=== PATIENT | female | born 1950 | race Caucasian/White ===

== ENCOUNTER → 2016-09-05 | Outpatient (CLI) | payer OTHER, BC ==
[~2016-09-05] MED LIST: CHOL1TAB42 PO; Ergocalciferol PO; FRS/40 PO; METO2.5T PO; OXYC-57 PO; OXYC-609 PO; OXYC1TAB3 PO; POTA-74 PO; PRLSR20 PO; PRVHFAIN INH; SUMA100T16 PO; SUMA50TA15 PO; TRIA0.1C20 TOP
--- NOTE | 2016-09-05 11:11 | DIAGNOSTIC IMAGING REPORT ---
CHEST 2 VIEWS ROUTINE CLINICAL HISTORY: Bronchospasm, acute dyspnea COMPARISON STUDY: 10/13/2014 FINDINGS: Potential developing nodular density left base laterally. Lungs otherwise are clear. No evidence for cardiac collision. Diaphragms are smooth. IMPRESSION: Potential developing nodular density versus round infiltrate left base. CT of the chest is suggested as follow-up. Electronically signed by: Rene Rod M.D. 09/05/2016 11:10 AM Dictated Date/Time: 09/05/2016 11:08 AM
== END | disposition home or self-care (01) ==
LOC: C.RADBC 10:56
PROVIDERS: ATTEND Physician Assistant
DX: J98.01 Acute bronchospasm (principal); R91.8 Other nonspecific abnormal finding of lung field

== ENCOUNTER → 2016-10-07 | Outpatient (CLI) | payer OTHER, BC ==
--- NOTE | 2016-10-07 10:40 | DIAGNOSTIC IMAGING REPORT ---
CHEST CT WITHOUT CONTRAST CT DOSE: 1062.71 mGy.cm HISTORY: Nodule J18.9 Pneumonia TECHNIQUE: Multiaxial CT images of the chest were performed without contrast. COMPARISON: Chest series dated 09/05/2016 FINDINGS: Lungs are considered clear no focal infiltrate or nodular pathology. Findings on the patient's prior chest series appears to relate to a resolved infiltrate. No significant mediastinal or hilar adenopathy. IMPRESSION: No acute process. The lungs are clear. Electronically signed by: Rene Rod M.D. 10/07/2016 10:38 AM Dictated Date/Time: 10/07/2016 10:35 AM
[2016-10-07 12:23] LABS: BASO % 0.2 %; BASO ABS # 0.02 K/uL (0-0.2); COMPLETE YES; EOS % 0.6 %; HEMATOCRIT 43.4 % (37-47); IG% 0.6 %; LYMPH % 18.3 %; LYMPH ABS # 1.85 K/uL (1.2-3.4); MEAN CELL VOLUME 95.2 fL (80-100); MEAN CORPUSCULAR HEMOGLOBIN 30.7 pg (25-34); MEAN CORPUSCULAR HGB CONC 32.3 g/dl (32-36); MEAN PLATELET VOLUME 10.3 fL (7.4-10.4); MONO % 6.7 %; NEUT % 73.6 %; PLATELET COUNT 294 K/uL (130-400); RED BLOOD COUNT 4.56 M/uL (4.2-5.4); WHITE BLOOD COUNT 10.11 K/uL (4.8-10.8)
[2016-10-07 12:46] LABS: ALT/SGPT 26 U/L (12-78); AST/SGOT 16 U/L (15-37); BLOOD UREA NITROGEN 16 mg/dl (7-18); BUN/CREATININE RATIO 15.9 (10-20); CARBON DIOXIDE 31 mmol/L (21-32); CHLORIDE 99 mmol/L (98-107); CREATININE 0.99 mg/dl (0.60-1.20); GLUCOSE 102 mg/dl (70-99); POTASSIUM 3.4 mmol/L (3.5-5.1); SODIUM 139 mmol/L (136-145)
[2016-10-07 12:48] LABS: ALB/GLOB RATIO 0.9 (0.9-2); ALKALINE PHOSPHATASE 141 U/L (45-117)
[2016-10-07 13:17] LABS: ESTIMATED AVERAGE GLUCOSE 131 mg/dl; HA1C FLAG Normal (Normal)
== END | disposition home or self-care (01) ==
LOC: C.CTS 10:01
PROVIDERS: ATTEND Physician Assistant
DX: J18.9 Pneumonia, unspecified organism (principal); M19.90 Unspecified osteoarthritis, unspecified site; E55.9 Vitamin D deficiency, unspecified; M48.06 Spinal stenosis, lumbar region; R73.9 Hyperglycemia, unspecified; I87.2 Venous insufficiency (chronic) (peripheral); R74.8 Abnormal levels of other serum enzymes

== ENCOUNTER → 2017-01-24 | Outpatient (CLI) | payer OTHER, BC ==
[~2017-01-24] MED LIST changes: +CHOL1TAB42 PEG; -CHOL1TAB42 PO; -OXYC-57 PO; -OXYC-609 PO; -POTA-74 PO; -PRVHFAIN INH; -SUMA100T16 PO
== END | disposition home or self-care (01) ==
LOC: C.LAB 09:18
PROVIDERS: ATTEND Internal Medicine Geriatric Medicine
DX: E55.9 Vitamin D deficiency, unspecified (principal)

== ENCOUNTER → 2017-03-10 | Outpatient (CLI) | payer OTHER, BC ==
[~2017-03-10] MED LIST changes: -Ergocalciferol PO; +OXYC-57 PO; -OXYC1TAB3 PO; +PRVHFAIN INH; -TRIA0.1C20 TOP
[2017-03-10 12:23] LABS: URINE APPEARANCE CLEAR (CLEAR); URINE BILIRUBIN NEG (NEG); URINE COLOR YELLOW; URINE NITRITE NEG (NEG); URINE SPECIFIC GRAVITY 1.007 (1.000-1.030); UROBILINOGEN NEG (NEG)
[2017-03-10 12:29] LABS: MANUAL MICROSCOPIC REQUIRED? NO; REVIEW REQ? NO
== END | disposition home or self-care (01) ==
LOC: C.LABBFT 09:00
PROVIDERS: ATTEND Physician Assistant
DX: R35.0 Frequency of micturition (principal)

== ENCOUNTER 2017-03-25 09:49 | Emergency (ER) | payer OTHER, BC ==
[~2017-03-25] VITALS: Ht 154.9 cm; Wt 123.6 kg
[~2017-03-25 09:49] MED LIST changes: -CHOL1TAB42 PEG; +CHOL1TAB42 PO
[2017-03-25 10:00] VITALS: TEMP 37; Ht 154.9 cm; Wt 123.6 kg
[2017-03-25 10:53] LABS: BASO % 0.2 %; BASO ABS # 0.02 K/uL (0-0.2); COMPLETE YES; EOS % 0.6 %; HEMATOCRIT 43.3 % (37-47); IG% 0.3 %; LYMPH % 15.8 %; LYMPH ABS # 1.66 K/uL (1.2-3.4); MEAN CELL VOLUME 95.8 fL (80-100); MEAN CORPUSCULAR HEMOGLOBIN 31.9 pg (25-34); MEAN CORPUSCULAR HGB CONC 33.3 g/dl (32-36); MEAN PLATELET VOLUME 9.8 fL (7.4-10.4); MONO % 5.2 %; NEUT % 77.9 %; PLATELET COUNT 252 K/uL (130-400); RED BLOOD COUNT 4.52 M/uL (4.2-5.4)
[2017-03-25] MEDS ORDERED: POTA-74 PO (10:55)
[2017-03-25] MEDS ORDERED: SUMA100T16 PO (10:55)
[2017-03-25] MEDS ORDERED: OXYC-609 PO (10:55)
[2017-03-25 11:04] LABS: URINE APPEARANCE CLEAR (CLEAR); URINE BILIRUBIN NEG (NEG); URINE COLOR YELLOW; URINE NITRITE NEG (NEG); URINE SPECIFIC GRAVITY 1.006 (1.000-1.030); UROBILINOGEN NEG (NEG)
[2017-03-25 11:11] LABS: MANUAL MICROSCOPIC REQUIRED? NO; REVIEW REQ? NO
[2017-03-25 11:16] LABS: CREATININE 0.83 mg/dl (0.60-1.20)
[2017-03-25 11:17] LABS: BUN/CREATININE RATIO 13.9 (10-20); CALCIUM 9.6 mg/dl (8.5-10.1); POTASSIUM 3.3 mmol/L (3.5-5.1)
--- NOTE | 2017-03-25 11:37 | DIAGNOSTIC IMAGING REPORT ---
ABDOMEN AND PELVIS CT WITHOUT CONTRAST CT DOSE: 1669.67 mGy.cm HISTORY: Acute lower abdominal pain with lower leg edema. lower abd pain, decreased urination, lower leg edema TECHNIQUE: Multiaxial CT images of the abdomen and pelvis were performed without contrast. A dose lowering technique was utilized adhering to the principles of ALARA. COMPARISON STUDY: CT abdomen and pelvis 01/11/2010 FINDINGS: Lung bases are generally clear with only minimal subsegmental dependent bibasilar atelectasis. Small right Bochdalek hernia. No pneumatosis or pneumoperitoneum. Imaged inferior cardiac chambers are unremarkable. Fatty infiltration of the liver. The spleen, pancreas and gallbladder are unremarkable. Bilateral adrenal gland thickening redemonstrated. Nonspecific symmetric perinephric stranding is noted bilaterally without renal calculi or hydronephrosis. Ureters are unremarkable. Muller catheter is noted within a collapsed urinary bladder lumen. Foci of air within the bladder lumen likely secondary to instrumentation. Uterus and adnexa are unremarkable. Mild atherosclerosis of the aorta. No bulky retroperitoneal adenopathy. No bowel obstruction or focal bowel wall thickening. Mild colonic diverticulosis without diverticulitis. There is nondistention involving the majority of the colon. The appendix demonstrates high attenuating intraluminal material which may reflect appendicolith or inspissated stool. No evidence of acute appendicitis. Soft tissues are unremarkable. The bones appear intact. Patient obesity noted. Degenerative changes are seen throughout the spine. Grade 1 anterolisthesis L4 on L5, likely secondary to associated severe facet disease. IMPRESSION: 1. No acute intra-abdominal or intrapelvic abnormality identified. No renal calculi or hydronephrosis. 2. Fatty infiltration of the liver. 3. Mild colonic diverticulosis without diverticulitis. 4. Additional findings as above. Electronically signed by: Imtiaz Interiano M.D. 03/25/2017 11:36 AM Dictated Date/Time: 03/25/2017 11:29 AM
[2017-03-25 12:49] VITALS: BP 128/84; PULSE 68; O2SAT 94
--- NOTE | 2017-03-25 17:57 | EMERGENCY ROOM VISIT NOTE ---
History Report prepared by Julia: Breann Khan Under the Supervision of: Dr. John Bishop M.D. First contact with patient: 10:07 Chief Complaint: URINARY SYMPTOMS Stated Complaint: POSSIBLE DISTENDED BLADDER Nursing Triage Summary: Had Surgery Feb 16 (rotator cuff, left arm, was actually nerve compression and bone spurs) which messed up her lungs and is now on oxygen 2LNC. 3 weeks later legs were swelling, which was normal, but got worse than normal and she saw PA Mar 06. Mar 10, after taking double lasix x 3 days, legs weren't any better. Concerned about distended bladder, stomach was real hard last night. Urinating small amounts at a time. History of Present Illness The patient is a 66 year old female who presents to the Emergency Room with complaints of urinary symptoms beginning a couple days ago. She states that she had surgery on February 16, was fine for 3 weeks, and then she started having bilateral leg swelling. She reports that her legs are usually somewhat swollen due to neuropathy. She states that she was placed on fluid pills for 3 days which did not help. She states she was then sent for a urine test which was negative. The patient states that in the last couple of days her stomach has gotten hard, and that she has had urine retention. She reports chronic back pain due to spinal stenosis, but states that her pain has recently worsened. Pt denies LOC, headache, fevers, chills, diaphoresis, visual changes, neck pain, chest pain, nausea, vomiting, melena, hematochezia, numbness, weakness, or other complaints. The patient states that she is borderline diabetic. Source of History: patient Onset: couple days ago Position: other (bladder) Quality: other (urinary symptoms ) Associated Symptoms: + abdominal pain (abdomen has been hard), No fevers Review of Systems See HPI for pertinent positives and negatives. A total of ten systems were reviewed and were otherwise negative. Past Medical & Surgical Medical Problems: (1) Acute hypoxemic respiratory failure Surgical Problems: (1) S/P tubal ligation Social History Smoking Status: Current Every Day Smoker Alcohol Use: occasionally Drug Use: none Marital Status: in relationship Housing Status: lives with significant other Current/Historical Medications Scheduled Cholecalciferol (Vitamin D), 1 TAB PO QAM Furosemide (Lasix), 40 MG PO QAM Metolazone (Zaroxolyn), 2.5 MG PO QAM Omeprazole (Prilosec), 40 MG PO QAM Oxycodone HCl (Oxycodone HCl), 5 MG PO Q4-6H Potassium Chloride (Potassium Chloride Er), 10 MEQ PO BID Scheduled PRN Albuterol (Ventolin Hfa), 2 PUFF INH Q4 PRN for SOB/Wheezing Sumatriptan Succinate (Imitrex), 50 MG PO PRN PRN for Migraine Allergies Coded Allergies: Fentanyl (Verified Allergy, Severe, HIVES, 03/25/17) Tramadol (Verified Adverse Reaction, Mild, hallucination, 03/25/17) Amoxicillin (Verified Adverse Reaction, Unknown, FLUID RETENTION, 03/25/17) Aspirin (Verified Adverse Reaction, Unknown, ULCER, 03/25/17) Doxycycline (Verified Adverse Reaction, Unknown, FLUID RETENTION, 03/25/17) Gabapentin (Verified Adverse Reaction, Unknown, hallucinations, 03/25/17) Ibuprofen (Verified Adverse Reaction, Unknown, ULCER, 03/25/17) Naproxen (Verified Adverse Reaction, Unknown, ULCERS, 03/25/17) Physical Exam Vital Signs Date Time Temp Pulse Resp B/P (MAP) Pulse Ox O2 Delivery O2 Flow Rate FiO2 03/25/17 12:49 68 16 128/84 94 03/25/17 11:48 74 14 103/64 97 03/25/17 11:12 Nasal Cannula 2.0 03/25/17 11:11 74 20 110/50 90 03/25/17 10:00 37.0 85 17 131/78 92 Physical Exam GENERAL: Awake, alert, well-appearing, in no distress HENT: Normocephalic, atraumatic. Oropharynx unremarkable. EYES: Normal conjunctiva. Sclera non-icteric. NECK: Supple. No nuchal rigidity. FROM. No JVD. RESPIRATORY: Clear to auscultation. CARDIAC: Regular rate, normal rhythm. Extremities warm and well perfused. Pulses equal. ABDOMEN: Soft, non-distended. Suprapubic tenderness. No rebound or guarding. No masses. RECTAL: Deferred. MUSCULOSKELETAL: Chest examination reveals no tenderness. The back is symmetrical on inspection without obvious abnormality. There is no CVA tenderness to palpation. No joint edema. LOWER EXTREMITIES: Calves are equal size bilaterally and non-tender. 1+ lower extremity edema bilaterally. No discoloration. NEURO: Normal sensorium. No sensory or motor deficits noted. SKIN: No rash or jaundice noted. Medical Decision & Procedures ER Provider Diagnostic Interpretation: Radiology results as stated below per my review and radiologist interpretation: ABDOMEN AND PELVIS CT WITHOUT CONTRAST CT DOSE: 1669.67 mGy.cm HISTORY: Acute lower abdominal pain with lower leg edema. lower abd pain, decreased urination, lower leg edema TECHNIQUE: Multiaxial CT images of the abdomen and pelvis were performed without contrast. A dose lowering technique was utilized adhering to the principles of ALARA. COMPARISON STUDY: CT abdomen and pelvis 01/11/2010 FINDINGS: Lung bases are generally clear with only minimal subsegmental dependent bibasilar atelectasis. Small right Bochdalek hernia. No pneumatosis or pneumoperitoneum. Imaged inferior cardiac chambers are unremarkable. Fatty infiltration of the liver. The spleen, pancreas and gallbladder are unremarkable. Bilateral adrenal gland thickening redemonstrated. Nonspecific symmetric perinephric stranding is noted bilaterally without renal calculi or hydronephrosis. Ureters are unremarkable. Muller catheter is noted within a collapsed urinary bladder lumen. Foci of air within the bladder lumen likely secondary to instrumentation. Uterus and adnexa are unremarkable. Mild atherosclerosis of the aorta. No bulky retroperitoneal adenopathy. No bowel obstruction or focal bowel wall thickening. Mild colonic diverticulosis without diverticulitis. There is nondistention involving the majority of the colon. The appendix demonstrates high attenuating intraluminal material which may reflect appendicolith or inspissated stool. No evidence of acute appendicitis. Soft tissues are unremarkable. The bones appear intact. Patient obesity noted. Degenerative changes are seen throughout the spine. Grade 1 anterolisthesis L4 on L5, likely secondary to associated severe facet disease. IMPRESSION: 1. No acute intra-abdominal or intrapelvic abnormality identified. No renal calculi or hydronephrosis. 2. Fatty infiltration of the liver. 3. Mild colonic diverticulosis without diverticulitis. 4. Additional findings as above. Electronically signed by: Imtiaz Interiano M.D. 03/25/2017 11:36 AM Dictated Date/Time: 03/25/2017 11:29 AM Laboratory Results 03/25/17 10:40 Red Blood Count 4.52, Mean Corpuscular Volume 95.8, Mean Corpuscular Hemoglobin 31.9, Mean Corpuscular Hemoglobin Concent 33.3, Mean Platelet Volume 9.8, Neutrophils (%) (Auto) 77.9, Lymphocytes (%) (Auto) 15.8, Monocytes (%) (Auto) 5.2, Eosinophils (%) (Auto) 0.6, Basophils (%) (Auto) 0.2, Neutrophils # (Auto) 8.18, Lymphocytes # (Auto) 1.66, Monocytes # (Auto) 0.55, Eosinophils # (Auto) 0.06, Basophils # (Auto) 0.02 03/25/17 10:40 Test 03/25/17 00:00 03/25/17 10:40 Urine Color YELLOW Urine Appearance CLEAR (CLEAR) Urine pH 7.0 (4.5-7.5) Urine Specific [place] 1.006 (1.000-1.030) Urine Protein NEG (NEG) Urine Glucose (UA) NEG (NEG) Urine Ketones NEG (NEG) Urine Occult Blood NEG (NEG) Urine Nitrite NEG (NEG) Urine Bilirubin NEG (NEG) Urine Urobilinogen NEG (NEG) Urine Leukocyte Esterase NEG (NEG) White Blood Count 10.50 K/uL (4.8-10.8) Red Blood Count 4.52 M/uL (4.2-5.4) Hemoglobin 14.4 g/dL (12.0-16.0) Hematocrit 43.3 % (37-47) Mean Corpuscular Volume 95.8 fL (80-100) Mean Corpuscular Hemoglobin 31.9 pg (25-34) Mean Corpuscular Hemoglobin Concent 33.3 g/dl (32-36) Platelet Count 252 K/uL (130-400) Mean Platelet Volume 9.8 fL (7.4-10.4) Neutrophils (%) (Auto) 77.9 % Lymphocytes (%) (Auto) 15.8 % Monocytes (%) (Auto) 5.2 % Eosinophils (%) (Auto) 0.6 % Basophils (%) (Auto) 0.2 % Neutrophils # (Auto) 8.18 K/uL (1.4-6.5) Lymphocytes # (Auto) 1.66 K/uL (1.2-3.4) Monocytes # (Auto) 0.55 K/uL (0.11-0.59) Eosinophils # (Auto) 0.06 K/uL (0-0.5) Basophils # (Auto) 0.02 K/uL (0-0.2) RDW Standard Deviation 48.1 fL (36.4-46.3) RDW Coefficient of Variation 13.8 % (11.5-14.5) Immature Granulocyte % (Auto) 0.3 % Immature Granulocyte # (Auto) 0.03 K/uL (0.00-0.02) Anion Gap 8.0 mmol/L (3-11) Est Creatinine Clear Calc Drug Dose 82.2 ml/min Estimated GFR () 85.2 Estimated GFR (Non- 73.5 BUN/Creatinine Ratio 13.9 (10-20) Calcium Level 9.6 mg/dl (8.5-10.1) Total Bilirubin 0.6 mg/dl (0.2-1) Direct Bilirubin 0.2 mg/dl (0-0.2) Aspartate Amino Transf (AST/SGOT) 21 U/L (15-37) Alanine Aminotransferase (ALT/SGPT) 22 U/L (12-78) Alkaline Phosphatase 147 U/L (45-117) Total Protein 7.3 gm/dl (6.4-8.2) Albumin 3.5 gm/dl (3.4-5.0) Lipase 71 U/L (73-393) Laboratory results reviewed by pr ED Course 1023: The patient was evaluated in room B9. A complete history and physical exam was performed. 1141: The patient's Muller catheter put out 300 ml of fluid. 1247: I reevaluated the patient. Discussed results and discharge instructions: She verbalized understanding and agreement. The patient is ready for discharge. Medical Decision Triage Nursing notes reviewed. The patient's presentation and history were concerning for urinary issues. Etiologies such as renal colic, appendicitis, diverticulitis, mesenteric ischemia, aortic pathology, infections, inflammatory bowel disease, PUD, biliary pathology, UTI, urinary retention as well as others were entertained. The patient was evaluated. Clinically she was doing well. She has a mild suprapubic discomfort. A bladder scan was performed. It did not reveal any significant levels of urine and therefore a Muller catheter was placed. The patient had 300 mL of urine out. She underwent CT imaging which was unremarkable. Her blood work and urinalysis were unremarkable as well. On reassessment the patient is doing well. The Muller catheter was removed. The patient was observed. She was able to void without difficulty. As the patient is doing very well at this time I discussed conservative management with close outpatient follow-up with urology. She has previously had a bladder lift performed. She does not have any other neurologic issues or significant back pain at this point in time. The patient felt comfortable with conservative management. She does admit that she has not been taking her medications regarding her potassium and diuretic on a regular basis. The patient was encouraged.I gave my usual and customary discussion regarding this issue. She was also referred to her PCP. By the evaluation outlined above other emergent etiologies such as those listed in the differential, as well as others, were deemed relatively unlikely. The patient was educated about the findings as listed above. All questions were answered and the patient was pleased with the treatment. Return instructions were outlined and the patient was discharged in stable condition. The patient was referred to urology and her PCP for follow-up for a recheck of the current condition. Medication Reconcilliation Current Medication List: was personally reviewed by me Blood Pressure Screening Patient's blood pressure: Normal blood pressure Impression Primary Impression: Lower abdominal pain Additional Impression: Urinary retention Scribe Attestation The scribe's documentation has been prepared under my direction and personally reviewed by me in its entirety. I confirm that the note above accurately reflects all work, treatment, procedures, and medical decision making performed by me. Departure Information Dispostion Home / Self-Care Referrals Shane José M.D. (PCP) Forms HOME CARE DOCUMENTATION FORM, IMPORTANT VISIT INFORMATION Patient Instructions [facility] Additional Instructions Continue current medications. Tylenol: Take 1000 mg every 6 hours as needed for pain. Do not take more than 3000 mg in a 24 hour period. Return to the ER for worsening abdominal or back pain, urinary issues, vomiting , fevers, passing out, or as needed. Follow up with [facility] Monday, [phone], to arrange a visit. Problem Qualifiers
== END 2017-03-25 12:55 | disposition home or self-care (01) ==
LOC: C.EDB 09:51
DX: R33.9 Retention of urine, unspecified (principal); R10.30 Lower abdominal pain, unspecified; F17.200 Nicotine dependence, unspecified, uncomplicated; Z98.51 Tubal ligation status; Z79.899 Other long term (current) drug therapy; Z88.1 Allergy status to other antibiotic agents; Z88.6 Allergy status to analgesic agent

== ENCOUNTER 2017-08-27 08:38 | Emergency (ER) | payer OTHER, BC ==
[~2017-08-27] VITALS: Ht 152.4 cm; Wt 97.6 kg
[~2017-08-27 08:38] MED LIST changes: -OXYC-57 PO; +OXYC-609 PO; +POTA-74 PO; +SUMA100T16 PO; -SUMA50TA15 PO
[2017-08-27 08:46] VITALS: TEMP 37.2
[2017-08-27] MEDS ORDERED: SODIUM CHLORIDE 0.9% 500ML 500 ML IV STA (08:52)
[2017-08-27] MEDS ORDERED: DILTIAZEM HCL 5 MG/ML 5 ML VIAL IV STA (08:52)
--- NOTE | 2017-08-27 08:54 | EMERGENCY ROOM VISIT NOTE ---
History Report prepared by Julia: Janet Quintana Under the Supervision of: Dr. Laron Craft D.O. First contact with patient: 08:41 Stated Complaint: AFIB History of Present Illness The patient is a 66 year old female who presents to the Emergency Room with complaints of Afib beginning a couple of days lighter captain. She states a couple of days ago, she woke up in the middle of the night to her chest persistently pounding. She denies any fevers, chills, nausea, vomiting, or SOB. She currently smokes a pack a day but denies being on any blood thinners. Source of History: patient Onset: a couple of days lighter captain Position: chest Quality: other (pounding ) Timing: other (persistent) Associated Symptoms: No fevers, No chills, No SOB, No nausea, No vomiting Review of Systems See HPI for pertinent positives & negatives. A total of 10 systems reviewed and were otherwise negative. Past Medical & Surgical Medical Problems: (1) Acute hypoxemic respiratory failure Surgical Problems: (1) S/P tubal ligation Family History No pertinent family history Social History Smoking Status: Current Every Day Smoker Alcohol Use: occasionally Drug Use: none Marital Status: in relationship Housing Status: lives with significant other Current/Historical Medications Scheduled Cholecalciferol (Vitamin D), 5,000 UNITS PO QAM Diltiazem Hcl (Cardizem), 30 MG PO DAILY Furosemide (Lasix), 40 MG PO QAM Metolazone (Zaroxolyn), 2.5 MG PO QAM Omeprazole (Prilosec), 40 MG PO QAM Oxycodone HCl (Oxycodone HCl), 5 MG PO Q4-6H Potassium Chloride (Potassium Chloride Er), 10 MEQ PO BID Scheduled PRN Albuterol Hfa (Ventolin Hfa), 2 PUFFS INH Q4H PRN for SOB/Wheezing Sumatriptan Succinate (Imitrex), 50 MG PO PRN PRN for Migraine Allergies Coded Allergies: Fentanyl (Verified Allergy, Severe, HIVES, 08/27/17) NSAIDs (Unverified Allergy, Severe, ULCERS, 08/27/17) Tramadol (Verified Adverse Reaction, Mild, hallucination, 08/27/17) Amoxicillin (Verified Adverse Reaction, Unknown, FLUID RETENTION, 08/27/17) Aspirin (Verified Adverse Reaction, Unknown, ULCER, 08/27/17) Doxycycline (Verified Adverse Reaction, Unknown, FLUID RETENTION, 08/27/17) Gabapentin (Verified Adverse Reaction, Unknown, hallucinations, 08/27/17) Ibuprofen (Verified Adverse Reaction, Unknown, ULCER, 08/27/17) Naproxen (Verified Adverse Reaction, Unknown, ULCERS, 08/27/17) Physical Exam Vital Signs Date Time Temp Pulse Resp B/P (MAP) Pulse Ox O2 Delivery O2 Flow Rate FiO2 08/27/17 12:00 61 17 104/58 92 Room Air 08/27/17 11:05 61 15 96 08/27/17 11:01 99/46 08/27/17 10:50 102/58 08/27/17 10:41 101/47 08/27/17 10:35 67 17 95 08/27/17 10:30 94/52 08/27/17 10:25 70 17 96 08/27/17 10:20 102/56 08/27/17 10:10 89/54 08/27/17 10:00 100/54 08/27/17 09:55 78 17 96 08/27/17 09:50 95/53 08/27/17 09:48 79 19 96 08/27/17 09:38 83 16 08/27/17 09:21 111/56 08/27/17 09:18 85 17 96 08/27/17 09:14 113/58 08/27/17 09:13 80 08/27/17 09:08 131 22 95 08/27/17 08:58 143 12 90 08/27/17 08:58 91 Nasal Cannula 2.0 08/27/17 08:58 94 Nasal Cannula 2.0 08/27/17 08:53 103/69 08/27/17 08:48 130 18 08/27/17 08:47 171 08/27/17 08:46 37.2 134 17 103/69 91 Room Air 08/27/17 08:46 91 Room Air Physical Exam GENERAL: Patient is awake, alert, and in no acute distress. Patient is resting comfortably and showing no signs of anxiety EYES: The conjunctivae are clear. The pupils are round and reactive. EARS, NOSE, MOUTH AND THROAT: The nose is without any evidence of any deformity. Mucous membranes are moist tongue is midline NECK: The neck is nontender and supple. RESPIRATORY: Normal respiratory effort is noted there is no evidence of wheezing rhonchi or rales CARDIOVASCULAR: Irregular rate noted to auscultation. Tachycardic rate noted to auscultation. GASTROINTESTINAL: The abdomen is soft. Bowel sounds are present in all quadrants. Abdomen is nontender MUSCULOSKELETAL/EXTREMITIES: There is no evidence of gross deformity full range of motion is noted in the hips and shoulders SKIN: Pedal edema bilaterally with venous stasis changes noted NEUROLOGIC: Patient is awake alert and oriented x3 strength is symmetric patellar reflexes are 2+ bilaterally Medical Decision & Procedures ER Provider Diagnostic Interpretation: Radiology results as stated below per my review and radiologist interpretation: CHEST ONE VIEW PORTABLE HISTORY: 66 years-old Female EVALUATE ALTERED MENTAL STATUS/WEAKNESS acute altered mental status with weakness COMPARISON: Chest radiograph 02/16/2017 TECHNIQUE: Portable AP view of the chest FINDINGS: Cardiac silhouette is mildly enlarged. Atherosclerosis of the aorta. No pneumothorax or large pleural effusion. There is improved aeration of the left lung base from comparison. Ill-defined lateral left lung base opacity suggests prominent epicardial fat pad with atelectasis. No overt pulmonary edema or lobar airspace consolidation. Bones of the chest appear grossly intact. IMPRESSION: Cardiomegaly without acute process. The above report was generated using voice recognition software. It may contain grammatical, syntax or spelling errors. Electronically signed by: Imtiaz Interiano M.D. 08/27/2017 9:45 AM Laboratory Results 08/27/17 08:45 Red Blood Count 4.75, Mean Corpuscular Volume 92.4, Mean Corpuscular Hemoglobin 32.0, Mean Corpuscular Hemoglobin Concent 34.6, Mean Platelet Volume 9.6, Neutrophils (%) (Auto) 75.2, Lymphocytes (%) (Auto) 16.1, Monocytes (%) (Auto) 6.5, Eosinophils (%) (Auto) 1.5, Basophils (%) (Auto) 0.3, Neutrophils # (Auto) 8.52, Lymphocytes # (Auto) 1.82, Monocytes # (Auto) 0.74, Eosinophils # (Auto) 0.17, Basophils # (Auto) 0.03 08/27/17 08:45 Test 08/27/17 08:45 08/27/17 09:30 White Blood Count 11.33 K/uL (4.8-10.8) Red Blood Count 4.75 M/uL (4.2-5.4) Hemoglobin 15.2 g/dL (12.0-16.0) Hematocrit 43.9 % (37-47) Mean Corpuscular Volume 92.4 fL (80-100) Mean Corpuscular Hemoglobin 32.0 pg (25-34) Mean Corpuscular Hemoglobin Concent 34.6 g/dl (32-36) Platelet Count 293 K/uL (130-400) Mean Platelet Volume 9.6 fL (7.4-10.4) Neutrophils (%) (Auto) 75.2 % Lymphocytes (%) (Auto) 16.1 % Monocytes (%) (Auto) 6.5 % Eosinophils (%) (Auto) 1.5 % Basophils (%) (Auto) 0.3 % Neutrophils # (Auto) 8.52 K/uL (1.4-6.5) Lymphocytes # (Auto) 1.82 K/uL (1.2-3.4) Monocytes # (Auto) 0.74 K/uL (0.11-0.59) Eosinophils # (Auto) 0.17 K/uL (0-0.5) Basophils # (Auto) 0.03 K/uL (0-0.2) RDW Standard Deviation 46.6 fL (36.4-46.3) RDW Coefficient of Variation 13.7 % (11.5-14.5) Immature Granulocyte % (Auto) 0.4 % Immature Granulocyte # (Auto) 0.05 K/uL (0.00-0.02) Prothrombin Time 9.8 SECONDS (9.0-12.0) Prothromb Time International Ratio 0.9 (0.9-1.1) Activated Partial Thromboplast Time 29.0 SECONDS (21.0-31.0) Partial Thromboplastin Ratio 1.1 Anion Gap 7.0 mmol/L (3-11) Est Creatinine Clear Calc Drug Dose 64.4 ml/min Estimated GFR () 77.2 Estimated GFR (Non- 66.6 BUN/Creatinine Ratio 13.2 (10-20) Calcium Level 8.9 mg/dl (8.5-10.1) Magnesium Level 1.7 mg/dl (1.8-2.4) Total Bilirubin 0.6 mg/dl (0.2-1) Direct Bilirubin 0.2 mg/dl (0-0.2) Aspartate Amino Transf (AST/SGOT) 20 U/L (15-37) Alanine Aminotransferase (ALT/SGPT) 22 U/L (12-78) Alkaline Phosphatase 168 U/L (45-117) Total Creatine Kinase 74 U/L (26-192) Creatine Kinase MB 1.1 ng/ml (0.5-3.6) Creatine Kinase MB Ratio 1.5 (0-3.0) Troponin I < 0.015 ng/ml (0-0.045) Total Protein 7.2 gm/dl (6.4-8.2) Albumin 3.3 gm/dl (3.4-5.0) Thyroid Stimulating Hormone (TSH) 0.724 uIu/ml (0.300-4.500) Urine Color YELLOW Urine Appearance CLEAR (CLEAR) Urine pH 7.0 (4.5-7.5) Urine Specific [place] 1.010 (1.000-1.030) Urine Protein NEG (NEG) Urine Glucose (UA) NEG (NEG) Urine Ketones NEG (NEG) Urine Occult Blood NEG (NEG) Urine Nitrite NEG (NEG) Urine Bilirubin NEG (NEG) Urine Urobilinogen NEG (NEG) Urine Leukocyte Esterase NEG (NEG) Laboratory results per my review. Medications Administered Medications (Trade) Dose Ordered Sig/Bertha Route Start Time Stop Time Status Last Admin Dose Admin Sodium Chloride 500 ml @ 999 mls/hr Q31M STAT IV 08/27/17 08:52 08/27/17 09:22 DC 08/27/17 09:08 999 MLS/HR Diltiazem HCl (Cardizem Inj) 10 mg NOW STAT IV 08/27/17 08:52 08/27/17 08:53 DC 08/27/17 09:08 10 MG Magnesium Sulfate (Magnesium Sulfate 1gm / D5W) 2 gm NOW STAT IV 08/27/17 09:11 08/27/17 09:12 DC 08/27/17 09:56 2 GM Potassium Chloride 100 ml @ 100 mls/hr NOW STAT IV 08/27/17 09:11 08/27/17 10:10 DC 08/27/17 09:20 100 MLS/HR Potassium Chloride (Klor-Con M10) 10 meq NOW STAT PO 08/27/17 09:11 08/27/17 09:12 DC 08/27/17 09:19 10 MEQ ECG Per My Interpretation Indication: chest pain Rate (beats per minute): 148 Rhythm: atrial fibrillation Findings: ST depression (diffuse), other (no PVCs, low voltage is noted throughout ) Comparison ECG Date: 02/17/17 Change: Atrial fibrillation has replaced sinus bradycardia Repeat EKG shows normal sinus rhythm, rate of 75, no ectopy, lateral and inferior T wave inversion noted, resolution of previously noted atrial fibrillation ED Course 0841: The patient was evaluated in room A10. A complete history and physical examination were performed. 0852: Ordered Cardiziem Inj 10 mg IV, NSS 500 ml @ 999 mls/hr IV 0911: Ordered Potassium Chloride 10 meq PO, Potassium Chloride 100 ml @ 100 mls/ hr IV, Magnesium Sulfate 2 gm IV 1000: I discussed the patient's case with Dr. Caban, [facility]. He recommended starting the patient on a medication for rate control, a blood thinner, and have her follow up in the office 1055: Upon reevaluation, the patient is feeling better. I discussed the results and treatment plan with her. She verbalized agreement of the treatment plan. She was discharged home. Medical Decision Prior records/ancillary studies reviewed. Triage Nursing notes reviewed. The patient's history was concerning for palpitations. Differential diagnosis: Etiologies such as premature contractions, electrolyte abnormality, cardiac dysrhythmia, thyroid dysfunction, pulmonary embolism, infection, gastrointestinal, as well as others were entertained. The patient is a 66-year-old female who presented to the emergency department for evaluation of palpitations. The patient was found to have rapid atrial fibrillation. She had some T-wave abnormalities noted. The patient was initially treated with IV fluids as well as IV Cardizem. She also had IV potassium and magnesium replacement. The patient was reevaluated multiple times. She converted to sinus rhythm while she was in the emergency department. I discussed the patient's laboratory and radiographic studies with her. I also discussed the need for rate control medication as well as anticoagulation. The patient was agreeable to start Cardizem. She did not wish to start on blood thinners at this time. She has a history of upper GI bleeding and is very concerned about this. I discussed patient's laboratory and radiographic studies with her. I also discussed this case with the on-call [facility] manager reimbursement. They have agreed to evaluate patient in follow-up for further management. Medication Reconcilliation Current Medication List: was personally reviewed by me Blood Pressure Screening Patient's blood pressure: Normal blood pressure Blood pressure disposition: Did not require urgent referral Consults Time Called: 0950 Consulting Physician: Dr. Caban, [facility] Returned Call: 1000 I discussed the patient's case with Dr. Caban [facility]. He recommended starting the patient on a medication for rate control, a blood thinner, and have her follow up in the office Impression Primary Impression: Atrial fibrillation with rapid ventricular response Additional Impressions: Hypokalemia Hypomagnesemia Scribe Attestation The scribe's documentation has been prepared under my direction and personally reviewed by me in its entirety. I confirm that the note above accurately reflects all work, treatment, procedures, and medical decision making performed by me. Departure Information Dispostion Home / Self-Care Prescriptions Diltiazem Hcl (CARDIZEM) 30 Mg Tab 30 MG PO DAILY, #30 TAB Prov: Laron Craft, DO 08/27/17 Referrals Shane José M.D. (PCP) Additional Instructions Continue all medications as prescribed. Follow-up with manager reimbursement this week as scheduled. Rest and avoid any strenuous activity. Consider starting an aspirin every morning. Return to the emergency department immediately if symptoms change worsen or the need arises. Problem Qualifiers
[2017-08-27 08:57] VITALS: Ht 152.4 cm; Wt 97.6 kg
[2017-08-27 08:57] LABS: BASO % 0.3 %; BASO ABS # 0.03 K/uL (0-0.2); EOS % 1.5 %; EOS ABS # 0.17 K/uL (0-0.5); HEMATOCRIT 43.9 % (37-47); HEMOGLOBIN 15.2 g/dL (12.0-16.0); IG# 0.05 K/uL (0.00-0.02); LYMPH % 16.1 %; LYMPH ABS # 1.82 K/uL (1.2-3.4); MEAN CELL VOLUME 92.4 fL (80-100); MEAN CORPUSCULAR HGB CONC 34.6 g/dl (32-36); MEAN PLATELET VOLUME 9.6 fL (7.4-10.4); MONO % 6.5 %; MONO ABS # 0.74 K/uL (0.11-0.59); NEUT % 75.2 %; NEUT ABS # 8.52 K/uL (1.4-6.5); PLATELET COUNT 293 K/uL (130-400); RED CELL DISTRIBUTION WIDTH CV 13.7 % (11.5-14.5); RED CELL DISTRIBUTION WIDTH SD 46.6 fL (36.4-46.3); WHITE BLOOD COUNT 11.33 K/uL (4.8-10.8)
[2017-08-27 08:58] VITALS: O2SAT 94
[2017-08-27 09:09] LABS: INR 0.9 (0.9-1.1)
[2017-08-27 09:10] LABS: ALBUMIN 3.3 gm/dl (3.4-5.0); ALT/SGPT 22 U/L (12-78); AST/SGOT 20 U/L (15-37); BLOOD UREA NITROGEN 12 mg/dl (7-18); CALCIUM 8.9 mg/dl (8.5-10.1); CARBON DIOXIDE 32 mmol/L (21-32); GLUCOSE 121 mg/dl (70-99); POTASSIUM 2.9 mmol/L (3.5-5.1); SODIUM 137 mmol/L (136-145)
[2017-08-27] MEDS ORDERED: MAGNESIUM SULFATE 1GM / D5W 1 GM BAG IV STA (09:11)
[2017-08-27] MEDS ORDERED: POTASSIUM CHLORIDE 10 MEQ TABCR PO STA (09:11)
[2017-08-27] MEDS ORDERED: POTASSIUM CHLR 10 MEQ / WTR 100 ML IV STA (09:11)
[2017-08-27] MEDS ORDERED: VNTHFA/IN INH (09:20)
[2017-08-27 09:21] LABS: ALKALINE PHOSPHATASE 168 U/L (45-117); CKMB 1.1 ng/ml (0.5-3.6); TOTAL PROTEIN 7.2 gm/dl (6.4-8.2)
--- NOTE | 2017-08-27 09:47 | DIAGNOSTIC IMAGING REPORT ---
CHEST ONE VIEW PORTABLE HISTORY: 66 years-old Female EVALUATE ALTERED MENTAL STATUS/WEAKNESS acute altered mental status with weakness COMPARISON: Chest radiograph 02/16/2017 TECHNIQUE: Portable AP view of the chest FINDINGS: Cardiac silhouette is mildly enlarged. Atherosclerosis of the aorta. No pneumothorax or large pleural effusion. There is improved aeration of the left lung base from comparison. Ill-defined lateral left lung base opacity suggests prominent epicardial fat pad with atelectasis. No overt pulmonary edema or lobar airspace consolidation. Bones of the chest appear grossly intact. IMPRESSION: Cardiomegaly without acute process. The above report was generated using voice recognition software. It may contain grammatical, syntax or spelling errors. Electronically signed by: Imtiaz Interiano M.D. 08/27/2017 9:45 AM Dictated Date/Time: 08/27/2017 9:44 AM
[2017-08-27] MEDS ORDERED: DILT30TA PO (10:53)
[2017-08-27 12:00] VITALS: BP 104/58; PULSE 61; O2SAT 92
== END 2017-08-27 12:15 | disposition home or self-care (01) ==
LOC: EDBD 08:38 → C.EDA 08:39
DX: I48.91 Unspecified atrial fibrillation (principal); E87.6 Hypokalemia; E83.42 Hypomagnesemia; Z87.19 Personal history of other diseases of the digestive system; F17.200 Nicotine dependence, unspecified, uncomplicated; Z88.1 Allergy status to other antibiotic agents; Z88.5 Allergy status to narcotic agent; Z88.6 Allergy status to analgesic agent; Z88.8 Allergy status to other drugs, medicaments and biological substances

== ENCOUNTER → 2017-09-04 | Outpatient (CLI) | payer OTHER, BC ==
[~2017-09-04] MED LIST changes: +DILT30TA PO; -PRVHFAIN INH; +VNTHFA/IN INH
[2017-09-04 12:18] LABS: BASO % 0.2 %; BASO ABS # 0.02 K/uL (0-0.2); EOS % 0.8 %; EOS ABS # 0.08 K/uL (0-0.5); HEMATOCRIT 44.5 % (37-47); HEMOGLOBIN 14.9 g/dL (12.0-16.0); IG# 0.04 K/uL (0.00-0.02); LYMPH % 13.9 %; LYMPH ABS # 1.43 K/uL (1.2-3.4); MEAN CELL VOLUME 93.9 fL (80-100); MEAN CORPUSCULAR HEMOGLOBIN 31.4 pg (25-34); MEAN CORPUSCULAR HGB CONC 33.5 g/dl (32-36); MEAN PLATELET VOLUME 10.1 fL (7.4-10.4); MONO % 4.2 %; MONO ABS # 0.43 K/uL (0.11-0.59); NEUT % 80.5 %; NEUT ABS # 8.27 K/uL (1.4-6.5); PLATELET COUNT 292 K/uL (130-400); RED CELL DISTRIBUTION WIDTH CV 13.9 % (11.5-14.5); RED CELL DISTRIBUTION WIDTH SD 47.9 fL (36.4-46.3); WHITE BLOOD COUNT 10.27 K/uL (4.8-10.8)
[2017-09-04 12:32] LABS: HEMOGLOBIN A1C 5.9 % (4.5-5.6)
[2017-09-04 12:41] LABS: ALBUMIN 3.4 gm/dl (3.4-5.0); ALKALINE PHOSPHATASE 157 U/L (45-117); ALT/SGPT 22 U/L (12-78); AST/SGOT 19 U/L (15-37); BLOOD UREA NITROGEN 14 mg/dl (7-18); CARBON DIOXIDE 33 mmol/L (21-32); CHOLESTEROL 214 mg/dl (0-200); CREATININE 0.86 mg/dl (0.60-1.20); GLUCOSE 105 mg/dl (70-99); POTASSIUM 3.6 mmol/L (3.5-5.1); SODIUM 137 mmol/L (136-145)
[2017-09-04 12:47] LABS: LDL CHOLESTEROL CALCULATED 144 mg/dl; TOTAL PROTEIN 7.3 gm/dl (6.4-8.2)
== END | disposition home or self-care (01) ==
LOC: C.LAB1850 10:26
PROVIDERS: ATTEND Physician Assistant
DX: M19.90 Unspecified osteoarthritis, unspecified site (principal); I87.2 Venous insufficiency (chronic) (peripheral); R73.9 Hyperglycemia, unspecified; R74.8 Abnormal levels of other serum enzymes; I48.91 Unspecified atrial fibrillation

== ENCOUNTER 2018-04-20 10:29 | Inpatient (IN) ==
--- NOTE | 2018-03-21 11:18 | Anesthesiology Consultation ---
Date of Service March 21, 2018 Assessment & Plan (1) Encounter for pre-operative examination: Plan: * Patient had a shoulder scope in 01/2017 with left interscalene block and GA with 7.0 ETT and MAC#4. Afterwards patient ended up being on O2 via NC for 3 months, which she states was due to the nerve block. Ended up being admitted and started on the supplemental O2 immediately after surgery and it was thought that there was phrenic nerve involvement in the interscalene.* Chart Review Chart Review: Acceptable Risk for Surgery and Patient seen in Pre Admission Testing Consults Requested medical & cardiac (Dr. Dottie José (04/02) and Dr. Benito (04/05)) Patient was seen by PCP's office on 04/02/18. Note from PA states "She is at elevated risk of pulmonary complications due to chronic smoking, COPD, chronic respiratory failure. She had difficulty with acute hypoxic respiratory failure after her last surgery. Understands that this is a risk, but feels that she has significant pain even at rest with her left shoulder and would like to have it fixed. She also understands that she will have compromised healing because of her continued smoking." Of note, at that point, patient did also have a suprapubic abscess for which she was on Bactrim. Was improving at that time. Patient was seen by the turf manager on 04/05. She was started on digoxin to help with rate control should she have a recurrence of atrial fibrillation. Note states, "From the cardiovascular standpoint I see no reason she cannot undergo shoulder surgery, I cannot prevent her necessarily from having atrial fibrillation but should she have it during her hospitalization we can treat it. It should be safe to stop her Eliquis for 48 hours prior to surgery and then begin it as soon as it is safe from the surgical standpoint afterwards." Teaching & Discussion Pre-Anesthesia Teaching/Discussion Notes: Instructed NPO after midnight before surgery, except medications with 15 cc of water. Medication instructions provided according to the PAT guidelines. History Surgery Operation Date: 04/20/18 13:00 Proposed Procedures p Left Total Shoulder Arthroplasty Neel - Jhoan Cheatham DO Height/Weight Height: 5 ft 2 in Weight: 117.7 kg Allergies Allergy/AdvReac Type Severity Reaction Status Date / Time fentanyl Allergy Severe HIVES Verified 03/09/18 12:36 NSAIDS (Non-Steroidal Allergy Severe DUODENAL Verified 03/14/18 11:46 Anti-Inflamma ULCER diltiazem AdvReac Mild Fluid Verified 03/21/18 11:24 retention tramadol AdvReac Mild hallucinati Verified 03/09/18 12:36 on amoxicillin AdvReac Unknown FLUID Verified 03/09/18 12:36 RETENTION aspirin AdvReac Unknown DUEODENAL Verified 03/14/18 11:46 ULCER doxycycline AdvReac Unknown FLUID Verified 03/09/18 12:36 RETENTION gabapentin AdvReac Unknown hallucinati Verified 03/09/18 12:36 ons ibuprofen AdvReac Unknown DUODENAL Verified 03/14/18 11:46 ULCER naproxen AdvReac Unknown DUODENAL Verified 03/14/18 11:46 ULCERS Medications Home Medications Medication Instructions Recorded Confirmed Last Taken albuterol sulfate [ProAir HFA] 2 puff INHALATION Q4 PRN 02/07/18 03/14/18 Unknown apixaban [Eliquis] 5 mg PO BID 02/07/18 03/14/18 03/09/18 cholecalciferol (vitamin D3) 5,000 unit PO DAILY 02/07/18 03/14/18 03/09/18 [Vitamin D3] furosemide [Lasix] 40 mg PO UD PRN 02/07/18 03/14/18 03/09/18 hydrocodone-acetaminophen [[place]] 1 tab PO QID PRN 02/07/18 03/14/18 Unknown magnesium chloride [Slow-Mag] 71.5 mg PO BID #30 tab 02/07/18 03/14/18 03/09/18 metolazone 2.5 mg PO QAM 02/07/18 03/14/18 03/09/18 omeprazole 40 mg PO QAM 02/07/18 03/14/18 03/09/18 potassium chloride 10 meq PO BID 02/07/18 03/14/18 03/09/18 sumatriptan succinate [Imitrex] 50 mg PO DIRECTED PRN 02/07/18 03/14/18 Unknown Past Medical History Medical History Osteoarthritis (Chronic) Peripheral neuropathy (Chronic) Prediabetes (Chronic) Spinal stenosis (Chronic) Vitamin D deficiency (Chronic) Bilateral lower extremity edema (Resolved) Migraine (Resolved) A-fib DX AUGUST 2017/NO CARDIOVERSION Asthma DX WITHIN LAST YR/"SLIGHT" History of anesthesia reaction FOLLOWING SHOULDER ARTHROSCOPY ([facility]) TROUBLE WITH BREATHING AFTER THE NERVE BLOCK - "MESSED WITH LUNGS AND HAD OXYGEN FOR THREE MONTHS AFTER" History of hypokalemia ED VISIT 03/09/18 History of palpitations 03/09/18 [facility] ED...PALPITATIONS, POTASSIUM LOW/REPLETED/FU WITH PIERRE History of peptic ulcer History of skin cancer Morbid obesity Stress incontinence CHRONIC Past Surgical History Surgical History H/O tubal ligation (Resolved) History of arthroscopy of left knee History of arthroscopy of left shoulder History of bladder surgery FOR STRESS INCONTINECE History of colonoscopy History of endoscopy History of skin cancer RESECTED/R UPPER LEG Past Anesthesia History No Family Hx of Anesthesia Complications Had scope of left shoulder last year and after nerve block she ended up on oxygen for several months. * Patient had a shoulder scope in 01/2017 with left interscalene block and GA with 7.0 ETT and MAC#4. Afterwards patient ended up being on O2 via NC for 3 months, which she states was due to the nerve block. Ended up being admitted and started on the supplemental O2 immediately after surgery and it was thought that there was phrenic nerve involvement in the interscalene.* History of PONV No Motion Sickness Screening History of Motion Sickness: No Social History Smoking Status: Current every day smoker tobacco type: cigarettes Smoking cigarettes per day: 1 PPD x 30+ years Do You Dip or Chew Tobacco: No Hx Alcohol Use: No Hx Substance Use: No substance use type: does not use Exercise / Class Metabolic Activity III < 4 Walking/Shop/Light housework (Minimal due to knee and shoulder pain. Can climb a few stairs, but not a whole flight...due to knee pain. Does get CP since developing a.fib. Also is constantly SOB. ) Review of Systems Patient denies reflux or cough. +chest pain (with a. fib) +SOB/VELASQUEZ +joint pain +palpitations +wheezing (relieved with albuterol) Physical Exam Vital Signs BP: 94/59 P: 54 R: 20 T: 98.3 SPO2: 95% on RA ENMT Mouth: + dentures (upper) Thyromental Distance: > or= 3.5 Finger Breadths (3.5) Mallampati Class: II Mouth / Teeth: 2 1. Upper dentures Neck normal visual inspection, trachea midline and + thick neck; neck extension not limited Respiratory normal respiratory effort Auscultation: lungs clear to auscultation bilaterally Cardiovascular Rate/Rhythm: + abnormal rate and + abnormal rhythm Heart Sounds: no murmur Vessels: no carotid bruit Irregularly, irregular rate and rhythm (consistent with a. fib) Psychiatric Orientation: alert and oriented x 3 Testing Electrocardiogram Date: 03/09/18 Findings: + NSR @ (62) Sinus arrhythmia. Low voltage QRS. Cannot rule out anterior infarct, age undetermined. Nonspecific ST and T wave abnormality. When compared with ECG of 02/07/18, sinus rhythm has replaced a. fib. Ventricular rate has decreased by 40 bpm. QT has shortened. Chest X-Ray Date: 03/21/18 Findings: + NAD Laboratory Results 03/21/18 12:05 Blood Type A Positive 03/21/18 12:05 Antibody Screen NEGATIVE 03/21/18 12:05 PT 10.3 Seconds (9.0-12.0) 03/21/18 12:05 INR 1.0 (0.9-1.1) 03/21/18 12:05 APTT 32.8 Seconds (21.0-31.0) H 03/21/18 12:05 Laboratory Tests 03/09/18 11:08 WBC 10.14 Hgb 14.3 Hct 43.5 Plt Count 269
--- NOTE | 2018-03-21 11:21 | PAT Medication Instructions ---
Medication Instructions Date of Service March 21, 2018 Home Medications Medication Instructions Recorded magnesium chloride [Slow-Mag] 71.5 mg PO BID #30 tab 02/07/18 albuterol sulfate [ProAir HFA] 2 puff INHALATION Q4 NEEDED apixaban [Eliquis] 5 mg PO BID cholecalciferol (vitamin D3) 5,000 unit PO DAILY furosemide [Lasix] 40 mg PO NEEDED hydrocodone-acetaminophen [[place]] 1 tab PO QID NEEDED magnesium chloride [Slow-Mag] 71.5 mg PO BID metolazone 2.5 mg PO QAM omeprazole 40 mg PO QAM potassium chloride 10 meq PO BID sumatriptan succinate [Imitrex] 50 mg PO DIRECTED NEEDED Per surgeon's instructions apixaban [Eliquis] 5 mg PO BID (hold for 3 days prior to surgery) Hold the morning of surgery cholecalciferol (vitamin D3) 5,000 unit PO DAILY furosemide [Lasix] 40 mg PO NEEDED hydrocodone-acetaminophen [[place]] 1 tab PO QID NEEDED magnesium chloride [Slow-Mag] 71.5 mg PO BID metolazone 2.5 mg PO QAM potassium chloride 10 meq PO BID sumatriptan succinate [Imitrex] 50 mg PO DIRECTED NEEDED Take morning of surgery Take the following medication the morning of surgery with a sip of water, OTHERWISE NOTHING TO EAT OR DRINK AFTER MIDNIGHT: albuterol sulfate [ProAir HFA] 2 puff INHALATION Q4 NEEDED - bring to the hospital omeprazole 40 mg PO QAM Take evening before surgery albuterol sulfate [ProAir HFA] 2 puff INHALATION Q4 NEEDED hydrocodone-acetaminophen [[place]] 1 tab PO QID NEEDED magnesium chloride [Slow-Mag] 71.5 mg PO BID potassium chloride 10 meq PO BID sumatriptan succinate [Imitrex] 50 mg PO DIRECTED NEEDED Other Notes If you have any questions please call us at [phone] or [phone] or [phone] or [phone]
[2018-03-21 12:56] LABS: BUN Creatinine Ratio 16.7 (10-20); Calcium 9.2 mg/dl (8.5-10.1); Creatinine Clr Calc Pharmacy 82.1 ml/min; Est GFR (African American) 87.1; Est GFR (Non-African American) 75.2; Potassium 3.7 mmol/L (3.5-5.1)
[2018-03-21 13:06] LABS: Partial Thromboplastin Ratio 1.3; Partial Thromboplastin Time 32.8 Seconds (21.0-31.0); Prothrombin Time 10.3 Seconds (9.0-12.0)
--- NOTE | 2018-03-21 14:23 | XRay Report ---
XR chest Pre-admission PA/Lat HISTORY: Preop. COMPARISON: Chest 03/09/2018. FINDINGS: The heart remains top normal in size. The lungs are clear. No pleural effusions. No pneumot horax. IMPRESSION: No acute process. Electronically signed by: Kamar Hagan M.D. 03/21/2018 2:22 PM
--- NOTE | 2018-04-20 06:43 | History & Physical Report ---
Date of Service April 20, 2018 Assessment & Plan (1) Rotator cuff arthropathy of left shoulder: We will proceed with a left reverse shoulder arthroplasty. Postoperatively she will be placed in an arm sling and discharged to the general orthopedic floors to be kept overnight for postoperative medical management. We plan to discharge her to home tomorrow morning with energy physical therapy. Present on Admission?: Yes History of Present Illness Chief Complaint: Rotator cuff arthropathy of the left shoulder Primary Care Provider: Shane José MD Jocelyn is a pleasant 67-year-old female who is been having a year and a half history of left shoulder pain. She did have surgery in January [address] Connolly for a cleanout procedure. She did not have a rotator cuff repair at that time. Unfortunately she ended up with a postoperative adhesive capsulitis and had another procedure done. After several rounds of injections, x-rays have shown progressive arthritis and superior migration of the humeral head within the glenoid. Her symptoms are not improving. She is constant pain and inability to raise her arm. She is elected to proceed with a reverse left shoulder arthroplasty. Allergies Allergy/AdvReac Type Severity Reaction Status Date / Time fentanyl Allergy Severe HIVES Verified 03/09/18 12:36 NSAIDS (Non-Steroidal Allergy Severe DUODENAL Verified 03/14/18 11:46 Anti-Inflamma ULCER diltiazem AdvReac Mild Fluid Verified 03/21/18 11:24 retention tramadol AdvReac Mild hallucinati Verified 03/09/18 12:36 on amoxicillin AdvReac Unknown FLUID Verified 03/09/18 12:36 RETENTION aspirin AdvReac Unknown DUEODENAL Verified 03/14/18 11:46 ULCER doxycycline AdvReac Unknown FLUID Verified 03/09/18 12:36 RETENTION gabapentin AdvReac Unknown hallucinati Verified 03/09/18 12:36 ons ibuprofen AdvReac Unknown DUODENAL Verified 03/14/18 11:46 ULCER naproxen AdvReac Unknown DUODENAL Verified 03/14/18 11:46 ULCERS Home Medications Home Medications Medication Instructions Recorded Confirmed Type albuterol sulfate [ProAir HFA] 2 puff INHALATION Q4 PRN 02/07/18 03/14/18 History apixaban [Eliquis] 5 mg PO BID 02/07/18 03/14/18 History cholecalciferol (vitamin D3) 5,000 unit PO DAILY 02/07/18 03/14/18 History [Vitamin D3] furosemide [Lasix] 40 mg PO UD PRN 02/07/18 03/14/18 History hydrocodone-acetaminophen [[place]] 1 tab PO QID PRN 02/07/18 03/14/18 History magnesium chloride [Slow-Mag] 71.5 mg PO BID #30 tab 02/07/18 03/14/18 Rx metolazone 2.5 mg PO QAM 02/07/18 03/14/18 History omeprazole 40 mg PO QAM 02/07/18 03/14/18 History potassium chloride 10 meq PO BID 02/07/18 03/14/18 History sumatriptan succinate [Imitrex] 50 mg PO DIRECTED PRN 02/07/18 03/14/18 History budesonide-formoterol [Symbicort] 2 puff INHALATION BID 04/19/18 04/19/18 History digoxin 1 tab PO DAILY 04/19/18 04/19/18 History metoprolol succinate 1 tab PO DAILY 04/19/18 04/19/18 History Past Med/Surg History Medical History Osteoarthritis (Chronic) Peripheral neuropathy (Chronic) Prediabetes (Chronic) Spinal stenosis (Chronic) Vitamin D deficiency (Chronic) Bilateral lower extremity edema (Resolved) Migraine (Resolved) A-fib DX AUGUST 2017/NO CARDIOVERSION Asthma DX WITHIN LAST YR/"SLIGHT" History of anesthesia reaction FOLLOWING SHOULDER ARTHROSCOPY ([facility]) TROUBLE WITH BREATHING AFTER THE NERVE BLOCK - "MESSED WITH LUNGS AND HAD OXYGEN FOR THREE MONTHS AFTER" History of hypokalemia ED VISIT 03/09/18 History of palpitations 03/09/18 [facility] ED...PALPITATIONS, POTASSIUM LOW/REPLETED/FU WITH MAOEDGGCHENTE History of peptic ulcer History of skin cancer Morbid obesity Stress incontinence CHRONIC Surgical History H/O tubal ligation (Resolved) History of arthroscopy of left knee History of arthroscopy of left shoulder History of bladder surgery FOR STRESS INCONTINECE History of colonoscopy History of endoscopy History of skin cancer RESECTED/R UPPER LEG Social History marital status: Current Living Situation: Significant Other Feels Safe at Home: Yes Smoking Status: Current every day smoker Tobacco Type: cigarettes Cigarettes per Day: 1 PPD x 30+ years Hx Alcohol Use: No Hx Substance Use: No Beliefs That Will Affect Care: None Preferred Language: Polish Communication Ability: Effective Review of Systems All systems reviewed & are unremarkable except as noted in HPI & below Physical Exam 2 Constitutional: WD/WN, vitals as above Eyes: PERRL, conjunctivae normal, anicteric sclerae ENMT: external ear and nose normal, oropharynx normal Neck: trachea midline, no thyromegaly Respiratory: normal respiratory effort Cardiovascular: RRR, no murmur, no edema Gastrointestinal (Abdomen): normal bowel sounds, soft, nontender, no hepatosplenomegaly Musculoskeletal: Physical examination of the left shoulder reveals decreased range of motion and significant weakness. There is tenderness palpation along the anterior glenohumeral joint line. The right upper extremity is neurovascularly intact. Psychiatric: A+Ox3, euthymic affect Results & Data Diagnostic Findings Radiographs of the left shoulder show some signs of osteoarthritis with blunting of the greater tuberosity and some superior migration of the humeral head on the glenoid.
[~2018-04-20 10:29] MED LIST changes: +ACETAMINOPHEN 500 MG TAB PO SCH; +CEFAZOLIN 2000MG 2,000 MG/15 ML SYR IV SCH; -CHOL1TAB42 PO; -DILT30TA PO; +FAMOTIDINE 20 MG TAB PO SCH; -FRS/40 PO; +GABAPENTIN 300 MG PO SCH; +LACTATED RINGER'S 1,000 ML IV SCH; +LR 60ML/HR IV SCH; -METO2.5T PO; -OXYC-609 PO; -POTA-74 PO; -PRLSR20 PO; +ROPIVACAINE 0.5% 5 MG/ML 30 ML VIAL ONE; +ROPIVACAINE 0.5% HCL/PF 150 MG, BUPIVACAINE 0.5% MPF 30 ML, EPINEPHrine 30MG/30ML (OR U... INFIL SCH; -SUMA100T16 PO; +TRANEXAMIC ACID 1,000 MG **IV Intra-op IV SCH; +TRANEXAMIC ACID 1,000 MG **IV Pre-op IV SCH; -VNTHFA/IN INH
[2018-04-20] MEDS ORDERED: PROPOFOL IV EMULSION 10 MG/ML 20 ML VIAL IV ONE (10:46)
[2018-04-20] MEDS ORDERED: fentaNYL citrate 100 MCG/2 ML VIAL ONE (10:46)
[2018-04-20] MEDS ORDERED: MIDAZOLAM HCL 1 MG/ML 2ML VIAL ONE (10:47)
[2018-04-20 11:12] LABS: Partial Thromboplastin Ratio 1.1; Partial Thromboplastin Time 28.7 Seconds (21.0-31.0); Prothrombin Time 10.1 Seconds (9.0-12.0)
--- NOTE | 2018-04-20 11:32 | History & Physical Bridge Note ---
Date of Service April 20, 2018 History & Physical Bridge Note I have examined the patient, reviewed the History & Physical and in the interval since the performance of the History & Physical I have noted the following changes of clinical significance: no changes noted
[2018-04-20] MEDS ORDERED: ORTHO JOINT ANESTHETIC ONE (12:07)
[2018-04-20] MEDS ORDERED: POVIDONE-IODINE OP SOLN 30 ML BTL ONE (12:08)
[2018-04-20] MEDS ORDERED: HYDROmorphone INJ 2 MG/ML SYR/VIAL IV PRN (13:24)
[2018-04-20] MEDS ORDERED: ePHEDrine sulfate 50 MG/ML AMP IV PRN (13:24)
[2018-04-20] MEDS ORDERED: ATROPINE SULFATE 0.1 MG/ML 5ML SYR IV PRN (13:24)
[2018-04-20] MEDS ORDERED: ONDANSETRON INJ 2 MG/ML 2 ML VIAL ONE (13:54)
[2018-04-20] MEDS ORDERED: SUCCINYLCHOLINE 100MG/5ML SYR ONE (13:54)
[2018-04-20] MEDS ORDERED: ROCURONIUM BROMIDE 10 MG/ML 5 ML VIAL ONE (13:54)
[2018-04-20] MEDS ORDERED: GLYCOPYRROLATE 0.2 MG/ML VIAL ONE (13:59)
[2018-04-20] MEDS ORDERED: NEOSTIGMINE METHYLSULFATE 5 MG/5 ML SYR ONE (13:59)
--- NOTE | 2018-04-20 14:26 | Operative Report ---
Post Operative Report Date of Surgery April 20, 2018 Pre & Post Diagnosis Operation Date: 04/20/18 13:00 Pre-Op Diagnosis: Primary Osteoarthritis Left Shoulder Post-Op Diagnosis: Primary Osteoarthritis Left Shoulder Procedure Operation Date: 04/20/18 13:00 Actual Procedures p Left Reverse Total Shoulder Arthroplasty(Left) - Jhoan Cheatham DO Surgeon Jhoan Cheatham DO Filter Tender Jelly José Miguel Fagan PAC Estimated Blood Loss 200 Findings Consistent with Post-Op Diagnosis Specimens Left humeral head Complications none Disposition Disposition: Recovery Room Indications Jocelyn is a pleasant 67-year-old female who presented my office with chronic increasing left shoulder pain and weakness. X-rays and clinical examination were diagnostic for advanced osteoarthritis of the left shoulder with insufficient rotator cuff. After failing conservative treatment, she elected to proceed with a reverse left shoulder arthroplasty. Description of Procedure Implants used: I used a [employer] Comprehensive reverse total shoulder arthroplasty system with a size 9 press fit mini humeral stem, a standard humeral tray and a standard humeral bearing, a 5 mm mini baseplate with a 6.5 mm central screw and superior and inferior locking screws, and a size 36 mm eccentric glenosphere. The patient arrived at [facility] for the above procedure. There were seen in the preoperative holding area and the operative extremity was identified and signed. They were given a preoperative antibiotic and an interscalene nerve block. They were taken back to the operating room, laid on table in supine position, and put under general anesthesia. They were then put into the beachchair position. The shoulder was then prepped and draped in sterile fashion. A timeout was done and the patient in the operative extremity was properly identified. A deltopectoral approach was used. Dissection was taken down through the fascia and the deltoid was retracted laterally and the conjoined tendon was retracted medially. The anterior shoulder was exposed. The long head of the biceps tendon was tenodesed to the upper border of the pectoralis major. The subscapularis was then released off the lesser tuberosity with a centimeter of cuff tissue remaining. The inferior capsule was released and the humeral head was dislocated. A canal finding reamer was sent down the center of the humeral canal. Sequential reaming up to a size 9 reamer was done. Off that reamer, a proximal humeral resection guide was placed. The proximal humerus was resected at 135 of inclination and 25 of retroversion. Osteophytes were then removed and the glenoid was exposed. Time was spent doing a complete capsular and labral release. The glenoid guide was then placed in the inferior aspect of the glenoid. A 3.2 mm Steinmann pin was then placed into the glenoid vault at 10 of inclination. The glenoid baseplate was then reamed. The final size 25 mm mini baseplate was then impacted in the place. A 6.5 mm central screw was then placed followed by superior, inferior, posterior, and anterior locking screws. A 36 mm eccentric glenoid sphere was then impacted into place. Surrounding soft tissues were then injected with 100 cc an orthopedic pain control cocktail. The proximal humerus was then exposed. Sequential broaching of the humerus up to a size 9 broach was done. Off that broach a standard humeral tray was trialed. The shoulder was then reduced, brought through a full range of motion and felt to be stable. The shoulder was then dislocated and the broach was removed. The final size 9 mini press-fit humeral stem was then impacted into place. A standard humeral bearing was then snapped onto a standard humeral tray and the ring-lock mechanism was engaged. The humeral tray was then impacted onto the humeral stem. The shoulder was once again reduced, brought through a full range of motion and felt to be stable. The subscapularis was then tenodesed back to the lesser tuberosity with transosseous FiberWire sutures and side to side sutures with the arm in 45 of external rotation. The joint was then irrigated with Betadine solution and was left in the wound for 3 minutes. The Betadine was then irrigated with normal saline solution. Hemostasis was obtained. The skin was then closed with 2-0 Vicryl, 3-0V lock suture, and lluvia. A soft dressing and a regular arm sling was placed. The patient was then extubated and transferred to a hospital bed. They were taken to the postanesthesia care unit in stable condition. They tolerated the procedure well. I attest to the content of the Intraoperative Record and any orders documented therein. Any exceptions are noted below.
--- NOTE | 2018-04-20 14:56 | Anesthesiology Progress Note ---
Date of Service April 20, 2018 Anesthesia Post Procedure Vital Signs Vital Signs: Temp Pulse Pulse Resp BP Pulse Ox 04/20/18 14:40 36.3 C L 66 14 94/47 L 96 04/20/18 11:05 36.8 C 54 L 16 102/45 L 95 Pain Intensity Left Shoulder: Pain Intensity: 7 Notes Mental Status: alert / awake / arousable Patient Amnestic to Procedure: Yes Nausea / Vomiting: adequately controlled Pain: adequately controlled Airway Patency, RR, SpO2: stable & adequate BP & HR: stable & adequate Hydration State: stable & adequate Anesthetic Complications: no major complications apparent and Pt Satisfied with anesthetic care
[2018-04-20] MEDS ORDERED: ALBUT/IPRATROP 3MG/0.5MG NEB 3 ML VIAL NEB STA (15:21)
--- NOTE | 2018-04-20 15:41 | XRay Report ---
XR shoulder LT min 2V routine CLINICAL HISTORY: 67 years-old Female presenting with Post shoulder surgery. TECHNIQUE: Internal rotation and transcatheter Y views of the left shoulder were obtained. COMPARISON: 01/16/2018. FINDINGS: There has been interval reverse total left shoulder arthroplasty. No malalignment. No periprosthetic fracture. Overlying skin lluvia noted. Expected intra-articular emphysema. Visualized portion of the left lung demonstrates pulmonary vascular prominence. IMPRESSION: 1. Expected postsurgical appearance status post reverse total left shoulder arthroplasty. 2. Possible volume overload. Electronically signed by: Horace Leslie M.D. 04/20/2018 3:39 PM
[2018-04-20] MEDS ORDERED: BISACODYL 10 MG SUPP PR PRN (16:53)
[2018-04-20] MEDS ORDERED: MAGNESIUM HYDROXIDE SUSP 30 ML UDC PO PRN (16:53)
[2018-04-20] MEDS ORDERED: SUMAtriptan succinate 100 MG TAB PO PRN (16:53)
[2018-04-20] MEDS ORDERED: ONDANSETRON INJ 2 MG/ML 2 ML VIAL IV PRN (16:53)
[2018-04-20] MEDS ORDERED: HYDROCODONE/ACETAMOPHEN 5/325MG TAB PO PRN (16:53)
[2018-04-20] MEDS ORDERED: NALOXONE HCL 0.4 MG/1 ML VIAL/CARP IV PRN (16:53)
[2018-04-20] MEDS ORDERED: MoRPHine SULFATE 2 MG/ML CARP IV PRN (16:53)
[2018-04-20] MEDS ORDERED: METOCLOPRAMIDE HCL INJ 5 MG/ML 2 ML VIAL IV PRN (16:53)
[2018-04-20] MEDS ORDERED: POLYETHYLENE (MIRALAX) 17 GM PACK PO PRN (16:53)
[2018-04-20] MEDS ORDERED: FUROSEMIDE 40 MG TAB PO PRN (16:53)
[2018-04-20] MEDS ORDERED: ALBUTEROL HFA 8 GM INHALER INH PRN (17:45)
[2018-04-20] MEDS: POTASSIUM CHLORIDE 10 MEQ in SODIUM CHLORIDE 0.9% 1000ML 1,000 ML IV SCH (18:38)
[2018-04-20] MEDS: CEFAZOLIN 2000MG 2,000 MG/15 ML SYR IV SCH (20:27)
[2018-04-20] MEDS: MAGNESIUM CHLORIDE 64MG DELAYED REL TAB PO SCH (20:27)
[2018-04-20] MEDS: POTASSIUM CHLORIDE 10 MEQ TABCR PO SCH (20:27)
[2018-04-20] MEDS: DOCUSATE SODIUM 100 MG CAP PO SCH (20:27)
[2018-04-20] MEDS: APIXABAN 5 MG TABLET PO SCH (20:27)
[2018-04-20] MEDS: BUDESONIDE/FORMOTEROL FUMARATE 160/4.5 60 PUFFS/INHALER INH SCH (20:28)
[2018-04-20] MEDS ORDERED: SENNA 8.6 MG TAB PO SCH (21:00)
[2018-04-21 04:06] VITALS: TEMP 97.7
[2018-04-21] MEDS: CEFAZOLIN 2000MG 2,000 MG/15 ML SYR IV SCH (05:25)
[2018-04-21] MEDS: POTASSIUM CHLORIDE 10 MEQ in SODIUM CHLORIDE 0.9% 1000ML 1,000 ML IV SCH (05:25)
[2018-04-21 06:07] LABS: Basophils # (auto) 0.01 K/uL (0-0.2); Basophils % (auto) 0.1 %; Hematocrit (blood only) 38.1 % (37-47); Hemoglobin 12.6 g/dL (12.0-16.0); Immature Granulocytes # (auto) 0.03 K/uL (0.00-0.02); Immature Granulocytes % (auto) 0.2 %; Lymphocytes # (auto) 0.73 K/uL (1.2-3.4); Lymphocytes % (auto) 5.6 %; Mean Corpuscular Hgb Conc 33.1 g/dL (32-36); Mean Corpuscular Volume 94.3 fL (80-100); Mean Platelet Volume 10.3 fL (7.4-10.4); Monocytes # (auto) 0.54 K/uL (0.11-0.59); Monocytes % (auto) 4.1 %; Platelet Count 201 K/uL (130-400); RDW Coefficient of Variation 13.8 % (11.5-14.5); RDW Standard Deviation 47.6 fL (36.4-46.3); Red Blood Count 4.04 M/uL (4.2-5.4); White Blood Count 13.11 K/uL (4.8-10.8)
[2018-04-21 06:32] LABS: BUN Creatinine Ratio 13.3 (10-20); Calcium 8.3 mg/dl (8.5-10.1); Creatinine Clr Calc Pharmacy 46.6 ml/min; Est GFR (African American) 44.2; Est GFR (Non-African American) 38.1; Potassium 4.2 mmol/L (3.5-5.1)
[2018-04-21 07:03] VITALS: BP 90/48
--- NOTE | 2018-04-21 07:39 | Orthopedic Progress Note ---
Date of Service April 21, 2018 Assessment & Plan (1) Rotator cuff arthropathy of left shoulder: Overall she is doing very well. She is a little bit hypotensive but she was hypotensive on all her other previous visits as well. Her heart rates normally between 50 and 55 and it is between 40 and 45 at this point. She feels fine she is not feeling lightheaded and she is able to get up and walk around without any difficulty. She is asymptomatic. I encouraged her to continue to drink fluids. She will be seen by physical therapy today. If everything looks good then she can be discharged home later this morning. Present on Admission?: Yes Subjective Jocelyn was seen and examined at bedside this morning. Overall she is doing very well. She is not having any pain in the shoulder. She was able to get some sleep last night. She has no complaints. Physical Exam 2 Vital Signs (Past 24 Hours): Last Vital Signs Temp 36.5 C 04/21/18 07:02 Pulse 39 L 04/21/18 07:02 Resp 18 04/21/18 07:02 BP 90/48 L 04/21/18 07:02 Pulse Ox 91 04/21/18 07:02 Musculoskeletal: On physical examination of the left shoulder, the dressing is clean and dry. She is wearing her sling as instructed. Her radial median and ulnar nerves are all checked and intact at the wrist. She still is a little tingling in her wrist and a little weakness with dorsiflexion and thumb extension but it is coming back. Her axillary nerve was not checked. Results & Data Laboratory Results H & H 04/21/18 Range/Units 05:33 Hgb 12.6 (12.0-16.0) g/dL Hct 38.1 (37-47) % Coagulation 03/21/18 04/20/18 Range/Units 12:05 10:49 INR 1.0 1.0 (0.9-1.1) Diagnostic Findings Postoperative x-rays of the left shoulder show the prosthesis to be in anatomic alignment without any evidence of fracture, dislocation, or loosening.
--- NOTE | 2018-04-21 07:40 | Discharge Summary ---
Date of Service April 21, 2018 Admission HPI Per Admitting Provider Jocelyn is a pleasant 67-year-old female who is been having a year and a half history of left shoulder pain. She did have surgery in January [address] Connolly for a cleanout procedure. She did not have a rotator cuff repair at that time. Unfortunately she ended up with a postoperative adhesive capsulitis and had another procedure done. After several rounds of injections, x-rays have shown progressive arthritis and superior migration of the humeral head within the glenoid. Her symptoms are not improving. She is constant pain and inability to raise her arm. She is elected to proceed with a reverse left shoulder arthroplasty. Specialty Data Orthopedic H & H 04/21/18 Range/Units 05:33 Hgb 12.6 (12.0-16.0) g/dL Hct 38.1 (37-47) % Coagulation 03/21/18 04/20/18 Range/Units 12:05 10:49 INR 1.0 1.0 (0.9-1.1) Discharge Data Consultations 04/20/18 16:53 Consult Case Management - Discharge Planning Routine Procedures Performed Operation Date: 04/20/18 13:00 Actual Procedures p Left Reverse Total Shoulder Arthroplasty(Left) - Jhoan Cheatham DO Hospital Course (1) Rotator cuff arthropathy of left shoulder: On April 20, [address] [facility] and underwent a left reverse shoulder arthroplasty without complication. She had a general anesthetic and a left interscalene nerve block. Postoperatively she was placed in an arm sling and discharged to the general orthopedic floors. Her hospital course is uneventful. On postop day #1 her H&H was stable and her pain was well controlled. She was a little bit hypotensive but she has been hypotensive on previous visits as well. She was asymptomatic. She was able to participate well with physical therapy. She was discharged home with home physical therapy. She will follow-up with orthopedics in 2 weeks. Discharge Instructions Home Medications Medication Instructions Recorded Confirmed albuterol sulfate [ProAir HFA] 2 puff INHALATION Q4 PRN 02/07/18 04/20/18 apixaban [Eliquis] 5 mg PO BID 02/07/18 04/20/18 cholecalciferol (vitamin D3) 5,000 unit PO DAILY 02/07/18 04/20/18 [Vitamin D3] furosemide [Lasix] 40 mg PO UD PRN 02/07/18 04/20/18 hydrocodone-acetaminophen [[place]] 1 tab PO QID PRN 02/07/18 04/20/18 metolazone 2.5 mg PO QAM 02/07/18 04/20/18 omeprazole 40 mg PO QAM 02/07/18 04/20/18 potassium chloride 10 meq PO BID 02/07/18 04/20/18 sumatriptan succinate [Imitrex] 50 mg PO DIRECTED PRN 02/07/18 03/14/18 budesonide-formoterol [Symbicort] 2 puff INHALATION BID 04/19/18 04/20/18 digoxin 1 tab PO DAILY 04/19/18 04/20/18 metoprolol succinate 1 tab PO DAILY 04/19/18 04/20/18 Previous Rx's Medication Instructions Recorded magnesium chloride [Slow-Mag] 71.5 mg PO BID #30 tab 02/07/18 hydrocodone-acetaminophen [[place]] 1 - 2 tab PO Q4H PRN #40 tab 04/21/18
[2018-04-21] MEDS ORDERED: metOLazone 2.5 MG TABLET PO SCH (09:00)
[2018-04-21] MEDS ORDERED: PANTOprazole 40 MG TAB PO SCH (09:00)
[2018-04-21] MEDS ORDERED: METOPROLOL SUCC 25MG EXT REL TAB PO SCH (09:00)
[2018-04-21] MEDS: DOCUSATE SODIUM 100 MG CAP PO SCH (09:26)
[2018-04-21] MEDS: APIXABAN 5 MG TABLET PO SCH (09:26)
[2018-04-21] MEDS: MAGNESIUM CHLORIDE 64MG DELAYED REL TAB PO SCH (09:27)
[2018-04-21] MEDS: POTASSIUM CHLORIDE 10 MEQ TABCR PO SCH (09:27)
[2018-04-21] MEDS: BUDESONIDE/FORMOTEROL FUMARATE 160/4.5 60 PUFFS/INHALER INH SCH (09:27)
[2018-04-21 09:45] VITALS: PULSE 57
[2018-04-21 10:16] VITALS: O2SAT 97
[2018-04-21] MEDS ORDERED: DIGOXIN 0.25 MG TAB PO SCH (16:00)
== END 2018-04-21 10:34 | disposition home or self-care (01) | DRG 483 ==
LOC: ASU 10:29 → 3E 14:30

== ENCOUNTER 2018-06-22 22:24 | Inpatient (IN) ==
[2018-06-22] MEDS ORDERED: METOPROLOL TARTRATE 1 MG/ML VIAL IV STA (22:53)
[2018-06-22 23:13] LABS: Basophils # (auto) 0.02 K/uL (0-0.2); Basophils % (auto) 0.2 %; Eosinophils # (auto) 0.16 K/uL (0-0.5); Eosinophils % (auto) 1.3 %; Hematocrit (blood only) 42.5 % (37-47); Hemoglobin 14.2 g/dL (12.0-16.0); Immature Granulocytes # (auto) 0.06 K/uL (0.00-0.02); Immature Granulocytes % (auto) 0.5 %; Lymphocytes # (auto) 1.95 K/uL (1.2-3.4); Lymphocytes % (auto) 15.8 %; Mean Corpuscular Hgb Conc 33.4 g/dL (32-36); Mean Corpuscular Volume 92.8 fL (80-100); Mean Platelet Volume 10.4 fL (7.4-10.4); Monocytes # (auto) 0.54 K/uL (0.11-0.59); Monocytes % (auto) 4.4 %; Neutrophils # (auto) 9.65 K/uL (1.4-6.5); Neutrophils % (auto) 77.8 %; Platelet Count 232 K/uL (130-400); RDW Coefficient of Variation 13.8 % (11.5-14.5); RDW Standard Deviation 47.2 fL (36.4-46.3); Red Blood Count 4.58 M/uL (4.2-5.4); White Blood Count 12.38 K/uL (4.8-10.8)
[2018-06-22 23:20] LABS: Alanine Aminotransferase 17 U/L (12-78); Albumin Level 2.9 gm/dl (3.4-5.0); Aspartate Aminotransferase 16 U/L (15-37); BUN Creatinine Ratio 18.4 (10-20); Blood Urea Nitrogen 17 mg/dl (7-18); Carbon Dioxide 30 mmol/L (21-32); Chloride 100 mmol/L (98-107); Creatinine Clr Calc Pharmacy 74.2 ml/min; Est GFR (African American) 73.7; Est GFR (Non-African American) 63.6; Glucose 123 mg/dl (70-99); Sodium 136 mmol/L (136-145)
[2018-06-22 23:24] LABS: Albumin Globulin Ratio 0.7 (0.9-2); Alkaline Phosphatase 138 U/L (45-117); Bilirubin,Total 0.4 mg/dl (0.2-1); Globulin 3.9 gm/dl (2.5-4.0); Total Protein 6.8 gm/dl (6.4-8.2); Troponin I < 0.015 ng/ml (0-0.045)
[2018-06-22 23:27] LABS: Partial Thromboplastin Ratio 1.3; Partial Thromboplastin Time 34.2 Seconds (21.0-31.0); Prothrombin Time 10.6 Seconds (9.0-12.0)
--- NOTE | 2018-06-23 01:01 | Emergency Department Note ---
Entered by Elodia Hill acting as a scribe for Valdo Iraheta DO History of Present Illness General Chief complaint: Cardiac Assessment Time Seen by Provider: 06/22/18 22:49 Source: patient History of Present Illness Onset (ago): hour(s) 4 Location: chest Severity: similar to prior episodes Pain Consistency: + other (Suddenly) Quality: + other (Cardiac assessment ) Relieved By: + medication Associated symptoms: + diaphoresis The patient is a 67 year old female who presents to the Emergency Room seeking a cardiac assessment. The patient reports that her heart suddenly started racing which started 4 hours ago. She states that she is diaphoretic and feels hot. She notes that that she goes in and out of A-fib. She states that she has had this problem before and that she has been admitted to the hospital for it before. She adds that when this has happened in the past it has been relieved by medication. She reports that she regularly takes Eliquis. Home Medications Home Medications Medication Instructions Recorded Confirmed Type Eliquis 5 mg PO BID 02/07/18 06/22/18 History Slow-Mag 71.5 mg PO BID #30 tab 02/07/18 06/22/18 Rx albuterol sulfate [ProAir HFA] 2 puff INHALATION Q4 PRN 02/07/18 06/22/18 History cholecalciferol (vitamin D3) 5,000 unit PO DAILY 02/07/18 06/22/18 History [Vitamin D3] furosemide [Lasix] 40 mg PO UD PRN 02/07/18 06/22/18 History hydrocodone-acetaminophen [[place]] 1 tab PO QID PRN 02/07/18 06/22/18 History metolazone 2.5 mg PO QAM 02/07/18 06/22/18 History omeprazole 40 mg PO QAM 02/07/18 06/22/18 History potassium chloride 10 meq PO BID 02/07/18 06/22/18 History sumatriptan succinate [Imitrex] 50 mg PO DIRECTED PRN 02/07/18 06/22/18 History Symbicort 2 puff INHALATION BID PRN 04/19/18 06/22/18 History metoprolol succinate 1 tab PO DAILY 04/19/18 06/22/18 History Allergies Allergy/AdvReac Type Severity Reaction Status Date / Time fentanyl Allergy Severe HIVES Verified 06/22/18 22:55 NSAIDS (Non-Steroidal Allergy Severe DUODENAL Verified 06/22/18 22:55 Anti-Inflamma ULCER digoxin AdvReac Severe Nausea Verified 06/22/18 22:55 diltiazem AdvReac Mild Fluid Verified 06/22/18 22:55 retention tramadol AdvReac Mild hallucinati Verified 06/22/18 22:55 on amoxicillin AdvReac Unknown FLUID Verified 06/22/18 22:55 RETENTION aspirin AdvReac Unknown DUEODENAL Verified 06/22/18 22:55 ULCER doxycycline AdvReac Unknown FLUID Verified 06/22/18 22:55 RETENTION gabapentin AdvReac Unknown hallucinati Verified 06/22/18 22:55 ons ibuprofen AdvReac Unknown DUODENAL Verified 06/22/18 22:55 ULCER naproxen AdvReac Unknown DUODENAL Verified 06/22/18 22:55 ULCERS Past Med/Surg History Medical History Osteoarthritis (Chronic) Peripheral neuropathy (Chronic) Prediabetes (Chronic) Spinal stenosis (Chronic) Vitamin D deficiency (Chronic) Bilateral lower extremity edema (Resolved) Migraine (Resolved) A-fib DX AUGUST 2017/NO CARDIOVERSION Asthma DX WITHIN LAST YR/"SLIGHT" History of anesthesia reaction FOLLOWING SHOULDER ARTHROSCOPY ([facility]) TROUBLE WITH BREATHING AFTER THE NERVE BLOCK - "MESSED WITH LUNGS AND HAD OXYGEN FOR THREE MONTHS AFTER" History of hypokalemia ED VISIT 03/09/18 History of palpitations 03/09/18 [facility] ED...PALPITATIONS, POTASSIUM LOW/REPLETED/FU WITH RHETTGGCHENTE History of peptic ulcer History of skin cancer Morbid obesity Stress incontinence CHRONIC Surgical History H/O tubal ligation (Resolved) History of arthroscopy of left knee History of arthroscopy of left shoulder History of bladder surgery FOR STRESS INCONTINECE History of colonoscopy History of endoscopy History of skin cancer RESECTED/R UPPER LEG Family History Other Cancer Diabetes HTN (hypertension) Heart disease Social History Preferred Language: Moldovan Beliefs That Will Affect Care: None marital status: Current Living Situation: Significant Other Feels Safe at Home: Yes Smoking Status: Never smoker Hx Alcohol Use: No Hx Substance Use: No Review of Systems See HPI for pertinent positives & negatives. and A total of 10 systems reviewed and were otherwise negative Physical Exam Vital Signs Vital Signs - 24 hr 06/22/18 22:29 06/22/18 23:12 06/22/18 23:40 Temperature 37.1 C Temperature Source Oral Sepsis Recent Fever Within 48 Hours No Sepsis New/Unexplained Change in Mental Status No Sepsis Action Taken by Nursing No Action Required Pulse Rate 116 H 123 H Pulse Rate [Apical] 115 H Pulse Rhythm Irregular Pulse Rhythm [Apical] Respiratory Rate 14 16 Blood Pressure 112/66 111/65 Blood Pressure [Left Arm] 81/60 L Blood Pressure Mean 81 Blood Pressure Mean [Left Arm] 67 Blood Pressure Position [Left Arm] Pulse Oximetry 93 91 Oxygen Delivery Method Room Air Room Air 06/22/18 23:46 06/23/18 00:00 06/23/18 00:30 Temperature Temperature Source Sepsis Recent Fever Within 48 Hours Sepsis New/Unexplained Change in Mental Status Sepsis Action Taken by Nursing Pulse Rate Pulse Rate [Apical] 113 H 120 H 116 H Pulse Rhythm Pulse Rhythm [Apical] Irregular Respiratory Rate 15 13 Blood Pressure Blood Pressure [Left Arm] 111/65 82/52 L 92/58 L Blood Pressure Mean Blood Pressure Mean [Left Arm] 80 62 69 Blood Pressure Position [Left Arm] Sitting Pulse Oximetry 93 91 88 L Oxygen Delivery Method Room Air Room Air Room Air 06/23/18 01:20 06/23/18 01:28 Temperature Temperature Source Sepsis Recent Fever Within 48 Hours Sepsis New/Unexplained Change in Mental Status Sepsis Action Taken by Nursing Pulse Rate Pulse Rate [Apical] 124 H 115 H Pulse Rhythm Pulse Rhythm [Apical] Respiratory Rate 16 14 Blood Pressure Blood Pressure [Left Arm] 110/60 92/59 L Blood Pressure Mean Blood Pressure Mean [Left Arm] 76 70 Blood Pressure Position [Left Arm] Sitting Pulse Oximetry 90 90 Oxygen Delivery Method Room Air Room Air CONSTITUTIONAL/VITAL SIGNS: Reviewed / noted above. GENERAL: Non-toxic in appearance. INTEGUMENTARY: Warm, dry, and [place]. HEAD: Normocephalic. EYES: without scleral icterus or trauma. ENT/OROPHARYNX: clear and moist. LYMPHADENOPATHY/NECK: Is supple without lymphadenopathy or meningismus. RESPIRATORY: Lungs clear and equal. CARDIOVASCULAR: Heart rate is rapid and irregular. Regular rhythm. GI/ABDOMEN: Soft and nontender. No organomegaly or pulsatile mass. No rebound or guarding. Normal bowel sounds. EXTREMITIES: Warm and well perfused. BACK: No CVA tenderness. NEUROLOGICAL: Intact without focal deficits. PSYCHIATRIC: normal affect. MUSCULOSKELETAL: Normally developed with good muscle tone. Course 225: Past medical records reviewed. The patient was evaluated in room A11B, and a complete history and physical examination were performed. 0102: I reevaluated the patient at this time and updated her on her imaging results. 0123: I reviewed the patient's case with Dr. Jessica ABBASI hospitalist. He will evaluate the patient for further management. Consultations Consultation #1: I reviewed the patient's case with Dr. Jessica ABBASI hospitalis t. He will evaluate the patient for further management. Time: 01:23 Administered Medications Discontinued Medications Diltiazem HCl (Cardizem) 10 mg IV NOW STA Stop: 06/23/18 01:03 Last Admin: 06/23/18 01:15 Dose: 10 mg Documented by: [id number] Cosigned by: [id number] Metoprolol Tartrate (Lopressor) 5 mg IV NOW STA Stop: 06/22/18 22:54 Last Admin: 06/22/18 23:40 Dose: 5 mg Documented by: [id number] Medical Decision Making Differential Diagnosis the differential was considered includes acute myocardial infarction, acute coronary syndrome, myocarditis, pericarditis, pericardial effusions /tamponad, esophageal perforation, thoracic aortic dissection, pulmonary embolism, pneumonia, pneumothorax, pancreatitis, shingles, acute cholecystitis, perforated abdominal viscus. Medical Records Attestation: I reviewed the patient's medical records. Home Medications Current Medication List: was personally reviewed by me Laboratory Data Attestation: I reviewed the patient's lab results. Result diagrams: 06/22/18 22:30 06/22/18 22:30 Lab Results 06/22/18 06/22/18 06/22/18 Range/Units 22:30 22:30 22:30 WBC 12.38 H (4.8-10.8) K/uL RBC 4.58 (4.2-5.4) M/uL Hgb 14.2 (12.0-16.0) g/dL Hct 42.5 (37-47) % MCV 92.8 (80-100) fL MCH 31.0 (25-34) pg MCHC 33.4 (32-36) g/dL RDW Std Deviation 47.2 H (36.4-46.3) fL RDW Coeff of [place] 13.8 (11.5-14.5) % Plt Count 232 (130-400) K/uL MPV 10.4 (7.4-10.4) fL Immature Gran % (Auto) 0.5 % Neut % (Auto) 77.8 % Lymph % (Auto) 15.8 % [place] % (Auto) 4.4 % Eos % (Auto) 1.3 % Baso % (Auto) 0.2 % Immature Gran # (Auto) 0.06 H (0.00-0.02) K/uL Neut # (Auto) 9.65 H (1.4-6.5) K/uL Lymph # (Auto) 1.95 (1.2-3.4) K/uL [place] # (Auto) 0.54 (0.11-0.59) K/uL Eos # (Auto) 0.16 (0-0.5) K/uL Baso # (Auto) 0.02 (0-0.2) K/uL PT 10.6 (9.0-12.0) Seconds INR 1.0 (0.9-1.1) APTT 34.2 H (21.0-31.0) Seconds PTT Ratio 1.3 Sodium 136 (136-145) mmol/L Potassium 3.0 L (3.5-5.1) mmol/L Chloride 100 (98-107) mmol/L Carbon Dioxide 30 (21-32) mmol/L Anion Gap 6.0 (3-11) BUN 17 (7-18) mg/dl Creatinine 0.93 (0.6-1.2) mg/dl Est Cr Clr Drug Dosing 74.2 ml/min Est GFR ( Amer) 73.7 Est GFR (Non-Af Amer) 63.6 BUN/Creatinine Ratio 18.4 (10-20) Glucose 123 H (70-99) mg/dl Calcium 9.0 (8.5-10.1) mg/dl Total Bilirubin 0.4 (0.2-1) mg/dl AST 16 (15-37) U/L ALT 17 (12-78) U/L Alkaline Phosphatase 138 H (45-117) U/L Troponin I < 0.015 (0-0.045) ng/ml Total Protein 6.8 (6.4-8.2) gm/dl Albumin 2.9 L (3.4-5.0) gm/dl Globulin 3.9 (2.5-4.0) gm/dl Albumin/Globulin Ratio 0.7 L (0.9-2) Imaging Data Attestation: I personally reviewed and interpreted this imaging study as follows: My Impression: XR Chest 1V Portable Urgent: No pneumothorax. No pneumonia. No acute disease. ECG Data Attestation: I personally reviewed and interpreted this ECG as follows: Indication: chest pain Rate (beats per minute): 113 Rhythm: atrial fibrillation Findings: no ST elevation and no ectopy Blood Pressure Blood Pressure Findings: Low blood pressure Blood Pressure Disposition: further management by hospitalist DARRION Stern The patient is a 67-year-old female who presents to the ED with a chief complaint of palpitations and rapid heartbeat. Prior to arrival. Details listed above. The patient's physical exam revealed a rapid irregular heart. An EKG shows atrial flutter with variable conduction at a rate of 113. The patient's initial heart rate was 150. She received 50 mg of IV Cardizem in route by EMS. Troponin was negative. Potassium is 3.0. Chest x-ray did not show acute process. The patient was treated with IV Lopressor 5 mg IV. She was also given some IV fluids 250 cc normal saline. On reassessment, the patient's heart rate did improve somewhat. On reassessment, the patient was tachycardic again. She was given an additional IV dose of Cardizem 15 mg. Blood pressure after this was in the 90s. Her heart rate did improve into the 1 teens. I did speak with Dr. Orosco about the patient. He recommended a Cardizem drip although this was not initiated in the emergency room as the patient had just received the IV Cardizem bolus and her blood pressure was in the low 90s systolic. She will be seen for further inpatient evaluation and care. Impression & Plan Atrial fibrillation with RVR The scribe's documentation has been prepared under my direction and personally reviewed by me in its entirety. I confirm that the note above accurately reflects all work, treatment, procedures, and medical decision making performed by me.
[2018-06-23] MEDS ORDERED: dilTIAZem HCl 5 MG/ML 5 ML VIAL IV STA (01:02)
--- NOTE | 2018-06-23 01:47 | History & Physical Report ---
Date of Service June 23, 2018 Assessment & Plan (1) Atrial fibrillation with RVR: 67 y/o F Hx PAF on Eliquis, PUD, morbid obesity, chronic edema, COPD, smoker. Presents with palpitations and chest discomfort which she recognized as recurrent AF. The pt was admitted in late March for the same. She has a blood pressure which runs low and has had some difficulty tolerating an increase in her B nate to an effective dose. She did not respond completely to two doses of IV B nate and a dose of IV Diltiazem. She is admitted for rate control therefore. Initial labs are notable for hypokalemia. 1) AF/RVR - She is placed on a Diltiazem drip. Her SBP is lingering at approximately 90. We will therefore proceed with a Digoxin load. She previously described nausea with Digoxin but does not now recall this. We will consult her ice guard inspector as an alternative avenue of treatment should likely be explored. I believe she was being considered for ablation and pacer placement. A pacer alone would not necessarily help as her blood pressure may be the limiting factor in additional medical therapy rather than her HR. Amiodarone, chronic dig therapy and intervention may all be reasonable options which we will leave to the discretion of her ice guard inspector. She is anticoagula case with Eliquis. 2) Hypokalemia - this appears to be a recurrent issue. We have provided her with mag and K. She may benefit from Aldactone in place of either Metolazone or PRN Furosemide which she is currently prescribed. Again, we will leave any permanent changes to the discretion of her ice guard inspector. 3) COPD or asthma - she does not report SOB despite a suboptimal lung exam. We would prefer not to provide her with inhalers - which she states she has not recently used - to to her AF and the adrenergic effect. Full code - Eliquis prophylaxis Total time for this admit including review of labs, meds, imaging, records - discussion with pt and ER attending - 45 min Present on Admission?: Yes History of Present Illness Chief Complaint: Palpitations and chest discomfort Primary Care Provider: Rasheeda Saunders PA-C 67 y/o F Hx PAF on Eliquis, PUD, morbid obesity, chronic edema, COPD, smoker. Presents with palpitations and chest discomfort which she recognized as recurrent AF. The pt was admitted in late March for the same. She has a blood pressure which runs low and has had some difficulty tolerating an increase in her B nate to an effective dose. She did not respond completely to two doses of IV B nate and a dose of IV Diltiazem. She is admitted for rate control therefore. Initial labs are notable for hypokalemia. PMH: 1) Paroxysmal AF 2) Lower extremity edema 3) PUD 4) Asthma or COPD 5) Morbid obesity 6) GERD 7) Migraine headaches Surgical: Total shoulder replacement, TKA Social: Continues to smoke although she states she quit last week as her partner suff ered a COPD exacerbation. She does not drink alcohol Family: Noncontributory Allergies Allergy/AdvReac Type Severity Reaction Status Date / Time fentanyl Allergy Severe HIVES Verified 06/22/18 22:55 NSAIDS (Non-Steroidal Allergy Severe DUODENAL Verified 06/22/18 22:55 Anti-Inflamma ULCER digoxin AdvReac Severe Nausea Verified 06/22/18 22:55 diltiazem AdvReac Mild Fluid Verified 06/22/18 22:55 retention tramadol AdvReac Mild hallucinati Verified 06/22/18 22:55 on amoxicillin AdvReac Unknown FLUID Verified 06/22/18 22:55 RETENTION aspirin AdvReac Unknown DUEODENAL Verified 06/22/18 22:55 ULCER doxycycline AdvReac Unknown FLUID Verified 06/22/18 22:55 RETENTION gabapentin AdvReac Unknown hallucinati Verified 06/22/18 22:55 ons ibuprofen AdvReac Unknown DUODENAL Verified 06/22/18 22:55 ULCER naproxen AdvReac Unknown DUODENAL Verified 06/22/18 22:55 ULCERS Home Medications Home Medications Medication Instructions Recorded Confirmed Type Eliquis 5 mg PO BID 02/07/18 06/22/18 History Slow-Mag 71.5 mg PO BID #30 tab 02/07/18 06/22/18 Rx albuterol sulfate [ProAir HFA] 2 puff INHALATION Q4 PRN 02/07/18 06/22/18 History cholecalciferol (vitamin D3) 5,000 unit PO DAILY 02/07/18 06/22/18 History [Vitamin D3] furosemide [Lasix] 40 mg PO UD PRN 02/07/18 06/22/18 History hydrocodone-acetaminophen [[place]] 1 tab PO QID PRN 02/07/18 06/22/18 History metolazone 2.5 mg PO QAM 02/07/18 06/22/18 History omeprazole 40 mg PO QAM 02/07/18 06/22/18 History potassium chloride 10 meq PO BID 02/07/18 06/22/18 History sumatriptan succinate [Imitrex] 50 mg PO DIRECTED PRN 02/07/18 06/22/18 History Symbicort 2 puff INHALATION BID PRN 04/19/18 06/22/18 History metoprolol succinate 1 tab PO DAILY 04/19/18 06/22/18 History Past Med/Surg History Medical History Osteoarthritis (Chronic) Peripheral neuropathy (Chronic) Prediabetes (Chronic) Spinal stenosis (Chronic) Vitamin D deficiency (Chronic) Bilateral lower extremity edema (Resolved) Migraine (Resolved) A-fib DX AUGUST 2017/NO CARDIOVERSION Asthma DX WITHIN LAST YR/"SLIGHT" History of anesthesia reaction FOLLOWING SHOULDER ARTHROSCOPY ([facility]) TROUBLE WITH BREATHING AFTER THE NERVE BLOCK - "MESSED WITH LUNGS AND HAD OXYGEN FOR THREE MONTHS AFTER" History of hypokalemia ED VISIT 03/09/18 History of palpitations 03/09/18 [facility] ED...PALPITATIONS, POTASSIUM LOW/REPLETED/FU WITH MAOEDGGCHENTE History of peptic ulcer History of skin cancer Morbid obesity Stress incontinence CHRONIC Surgical History H/O tubal ligation (Resolved) History of arthroscopy of left knee History of arthroscopy of left shoulder History of bladder surgery FOR STRESS INCONTINECE History of colonoscopy History of endoscopy History of skin cancer RESECTED/R UPPER LEG Family History Other Cancer Diabetes HTN (hypertension) Heart disease Social History Preferred Language: Telugu Beliefs That Will Affect Care: None marital status: Current Living Situation: Significant Other Feels Safe at Home: Yes Smoking Status: Never smoker Hx Alcohol Use: No Hx Substance Use: No Review of Systems Gen: Denies fevers, night sweats, rigors, fatigue, malaise, weight loss/gain ENT: Denies congestion, throat pain, hearing loss Eyes: Denies acute visual changes CV: Palpitations and chest discomfort - denies CP Pulmonary: Denies SOB, cough, wheezing GI: Denies N/V, diarrhea, constipation Neuro: Denies acute or unilateral weakness, acute gait impairment, headache or acute visual changes Musculoskeletal: Denies joint pain, inflammation Endocrine: Denies polydipsia, polyuria Skin: Denies acute rashe or ulcers Physical Exam Vital Signs (Past 24 Hours): Last Vital Signs Temp 37.1 C 06/22/18 22:29 Pulse 115 H 06/23/18 01:28 Resp 14 06/23/18 01:28 BP 92/59 L 06/23/18 01:28 Pulse Ox 90 06/23/18 01:28 Physical Exam: General: Pleasant, middle-aged F, AAO x 3, no distress ENT: No erythema or exudates, no thrush Eyes: MINERVA, EOMI Head and neck: Normocephalic, atraumatic, No JVD, neck is supple. Chest/heart: Nontender, S1,2, irr - no mumrmurs Lungs: There is poor aitr movement with mild wheezing on the R Abdomen: Nontender, nondistended, BS+ Neuro: AAO x 3, speech is clear, no unilateral weakness or loss of sensation, coordination intact Musculoskeletal: No joint inflammation, muscle tenderness, FROM Skin: No acute rashes or ulcers - LE hyperpigmentation Extremities: Significant BL LE edema and stasis changes
[2018-06-23] MEDS ORDERED: DIGOXIN 500 MCG/2 ML AMP IV ONE (02:32)
[2018-06-23] MEDS ORDERED: ALUMINUM/MAGNESIUM SUSP 30 ML UDC PO PRN (02:32)
[2018-06-23] MEDS ORDERED: POLYETHYLENE (MIRALAX) 17 GM PACK PO PRN (02:32)
[2018-06-23] MEDS ORDERED: ZOLPIDEM TARTRATE 5 MG TAB PO PRN (02:32)
[2018-06-23] MEDS ORDERED: ACETAMINOPHEN 325 MG TAB PO PRN (02:32)
[2018-06-23] MEDS ORDERED: MAGNESIUM SULFATE / D5W 1 GM/100 ML BAG IV ONE (02:32)
[2018-06-23] MEDS ORDERED: MoRPHine SULFATE 2 MG/ML CARP IV PRN (02:32)
[2018-06-23] MEDS ORDERED: dilTIAZem HCl 125 MG in DEXTROSE 5% 100 ML IV SCH (02:32)
[2018-06-23] MEDS ORDERED: ONDANSETRON INJ 2 MG/ML 2 ML VIAL IV PRN (02:32)
[2018-06-23] MEDS ORDERED: HYDROCODONE/ACETAMOPHEN 5/325MG TAB PO PRN (02:32)
[2018-06-23] MEDS ORDERED: MAGNESIUM HYDROXIDE SUSP 30 ML UDC PO PRN (02:32)
[2018-06-23] MEDS ORDERED: DIGOXIN 500 MCG in SYRINGE 8 ML IV ONE (03:00)
[2018-06-23] MEDS: POTASSIUM CHLORIDE / WTR 10 MEQ/100 ML PLCT IV SCH ×4 (03:34→10:05)
--- NOTE | 2018-06-23 06:04 | XRay Report ---
XR chest 1V portable CLINICAL HISTORY: Chest Pain dyspnea COMPARISON STUDY: 03/21/2018 FINDINGS: Slight interstitial and/or bronchovascular prominence throughout both hemithoraces. Mild ca rdiomegaly. Diaphragms smooth. Interval placement of a total left shoulder arthroplasty. IMPRESSION: Mild pulmonary vascular congestion. The above report was generated using voice recognition software. It may contain grammatical, syntax or spelling errors. Electronically signed by: Rene Rod M.D. 06/23/2018 6:02 AM
[2018-06-23] MEDS: MAGNESIUM CHLORIDE 64MG DELAYED REL TAB PO SCH ×2 (08:00→20:09)
[2018-06-23] MEDS: APIXABAN 5 MG TABLET PO SCH ×2 (08:00→20:09)
[2018-06-23] MEDS: POTASSIUM CHLORIDE 10 MEQ TABCR PO SCH ×2 (08:00→20:09)
[2018-06-23] MEDS: PANTOprazole 40 MG TAB PO SCH (08:00)
[2018-06-23] MEDS ORDERED: METOPROLOL SUCC 25MG EXT REL TAB PO SCH (09:00)
[2018-06-23 09:22] LABS: BUN Creatinine Ratio 16.1 (10-20); Calcium 9.2 mg/dl (8.5-10.1); Creatinine Clr Calc Pharmacy 78.1 ml/min; Est GFR (African American) 85.8; Potassium 3.7 mmol/L (3.5-5.1)
[2018-06-23] MEDS ORDERED: FUROSEMIDE 40 MG TAB PO PRN (11:57)
[2018-06-23] MEDS ORDERED: BUDESONIDE/FORMOTEROL FUMARATE 160/4.5 60 PUFFS/INHALER INH PRN (11:57)
--- NOTE | 2018-06-23 12:08 | Cardiology Consultation ---
Date of Consultation June 23, 2018 Assessment & Plan (1) Paroxysmal atrial fibrillation with RVR: As noted previously, the patient often develops atrial fibrillation when she is hypokalemic. This appears to be the cause of her hospitalization currently. Discontinue her diltiazem drip as it is at very low dose. Would increase her metoprolol succinate back to her 50 mg dose daily. Would also double her potassium supplementation up to 20 mEq b.i.d.. If stable, the patient could be discharged from the hospital later today. (2) Hypokalemia: As above, would double her usual potassium supplementation up to 20 mEq b.i.d.. (3) Chronic bundle branch block: The patient demonstrates a complete right bundle-branch block on her electrocardiogram. This is a chronic finding. History of Present Illness Attending Physician: Stephane Carson MD, PhD, [facility] History of Present Illness Mrs. Jerome is a 67-year-old female admitted yesterday with atrial flutter and a rapid ventricular response. This constitutes was order to assist in cardiac management. Of note, the patient typically follows with Dr. Benito in the outpatient setting. The patient was in her usual state health until last evening when she had the abrupt onset palpitations and a rapid heart rate. She used a pulse oximeter to follow her pulse and noted it to be as high as 178 beats per minute. Patient called 911 and presented to our institution for further care. Her initial workup here included a potassium level at 3.0. She was given intravenous metoprolol and diltiazem with little change in her heart rate. Hospitalization was recommended. The patient was diagnosed with paroxysmal atrial fibrillation back in August of 2017. She had an admission in January of 2018 for the same. Typically, her episodes occur with hypokalemia. Currently, patient is resting comfortably in bed complaints. Past medical and surgical history 1. Paroxysmal atrial fibrillation 2. RBBB 3. COPD 4. Hyperglycemia 5. GERD 6. Peptic ulcer disease-2009 7. Polyneuropathy 8. DJD 9. Chronic venous insufficiency 10. Migraine headaches 11. Spinal stenosis 12. Obesity 13. Anxiety 14. 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 Father at 73 of unknown causes Review of systems A 10 point review of systems was undertaken and negative except for that described above. Allergies Allergy/AdvReac Type Severity Reaction Status Date / Time fentanyl Allergy Severe HIVES Verified 06/22/18 22:55 NSAIDS (Non-Steroidal Allergy Intermediate DUODENAL Verified 06/23/18 02:45 Anti-Inflamma ULCER digoxin AdvReac Intermediate Nausea Verified 06/23/18 02:45 diltiazem AdvReac Mild Fluid Verified 06/22/18 22:55 retention tramadol AdvReac Mild hallucinati Verified 06/22/18 22:55 on amoxicillin AdvReac Unknown FLUID Verified 06/22/18 22:55 RETENTION aspirin AdvReac Unknown DUEODENAL Verified 06/22/18 22:55 ULCER doxycycline AdvReac Unknown FLUID Verified 06/22/18 22:55 RETENTION gabapentin AdvReac Unknown hallucinati Verified 06/22/18 22:55 ons ibuprofen AdvReac Unknown DUODENAL Verified 06/22/18 22:55 ULCER naproxen AdvReac Unknown DUODENAL Verified 06/22/18 22:55 ULCERS Home Medications Home Medications Medication Instructions Recorded Confirmed Type Eliquis 5 mg PO BID 02/07/18 06/22/18 History Slow-Mag 71.5 mg PO BID #30 tab 02/07/18 06/22/18 Rx albuterol sulfate [ProAir HFA] 2 puff INHALATION Q4 PRN 02/07/18 06/22/18 History cholecalciferol (vitamin D3) 5,000 unit PO DAILY 02/07/18 06/22/18 History [Vitamin D3] furosemide [Lasix] 40 mg PO UD PRN 02/07/18 06/22/18 History hydrocodone-acetaminophen [Golden] 1 tab PO QID PRN 02/07/18 06/22/18 History metolazone 2.5 mg PO QAM 02/07/18 06/22/18 History omeprazole 40 mg PO QAM 02/07/18 06/22/18 History potassium chloride 10 meq PO BID 02/07/18 06/22/18 History sumatriptan succinate [Imitrex] 50 mg PO DIRECTED PRN 02/07/18 06/22/18 History Symbicort 2 puff INHALATION BID PRN 04/19/18 06/22/18 History metoprolol succinate 1 tab PO DAILY 04/19/18 06/22/18 History Patient History Medical History Osteoarthritis (Chronic) Peripheral neuropathy (Chronic) Prediabetes (Chronic) Spinal stenosis (Chronic) Vitamin D deficiency (Chronic) Bilateral lower extremity edema (Resolved) Migraine (Resolved) A-fib DX AUGUST 2017/NO CARDIOVERSION Asthma DX WITHIN LAST YR/"SLIGHT" History of anesthesia reaction FOLLOWING SHOULDER ARTHROSCOPY ([facility]) TROUBLE WITH BREATHING AFTER THE NERVE BLOCK - "MESSED WITH LUNGS AND HAD OXYGEN FOR THREE MONTHS AFTER" History of hypokalemia ED VISIT 03/09/18 History of palpitations 03/09/18 [facility] ED...PALPITATIONS, POTASSIUM LOW/REPLETED/FU WITH NYEDGGAR History of peptic ulcer History of skin cancer Morbid obesity Stress incontinence CHRONIC Surgical History H/O tubal ligation (Resolved) History of arthroscopy of left knee History of arthroscopy of left shoulder History of bladder surgery FOR STRESS INCONTINECE History of colonoscopy History of endoscopy History of skin cancer RESECTED/R UPPER LEG Family History Other Cancer Diabetes HTN (hypertension) Heart disease Social History Preferred Language: Peruvian Communication Ability: Effective Kitchen Chef Required: No Beliefs That Will Affect Care: None marital status: Current Living Situation: Significant Other Other Information That Helps Us Care for You: No Feels Safe at Home: Yes Safety Concerns: Feels Safe At This Time Smoking Status: Current every day smoker Hx Alcohol Use: No Hx Substance Use: No Physical Exam 2 Vital Signs (Past 24 Hours): Last Vital Signs Temp 36.7 C 06/23/18 08:03 Pulse 86 06/23/18 10:44 Resp 18 06/23/18 08:03 BP 104/69 06/23/18 08:03 Pulse Ox 94 06/23/18 08:03 Physical Exam: In general this is an obese white female seated the bedside without complaints. HEENT exam is negative. Neck is supple with full carotid upstrokes. There are no carotid bruits. Jugular venous pressure is flat at 90. There is no thyromegaly. Cardiovascular exam reveals an irregular irregular rhythm with distant heart sounds. No obvious murmurs. Lungs note distant breath sounds but no rales, rhonchi, or wheezes. Abdomen is obese without bruits. Extremities reveal intact radial artery pulses bilaterally. Trace pretibial edema is noted. Hyper pigmentation changes also noted. Results & Data Laboratory Results CBC notes a hemoglobin of 14.2, adequate 42.5, white count 12.3, and platelet count of [id number]. Electrolytes noticed sodium of 138, potassium 3.7, chloride 100, bicarb 31, BUN 13, creatinine 0.8, glucose 124. Troponin I level is less than 0.015. Magnesium level is 2.0. Diagnostic Findings EKG on presentation noted atrial flutter with a variable ventricular response, a right bundle-branch block, and low-voltage throughout. nuclear monitoring technician now notes atrial fibrillation with a ventricular response of 80-100.
[2018-06-23] MEDS ORDERED: METOPROLOL SUCC 25MG EXT REL TAB PO ONE (12:45)
[2018-06-23] MEDS ORDERED: METOPROLOL SUCC 50MG EXT REL TAB PO ONE (12:45)
[2018-06-23] MEDS ORDERED: DIGOXIN 0.25 MG TAB PO SCH (16:00)
--- NOTE | 2018-06-23 18:37 | Hospitalist Progress Note ---
Date of Service June 23, 2018 Assessment & Plan (1) Atrial fibrillation with RVR: 67 y/o F Hx PAF on Eliquis, PUD, morbid obesity, chronic edema, COPD, smoker admitted on June 22, 2018 because of A. fib with rapid ventricular response AF/RVR was on a Diltiazem drip. Discussed with helminthologist, discontinue Cardizem drip, discontinue digoxin Increase metoprolol to 50 twice daily correction of potassium Continue adequate COPD or asthma, stable continue home medication Full code - Eliquis prophylaxis Subjective Heart rate controlled, No complaint, Review of Systems Constitutional: negative weakness, or fatigue Respiratory: no cough, sputum, wheezing, or dyspnea on exertion Cardiac: No chest pain, No orthopnea, No PND, No claudication, No palpitations, Abdomen: No pain, No nausea, No vomiting, No diarrhea, Musculoskeletal: No joint pain, No muscle pain, No swelling, No calf pain, No problem reported : No dysuria, No urinary frequency, No incontinence, No hematuria Neurologic: No paralysis, No weakness, No numbness/tingling, Psychiatric: No depression symptoms, No anhedonism, Heme: No abnormal bleeding/bruising, No clotting problems, No swollen lymph nodes, No night sweats Skin: No rash, No itch, No new/changing skin lesions, No color change, No bleeding Physical Exam Vital Signs (Past 24 Hours): Last Vital Signs Temp 36.8 C 06/23/18 15:56 Pulse 82 06/23/18 15:56 Resp 18 06/23/18 15:56 BP 105/55 L 06/23/18 15:56 Pulse Ox 96 06/23/18 15:56 Physical Exam: General Appearance: WD/WN, no apparent distress, Eyes: normal inspection, PERRL, EOMI, sclerae normal ENT: normal ENT inspection, hearing grossly normal, pharynx normal Neck: supple, no adenopathy, thyroid normal, no JVD, no carotid bruits, trachea midline Respiratory/Chest: chest non-tender, normal breath sounds, no respiratory distress, no accessory muscle use, breath sounds, rales, wheezing Cardiovascular: irregular rate, rhythm, no JVD, no murmur Abdomen: normal bowel sounds, non tender, soft, no organomegaly, Extremities: normal range of motion, non-tender, normal inspection, no pedal edema, no calf tenderness, normal capillary refill, pelvis stable, joint has no limited range of motion, capillary refill is normal, no cyanosis clubbing Neurologic/Psychiatric: trade show specialist II-XII nml as tested, no motor/sensory deficits, alert, normal mood/affect, oriented x 3 Skin: normal color, warm/dry, no rash Lymphatic: no adenopathy Results & Data Laboratory Results Laboratory Results - last 24 hr 06/22/18 06/22/18 06/22/18 22:30 22:30 22:30 WBC 12.38 H RBC 4.58 Hgb 14.2 Hct 42.5 MCV 92.8 MCH 31.0 MCHC 33.4 RDW Std Deviation 47.2 H RDW Coeff of Yamile[place] 13.8 Plt Count 232 MPV 10.4 Immature Gran % (Auto) 0.5 Neut % (Auto) 77.8 Lymph % (Auto) 15.8 [place] % (Auto) 4.4 Eos % (Auto) 1.3 Baso % (Auto) 0.2 Immature Gran # (Auto) 0.06 H Neut # (Auto) 9.65 H Lymph # (Auto) 1.95 [place] # (Auto) 0.54 Eos # (Auto) 0.16 Baso # (Auto) 0.02 PT 10.6 INR 1.0 APTT 34.2 H PTT Ratio 1.3 Sodium 136 Potassium 3.0 L Chloride 100 Carbon Dioxide 30 Anion Gap 6.0 BUN 17 Creatinine 0.93 Est Cr Clr Drug Dosing 74.2 Est GFR ( Amer) 73.7 Est GFR (Non-Af Amer) 63.6 BUN/Creatinine Ratio 18.4 Glucose 123 H Calcium 9.0 Magnesium Total Bilirubin 0.4 AST 16 ALT 17 Alkaline Phosphatase 138 H Troponin I < 0.015 Total Protein 6.8 Albumin 2.9 L Globulin 3.9 Albumin/Globulin Ratio 0.7 L 06/23/18 08:22 WBC RBC Hgb Hct MCV MCH MCHC RDW Std Deviation RDW Coeff of [place]ilet Plt Count MPV Immature Gran % (Auto) Neut % (Auto) Lymph % (Auto) [place] % (Auto) Eos % (Auto) Baso % (Auto) Immature Gran # (Auto) Neut # (Auto) Lymph # (Auto) [place] # (Auto) Eos # (Auto) Baso # (Auto) PT INR APTT PTT Ratio Sodium 138 Potassium 3.7 D Chloride 100 Carbon Dioxide 31 Anion Gap 7.0 BUN 13 Creatinine 0.82 Est Cr Clr Drug Dosing 78.1 Est GFR ( Amer) 85.8 Est GFR (Non-Af Amer) 74.0 BUN/Creatinine Ratio 16.1 Glucose 124 H Calcium 9.2 Magnesium 2.0 Total Bilirubin AST ALT Alkaline Phosphatase Troponin I Total Protein Albumin Globulin Albumin/Globulin Ratio
[2018-06-24] MEDS: APIXABAN 5 MG TABLET PO SCH (08:09)
[2018-06-24] MEDS: MAGNESIUM CHLORIDE 64MG DELAYED REL TAB PO SCH (08:09)
[2018-06-24] MEDS: POTASSIUM CHLORIDE 10 MEQ TABCR PO SCH (08:10)
[2018-06-24] MEDS: PANTOprazole 40 MG TAB PO SCH (08:10)
[2018-06-24 08:20] LABS: Est GFR (African American) 94.1; Est GFR (Non-African American) 81.2; Magnesium 1.9 mg/dl (1.8-2.4)
[2018-06-24] MEDS ORDERED: METOPROLOL SUCC 50MG EXT REL TAB PO SCH (09:00)
[2018-06-24] MEDS ORDERED: CHOLECALCIFEROL 1,000 UNITS TAB PO SCH (09:00)
[2018-06-24] MEDS ORDERED: metOLazone 2.5 MG TABLET PO SCH (09:00)
[2018-06-24 09:07] LABS: Phosphorus 3.7 mg/dl (2.5-4.9)
[2018-06-24 09:14] LABS: BUN Creatinine Ratio 20.4 (10-20)
--- NOTE | 2018-06-24 13:11 | Cardiology Progress Note ---
Date of Service June 24, 2018 Assessment & Plan (1) Paroxysmal atrial fibrillation with RVR: Agree with continuing metoprolol succinate at 50 mg daily. Would increase potassium supplement to 20 mEq twice daily. Hypokalemia seems to be the trigger of her atrial dysrhythmia. (2) Hypokalemia: As above. (3) Chronic bundle branch block: The patient demonstrates a right bundle-branch block. Subjective The patient is resting comfortably at the bedside without complaints of chest pain, dyspnea, palpitations. Feels better now that she is in sinus rhythm. Physical Exam Vital Signs (Past 24 Hours): Last Vital Signs Temp 36.2 C L 06/24/18 11:51 Pulse 57 L 06/24/18 11:51 Resp 18 06/24/18 11:51 BP 140/70 06/24/18 11:51 Pulse Ox 95 06/24/18 11:51 Physical Exam: In general this is an obese white female seated the bedside without complaints. HEENT exam is negative. Neck is supple with full carotid upstrokes. There are no carotid bruits. Jugular venous pressure is flat at 90. There is no thyromegaly. Cardiovascular exam reveals a regular rhythm with distant heart sounds. No obvious murmurs. Lungs note distant breath sounds but no rales, rhonchi, or wheezes. Abdomen is obese without bruits. Extremities reveal intact radial artery pulses bilaterally. Trace pretibial edema is noted. Hyper pigmentation changes also noted. Results & Data Laboratory Results Laboratory Results - last 24 hr 06/24/18 07:13 Sodium 135 L Potassium 4.0 Chloride 100 Carbon Dioxide 29 Anion Gap 5.0 BUN 16 Creatinine 0.76 Est Cr Clr Drug Dosing 84.0 Est GFR ( Amer) 94.1 Est GFR (Non-Af Amer) 81.2 BUN/Creatinine Ratio 20.4 H Glucose 102 H Calcium 9.0 Phosphorus 3.7 Magnesium 1.9 Diagnostic Findings Review of lunchroom monitor notes the patient to be in sinus rhythm at this time.
--- NOTE | 2018-06-24 16:54 | Discharge Summary ---
Date of Service June 24, 2018 Admission HPI Per Admitting Provider 67 y/o F Hx PAF on Eliquis, PUD, morbid obesity, chronic edema, COPD, smoker. Presents with palpitations and chest discomfort which she recognized as recurrent AF. The pt was admitted in late March for the same. She has a blood pressure which runs low and has had some difficulty tolerating an increase in her B nate to an effective dose. She did not respond completely to two doses of IV B ante and a dose of IV Diltiazem. She is admitted for rate control therefore. Initial labs are notable for hypokalemia. PMH: 1) Paroxysmal AF 2) Lower extremity edema 3) PUD 4) Asthma or COPD 5) Morbid obesity 6) GERD 7) Migraine headaches Surgical: Total shoulder replacement, TKA Social: Continues to smoke although she states she quit last week as her partner suffered a COPD exacerbation. She does not drink alcohol Family: Noncontributory Principal Diagnosis no Discharge Data Allergies Allergy/AdvReac Type Severity Reaction Status Date / Time fentanyl Allergy Severe HIVES Verified 06/22/18 22:55 NSAIDS (Non-Steroidal Allergy Intermediate DUODENAL Verified 06/23/18 02:45 Anti-Inflamma ULCER digoxin AdvReac Intermediate Nausea Verified 06/23/18 02:45 diltiazem AdvReac Mild Fluid Verified 06/22/18 22:55 retention tramadol AdvReac Mild hallucinati Verified 06/22/18 22:55 on amoxicillin AdvReac Unknown FLUID Verified 06/22/18 22:55 RETENTION aspirin AdvReac Unknown DUEODENAL Verified 06/22/18 22:55 ULCER doxycycline AdvReac Unknown FLUID Verified 06/22/18 22:55 RETENTION gabapentin AdvReac Unknown hallucinati Verified 06/22/18 22:55 ons ibuprofen AdvReac Unknown DUODENAL Verified 06/22/18 22:55 ULCER naproxen AdvReac Unknown DUODENAL Verified 06/22/18 22:55 ULCERS Consultations 06/23/18 01:04 ED Decision to Admit Stat 06/23/18 02:39 Consult Cardiology Routine Hospital Course (1) Atrial fibrillation with RVR: 67 y/o F Hx PAF on Eliquis, PUD, morbid obesity, chronic edema, COPD, smoker admitted on June 22, 2018 because of A. fib with rapid ventricular response AF/RVR was on a Diltiazem drip. Discussed with network professional, discontinue Cardizem drip, discontinue digoxin Increase metoprolol to 50 twice daily, Patient continued doing well after changed to oral metoprolol, has been up and walk in the hallway, no complaint no palpitation Correction of potassium Continue adequate For the potassium replacement, recommend potassium rich diet continue home dose of potassium at 10 M EQ p.o. twice daily I have given a prescription to patient to check labs and follow-up with PCP, may increase potassium 20 meq twice daily if needed, PCP please follow-up COPD or asthma, stable continue home medication Full code - Eliquis prophylaxis Subjective at discharge Up and walk, no chest pain no palpitation, No complaint, Review of Systems at discharge Constitutional: negative weakness, or fatigue Respiratory: no cough, sputum, wheezing, or dyspnea on exertion Cardiac: No chest pain, No orthopnea, No PND, No claudication, No palpitations, Abdomen: No pain, No nausea, No vomiting, No diarrhea, Musculoskeletal: No joint pain, No muscle pain, No swelling, No calf pain, No problem reported : No dysuria, No urinary frequency, No incontinence, No hematuria Neurologic: No paralysis, No weakness, No numbness/tingling, Psychiatric: No depression symptoms, No anhedonism, Heme: No abnormal bleeding/bruising, No clotting problems, No swollen lymph nodes, No night sweats Skin: No rash, No itch, No new/changing skin lesions, No color change, No bleeding Physical Exam at discharge General Appearance: WD/WN, no apparent distress, Eyes: normal inspection, PERRL, EOMI, sclerae normal ENT: normal ENT inspection, hearing grossly normal, pharynx normal Neck: supple, no adenopathy, thyroid normal, no JVD, no carotid bruits, trachea midline Respiratory/Chest: chest non-tender, normal breath sounds, no respiratory distress, no accessory muscle use, breath sounds, rales, wheezing Cardiovascular: irregular rate, rhythm, no JVD, no murmur Abdomen: normal bowel sounds, non tender, soft, no organomegaly, Extremities: normal range of motion, non-tender, normal inspection, no pedal edema, no calf tenderness, normal capillary refill, pelvis stable, joint has no limited range of motion, capillary refill is normal, no cyanosis clubbing Neurologic/Psychiatric: digital campaign specialist II-XII nml as tested, no motor/sensory deficits, alert, normal mood/affect, oriented x 3 Skin: normal color, warm/dry, no rash Lymphatic: no adenopathy Lab data at discharge: Laboratory Results - last 24 hr 06/24/18 07:13 Sodium 135 L Potassium 4.0 Chloride 100 Carbon Dioxide 29 Anion Gap 5.0 BUN 16 Creatinine 0.76 Est Cr Clr Drug Dosing 84.0 Est GFR ( Amer) 94.1 Est GFR (Non-Af Amer) 81.2 BUN/Creatinine Ratio 20.4 H Glucose 102 H Calcium 9.0 Phosphorus 3.7 Magnesium 1.9 Total Time Total Time Spent Total Time Spent (In Minutes): 35 Total Time Includes: Examination of the Patient, Discharge Planning, Medication Reconciliation and Communication With Other Providers Discharge Plan Discharge Items Patient Disposition: Home - Self-Care Reason For Visit: CHEST PAIN, RAPID AF Discharge Diagnosis: afib with RVR Condition: Fair Discharge Goals: Decrease discomfort, Diagnostic testing, Improve disease control, Improve function, Increase independence, Improve nutritional status, Learn about illness, Prevent disease, Specific goals and Therapeutic intervention Activity: Resume your previous activity Non-emergency contact: Primary Care Provider and Pet Handler Call non-emergency contact if: you have any medication questions Follow-up/Referrals: Rasheeda Saunders PA-C [Primary Care Provider] - Diet: Heart Healthy and Low Sodium (2gm) Addtl Provider Instructions: you have Atrial fibrillation with RVR, now is nSR I have increased metoprolol to 50 twice daily you need to continue Eliquis continue your current potassium dose, recs potassium rich diet, such as banana you need to follow up with your primary care physician in 1 week, need labs of bmp, mag in 4-5 days - take medication as instructed, never overdose or any misuse, or take with alcohol, because misuse of medicine may cause organ damage or , call me, or your primary care physician if have questions of discharge medicaitons. - call your primary care physician, or go to local emergency room if has any fever/chill, chest pain, shortness of breathing, nausea/vomiting/abdominal pain, facial droop/slurry speech/local weakness, or if has any questions. - fall precaution - diet as instructed - you need to follow up with your subspecialist, such as Dr. Caban Prescriptions: New metoprolol succinate 50 mg Tablet Extended Release 24 Hr 50 mg PO DAILY 30 Days Qty: 30 RF: 0 Continued Symbicort 160-4.5 mcg/actuation Hfa Aerosol Inhaler 2 puff INHALATION BID PRN (Reason: Shortness Of Breath Or Wheezing) RF: 0 furosemide [Lasix] 40 mg Tablet 40 mg PO UD PRN (Reason: Fluid Retention) RF: 0 metolazone 2.5 mg Tablet 2.5 mg PO QAM RF: 0 potassium chloride 10 mEq Capsule, Extended Release 10 meq PO BID RF: 0 sumatriptan succinate [Imitrex] 100 mg Tablet 50 mg PO DIRECTED PRN (Reason: Migraine Headache) RF: 0 hydrocodone-acetaminophen [Lutz] 5-325 mg Tablet 1 tab PO QID PRN (Reason: Pain) RF: 0 omeprazole 40 mg Capsule,Delayed Release(Dr/Ec) 40 mg PO QAM RF: 0 albuterol sulfate [ProAir HFA] 90 mcg/actuation Hfa Aerosol Inhaler 2 puff INHALATION Q4 PRN (Reason: Shortness Of Breath Or Wheezing) RF: 0 cholecalciferol (vitamin D3) [Vitamin D3] 5,000 unit Tablet 5,000 unit PO DAILY RF: 0 Eliquis 5 mg Tablet 5 mg PO BID RF: 0 Slow-Mag 71.5 mg tablet,delayed release (DR/EC) 71.5 mg PO BID Qty: 30 RF: 3 Discontinued metoprolol succinate 25 mg tablet extended release 24 hr 1 tab PO DAILY RF: 0 Stand-Alone Forms: [facility] Discharge Orders: Discharge Order (Routine); Ordered 06/24/18 Ordered By: Stephane Carson Admission Data Admit Date/Time: 06/23/18 01:39 Attending Provider: Stephane Carson Admit Provider: Jackson Lopez Primary Care Provider: Rasheeda Saunders Other Providers: Jackson Lopez ; Bebo Benito Service: Telemetry Other Interventions: Discharge Summary Assessment (RN) Last Done: 06/24/18 11:51 DC Date/Time DO NOT enter until pt leaves facility: 06/24/18 12:41
== END 2018-06-24 12:41 | disposition home or self-care (01) | DRG 641 ==
LOC: ED 22:24 → SUATTDRO 06-23 01:39 → 2S 06-23 01:39

== ENCOUNTER 2019-10-28 20:32 | Inpatient (IN) ==
--- NOTE | 2019-10-28 20:49 | Emergency Department Note ---
Impression & Plan Precordial chest pain, SOB (shortness of breath), Palpitations ED Provider Note NAME: MAHENDRA HADDAD AGE: 68 SEX: F : 1950 ARRIVES VIA: Ambulance INFORMANT: [Patient][ems, nurses] ED PROVIDER(S): [Jimmie Menendez MD] CHIEF COMPLAINT: Chest pressure HISTORY OF PRESENT ILLNESS: The patient is a 68-year-old female with a history of atrial fibrillation and sick sinus syndrome. The patient is on flecainide and Eliquis. Patient states that over the last few days, she has felt palpitations on and off. In the last 6 hours, she has had the palpitations and they have not stopped. She has some pressure in her chest that she is states is a 5/10. She feels mildly short of breath. No sweating or nausea. The patient states that she cannot recall having the pressure in her chest before when she had palpitations. She has no history of previous [place]. She states she had a stress test about 6 months ago and did well on it. There has been no cough or congestion. She has not fallen. No abdominal pain, the patient was brought by ambulance for assessment. REVIEW OF SYSTEMS: See HPI for pertinent positives and negatives. A total of ten systems were reviewed and were otherwise negative. PMHx/PSHx: See Below SOCIAL HISTORY: See Below. PHYSICAL EXAM: GENERAL: Patient is in no acute distress. HEENT: No acute trauma, normocephalic atraumatic, mucous membranes moist, no nasal congestion, no scleral icterus. NECK: No stridor, no adenopathy, no meningismus, trachea is midline. LUNGS: Clear to auscultation bilaterally, no wheeze, no rhonchi, breath sounds equal. HEART: Bradycardic rate, regular rhythm, no murmurs. ABDOMEN: Soft, nontender, bowel sounds positive, no hernias, no peritonitis. EXTREMITIES: No cyanosis, moderate bilateral pedal edema with some chronic skin change, full range of motion of all the joints without pain or difficulty, no signs for acute trauma. NEUROLOGIC: Oriented x 3, no acute motor or sensory deficits, no focal weakness. SKIN: No rash, no jaundice, no diaphoresis. DIFFERENTIAL DIAGNOSIS: Cardiac ischemia, aortic dissection, pulmonary embolism, pneumothorax, bradycardia, tachycardia A. fib/a flutter, dysrhythmia, pneumonia, pericarditis, myocarditis, esophageal rupture, GERD, cholecystitis, pancreatitis, musculoskeletal, as well as other pathologies. EMERGENCY DEPARTMENT COURSE/PROCEDURES: ECG: Indication was chest pressure. The ECG shows what appears to be a sinus rhythm with a rate of 60. The QTc is 448. There is some baseline artifact. I see no ST elevation, no PVCs. There appears to be an incomplete right bundle branch block. Compared to an ECG from 04 April 2019, there is no significant change. Continuous Cardiac Monitoring: An order was placed for continuous cardiac monitoring. The monitor shows a rate of 58 with sinus bradycardia. MEDICAL DECISION MAKING: There is a very subtle leukocytosis at 10.9, this could be consistent with infection or just the stress of her presentation. There is a normal hemoglobin. There is a normal platelet count. No concerning coagulopathy. No significant electrolyte abnormality or kidney failure. No worrisome liver enzyme elevation. No evidence for pancreatitis. EKG shows a sinus rhythm, no acute ischemia. Cardiac enzyme testing x1 is not consistent with acute cardiac injury. Chest x- ray shows some cardiomegaly and chronic change, no focal infiltrate, no CHF or pneumonia. The patient presents with precordial chest pain, some shortness of breath and some palpitations. Work-up here is unrevealing. There has been no dysrhythmia during her ED stay. I discussed the case with cardiology. The patient will be hospitalized for further cardiac testing and for cardiac monitoring. At this point, the cause for her presentation is not clear. I did speak with case management, the on-call hospitalist has been consulted. Past Med/Surg History Medical History A-fib DX AUGUST 2017/NO CARDIOVERSION Asthma DX WITHIN LAST YR/"SLIGHT" Bilateral lower extremity edema (Resolved) History of anesthesia reaction FOLLOWING SHOULDER ARTHROSCOPY ([facility]) TROUBLE WITH BREATHING AFTER THE NERVE BLOCK - "MESSED WITH LUNGS AND HAD OXYGEN FOR THREE MONTHS AFTER" History of hypokalemia ED VISIT 03/09/18 History of palpitations 03/09/18 [facility] ED...PALPITATIONS, POTASSIUM LOW/REPLETED/FU WITH PIERRE History of peptic ulcer History of skin cancer Migraine (Resolved) Morbid obesity Osteoarthritis (Chronic) Peripheral neuropathy (Chronic) Prediabetes (Chronic) Spinal stenosis (Chronic) Stress incontinence CHRONIC Vitamin D deficiency (Chronic) Surgical History H/O tubal ligation (Resolved) History of arthroscopy of left knee History of arthroscopy of left shoulder History of bladder surgery FOR STRESS INCONTINECE History of colonoscopy History of endoscopy History of reverse total replacement of left shoulder joint (~04/2018) History of skin cancer RESECTED/R UPPER LEG Family History Father Prostate cancer Hypertension Myocardial infarction Brother Diabetes Mother Hypertension Denies family history of Ovarian cancer Breast cancer Colorectal cancer Social History Preferred Language: Nigerien Communication Ability: Effective Visual Impairment: No Limitations Outreach Liaison Required: No Beliefs That Will Affect Care: None marital status: Current Living Situation: Significant Other current occupational status: retired Feels Safe at Home: Yes Smoking Status: Current every day smoker Tobacco Type: cigarettes ; Cigarettes Per Day: 10 ; Second Hand Exposure: No ; Hx Alcohol Use: No Hx Substance Use: No Dental Care, Regularly: No Physical Activity Frequency: Does not Exercise Seatbelt Use: always Sunscreen Use: No Allergies Allergies Allergy/AdvReac Type Severity Reaction Status Date / Time fentanyl Allergy Severe HIVES Verified 06/25/19 10:58 NSAIDS (Non-Steroidal Allergy Intermediate DUODENAL Verified 06/25/19 10:58 Anti-Inflamma ULCER digoxin AdvReac Intermediate Nausea Verified 06/25/19 10:58 diltiazem AdvReac Mild Fluid Verified 06/25/19 10:58 retention tramadol AdvReac Mild hallucinati Verified 06/25/19 10:58 on amoxicillin AdvReac Unknown FLUID Verified 06/25/19 10:58 RETENTION aspirin AdvReac Unknown DUEODENAL Verified 06/25/19 10:58 ULCER doxycycline AdvReac Unknown FLUID Verified 06/25/19 10:58 RETENTION gabapentin AdvReac Unknown hallucinati Verified 06/25/19 10:58 ons ibuprofen AdvReac Unknown DUODENAL Verified 06/25/19 10:58 ULCER naproxen AdvReac Unknown DUODENAL Verified 06/25/19 10:58 ULCERS acetaminophen [From Percocet] AdvReac Verified 06/25/19 10:58 oxycodone [From Percocet] AdvReac Verified 06/25/19 10:58 Duragesic-100 PT72 AdvReac Unknown Uncoded 06/25/19 10:58 Home Meds Home Medications Medication Instructions Recorded Confirmed albuterol sulfate [ProAir HFA] 2 puff INHALATION Q4 PRN 02/07/18 06/25/19 cholecalciferol (vitamin D3) 5,000 unit PO QAM 02/07/18 06/25/19 [Vitamin D3] sumatriptan succinate [Imitrex] 50 mg PO DIRECTED PRN 02/07/18 06/25/19 budesonide-formoterol HFA 160 2 puff INHALATION BID gm 02/05/19 06/25/19 mcg-4.5 mcg/actuation aerosol inhaler spironolactone 50 mg tablet 50 mg PO DAILY 04/26/19 06/25/19 Previous Rx's Medication Instructions Recorded Slow-Mag 71.5 mg PO BID #30 tab 02/07/18 ondansetron HCl 4 mg tablet 4 mg PO TID PRN 5 Days #20 tab 04/11/19 metoprolol succinate 50 mg 25 mg PO QAM #90 tab 06/19/19 tablet,extended release 24 hr omeprazole 40 mg capsule,delayed 40 mg PO QAM #90 cap 07/01/19 release flecainide 50 mg tablet 50 mg PO Q12H #180 tab 07/08/19 furosemide 40 mg tablet 40 mg PO QAM #90 tab 08/20/19 apixaban 5 mg tablet See Rx Instructions .ROUTE 09/09/19 .COMPLEX #180 tablet Results & Data (ED) Vital Signs Vital Signs - 24 hr 10/28/19 20:44 10/28/19 20:47 10/28/19 20:52 Temperature 37 C Temperature Source Oral Pulse Rate 56 L 58 L 58 L Pulse Rate from SpO2 Sensor 56 L Pulse Rhythm Regular Pulse Strength Normal Respiratory Rate 22 20 20 Respiratory Effort / Characteristics Non-Labored Spontaneous Respiratory Depth Normal Respiratory Pattern Regular Blood Pressure 128/63 128/63 Blood Pressure Mean 74 84 Blood Pressure Position Lying Pulse Oximetry 93 94 94 Oxygen Delivery Method Room Air Room Air Sepsis Recent Fever Within 48 Hours No Sepsis New/Unexplained Change in Mental Status No Sepsis Action Taken by Nursing No Action Required End-Tidal CO2 10/28/19 21:00 10/28/19 21:31 Temperature Temperature Source Pulse Rate 54 L 50 L Pulse Rate from SpO2 Sensor Pulse Rhythm Pulse Strength Respiratory Rate 12 12 Respiratory Effort / Characteristics Respiratory Depth Respiratory Pattern Blood Pressure 101/54 L 110/43 L Blood Pressure Mean 73 85 Blood Pressure Position Pulse Oximetry 93 Oxygen Delivery Method Sepsis Recent Fever Within 48 Hours Sepsis New/Unexplained Change in Mental Status Sepsis Action Taken by Nursing End-Tidal CO2 93 Home Medications Current Medication List: was personally reviewed by me Laboratory Data Attestation: I reviewed the patient's lab results. Result diagrams: 10/28/19 20:45 10/28/19 20:45 Lab Results 10/28/19 10/28/19 10/28/19 Range/Units 20:45 20:45 20:45 WBC 10.93 H (4.8-10.8) K/uL RBC 4.65 (4.2-5.4) M/uL Hgb 14.8 (12.0-16.0) g/dL Hct 45.4 (37-47) % MCV 97.6 (80-100) fL MCH 31.8 (25-34) pg MCHC 32.6 (32-36) g/dL RDW Std Deviation 48.0 H (36.4-46.3) fL RDW Coeff of Yamilet 13.6 (11.5-14.5) % Plt Count 253 (130-400) K/uL MPV 10.4 (7.4-10.4) fL Immature Gran % (Auto) 0.5 % Neut % (Auto) 73.9 % Lymph % (Auto) 17.2 % [place] % (Auto) 6.7 % Eos % (Auto) 1.5 % Baso % (Auto) 0.2 % Neut # (Auto) 8.09 H (1.4-6.5) K/uL Lymph # (Auto) 1.88 (1.2-3.4) K/uL [place] # (Auto) 0.73 H (0.11-0.59) K/uL Eos # (Auto) 0.16 (0-0.5) K/uL Baso # (Auto) 0.02 (0-0.2) K/uL Immature Gran # (Auto) 0.05 H (0.00-0.02) K/uL PT 10.6 (9.0-12.0) Seconds INR 1.0 (0.9-1.1) APTT 31.6 H (21.0-31.0) Seconds PTT Ratio 1.1 Sodium 138 (136-145) mmol/L Potassium 3.6 (3.5-5.1) mmol/L Chloride 102 (98-107) mmol/L Carbon Dioxide 29 (21-32) mmol/L Anion Gap 7.0 (3-11) BUN 22 H (7-18) mg/dl Creatinine 1.16 (0.6-1.2) mg/dl Est Cr Clr Drug Dosing 56.5 ml/min Est GFR ( Amer) 56.0 Est GFR (Non-Af Amer) 48.3 BUN/Creatinine Ratio 18.8 (10-20) Glucose 167 H (70-99) mg/dl Calcium 9.2 (8.5-10.1) mg/dl Magnesium 2.0 (1.8-2.4) mg/dl Total Bilirubin 0.4 (0.2-1) mg/dl AST 14 L (15-37) U/L ALT 23 (12-78) U/L Alkaline Phosphatase 162 H (45-117) U/L Troponin I < 0.015 (0-0.045) ng/ml Total Protein 7.4 (6.4-8.2) gm/dl Albumin 3.4 (3.4-5.0) gm/dl Globulin 4.0 (2.5-4.0) gm/dl Albumin/Globulin Ratio 0.9 (0.9-2) Lipase 102 (73-393) U/L Imaging Data Attestation: I personally reviewed and interpreted this imaging study as follows: My Impression: Chest x-ray: There is some mild cardiomegaly. There is some potential atelectasis at the bases especially on the left. I see no focal infiltrate, there is no pneumonia or pneumothorax. No concerning CHF. Compared to previous films, there is no significant change. Blood Pressure Blood Pressure Findings: Normal blood pressure Blood Pressure Disposition: further management by hospitalist Discharge Plan Visit Data Chief Complaint: Cardiac Assessment Stated Complaint: cardiac assessment ED Provider: Jimmie Menendez Discharge Problem: Precordial chest pain, SOB (shortness of breath), Palpitations Patient Disposition: Admitted As Inpatient Condition: Good Forms Stand Alone Forms: My [facility] Prescriptions Prescriptions: No Action omeprazole 40 mg capsule,delayed release(DR/EC) 40 mg PO QAM Qty: 90 RF: 3 flecainide 50 mg tablet 50 mg PO Q12H Qty: 180 RF: 3 furosemide [Lasix] 40 mg tablet 40 mg PO QAM Qty: 90 RF: 3 apixaban [Eliquis] 5 mg tablet See Rx Instructions .ROUTE .COMPLEX Qty: 180 RF: 3 ondansetron HCl 4 mg tablet 4 mg PO TID PRN (Reason: nausea and vomiting) 5 Days Qty: 20 RF: 0 spironolactone 50 mg tablet 50 mg PO DAILY RF: 0 metoprolol succinate 50 mg tablet extended release 24 hr 25 mg PO QAM Qty: 90 RF: 3 Symbicort 160-4.5 mcg/actuation HFA aerosol inhaler 2 puff INHALATION BID RF: 0 sumatriptan succinate [Imitrex] 100 mg Tablet 50 mg PO DIRECTED PRN (Reason: Migraine Headache) RF: 0 albuterol sulfate [ProAir HFA] 90 mcg/actuation Hfa Aerosol Inhaler 2 puff INHALATION Q4 PRN (Reason: Shortness Of Breath Or Wheezing) RF: 0 cholecalciferol (vitamin D3) [Vitamin D3] 5,000 unit Tablet 5,000 unit PO QAM RF: 0 Slow-Mag 71.5 mg tablet,delayed release (DR/EC) 71.5 mg PO BID Qty: 30 RF: 3 Referrals Referrals: Tomas Greenberg III, MD [Primary Care Provider] -
[2019-10-28 20:52] LABS: Basophils # (auto) 0.02 K/uL (0-0.2); Basophils % (auto) 0.2 %; Eosinophils # (auto) 0.16 K/uL (0-0.5); Eosinophils % (auto) 1.5 %; Hematocrit (blood only) 45.4 % (37-47); Hemoglobin 14.8 g/dL (12.0-16.0); Immature Granulocytes # (auto) 0.05 K/uL (0.00-0.02); Immature Granulocytes % (auto) 0.5 %; Lymphocytes # (auto) 1.88 K/uL (1.2-3.4); Lymphocytes % (auto) 17.2 %; Mean Corpuscular Hemoglobin 31.8 pg (25-34); Mean Corpuscular Hgb Conc 32.6 g/dL (32-36); Mean Corpuscular Volume 97.6 fL (80-100); Mean Platelet Volume 10.4 fL (7.4-10.4); Monocytes # (auto) 0.73 K/uL (0.11-0.59); Monocytes % (auto) 6.7 %; Neutrophils # (auto) 8.09 K/uL (1.4-6.5); Neutrophils % (auto) 73.9 %; Platelet Count 253 K/uL (130-400); RDW Coefficient of Variation 13.6 % (11.5-14.5); Red Blood Count 4.65 M/uL (4.2-5.4); White Blood Count 10.93 K/uL (4.8-10.8)
[2019-10-28 21:09] LABS: Partial Thromboplastin Ratio 1.1; Partial Thromboplastin Time 31.6 Seconds (21.0-31.0); Prothrombin Time 10.6 Seconds (9.0-12.0)
[2019-10-28 21:12] LABS: Alanine Aminotransferase 23 U/L (12-78); Albumin Level 3.4 gm/dl (3.4-5.0); Aspartate Aminotransferase 14 U/L (15-37); BUN Creatinine Ratio 18.8 (10-20); Blood Urea Nitrogen 22 mg/dl (7-18); Calcium 9.2 mg/dl (8.5-10.1); Carbon Dioxide 29 mmol/L (21-32); Chloride 102 mmol/L (98-107); Creatinine Clr Calc Pharmacy 56.5 ml/min; Est GFR (Non-African American) 48.3; Glucose 167 mg/dl (70-99); Lipase 102 U/L (73-393); Potassium 3.6 mmol/L (3.5-5.1); Sodium 138 mmol/L (136-145)
[2019-10-28 21:16] LABS: Albumin Globulin Ratio 0.9 (0.9-2); Alkaline Phosphatase 162 U/L (45-117); Bilirubin,Total 0.4 mg/dl (0.2-1); Total Protein 7.4 gm/dl (6.4-8.2); Troponin I < 0.015 ng/ml (0-0.045)
--- NOTE | 2019-10-28 22:27 | History & Physical Report ---
Date of Service October 28, 2019 Assessment & Plan (1) Precordial chest pain: Precordial chest pain/atrial fibrillation with RVR/bradycardia/HFpEF- The patient will be admitted to telemetry for serial cardiac enzymes, serial EKG's, cardiac rhythm monitoring and a 2-D echocardiogram with Dopplers. Hold Eliquis tonight and make n.p.o. after midnight. If no procedures anticipated, can resume Eliquis and resume diet. Continue flecainide 50 mg p.o. every 12 hours. She reports that she had her metoprolol succinate decreased by Dr. Benito from 50 to 25 mg every morning due to bradycardia, but she increased it back to 50 mg on her own due to frequent episodes of atrial fibrillation with RVR. She does note, upon questioning, that any episodes of increased heart rate tend occur toward the end of the day. She continues to take the metoprolol succinate 50 mg every morning, and has never been on 25 twice daily. We will consult her database administration manager Dr. Benito, who can discuss future options with her, including the potential for pacer and to also discuss the potential benefit of an ablation procedure. Present on Admission?: Yes (2) Atrial fibrillation with RVR: See above Present on Admission?: Yes (3) Bradycardia: See above Present on Admission?: Yes (4) (HFpEF) heart failure with preserved ejection fraction: Most recent echo was dobutamine stress echo on 01/07/2019 with preserved ejection fraction 60 to 65%. Continue furosemide 40 mg p.o. daily and spironolactone 50 mg p.o. daily. Present on Admission?: Yes (5) Chronic venous insufficiency: Reports chronic lower extremity edema, with left chronically worse than right Present on Admission?: Yes (6) Peptic ulcer disease: Continue omeprazole/pantoprazole 40 mg daily. Unable to take aspirin or NSAIDs due to history with duodenal ulcers Present on Admission?: Yes History of Present Illness Chief Complaint: The patient presents to the emergency department with complaint of a few days of palpitations and chest discomfort, that worsened today, and was associated with a near syncopal episode. Primary Care Provider: Tomas Greenberg MD The patient is a 68-year-old female with a past medical history including atrial fibrillation with RVR, bradycardia, chronic respiratory failure, bilateral lower extremity edema, acute hypoxemic respiratory failure, peptic ulcer disease, chronic bundle branch block, peripheral edema, chronic venous insufficiency and paroxysmal atrial fibrillation with RVR. The patient does follow with Dr. Benito, and last visit had to be canceled due to the COVID pandemic. She reports that this is the first time that she has had a near syncopal episode. She has had discussions with Dr. Benito regarding a potential pacer in the future, but she also has questions regarding the benefit of an ablation procedure Allergies Allergy/AdvReac Type Severity Reaction Status Date / Time fentanyl Allergy Severe HIVES Verified 10/28/19 21:57 NSAIDS (Non-Steroidal Allergy Intermediate DUODENAL Verified 10/28/19 21:57 Anti-Inflamma ULCER digoxin AdvReac Intermediate Nausea Verified 10/28/19 21:57 diltiazem AdvReac Mild Fluid Verified 10/28/19 21:57 retention tramadol AdvReac Mild hallucinati Verified 10/28/19 21:57 on amoxicillin AdvReac Unknown FLUID Verified 10/28/19 21:57 RETENTION aspirin AdvReac Unknown DUEODENAL Verified 10/28/19 21:57 ULCER doxycycline AdvReac Unknown FLUID Verified 10/28/19 21:57 RETENTION gabapentin AdvReac Unknown hallucinati Verified 10/28/19 21:57 ons ibuprofen AdvReac Unknown DUODENAL Verified 10/28/19 21:57 ULCER naproxen AdvReac Unknown DUODENAL Verified 06/25/19 10:58 ULCERS acetaminophen [From Percocet] AdvReac Unknown Verified 10/28/19 21:57 oxycodone [From Percocet] AdvReac Unknown Verified 10/28/19 21:57 Duragesic-100 PT72 AdvReac Unknown Uncoded 06/25/19 10:58 Home Medications Home Medications Medication Instructions Recorded Confirmed Type albuterol sulfate [ProAir HFA] 2 puff INHALATION Q4 PRN 02/07/18 10/28/19 History cholecalciferol (vitamin D3) 5,000 unit PO QAM 02/07/18 10/28/19 History [Vitamin D3] sumatriptan succinate [Imitrex] 50 mg PO DIRECTED PRN 02/07/18 10/28/19 History budesonide-formoterol HFA 160 2 puff INHALATION BID gm 02/05/19 10/28/19 History mcg-4.5 mcg/actuation aerosol inhaler ondansetron HCl 4 mg tablet 4 mg PO TID PRN 5 Days #20 tab 04/11/19 10/28/19 Rx omeprazole 40 mg capsule,delayed 40 mg PO QAM #90 cap 07/01/19 10/28/19 Rx release flecainide 50 mg tablet 50 mg PO Q12H #180 tab 07/08/19 10/28/19 Rx furosemide 40 mg tablet 40 mg PO QAM #90 tab 08/20/19 10/28/19 Rx Eliquis 5 mg PO BID 10/28/19 10/28/19 History magnesium chloride [Slow-Mag] 71.5 mg PO BID 10/28/19 10/28/19 History metoprolol succinate 50 mg PO QAM 10/28/19 10/28/19 History spironolactone [Aldactone] 50 mg PO DAILY 10/28/19 10/28/19 History Past Med/Surg History Medical History A-fib DX AUGUST 2017/NO CARDIOVERSION Asthma DX WITHIN LAST YR/"SLIGHT" Bilateral lower extremity edema (Resolved) History of anesthesia reaction FOLLOWING SHOULDER ARTHROSCOPY ([facility]) TROUBLE WITH BREATHING AFTER THE NERVE BLOCK - "MESSED WITH LUNGS AND HAD OXYGEN FOR THREE MONTHS AFTER" History of hypokalemia ED VISIT 03/09/18 History of palpitations 03/09/18 [facility] ED...PALPITATIONS, POTASSIUM LOW/REPLETED/FU WITH NYEDGGAR History of peptic ulcer History of skin cancer Migraine (Resolved) Morbid obesity Osteoarthritis (Chronic) Peripheral neuropathy (Chronic) Prediabetes (Chronic) Spinal stenosis (Chronic) Stress incontinence CHRONIC Vitamin D deficiency (Chronic) Surgical History H/O tubal ligation (Resolved) History of arthroscopy of left knee History of arthroscopy of left shoulder History of bladder surgery FOR STRESS INCONTINECE History of colonoscopy History of endoscopy History of reverse total replacement of left shoulder joint (~04/2018) History of skin cancer RESECTED/R UPPER LEG Family History Father Prostate cancer Hypertension Myocardial infarction Brother Diabetes Mother Hypertension Denies family history of Ovarian cancer Breast cancer Colorectal cancer Social History Preferred Language: Khmer Communication Ability: Effective Visual Impairment: No Limitations Enterprise Systems Architect Required: No Beliefs That Will Affect Care: None marital status: Current Living Situation: Significant Other current occupational status: retired Other Information That Helps Us Care for You: No Feels Safe at Home: Yes Safety Concerns: Feels Safe At This Time Smoking Status: Current every day smoker Tobacco Type: cigarettes ; Cigarettes Per Day: 10 ; Second Hand Exposure: No ; Hx Alcohol Use: No Hx Substance Use: No Dental Care, Regularly: No Physical Activity Frequency: Does not Exercise Seatbelt Use: always Sunscreen Use: No Review of Systems Review of Systems: The patient denies chest pain, cough, lower extremity swelling, sore throat, fevers, chills, sweats, weight change, fatigue, nausea, vomiting, diarrhea , constipation, abdominal pain, pelvic pain, blood in urine or stool, dysuria, urinary frequency or urgency, rash, abnormal bruising or bleeding, focal or generalized weakness, numbness or tingling in arms or legs, generalized arthralgias or myalgias, back or neck pain, or night sweats. The review of systems is otherwise negative other than for that already noted above, and at least 10 systems have been reviewed. Physical Exam Physical Exam: The patient is awake, alert and oriented 3, well developed and well nourished, normocephalic and atraumatic, lying in bed and in no acute distress. HEENT--PERRL, EOMI, mucous membranes and oropharynx normal. Neck--supple. No JVD. No bruits. Thyroid normal, trachea midline, no adenopathy. Heart--bradycardic, normal S1 and S2. No murmurs, rubs or gallops. Lungs--clear bilaterally, no respiratory distress, no accessory muscle use. Abdomen--normal bowel sounds and soft. Nontender. Nondistended. Morbidly obese. Extremities--no cyanosis or clubbing. 1+ bilateral pretibial pitting edema, left chronically >right. Dermatologic--normal skin turgor, normal color, no abnormal lymph nodes, no rash. Neurologic--cranial nerves II through XII grossly intact. Rheumatologic--normal range of motion. Psychiatric--normal affect. Results & Data Results & Data ([facility]) Vital Signs (Past 12 Hours) Vital Signs Temp Pulse Resp BP Pulse Ox 10/28/19 21:31 50 L 12 110/43 L 10/28/19 21:00 54 L 12 101/54 L 93 10/28/19 20:52 58 L 20 94 10/28/19 20:47 98.6 F 58 L 20 128/63 94 10/28/19 20:44 56 L 22 128/63 93 Laboratory Results Laboratory Results WBC 10.93 K/uL (4.8-10.8) H 10/28/19 20:45 RBC 4.65 M/uL (4.2-5.4) 10/28/19 20:45 Hgb 14.8 g/dL (12.0-16.0) 10/28/19 20:45 Hct 45.4 % (37-47) 10/28/19 20:45 MCV 97.6 fL (80-100) 10/28/19 20:45 MCH 31.8 pg (25-34) 10/28/19 20:45 MCHC 32.6 g/dL (32-36) 10/28/19 20:45 RDW Std Deviation 48.0 fL (36.4-46.3) H 10/28/19 20:45 RDW Coeff of Yamilet 13.6 % (11.5-14.5) 10/28/19 20:45 Plt Count 253 K/uL (130-400) 10/28/19 20:45 MPV 10.4 fL (7.4-10.4) 10/28/19 20:45 Immature Gran % (Auto) 0.5 % 10/28/19 20:45 Neut % (Auto) 73.9 % 10/28/19 20:45 Lymph % (Auto) 17.2 % 10/28/19 20:45 [place] % (Auto) 6.7 % 10/28/19 20:45 Eos % (Auto) 1.5 % 10/28/19 20:45 Baso % (Auto) 0.2 % 10/28/19 20:45 Neut # (Auto) 8.09 K/uL (1.4-6.5) H 10/28/19 20:45 Lymph # (Auto) 1.88 K/uL (1.2-3.4) 10/28/19 20:45 [place] # (Auto) 0.73 K/uL (0.11-0.59) H 10/28/19 20:45 Eos # (Auto) 0.16 K/uL (0-0.5) 10/28/19 20:45 Baso # (Auto) 0.02 K/uL (0-0.2) 10/28/19 20:45 Immature Gran # (Auto) 0.05 K/uL (0.00-0.02) H 10/28/19 20:45 PT 10.6 Seconds (9.0-12.0) 10/28/19 20:45 INR 1.0 (0.9-1.1) 10/28/19 20:45 APTT 31.6 Seconds (21.0-31.0) H 10/28/19 20:45 PTT Ratio 1.1 10/28/19 20:45 Sodium 138 mmol/L (136-145) 10/28/19 20:45 Potassium 3.6 mmol/L (3.5-5.1) 10/28/19 20:45 Chloride 102 mmol/L (98-107) 10/28/19 20:45 Carbon Dioxide 29 mmol/L (21-32) 10/28/19 20:45 Anion Gap 7.0 (3-11) 10/28/19 20:45 BUN 22 mg/dl (7-18) H 10/28/19 20:45 Creatinine 1.16 mg/dl (0.6-1.2) 10/28/19 20:45 Est Cr Clr Drug Dosing 56.5 ml/min 10/28/19 20:45 Est GFR ( Amer) 56.0 10/28/19 20:45 Est GFR (Non-Af Amer) 48.3 10/28/19 20:45 BUN/Creatinine Ratio 18.8 (10-20) 10/28/19 20:45 Glucose 167 mg/dl (70-99) H 10/28/19 20:45 Calcium 9.2 mg/dl (8.5-10.1) 10/28/19 20:45 Magnesium 2.0 mg/dl (1.8-2.4) 10/28/19 20:45 Total Bilirubin 0.4 mg/dl (0.2-1) 10/28/19 20:45 AST 14 U/L (15-37) L 10/28/19 20:45 ALT 23 U/L (12-78) 10/28/19 20:45 Alkaline Phosphatase 162 U/L (45-117) H 10/28/19 20:45 Troponin I < 0.015 ng/ml (0-0.045) 10/28/19 20:45 Total Protein 7.4 gm/dl (6.4-8.2) 10/28/19 20:45 Albumin 3.4 gm/dl (3.4-5.0) 10/28/19 20:45 Globulin 4.0 gm/dl (2.5-4.0) 10/28/19 20:45 Albumin/Globulin Ratio 0.9 (0.9-2) 10/28/19 20:45 Lipase 102 U/L (73-393) 10/28/19 20:45 Code Status & VTE Plan Code Status Full code VTE Prophylaxis Plan VTE Prophylaxis will be ordered: Yes PG Care Time/CCT Total # of Minutes Spent Total Time Spent with Patient: Total time spent is greater than 50% in coordination of care (as documented) at patient's floor/unit and/or counseling patient: Coding Level of Care Code 99739 Initial Inpt Care Lvl 3 Diagnoses Precordial chest pain R07.2 Atrial fibrillation with RVR I48.91 Bradycardia R00.1 (HFpEF) heart failure with preserved ejection fraction I50.30 Chronic venous insufficiency I87.2 Peptic ulcer disease K27.9
[2019-10-28] MEDS ORDERED: ONDANSETRON INJ 2 MG/ML 2 ML VIAL IV PRN (23:37)
[2019-10-28] MEDS ORDERED: ALUMINUM/MAGNESIUM SUSP 30 ML UDC PO PRN (23:37)
[2019-10-28] MEDS ORDERED: MAGNESIUM HYDROXIDE SUSP 30 ML UDC PO PRN (23:37)
[2019-10-28] MEDS ORDERED: SUMAtriptan succinate 50 MG TAB PO PRN (23:37)
[2019-10-28] MEDS ORDERED: ALBUTEROL HFA 8 GM INHALER INH PRN (23:40)
[2019-10-28] MEDS ORDERED: ONDANSETRON 4 MG OD TAB PO PRN (23:44)
[2019-10-28] MEDS: MAGNESIUM CHLORIDE 64MG DELAYED REL TAB PO SCH (23:55)
[2019-10-29 07:30] LABS: Basophils # (auto) 0.02 K/uL (0-0.2); Basophils % (auto) 0.3 %; Eosinophils # (auto) 0.15 K/uL (0-0.5); Eosinophils % (auto) 1.9 %; Hematocrit (blood only) 43.9 % (37-47); Hemoglobin 13.9 g/dL (12.0-16.0); Immature Granulocytes # (auto) 0.01 K/uL (0.00-0.02); Immature Granulocytes % (auto) 0.1 %; Lymphocytes # (auto) 1.73 K/uL (1.2-3.4); Lymphocytes % (auto) 21.8 %; Mean Corpuscular Hgb Conc 31.7 g/dL (32-36); Mean Corpuscular Volume 97.8 fL (80-100); Mean Platelet Volume 10.3 fL (7.4-10.4); Monocytes # (auto) 0.66 K/uL (0.11-0.59); Monocytes % (auto) 8.3 %; Neutrophils # (auto) 5.37 K/uL (1.4-6.5); Neutrophils % (auto) 67.6 %; Platelet Count 240 K/uL (130-400); RDW Coefficient of Variation 13.5 % (11.5-14.5); RDW Standard Deviation 48.4 fL (36.4-46.3); Red Blood Count 4.49 M/uL (4.2-5.4); White Blood Count 7.94 K/uL (4.8-10.8)
[2019-10-29] MEDS ORDERED: PERFLUTREN LIPID MICROSPHERE (DEFINITY) IV ONE (07:39)
--- NOTE | 2019-10-29 07:47 | XRay Report ---
XR chest 1V portable CLINICAL HISTORY: Chest pain. COMPARISON STUDY: Chest radiograph April 04, 2019. FINDINGS: Lung volumes are normal. Lungs are clear. There is no pneumothorax or pleural effusion. Mil d cardiomegaly is noted. Mediastinal contours are normal. There is no evidence for pulmonary edema. L eft shoulder arthroplasty is incidentally noted. There is pulmonary vascular congestion. IMPRESSION: Mild cardiomegaly with pulmonary vascular congestion. ACT 112: Negative or not required by law. Electronically signed by: Mike Joaquin M.D. 10/29/2019 7:46 AM
[2019-10-29 08:00] LABS: Albumin Level 3.1 gm/dl (3.4-5.0); BUN Creatinine Ratio 18.3 (10-20); Blood Urea Nitrogen 19 mg/dl (7-18); Calcium 8.9 mg/dl (8.5-10.1); Carbon Dioxide 33 mmol/L (21-32); Chloride 105 mmol/L (98-107); Creatinine Clr Calc Pharmacy 62.4 ml/min; Est GFR (African American) 63.2; Est GFR (Non-African American) 54.5; Glucose 95 mg/dl (70-99); Magnesium 2.1 mg/dl (1.8-2.4); Sodium 141 mmol/L (136-145)
[2019-10-29 08:05] LABS: Phosphorus 4.2 mg/dl (2.5-4.9); Troponin I < 0.015 ng/ml (0-0.045)
[2019-10-29] MEDS ORDERED: METOPROLOL SUCC 50MG EXT REL TAB PO SCH (09:00)
[2019-10-29] MEDS ORDERED: SPIRONOLACTONE 25 MG TAB PO SCH (09:00)
[2019-10-29] MEDS ORDERED: CHOLECALCIFEROL 1,000 UNITS 25 MCG TAB PO SCH (09:00)
[2019-10-29] MEDS ORDERED: FUROSEMIDE 40 MG TAB PO SCH (09:00)
[2019-10-29] MEDS ORDERED: FLUTICASONE/VILANTEROL 200/25MCG 14 PUFFS/INHALER INH SCH (09:00)
[2019-10-29] MEDS ORDERED: PANTOprazole 40 MG TAB PO SCH (09:00)
--- NOTE | 2019-10-29 09:14 | Cardiology Consultation ---
Date of Consultation October 29, 2019 Assessment & Plan (1) Paroxysmal atrial fibrillation with RVR: I discussed options of atrial fibrillation treatment with her and her . At this point she does not have clear indication for a pacemaker, I am not sure she has symptomatic bradycardia. She has been taking 50 mg of metoprolol daily. I would like to try increasing her flecainide to eliminate some of her palpitations which may be premature beats not atrial fibrillation, therefore I am going to go up to 100 mg twice a day. I am going to reduce her metoprolol to 25 mg daily. I discussed all this with her and her . I will make an appointment to have her come back in for follow-up in 1 month. History of Present Illness Reason for Consultation: This is a 68-year-old woman who has a history of chronic peripheral edema due to venous insufficiency, tobacco abuse, hyperglycemia, neuropathy, a duodenal ulcer identified 2009 and paroxysmal atrial fibrillation. Her atrial fibrillation was identified on August 27, 2017 when she presented with several hours of palpitations and was found to be in atrial fibrillation with a heart rate of 148 bpm. She was hypokalemic and hypomagnesemic. She was treated with intravenous diltiazem and spontaneously converted to sinus rhythm. She was started on oral diltiazem and sent home from the emergency room. She continued to describe palpitations and her diltiazem was changed to a long-acting form and increased in dose. Initially she had refused anticoagulation but she did ultimately agree to Eliquis which was started on September 04, 2017. She did wear an event monitor from September 13, 2017 through October 12, 2017, during that time she had several episodes of palpitations and feeling her heart racing however she did not have any atrial fibrillation identified. Her heart rate range throughout was from 50 bpm to 120 bpm. She ended up having a lot of difficulty with peripheral edema which was worse after starting the diltiazem. She had declined evaluation for venous ablation. Diltiazem was used instead of beta-blockade in part due to her history of asthma and she preferred to be on a calcium channel nate. With worsening of edema I did start her on low-dose beta blockade (metoprolol succinate 25 mg daily) on January 03, 2018. Her peripheral edema improved substantially with elimination of diltiazem, she did not have exacerbation of asthma on beta- blockade. She did however present to the hospital on February 07, 2018 with atrial fibrillation with rapid ventricular response. Her metoprolol was increased to 50 mg daily and she was again found to be hypokalemic. I did not want to increase her beta-nate due to bradycardia therefore I recommended adding digoxin to her regimen on March 05, 2018. Ultimately however she did not take it due to concern about her heart rate. She then presented to the emergency room on September 21, 2018 with symptoms of her heart "flopping" in her chest and a feeling that she was going to . In the emergency room little was done with her medications on a permanent basis although she was given Cardizem there. Subsequently she believes she was in atrial fibrillation for perhaps 10 days but had less difficulty with it despite no medication changes. We had considered using flecainide as an antiarrhythmic, I therefore had a stress test performed on January 07, 2019, this stress test was not of high quality technically but did not show ischemia. I therefore started flecainide 50 mg twice a day on February 18, 2019. She did wear an event monitor for evaluation of palpitations, this was in March 2019 and she had a heart rate ranged from 45 to 119 bpm with an average of 59 but no significant arrhythmias. She did note that her heart rate was in the 40s at times and stopped her flecainide in March, she had an episode of what was likely atrial fibrillation in early April 2019 while off of flecainide and this lasted about 2 hours and the heart rate was fast. It was suggested that she restart the flecainide. Since she was bradycardic at an office visit June 19, 2019 it was recommended that she decrease her metoprolol to 25 mg daily. She had been feeling better when I saw her in early June 2019, while on the flecainide she has had very little in the way of symptoms suggestive of atrial fibrillation and although her heart rate tends to be slow she does not seem to have side effects that are clearly related to it. The only episode of palpitations that she recalls since going back on the flecainide was in early June 2019 at around 2 AM when she noticed palpitations in her chest, she did use her pulse oximetry and it reported the heart rate was 70-75 (this will be on flecainide 50 mg twice a day and metoprolol succinate 25 mg daily). This probably lasted until she took her morning meds, so perhaps 6 hours or so. She did not feel poorly with it but noted that she was diaphoretic when she woke up. At her visit June 25, 2019 I did talk to her about various options regarding treatment of atrial fibrillation, in part because she has looked into it and has heard about things like ablation, etc. I went through the options which include rate control and anticoagulants (which is what we are doing now) which may not be 100% effective but she seemed to be doing well in general with this strategy. If things changed we can consider pacemaker implantation if bradycardia becomes an issue or if we have to increase her rate control medications for control of rapid atrial fibrillation. Additionally we could consider atrial fibrillation ablation, I do not think we should do that now but if she is interested in that I told her we could refer her to [facility] for an evaluation but we did not. She presents now with recurrent palpitations which were intermittent but then continuous for about 6 hours before coming to the emergency room. She also had some chest pressure and some shortness of breath. No arrhythmia was identified in the emergency room and her electrocardiogram showed sinus bradycardia but no acute changes. Serial troponin measurements were negative x3. Attending Physician: Mark Ko, Allergies Allergy/AdvReac Type Severity Reaction Status Date / Time fentanyl Allergy Severe HIVES Verified 11/06/19 13:52 NSAIDS (Non-Steroidal Allergy Intermediate DUODENAL Verified 11/06/19 13:52 Anti-Inflamma ULCER digoxin AdvReac Intermediate Nausea Verified 11/06/19 13:52 diltiazem AdvReac Mild Fluid Verified 11/06/19 13:52 retention tramadol AdvReac Mild hallucinati Verified 11/06/19 13:52 on amoxicillin AdvReac Unknown FLUID Verified 11/06/19 13:52 RETENTION aspirin AdvReac Unknown DUEODENAL Verified 11/06/19 13:52 ULCER doxycycline AdvReac Unknown FLUID Verified 11/06/19 13:52 RETENTION gabapentin AdvReac Unknown hallucinati Verified 11/06/19 13:52 ons ibuprofen AdvReac Unknown DUODENAL Verified 11/06/19 13:52 ULCER naproxen AdvReac Unknown DUODENAL Verified 11/06/19 13:52 ULCERS acetaminophen [From Percocet] AdvReac Unknown Verified 11/06/19 13:52 oxycodone [From Percocet] AdvReac Unknown Verified 11/06/19 13:52 Home Medications Home Medications Medication Instructions Recorded Confirmed Type albuterol sulfate [ProAir HFA] 2 puff INHALATION Q4 PRN 02/07/18 11/06/19 History cholecalciferol (vitamin D3) 5,000 unit PO QAM 02/07/18 11/06/19 History [Vitamin D3] sumatriptan succinate [Imitrex] 50 mg PO DIRECTED PRN 02/07/18 11/06/19 History budesonide-formoterol HFA 160 2 puff INHALATION BID gm 02/05/19 11/06/19 History mcg-4.5 mcg/actuation aerosol inhaler ondansetron HCl 4 mg tablet 4 mg PO TID PRN 5 Days #20 tab 04/11/19 11/06/19 Rx omeprazole 40 mg capsule,delayed 40 mg PO QAM #90 cap 07/01/19 11/06/19 Rx release furosemide 40 mg tablet 40 mg PO QAM #90 tab 08/20/19 11/06/19 Rx Eliquis 5 mg PO BID 10/28/19 11/06/19 History Slow-Mag 71.5 mg PO BID 10/28/19 11/06/19 History spironolactone [Aldactone] 50 mg PO DAILY 10/28/19 11/06/19 History flecainide 100 mg PO Q12H #180 tab 10/29/19 11/06/19 Rx metoprolol succinate 25 mg PO QAM #0 tab 10/29/19 11/06/19 Rx Patient History Medical History A-fib DX AUGUST 2017/NO CARDIOVERSION Asthma DX WITHIN LAST YR/"SLIGHT" Bilateral lower extremity edema (Resolved) History of anesthesia reaction FOLLOWING SHOULDER ARTHROSCOPY ([facility]) TROUBLE WITH BREATHING AFTER THE NERVE BLOCK - "MESSED WITH LUNGS AND HAD OXYGEN FOR THREE MONTHS AFTER" History of hypokalemia ED VISIT 03/09/18 History of palpitations 03/09/18 [facility] ED...PALPITATIONS, POTASSIUM LOW/REPLETED/FU WITH NYEDGGAR History of peptic ulcer History of skin cancer Migraine (Resolved) Morbid obesity Osteoarthritis (Chronic) Peripheral neuropathy (Chronic) Prediabetes (Chronic) Spinal stenosis (Chronic) Stress incontinence CHRONIC Vitamin D deficiency (Chronic) Surgical History H/O tubal ligation (Resolved) History of arthroscopy of left knee History of arthroscopy of left shoulder History of bladder surgery FOR STRESS INCONTINECE History of colonoscopy History of endoscopy History of reverse total replacement of left shoulder joint (~04/2018) History of skin cancer RESECTED/R UPPER LEG Family History Father Prostate cancer Hypertension Myocardial infarction Brother Diabetes Mother Hypertension Denies family history of Ovarian cancer Breast cancer Colorectal cancer Social History Preferred Language: Hungarian Communication Ability: Effective Visual Impairment: No Limitations 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 Paper Testing Required: No Beliefs That Will Affect Care: None marital status: Current Living Situation: Significant Other current occupational status: retired Feels Safe at Home: Yes Smoking Status: Current every day smoker Tobacco Type: cigarettes ; Cigarettes Per Day: 10 ; Second Hand Exposure: No ; Hx Alcohol Use: No Hx Substance Use: No Dental Care, Regularly: No Physical Activity Frequency: Does not Exercise Seatbelt Use: always Sunscreen Use: No Review of Systems Review of Systems: All systems reviewed & are unremarkable except as noted in HPI & below Physical Exam Physical Exam: Constitutional: Alert, cooperative and in no distress. HEENT: Unremarkable Neck: No jugular venous distention, carotid pulses are normal and equal bilater ally without bruits. Pulmonary: Clear to auscultation bilaterally. Cardiac: Regular rhythm with no murmur, gallop or rub. Abdomen: Soft, nontender with normal bowel sounds. Extremities: +1 bilateral pretibial edema. Distal pulses intact. Neurologic: No focal findings. Gait is steady. Skin: No rash, ecchymoses or petechiae. Results & Data ([facility]) Vital Signs (Past 12 Hours) Vital Signs Temp Pulse Pulse Resp BP BP Pulse Ox 10/29/19 07:35 36.8 C 48 L 18 104/40 L 92 10/29/19 03:19 36.6 C 47 L 18 107/49 L 92 10/28/19 22:00 49 L 14 142/71 H 93 10/28/19 21:31 50 L 12 110/43 L PG Care Time/CCT Total # of Minutes Spent Total Time Spent with Patient: Total time spent is greater than 50% in coordination of care (as documented) at patient's floor/unit and/or counseling patient: Coding Level of Care Code 87152 Office/OBS Consult Lvl 3 Diagnoses Paroxysmal atrial fibrillation with RVR I48.0
[2019-10-29] MEDS ORDERED: FLECAINIDE ACETATE 100 MG TABLET PO ONE (13:33)
[2019-10-29] MEDS: MAGNESIUM CHLORIDE 64MG DELAYED REL TAB PO SCH (13:57)
--- NOTE | 2019-10-29 15:47 | Hospitalist Progress Note ---
Date of Service October 29, 2019 Assessment & Plan (1) Bradycardia: 68-year-old female with a past medical history including atrial fibrillation with RVR, bradycardia, chronic respiratory failure, bilateral lower extremity edema, acute hypoxemic respiratory failure, peptic ulcer disease, chronic bundle branch block, peripheral edema, chronic venous insufficiency presents with complaint of palpitations and chest discomfort. Atrial Fib w/RVR/Bradycardia -admit to telemetry -serial cardiac enzymes neg -EKG this AM showing sinus bradycardia -ECHO Pending -She reports that she had her metoprolol succinate decreased by Dr. Benito from 50 to 25 mg every morning due to bradycardia, but she increased it back to 50 mg on her own due to frequent episodes of atrial fibrillation with RVR. She does note, upon questioning, that any episodes of increased heart rate tend occur toward the end of the day. She continues to take the metoprolol succinate 50 mg every morning, and has never been on 25 twice daily. -appreciate recs from pt's leno sewer Dr. Benito --> At this point pt does not have clear indication for a pacemaker, not sure she has symptomatic bradycardia. Will try increasing her flecainide to 100 mg BID to eliminate some of her palpitations which may be premature beats not atrial fibrillation. Will reduce her metoprolol to 25 mg daily. -Flecainide 100 mg twice daily -metoprolol 25mg daily -Continue Eliquis 5 mg twice daily HFpEF -Most recent echo was dobutamine stress echo on 01/07/2019 with preserved ejection fraction 60 to 65%. -Continue furosemide 40 mg p.o. daily and spironolactone 50 mg p.o. daily. Peptic ulcer disease -Continue omeprazole/pantoprazole 40 mg daily Unable to take aspirin or NSAIDs due to history with duodenal ulcers FEN/GI: Diet DVT Prophylaxis: Eliquis Full Code Dispo: Tele. Hopefully d/c tomorrow. Pt to f/u with Dr. Benito in 1 month. Admission and Anticipated Discharge Date Admission Date: October 28, 2019 Subjective 68-year-old female found in bed this morning in no acute distress. No acute overnight events. Patient notes some feelings of palpitations. Otherwise denies any chest pain, shortness of breath, syncope or near syncope, edema. Patient n.p.o. Awaiting cardiology input. Patient with no other acute concerns or complaints. Review of Systems Review of Systems: All systems reviewed & are unremarkable except as noted in HPI & below Physical Exam Constitutional: WD/WN, vitals as above Eyes: PERRL, conjunctivae normal, anicteric sclerae ENMT: external ear and nose normal, oropharynx normal Respiratory: normal respiratory effort, lungs clear to auscultation Cardiovascular: Rate/Rhythm: regular rhythm and + bradycardic Gastrointestinal (Abdomen): normal bowel sounds, soft, nontender, no hepatosplenomegaly Skin: no rashes, warm and dry Psychiatric: A+Ox3, euthymic affect Lymphatic: + lymphedema (+1 LE edema) Results & Data Results & Data ([facility]) Vital Signs (Past 12 Hours) Vital Signs Temp Pulse Pulse Resp BP BP Pulse Ox 10/29/19 11:26 36.9 C 41 L 18 96/43 L 91 10/29/19 08:00 46 L 10/29/19 07:35 36.8 C 48 L 18 104/40 L 92 Laboratory Results Laboratory Results - last 24 hr 10/28/19 10/28/19 10/28/19 20:45 20:45 20:45 WBC 10.93 H RBC 4.65 Hgb 14.8 Hct 45.4 MCV 97.6 MCH 31.8 MCHC 32.6 RDW Std Deviation 48.0 H RDW Coeff of Yamilet 13.6 Plt Count 253 MPV 10.4 Immature Gran % (Auto) 0.5 Neut % (Auto) 73.9 Lymph % (Auto) 17.2 [place] % (Auto) 6.7 Eos % (Auto) 1.5 Baso % (Auto) 0.2 Neut # (Auto) 8.09 H Lymph # (Auto) 1.88 [place] # (Auto) 0.73 H Eos # (Auto) 0.16 Baso # (Auto) 0.02 Immature Gran # (Auto) 0.05 H PT 10.6 INR 1.0 APTT 31.6 H PTT Ratio 1.1 Sodium 138 Potassium 3.6 Chloride 102 Carbon Dioxide 29 Anion Gap 7.0 BUN 22 H Creatinine 1.16 Est Cr Clr Drug Dosing 56.5 Est GFR ( Amer) 56.0 Est GFR (Non-Af Amer) 48.3 BUN/Creatinine Ratio 18.8 Glucose 167 H Calcium 9.2 Phosphorus Magnesium 2.0 Total Bilirubin 0.4 AST 14 L ALT 23 Alkaline Phosphatase 162 H Troponin I < 0.015 Total Protein 7.4 Albumin 3.4 Globulin 4.0 Albumin/Globulin Ratio 0.9 Lipase 102 10/28/19 10/29/19 10/29/19 23:45 07:08 07:08 WBC 7.94 RBC 4.49 Hgb 13.9 Hct 43.9 MCV 97.8 MCH 31.0 MCHC 31.7 L RDW Std Deviation 48.4 H RDW Coeff of Yamilet 13.5 Plt Count 240 MPV 10.3 Immature Gran % (Auto) 0.1 Neut % (Auto) 67.6 Lymph % (Auto) 21.8 [place] % (Auto) 8.3 Eos % (Auto) 1.9 Baso % (Auto) 0.3 Neut # (Auto) 5.37 Lymph # (Auto) 1.73 [place] # (Auto) 0.66 H Eos # (Auto) 0.15 Baso # (Auto) 0.02 Immature Gran # (Auto) 0.01 PT INR APTT PTT Ratio Sodium 141 Potassium 4.0 Chloride 105 Carbon Dioxide 33 H Anion Gap 3.0 BUN 19 H Creatinine 1.05 Est Cr Clr Drug Dosing 62.4 Est GFR ( Amer) 63.2 Est GFR (Non-Af Amer) 54.5 BUN/Creatinine Ratio 18.3 Glucose 95 Calcium 8.9 Phosphorus 4.2 Magnesium 2.1 Total Bilirubin AST ALT Alkaline Phosphatase Troponin I < 0.015 < 0.015 Total Protein Albumin 3.1 L Globulin Albumin/Globulin Ratio Lipase 10/29/19 15:18 WBC RBC Hgb Hct MCV MCH MCHC RDW Std Deviation RDW Coeff of Yamilet Plt Count MPV Immature Gran % (Auto) Neut % (Auto) Lymph % (Auto) [place] % (Auto) Eos % (Auto) Baso % (Auto) Neut # (Auto) Lymph # (Auto) [place] # (Auto) Eos # (Auto) Baso # (Auto) Immature Gran # (Auto) PT INR APTT PTT Ratio Sodium Potassium Chloride Carbon Dioxide Anion Gap BUN Creatinine Est Cr Clr Drug Dosing Est GFR ( Amer) Est GFR (Non-Af Amer) BUN/Creatinine Ratio Glucose Calcium Phosphorus Magnesium Total Bilirubin AST ALT Alkaline Phosphatase Troponin I Pending Total Protein Albumin Globulin Albumin/Globulin Ratio Lipase Medications Administered Current Inpatient Medications Al Hydrox/Mg Hydrox/Simethicone (Maalox) 15 ml PO Q4H PRN PRN Reason: Dyspepsia Stop: 11/27/19 23:36 Albuterol (Ventolin Hfa) 2 puffs INH Q4 PRN PRN Reason: SOB/WHEEZING Stop: 11/27/19 23:39 Flecainide Acetate (Tambocor) 100 mg PO Q12 [facility] Stop: 11/28/19 20:59 Fluticasone/Vilanterol (Breo Ellipta 200/25 Mcg Inh) 1 puffs INH DAILY [facility] Stop: 11/28/19 08:59 Last Admin: 10/29/19 08:14 Dose: 1 puffs Documented by: [facility] (Lasix) [facility] Stop: 11/28/19 08:59 Last Admin: 10/29/19 13:58 Dose: Not Given Documented by: Magnesium Chloride (Slow-Mag) 64 mg PO BID [facility] Stop: 11/28/19 00:00 Last Admin: 10/29/19 13:57 Dose: 64 mg Documented by: Magnesium Hydroxide (Milk Of Magnesia) 30 ml PO Q12H PRN PRN Reason: Constipation Stop: 11/27/19 23:36 Metoprolol Succinate (Toprol Xl) [facility] Stop: 11/28/19 08:59 Last Admin: 10/29/19 13:52 Dose: Not Given Documented by: Ondansetron HCl (Zofran Odt) 4 mg PO TID PRN PRN Reason: NAUSEA/ VOMITING Stop: 11/27/19 23:43 Ondansetron HCl (Zofran) 4 mg IV Q6H PRN PRN Reason: Nausea Stop: 11/27/19 23:36 Pantoprazole Sodium (Protonix) [facility] Stop: 11/28/19 08:59 Last Admin: 10/29/19 13:57 Dose: 40 mg Documented by: Spironolactone (Aldactone) 50 mg PO DAILY [facility] Stop: 11/28/19 08:59 Last Admin: 10/29/19 13:56 Dose: 50 mg Documented by: Sumatriptan Succinate (Imitrex) 50 mg PO UD PRN PRN Reason: Migraine Headache Stop: 11/27/19 23:36 Vitamin D (Vitamin D3) 5,000 units PO QAM [facility] Stop: 11/28/19 08:59 Last Admin: 10/29/19 13:56 Dose: 5,000 units Documented by: Resident Activity Tracking Resident Involvement: Resident Care Provided Care Provided: Adult Hospital Medicine
--- NOTE | 2019-10-29 16:18 | Discharge Summary ---
Date of Service October 29, 2019 Admission HPI Per Admitting Provider The patient is a 68-year-old female with a past medical history including atrial fibrillation with RVR, bradycardia, chronic respiratory failure, bilateral lower extremity edema, acute hypoxemic respiratory failure, peptic ulcer disease, chronic bundle branch block, peripheral edema, chronic venous insufficiency and paroxysmal atrial fibrillation with RVR. The patient does follow with Dr. Benito, and last visit had to be canceled due to the COVID pandemic. She reports that this is the first time that she has had a near syncopal episode. She has had discussions with Dr. Benito regarding a potential pacer in the future, but she also has questions regarding the benefit of an ablation procedure Principal Diagnosis Tachybradycardia Discharge Exam Constitutional WD/WN, vitals as above Eyes PERRL, conjunctivae normal, anicteric sclerae ENMT external ear and nose normal, oropharynx normal Respiratory normal respiratory effort, lungs clear to auscultation Cardiovascular Rate/Rhythm: regular rhythm and + bradycardic Gastrointestinal (Abdomen) normal bowel sounds, soft, nontender, no hepatosplenomegaly Skin no rashes, warm and dry Psychiatric A+Ox3, euthymic affect Lymphatic +1 LE edema Discharge Data Allergies Allergy/AdvReac Type Severity Reaction Status Date / Time fentanyl Allergy Severe HIVES Verified 10/28/19 21:57 NSAIDS (Non-Steroidal Allergy Intermediate DUODENAL Verified 10/28/19 21:57 Anti-Inflamma ULCER digoxin AdvReac Intermediate Nausea Verified 10/28/19 21:57 diltiazem AdvReac Mild Fluid Verified 10/28/19 21:57 retention tramadol AdvReac Mild hallucinati Verified 10/28/19 21:57 on amoxicillin AdvReac Unknown FLUID Verified 10/28/19 21:57 RETENTION aspirin AdvReac Unknown DUEODENAL Verified 10/28/19 21:57 ULCER doxycycline AdvReac Unknown FLUID Verified 10/28/19 21:57 RETENTION gabapentin AdvReac Unknown hallucinati Verified 10/28/19 21:57 ons ibuprofen AdvReac Unknown DUODENAL Verified 10/28/19 21:57 ULCER naproxen AdvReac Unknown DUODENAL Verified 06/25/19 10:58 ULCERS acetaminophen [From Percocet] AdvReac Unknown Verified 10/28/19 21:57 oxycodone [From Percocet] AdvReac Unknown Verified 10/28/19 21:57 Consultations 10/28/19 21:27 ED Decision to Admit Stat 10/28/19 23:37 Consult Cardiology Routine Consult Case Management - Discharge Planning Routine Procedures Performed Operation Date: 10/29/19 15:00 <No data on this case meets the specified criteria> Ordered Studies 10/29/19 13:00 CL Cath Imgs for PACS use only Routine Hospital Course (1) Bradycardia: 68-year-old female with a past medical history including atrial fibrillation with RVR, bradycardia, chronic respiratory failure, bilateral lower extremity edema, acute hypoxemic respiratory failure, peptic ulcer disease, chronic bundle branch block, peripheral edema, chronic venous insufficiency presents with complaint of palpitations and chest discomfort. The following was the medical management during stay here: Atrial Fib w/RVR/Bradycardia -admitted to telemetry -serial cardiac enzymes neg -EKG this AM showing sinus bradycardia -She reports that she had her metoprolol succinate decreased by Dr. Benito from 50 to 25 mg every morning due to bradycardia, but she increased it back to 50 mg on her own due to frequent episodes of atrial fibrillation with RVR. She does note, upon questioning, that any episodes of increased heart rate tend occur toward the end of the day. She continued to take the metoprolol succinate 50 mg every morning, and has never been on 25 twice daily. -appreciate recs from pt's health service worker Dr. Benito --> At this point pt does not have clear indication for a pacemaker, not sure she has symptomatic bradycardia. Will try increasing her flecainide to 100 mg BID to eliminate some of her palpitations which may be premature beats not atrial fibrillation. Will reduce her metoprolol to 25 mg daily. -Flecainide 100 mg twice daily -metoprolol 25mg daily -Continue Eliquis 5 mg twice daily HFpEF -Most recent echo was dobutamine stress echo on 01/07/2019 with preserved ejection fraction 60 to 65%. -Continue furosemide 40 mg p.o. daily and spironolactone 50 mg p.o. daily. Peptic ulcer disease -Continue omeprazole/pantoprazole 40 mg daily Unable to take aspirin or NSAIDs due to history with duodenal ulcers DVT Prophylaxis: Eliquis. At time of discharge patient had no other acute concerns or complaints. Pt to f/u with Dr. Benito in 1 month, this will be arranged for. Total Time Total Time Spent Total Time Spent (In Minutes): <30 Discharge Plan Discharge Items Patient Disposition: Home - Self-Care Reason For Visit: NEAR SYNCOPE, TACHYBRADY SYNDROME Discharge Diagnosis: Tachybradycardia syndrome Condition on Discharge: Good Activity: Per Instructions section Non-emergency contact: Primary Care Provider Call non-emergency contact if: you have any medication questions and your symptoms worsen Follow-up/Referrals: Tomas Greenberg III, MD [Primary Care Provider] - 11/06/19 1:50 pm Diet: Heart Healthy Addtl Attending Provider Instructions: You were admitted with concerns of feelings of palpitations and a near syncopal event. You were monitored while here for any abnormal heart activity. We did not find anything of concern. Please follow the below instructions on discharge: It was not deemed necessary to put in a pacemaker by your health service worker We have increased your medication flecainide to 100 mg twice a day We will reduce your medication metoprolol to 25 mg daily You follow-up with your health service worker in 1 month. This appointment will be made for you. Pending Studies at Discharge: No Stand-Alone Forms: My [facility], Smoking Cessation Medications and DC Order Prescriptions: Continued omeprazole 40 mg capsule,delayed release(DR/EC) 40 mg PO QAM Qty: 90 RF: 3 furosemide [Lasix] 40 mg tablet 40 mg PO QAM Qty: 90 RF: 3 ondansetron HCl 4 mg tablet 4 mg PO TID PRN (Reason: nausea and vomiting) 5 Days Qty: 20 RF: 0 Symbicort 160-4.5 mcg/actuation HFA aerosol inhaler 2 puff INHALATION BID RF: 0 spironolactone [Aldactone] 50 mg tablet 50 mg PO DAILY RF: 0 Slow-Mag 71.5 mg Tablet,Delayed Release (Dr/Ec) 71.5 mg PO BID RF: 0 Eliquis 5 mg tablet 5 mg PO BID RF: 0 sumatriptan succinate [Imitrex] 100 mg Tablet 50 mg PO DIRECTED PRN (Reason: Migraine Headache) RF: 0 albuterol sulfate [ProAir HFA] 90 mcg/actuation Hfa Aerosol Inhaler 2 puff INHALATION Q4 PRN (Reason: Shortness Of Breath Or Wheezing) RF: 0 cholecalciferol (vitamin D3) [Vitamin D3] 5,000 unit Tablet 5,000 unit PO QAM RF: 0 Changed metoprolol succinate 50 mg tablet extended release 24 hr 25 mg PO QAM Qty: 0 RF: 0 flecainide 50 mg tablet 100 mg PO Q12H Qty: 180 RF: 3 Discharge Orders: Discharge Order (Routine); Ordered 10/29/19 Ordered By: Jules Wong Admission Data Admit Date/Time: 10/28/19 22:17 Attending Provider: Mark Ko Admit Provider: Gian Wang Primary Care Provider: Tomas Greenberg III Other Providers: Gian Wang ; Bebo Benito Other Interventions: Discharge Summary Assessment (RN) Last Done: 10/29/19 16:33 DC Date/Time DO NOT enter until pt leaves facility: 10/29/19 17:06 Supervising Physician Co-Signing Physician Notes I personally examined the patient and verified all mann points of history and exam, discussed case, and agree with decision making with Dr Wong. feeling better and would like to go home. discussed plans and following for sx - she is comfortable with this. vitals noted nad heent nc at mmm breathing unlabored no accessory muscles good effort rate controlled. no focal neuro deficits. atrial fibrillation, paroxysmal RVR, possible tachybrady syndrome - fortunately no clear need for pacer yet. meds adjusted/flecainide added. safe for home. otherwise as above, ongoing close f/u Resident Activity Tracking Resident Involvement: Resident Care Provided Care Provided: Adult Hospital Medicine
--- NOTE | 2019-10-29 18:20 | Billing Data ---
Date of Service October 29, 2019 Coding Level of Care Code D/C Day Management <30 mins
[2019-10-29] MEDS ORDERED: FLECAINIDE ACETATE 100 MG TABLET PO SCH ×2 (21:00)
--- NOTE | 2019-10-29 21:09 | XCELERA ---
[id number]
--- NOTE | 2019-10-30 00:10 | Electrocardiogram Report ---
Test Reason : Blood Pressure : / mmHG Vent. Rate : 060 BPM Atrial Rate : 060 BPM P-R Int : 162 ms QRS Dur : 096 ms QT Int : 448 ms P-R-T Axes : 098 107 041 degrees QTc Int : 448 ms Poor data quality, interpretation may be adversely affected Suspect arm lead reversal, interpretation assumes no reversal Normal sinus rhythm Rightward axis Low voltage QRS Incomplete right bundle branch block Nonspecific ST and T wave abnormality Abnormal ECG When compared with ECG of 04-APR-2019 16:10, Minimal criteria for Anterior infarct are no longer Present Nonspecific T wave abnormality, improved in Lateral leads QT has lengthened Confirmed by Jemal Pacheco ([id number]) on 10/30/2019 12:10:07 AM Referred By: REFERRED SELF Confirmed By:Jemal Pacheco
--- NOTE | 2019-10-30 06:36 | Electrocardiogram Report ---
Test Reason : Blood Pressure : / mmHG Vent. Rate : 054 BPM Atrial Rate : 054 BPM P-R Int : 168 ms QRS Dur : 096 ms QT Int : 466 ms P-R-T Axes : 086 104 062 degrees QTc Int : 441 ms Sinus bradycardia Rightward axis Incomplete right bundle branch block Nonspecific T wave abnormality Abnormal ECG When compared with ECG of 28-OCT-2019 20:41, Nonspecific T wave abnormality, improved in Anterior leads Confirmed by Jemal Pacheco ([id number]) on 10/30/2019 6:35:58 AM Referred By: REFERRED SELF Confirmed By:Jemal Pacheco
== END 2019-10-29 17:06 | disposition home or self-care (01) | DRG 309 ==
LOC: ED 20:32 → 2E 22:17 → SUATTDRO 22:17 → 2E 23:07

== ENCOUNTER 2022-05-01 10:32 | Inpatient (IN) ==
[2022-05-01] MEDS ORDERED: SODIUM CHLORIDE 0.9% 500 ML IV SCH (11:00)
--- NOTE | 2022-05-01 11:19 | Emergency Department Note ---
Impression & Plan Abdominal pain, lower, Headache, Acute diverticulitis ED Provider Note INFORMANT: Patient and son ED PROVIDER(S): Valdo Iraheta DO CHIEF COMPLAINT: Abdominal/pelvis pressure and headache PLAN: Disposition: Admission Condition: Good Outpatient prescription management: none Referral: I spoke with the hospitalist, who will see the patient for admission/observation and further evaluation and consultation. MEDICAL DECISION MAKING: This is a 71-year-old female who presents to the ED with a chief complaint of several different complaints. The main complaint is she has abdominal pressure and pelvis pressure despite moving her bowels and urinating. She states that she has had the symptoms since about February 21. She states that she had a urinalysis done at that time as well as some blood work that was okay. The patient reports that over the past 3 days it seems to be more intense. She also reports headaches for about a month. She talked to her doctor because her symptoms had started originally when she was started on digoxin. She went off the digoxin for a month and her headaches only improved slightly. She most recently restarted the digoxin a couple days ago at 125 mg a day. The patient denies any trauma. Denies any urinary symptoms. No diarrhea. The pressure in her pelvis is worse with sitting. Her exam was unremarkable. Abdomen is soft and nontender. She has no focal deficits on my exam. Her vital signs are normal. Twelve-lead EKG shows a chronic A. fib at a rate of 79. No ST elevation. No PVCs. Normal QTC. Chest x-ray was negative for acute disease. CT scan shows a sigmoid diverticulitis with microperforation. Chest x-ray was negative for acute disease. CT scan of brain was negative for acute disease. Digoxin level was 0.6. White blood cell count was 13.5. The patient was treated with IV fluids as well as IV Zosyn. I did speak with the hospitalist about the patient. She will be seen by them for further inpatient evaluation and treatment. Triage Nursing notes reviewed. Vital Signs: reviewed Prior /Outside records reviewed: none Differential diagnosis: Differential includes intracranial process, tumor, bleed, medication related headache, pelvis mass or constipation, UTI is less likely since she had a urinalysis previously for the same symptoms that was normal. Diagnostics, as interpreted by me: 12 lead ECG: A. fib at a rate of 79. No ST elevation. No PVCs. Normal QTC. A. fib is chronic. Cardiac Monitoring: none Medical decision rules: none Imaging studies: Chest x-ray: No acute disease. No pneumonia or pneumothorax. Procedures: none. Critical care: none. HPI: This is a 71-year-old female who presents to the ED with a chief complaint of several different complaints. The main complaint is she has abdominal pressure and pelvis pressure despite moving her bowels and urinating. She states that she has had the symptoms since about February 21. She states that she had a urinalysis done at that time as well as some blood work that was okay. The patient reports that over the past 3 days it seems to be more intense. She also reports headaches for about a month. She talked to her doctor because her symptoms had started originally when she was started on digoxin. She went off the digoxin for a month and her headaches only improved slightly. She most recently restarted the digoxin a couple days ago at 125 mg a day. The patient denies any trauma. PAST MEDICAL HISTORY: See Below PAST SURGICAL HISTORY: See Below SOCIAL HISTORY: See Below HOME MEDICATIONS: See Below ALLERGIES: See Below VITALS: See Below PHYSICAL EXAMINATION: CONSTITUTIONAL/VITAL SIGNS: Reviewed GENERAL: Non-toxic in appearance. INTEGUMENTARY: Warm, dry, and [place]. HEAD: Normocephalic. EYES: without scleral icterus. ENT/OROPHARYNX: clear and moist. RESPIRATORY: No increased work of breathing. Lungs clear. CARDIOVASCULAR: Regular rate. Regular rhythm. GI/ABDOMEN: Soft and nontender. . EXTREMITIES: Normal NEUROLOGICAL: Intact without focal deficits. PSYCHIATRIC: Normal affect. MUSCULOSKELETAL: Normal. TRIAGE NURSING DOCUMENTATION REVIEWED. Past Med/Surg History Medical History (HFpEF) heart failure with preserved ejection fraction A-fib DX AUGUST 2017/NO CARDIOVERSION Asthma DX WITHIN LAST YR/"SLIGHT" Bilateral lower extremity edema History of anesthesia reaction FOLLOWING SHOULDER ARTHROSCOPY ([facility]) TROUBLE WITH BREATHING AFTER THE NERVE BLOCK - "MESSED WITH LUNGS AND HAD OXYGEN FOR THREE MONTHS AFTER" History of hypokalemia ED VISIT 03/09/18 History of palpitations 03/09/18 [facility] ED...PALPITATIONS, POTASSIUM LOW/REPLETED/FU WITH PIERRE History of peptic ulcer History of skin cancer Migraine Morbid obesity Osteoarthritis Peripheral neuropathy Prediabetes Spinal stenosis Stress incontinence CHRONIC Vitamin D deficiency Surgical History H/O tubal ligation History of arthroscopy of left knee History of arthroscopy of left shoulder History of bladder surgery FOR STRESS INCONTINECE History of colonoscopy History of endoscopy History of permanent cardiac pacemaker placement History of reverse total replacement of left shoulder joint (~04/2018) History of skin cancer RESECTED/R UPPER LEG Family History Father Prostate cancer Hypertension Myocardial infarction Brother Diabetes Mother Hypertension Brother Diabetes Sister Pericardial effusion Sister Pericardial effusion Denies family history of Ovarian cancer Breast cancer Colorectal cancer Social History Smoking Status: Current every day smoker Tobacco Type: Cigarettes Age Started Using Tobacco: 30; packs per day: 1; Cigarettes Per Day: 20; Second Hand Exposure: Yes (her boyfriend smokes as well ); Hx Alcohol Use: No Hx Substance Use: No Preferred Language: [place] Communication Ability: Effective Visual Impairment: No Limitations Hearing Ability: Normal 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: No Beliefs That Will Affect Care: None marital status: Current Living Situation: Significant Other Current Living Situation Comment: lives with her boyfriend current occupational status: retired 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 [place] Feels Safe at Home: Yes Childhood Exposure to Second-Hand Smoke: Yes caffeine: Yes Dental Care, Regularly: No Physical Activity Frequency: Does not Exercise Seatbelt Use: always Sunscreen Use: No Assistive Devices: Denture - Upper and Glasses Allergies Allergies Allergy/AdvReac Type Severity Reaction Status Date / Time fentanyl Allergy Severe HIVES Verified 04/08/22 10:58 NSAIDS (Non-Steroidal Allergy Intermediate DUODENAL Verified 04/08/22 10:58 Anti-Inflamma ULCER digoxin AdvReac Intermediate Nausea Verified 04/08/22 10:58 diltiazem AdvReac Mild Fluid Verified 04/08/22 10:58 retention tramadol AdvReac Mild hallucinati Verified 04/08/22 10:58 on amoxicillin AdvReac Unknown FLUID Verified 04/08/22 10:58 RETENTION aspirin AdvReac Unknown DUEODENAL Verified 04/08/22 10:58 ULCER doxycycline AdvReac Unknown FLUID Verified 04/08/22 10:58 RETENTION gabapentin AdvReac Unknown hallucinati Verified 04/08/22 10:58 ons ibuprofen AdvReac Unknown DUODENAL Verified 04/08/22 10:58 ULCER naproxen AdvReac Unknown DUODENAL Verified 04/08/22 10:58 ULCERS acetaminophen [From Percocet] AdvReac Unknown Verified 04/08/22 10:58 oxycodone [From Percocet] AdvReac Unknown Verified 04/08/22 10:58 Home Meds Home Medications Medication Instructions Recorded Confirmed albuterol sulfate 90 mcg/actuation 2 puff inhalation Q4 PRN Shortness 02/07/18 03/29/22 aerosol inhaler (ProAir HFA) Of Breath Or Wheezing cholecalciferol (vitamin D3) 125 5,000 unit PO QAM 02/07/18 03/29/22 mcg (5,000 unit) tablet (Vitamin D3) magnesium chloride 71.5 mg 71.5 mg PO BID 10/28/19 03/29/22 (magnesium chloride) tablet,delayed release (Slow-Mag) Previous Rx's Medication Instructions Recorded famotidine 40 mg tablet 40 mg PO DAILY #90 tabs 05/04/21 budesonide-formoterol HFA 160 2 puff inhalation BID Shortness Of 07/19/21 mcg-4.5 mcg/actuation aerosol Breath Or Wheezing #6 grams inhaler (Symbicort) furosemide 40 mg tablet (Lasix) 40 mg PO QAM #90 tabs 09/06/21 apixaban 5 mg tablet (Eliquis) 5 mg PO BID #180 tabs 09/15/21 metoprolol succinate 100 mg 100 mg PO DAILY #90 tabs 12/06/21 tablet,extended release 24 hr fluticasone fur. 200 mcg-umeclid 1 inh inhalation DAILY #60 ea 01/28/22 62.5 mcg-vilant 25 mcg inhalat.powder (Trelegy Ellipta) omeprazole 40 mg capsule,delayed 40 mg PO DAILY #90 caps 03/29/22 release cephalexin 500 mg capsule 500 mg PO QID 5 days #20 caps 04/08/22 digoxin 125 mcg (0.125 mg) tablet 125 mcg PO DAILY #90 tabs 04/28/22 Results & Data (ED) Vital Signs Vital Signs - 24 hr 05/01/22 10:42 05/01/22 11:57 05/01/22 12:09 Temperature 36.9 C Temperature Source Temporal Artery Scan Pulse Rate 90 87 Pulse Rate [Right Finger] 79 Pulse Rhythm Regular Regular Pulse Rhythm [Right Finger] Regular Pulse Strength Normal Respiratory Rate 20 18 18 Respiratory Effort / Characteristics Non-Labored Spontaneous Non-Labored Spontaneous Respiratory Depth Normal Normal Respiratory Pattern Regular Regular Blood Pressure 112/73 Blood Pressure [Right Arm] 108/66 Blood Pressure Mean 86 Blood Pressure Mean [Right Arm] 80 Blood Pressure Position Sitting Blood Pressure Position [Right Arm] Lying Pulse Oximetry 90 89 L 89 L Oxygen Delivery Method Room Air Room Air Room Air Oxygen Flow Rate Sepsis Recent Fever Within 48 Hours No Sepsis New/Unexplained Change in Mental Status N/A Sepsis Action Taken by Nursing No Action Required Oxygen Flow Rate - Titration Pulse Oximetry Post Tiitration 05/01/22 12:13 Temperature Temperature Source Pulse Rate Pulse Rate [Right Finger] Pulse Rhythm Pulse Rhythm [Right Finger] Pulse Strength Respiratory Rate Respiratory Effort / Characteristics Respiratory Depth Respiratory Pattern Blood Pressure Blood Pressure [Right Arm] Blood Pressure Mean Blood Pressure Mean [Right Arm] Blood Pressure Position Blood Pressure Position [Right Arm] Pulse Oximetry 87 L Oxygen Delivery Method Room Air Oxygen Flow Rate 0 Sepsis Recent Fever Within 48 Hours Sepsis New/Unexplained Change in Mental Status Sepsis Action Taken by Nursing Oxygen Flow Rate - Titration 1 Pulse Oximetry Post Tiitration 92 Laboratory Data 05/01/22 11:13 05/01/22 11:13 Lab Results 05/01/22 05/01/22 05/01/22 Range/Units 11:13 11:13 11:13 WBC 13.19 H (4.8-10.8) K/ul RBC 5.10 (3.93-5.22) M/uL Hgb 16.5 H (12.0-16.0) g/dl Hct 49.7 H (34.1-44.9) % MCV 97.5 (80.0-100.0) fL MCH 32.4 (25.0-34.0) pg MCHC 33.2 (32.0-36.0) g/dL RDW Std Deviation 46.3 (36.4-46.3) fL RDW Coeff of Yamilet 12.9 (11.5-14.5) % Plt Count 264 (130-400) K/uL MPV 9.7 (9.4-12.3) fL Immature Gran % (Auto) 0.8 % Neut % (Auto) 82.3 % Lymph % (Auto) 8.9 % [place] % (Auto) 7.0 % Eos % (Auto) 0.7 % Baso % (Auto) 0.3 % Neut # (Auto) 10.87 H (1.4-6.5) K/uL Lymph # (Auto) 1.17 L (1.2-3.4) K/uL [place] # (Auto) 0.92 H (0.24-0.82) K/uL Eos # (Auto) 0.09 (0-0.50) K/uL Baso # (Auto) 0.04 (0-0.2) K/uL Immature Gran # (Auto) 0.10 H (0.00-0.02) K/uL Sodium 136 (136-145) mmol/L Potassium 4.0 (3.5-5.1) mmol/L Chloride 100 (98-107) mmol/L Carbon Dioxide 29 (21-32) mmol/L Anion Gap 7 (3-11) BUN 20 (6-23) mg/dl Creatinine 1.08 (0.6-1.2) mg/dl Est Cr Clr Drug Dosing 55.7 ml/min Est GFR ( Amer) 59.8 ml/min Est GFR (Non-Af Amer) 51.6 ml/min BUN/Creatinine Ratio 18.5 (10-20) Glucose 110 H (70-99(Fasting)) mg/dl Calcium 9.7 (8.5-10.1) mg/dl Total Bilirubin 0.6 (0.2-1.0) mg/dl AST 17 (13-39) U/L ALT 17 (7-52) U/L Alkaline Phosphatase 135 H (34-104) U/L Total Protein 7.6 (6.0-8.3) gm/dl Albumin 3.9 (3.4-5.0) gm/dl Globulin 3.7 (2.5-4.0) gm/dl Albumin/Globulin Ratio 1.1 (0.9-2) TSH (0.300-4.500) uIu/ml Digoxin 0.6 L (0.8-2.0) ng/ml 05/01/22 Range/Units 11:13 WBC (4.8-10.8) K/ul RBC (3.93-5.22) M/uL Hgb (12.0-16.0) g/dl Hct (34.1-44.9) % MCV (80.0-100.0) fL MCH (25.0-34.0) pg MCHC (32.0-36.0) g/dL RDW Std Deviation (36.4-46.3) fL RDW Coeff of Yamilet (11.5-14.5) % Plt Count (130-400) K/uL MPV (9.4-12.3) fL Immature Gran % (Auto) % Neut % (Auto) % Lymph % (Auto) % [place] % (Auto) % Eos % (Auto) % Baso % (Auto) % Neut # (Auto) (1.4-6.5) K/uL Lymph # (Auto) (1.2-3.4) K/uL [place] # (Auto) (0.24-0.82) K/uL Eos # (Auto) (0-0.50) K/uL Baso # (Auto) (0-0.2) K/uL Immature Gran # (Auto) (0.00-0.02) K/uL Sodium (136-145) mmol/L Potassium (3.5-5.1) mmol/L Chloride (98-107) mmol/L Carbon Dioxide (21-32) mmol/L Anion Gap (3-11) BUN (6-23) mg/dl Creatinine (0.6-1.2) mg/dl Est Cr Clr Drug Dosing ml/min Est GFR ( Amer) ml/min Est GFR (Non-Af Amer) ml/min BUN/Creatinine Ratio (10-20) Glucose (70-99(Fasting)) mg/dl Calcium (8.5-10.1) mg/dl Total Bilirubin (0.2-1.0) mg/dl AST (13-39) U/L ALT (7-52) U/L Alkaline Phosphatase (34-104) U/L Total Protein (6.0-8.3) gm/dl Albumin (3.4-5.0) gm/dl Globulin (2.5-4.0) gm/dl Albumin/Globulin Ratio (0.9-2) TSH 1.700 (0.300-4.500) uIu/ml Digoxin (0.8-2.0) ng/ml Administered Medications Discontinued Medications Sodium Chloride (Nss) 500 mls @ 999 mls/hr IV .Q31M ALANIS Stop: 05/01/22 11:30 Last Infusion: 05/01/22 12:19 Dose: 0 mls/hr Documented By: Admin: 05/01/22 11:36 Dose: 999 mls/hr Documented By: [id number] Imaging Data Radiologist's Impression: Head CT 05/01/22 10:[address] DOSE: HISTORY: headache TECHNIQUE: Multiaxial CT images of the head were performed without the use of intravenous contrast. Automated exposure control was utilized for this study. A dose lowering technique was utilized adhering to the principles of ALARA. Comparison: None. Findings: The paranasal sinuses and mastoid air cells are clear. The calvarium and skull base are intact. The ventricles and sulci are within normal limits. There is no mass, hematoma, midline shift, or acute infarct. Impression: No acute intracranial abnormality. ACT 112: Negative or not required by law. Electronically signed by: Kamar Hagan M.D. 05/01/2022 11:46 AM Chest X-Ray 05/01/22 10:57 XR chest 1V portable HISTORY: weakness COMPARISON: Chest 04/12/2021. FINDINGS: No pneumothorax. No pleural effusions. The cardiac silhouette remains mildly enlarged. Is left-sided dual-chamber pacemaker and a left shoulder prosthesis again noted. No new focal lung consolidations to suggest a pneumonia. No evidence for pulmonary edema. IMPRESSION: No acute process. ACT 112: Negative or not required by law. Electronically signed by: Kamar Hagan M.D. 05/01/2022 11:50 AM Abdomen/Pelvis CT 05/01/22 11:[address] WITHOUT CONTRAST CT DOSE: 2349.76 mGy.cm HISTORY: pressure in bladder/rectum area TECHNIQUE: Multiaxial CT images of the abdomen and pelvis were performed without contrast. A dose lowering technique was utilized adhering to the principles of ALARA. COMPARISON STUDY: Abdomen and pelvis CT 03/25/2017. FINDINGS: The lung bases are essentially clear. No acute fractures or identified. Pacemaker wires are partially visualized. The unenhanced liver, gal lbladder, spleen, adrenal glands, and pancreas unremarkable. Mild bilateral perinephric edema small bilateral renal hypodense lesions remain stable and statistically represent cysts. No renal or ureteral stones. No hydronephrosis. No retroperitoneal lymphadenopathy. Calcified plaque within the normal caliber abdominal aorta. The bladder, uterus, and adnexa are unremarkable. Mild thickening of the mid sigmoid colon with pericolonic fat stranding consistent with an acute diverticulitis. Possible punctate focus of microperforation on image 268. No abscess identified. No evidence for bowel obstruction. Normal appendix. IMPRESSION: 1. Acute sigmoid diverticulitis with a possible small focus of microperforation. No abscess identified. 2. No evidence for bowel obstruction. 3. Additional findings as described above. ACT 112: Negative or not required by law. Electronically signed by: Kamar Hagan M.D. 05/01/2022 11:45 AM Discharge Plan Visit Data Chief Complaint: Headache Stated Complaint: MIGRAINE,FACIAL NUMBNESS ED Provider: Valdo rIaheta Discharge Problem: Abdominal pain, lower, Headache, Acute diverticulitis Patient Disposition: Being Evaluated by Hospitalist Forms Stand Alone Forms: [facility], Virtual Emergency Department, Important Visit Information Prescriptions Prescriptions: No Action furosemide [Lasix] 40 mg tablet 40 mg PO QAM Qty: 90 3RF Trelegy Ellipta 200-62.5-25 mcg blister with device 1 inh inhalation DAILY Qty: 60 2RF digoxin 125 mcg (0.125 mg) tablet 125 mcg PO DAILY Qty: 90 3RF Symbicort 160-4.5 mcg/actuation HFA aerosol inhaler 2 puff INHALATION BID Qty: 6 5RF Hold Instructions: Home Medication placed on hold at Doctor's office famotidine 40 mg tablet 40 mg PO DAILY Qty: 90 3RF metoprolol succinate 100 mg tablet extended release 24 hr 100 mg PO DAILY Qty: 90 3RF Eliquis 5 mg tablet 5 mg PO BID Qty: 180 3RF omeprazole 40 mg capsule,delayed release(DR/EC) 40 mg PO DAILY Qty: 90 3RF cephalexin 500 mg capsule 500 mg PO QID 5 Days Qty: 20 0RF Slow-Mag 71.5 mg Tablet,Delayed Release (Dr/Ec) 71.5 mg PO BID albuterol sulfate [ProAir HFA] 90 mcg/actuation Hfa Aerosol Inhaler 2 puff INHALATION Q4 PRN (Reason: Shortness Of Breath Or Wheezing) cholecalciferol (vitamin D3) [Vitamin D3] 5,000 unit Tablet 5,000 unit PO QAM Referrals Referrals: Keith Vega DO [Primary Care Provider] -
[2022-05-01 11:29] LABS: Basophils # (auto) 0.04 K/uL (0-0.2); Basophils % (auto) 0.3 %; Eosinophils # (auto) 0.09 K/uL (0-0.50); Eosinophils % (auto) 0.7 %; Hematocrit (blood only) 49.7 % (34.1-44.9); Hemoglobin 16.5 g/dl (12.0-16.0); Immature Granulocytes % (auto) 0.8 %; Lymphocytes # (auto) 1.17 K/uL (1.2-3.4); Lymphocytes % (auto) 8.9 %; Mean Corpuscular Hemoglobin 32.4 pg (25.0-34.0); Mean Corpuscular Hgb Conc 33.2 g/dL (32.0-36.0); Mean Corpuscular Volume 97.5 fL (80.0-100.0); Mean Platelet Volume 9.7 fL (9.4-12.3); Monocytes # (auto) 0.92 K/uL (0.24-0.82); Neutrophils # (auto) 10.87 K/uL (1.4-6.5); Neutrophils % (auto) 82.3 %; Platelet Count 264 K/uL (130-400); RDW Coefficient of Variation 12.9 % (11.5-14.5); RDW Standard Deviation 46.3 fL (36.4-46.3); White Blood Count 13.19 K/ul (4.8-10.8)
--- NOTE | 2022-05-01 11:47 | CT Scan Report ---
ABDOMEN AND PELVIS CT WITHOUT CONTRAST CT DOSE: 2349.76 mGy.cm HISTORY: pressure in bladder/rectum area TECHNIQUE: Multiaxial CT images of the abdomen and pelvis were performed without contrast. A dose lo wering technique was utilized adhering to the principles of ALARA. COMPARISON STUDY: Abdomen and pelvis CT 03/25/2017. FINDINGS: The lung bases are essentially clear. No acute fractures or identified. Pacemaker wires are partially visualized. The unenhanced liver, gallbladder, spleen, adrenal glands, and pancreas unrema rkable. Mild bilateral perinephric edema small bilateral renal hypodense lesions remain stable and st atistically represent cysts. No renal or ureteral stones. No hydronephrosis. No retroperitoneal lymph adenopathy. Calcified plaque within the normal caliber abdominal aorta. The bladder, uterus, and adne xa are unremarkable. Mild thickening of the mid sigmoid colon with pericolonic fat stranding consiste nt with an acute diverticulitis. Possible punctate focus of microperforation on image 268. No abscess identified. No evidence for bowel obstruction. Normal appendix. IMPRESSION: 1. Acute sigmoid diverticulitis with a possible small focus of microperforation. No abscess identifie d. 2. No evidence for bowel obstruction. 3. Additional findings as described above. ACT 112: Negative or not required by law. Electronically signed by: Kamar Hagan M.D. 05/01/2022 11:45 AM
--- NOTE | 2022-05-01 11:48 | CT Scan Report ---
HEAD CT NONCONTRAST CT DOSE: HISTORY: headache TECHNIQUE: Multiaxial CT images of the head were performed without the use of intravenous contrast. A utomated exposure control was utilized for this study. A dose lowering technique was utilized adheri ng to the principles of ALARA. Comparison: None. Findings: The paranasal sinuses and mastoid air cells are clear. The calvarium and skull base are int act. The ventricles and sulci are within normal limits. There is no mass, hematoma, midline shift, or acute infarct. Impression: No acute intracranial abnormality. ACT 112: Negative or not required by law. Electronically signed by: Kamar Hagan M.D. 05/01/2022 11:46 AM
[2022-05-01 11:52] LABS: Albumin Globulin Ratio 1.1 (0.9-2); Albumin Level 3.9 gm/dl (3.4-5.0); BUN Creatinine Ratio 18.5 (10-20); Bilirubin,Total 0.6 mg/dl (0.2-1.0); Calcium 9.7 mg/dl (8.5-10.1); Creatinine Clr Calc Pharmacy 55.7 ml/min; Est GFR (African American) 59.8 ml/min; Est GFR (Non-African American) 51.6 ml/min; Globulin 3.7 gm/dl (2.5-4.0); Total Protein 7.6 gm/dl (6.0-8.3)
--- NOTE | 2022-05-01 11:52 | XRay Report ---
XR chest 1V portable HISTORY: weakness COMPARISON: Chest 04/12/2021. FINDINGS: No pneumothorax. No pleural effusions. The cardiac silhouette remains mildly enlarged. Is l eft-sided dual-chamber pacemaker and a left shoulder prosthesis again noted. No new focal lung consol idations to suggest a pneumonia. No evidence for pulmonary edema. IMPRESSION: No acute process. ACT 112: Negative or not required by law. Electronically signed by: Kamar Hagan M.D. 05/01/2022 11:50 AM
[2022-05-01] MEDS ORDERED: PIPERACILLIN/TAZOBACTAM 4.5 GM/120 ML BAG IV ONE (13:28)
[2022-05-01] MEDS ORDERED: ACETAMINOPHEN 1,000 MG/100 ML VIAL IV STA (13:54)
--- NOTE | 2022-05-01 14:19 | History & Physical Report ---
Date of Service May 01, 2022 Assessment & Plan (1) Acute diverticulitis: Plan: Diverticulitis CT-A/P: 1. Acute sigmoid diverticulitis with a possible small focus of microperforation. No abscess identified.2. No evidence for bowel obstruction.3. Additional findings as described above. Weekly with Zosyn, continue CT with small area of possible microperforation, no free air or large perforation or evidence of air contralateral to sigmoid diverticulitis. We will treat medically at this time. If clinically worsening, repeat CT and consult surgery Leukocytosis of 13.19 on admission, hemoglobin 16.5. Sodium, potassium is normal and patient is with normal renal function and admitting creatinine of 1.08, can renally dose medications for age-adjusted clearance of 55 CThead: No acute findings Patient with reported allergy to amoxicillin as fluid retention no history of rash/lip/tongue involvement. N.p.o. LR 80 cc/h while n.p.o., cautious fluids in the setting of history of heart failure A. fib Continue anticoagulation with apixaban Continue digoxin 125 mcg daily, digoxin level Continue metoprolol 100 mg dailypatient has not been able to tolerate digoxin at home due to nausea, is subtherapeutic and has a history of RVR. Given recent symptoms and poor tolerance will follow for 24 hours on telemetry, give digoxin if able to tolerate, and downgrade as long as rate remained stable and electrolytes normal Diastolic CHF Hold Lasix while n.p.o. and receiving low rate fluids, stop fluids and resume Lasix if clinically starts to develop volume overload. Continue metoprolol as noted EF 20 0% GERD Can for omeprazole to Protonix, famotidine COPD Patient switched to Trelegy as outpatient, continue formulary equivalent Albuterol as needed No signs of exacerbation admission DVT prophylaxis: Anticoagulated Disposition: MedSurg, no A. fib or cardiac involvement on admission. A. fib is well controlled CODE STATUS: Diet: N.p.o. (2) Atrial fibrillation, persistent: (3) GERD (gastroesophageal reflux disease): History of Present Illness Primary Care Provider: Keith Vega DO Jocelyn is a 71-year-old female with a past medical history of GERD, persistent A. fib with subsequent RVR and bradycardia/sick sinus syndrome s/p pacemaker placement, tobacco use, peripheral edema, COPD, and impaired fasting glucose who presents with abdominal pain and is found to have diverticulitis with a microperforation. Few weeks of belly pressure after peeing, feeling nauseus with digoxin. Told her cardiology office that she couldn't tolerate it and stopped taking 2 weeks ago but got migraines. PA recommended she restart, and she just restarted her digoxin 2 days ago. In the last 2 days has had nausea with no vomiting. No fevers, chills, or sweats. Has pressure in in the low belly, but denies pain. Is slightly tender on RLQ palpation without rebound/guarding. BM 'fine, normal' No diarrhea or constipation. BMs are generally brown, no black/red BMs or melena. COPD at baseline 'has better than normal actually 'with no wheezing. Uses Trelegy, was on symbicort but recently changed. No home O2 requirement. No chest pain or pressure. No lightheadedness or dizziness. Medical History: Reviewed Medications: Reviewed Surgical History: Reviewed Allergies: Reviewed Social History: Daily smoker, 1 pack/day for 30 years. No alcohol or recreational drug/marijuana Code Status: Full code Allergies Allergy/AdvReac Type Severity Reaction Status Date / Time fentanyl Allergy Severe HIVES Verified 04/08/22 10:58 NSAIDS (Non-Steroidal Allergy Intermediate DUODENAL Verified 04/08/22 10:58 Anti-Inflamma ULCER digoxin AdvReac Intermediate Nausea Verified 04/08/22 10:58 diltiazem AdvReac Mild Fluid Verified 04/08/22 10:58 retention tramadol AdvReac Mild hallucinati Verified 04/08/22 10:58 on amoxicillin AdvReac Unknown FLUID Verified 04/08/22 10:58 RETENTION aspirin AdvReac Unknown DUEODENAL Verified 04/08/22 10:58 ULCER doxycycline AdvReac Unknown FLUID Verified 04/08/22 10:58 RETENTION gabapentin AdvReac Unknown hallucinati Verified 04/08/22 10:58 ons ibuprofen AdvReac Unknown DUODENAL Verified 04/08/22 10:58 ULCER naproxen AdvReac Unknown DUODENAL Verified 04/08/22 10:58 ULCERS acetaminophen [From Percocet] AdvReac Unknown Verified 04/08/22 10:58 oxycodone [From Percocet] AdvReac Unknown Verified 04/08/22 10:58 Home Medications Medication Instructions Recorded Confirmed Type albuterol sulfate 90 mcg/actuation 2 puff inhalation Q4 PRN Shortness 02/07/18 03/29/22 History aerosol inhaler (ProAir HFA) Of Breath Or Wheezing cholecalciferol (vitamin D3) 125 5,000 unit PO QAM 02/07/18 03/29/22 History mcg (5,000 unit) tablet (Vitamin D3) magnesium chloride 71.5 mg 71.5 mg PO BID 10/28/19 03/29/22 History (magnesium chloride) tablet,delayed release (Slow-Mag) famotidine 40 mg tablet 40 mg PO DAILY #90 tabs 05/04/21 03/29/22 Rx budesonide-formoterol HFA 160 2 puff inhalation BID Shortness Of 07/19/21 03/29/22 Rx mcg-4.5 mcg/actuation aerosol Breath Or Wheezing #6 grams inhaler (Symbicort) furosemide 40 mg tablet (Lasix) 40 mg PO QAM #90 tabs 09/06/21 03/29/22 Rx apixaban 5 mg tablet (Eliquis) 5 mg PO BID #180 tabs 09/15/21 03/29/22 Rx metoprolol succinate 100 mg 100 mg PO DAILY #90 tabs 12/06/21 03/29/22 Rx tablet,extended release 24 hr fluticasone fur. 200 mcg-umeclid 1 inh inhalation DAILY #60 ea 01/28/22 03/29/22 Rx 62.5 mcg-vilant 25 mcg inhalat.powder (Trelegy Ellipta) omeprazole 40 mg capsule,delayed 40 mg PO DAILY #90 caps 03/29/22 03/29/22 Rx release cephalexin 500 mg capsule 500 mg PO QID 5 days #20 caps 04/08/22 04/08/22 Rx digoxin 125 mcg (0.125 mg) tablet 125 mcg PO DAILY #90 tabs 04/28/22 Rx Past Med/Surg History Medical History (HFpEF) heart failure with preserved ejection fraction A-fib DX AUGUST 2017/NO CARDIOVERSION Asthma DX WITHIN LAST YR/"SLIGHT" Bilateral lower extremity edema History of anesthesia reaction FOLLOWING SHOULDER ARTHROSCOPY ([facility]) TROUBLE WITH BREATHING AFTER THE NERVE BLOCK - "MESSED WITH LUNGS AND HAD OXYGEN FOR THREE MONTHS AFTER" History of hypokalemia ED VISIT 03/09/18 History of palpitations 03/09/18 [facility] ED...PALPITATIONS, POTASSIUM LOW/REPLETED/FU WITH NYEDGGAR History of peptic ulcer History of skin cancer Migraine Morbid obesity Osteoarthritis Peripheral neuropathy Prediabetes Spinal stenosis Stress incontinence CHRONIC Vitamin D deficiency Surgical History H/O tubal ligation History of arthroscopy of left knee History of arthroscopy of left shoulder History of bladder surgery FOR STRESS INCONTINECE History of colonoscopy History of endoscopy History of permanent cardiac pacemaker placement History of reverse total replacement of left shoulder joint (~04/2018) History of skin cancer RESECTED/R UPPER LEG Family History Father Prostate cancer Hypertension Myocardial infarction Brother Diabetes Mother Hypertension Brother Diabetes Sister Pericardial effusion Sister Pericardial effusion Denies family history of Ovarian cancer Breast cancer Colorectal cancer Social History Smoking Status: Current every day smoker Tobacco Type: Cigarettes Age Started Using Tobacco: 30; packs per day: 1; Cigarettes Per Day: 20; Second Hand Exposure: Yes (her boyfriend smokes as well ); Hx Alcohol Use: No Hx Substance Use: No Preferred Language: Lithuanian Communication Ability: Effective Visual Impairment: No Limitations Hearing Ability: Normal Extractive Metallurgist Required: No Beliefs That Will Affect Care: None marital status: Current Living Situation: Significant Other Current Living Situation Comment: lives with her boyfriend current occupational status: retired 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 NAD. Cooperative. HEENT: Atraumatic, normocephalic. Vision/hearing intact. Pupils equal and reactive to light Pulm: Clear, no wheezes abnormal respiration but end expiratory wheeze on forced expiration symmetrical chest rise. No increased work of breathing. No respiratory distress. Cardiac: Irregular rate of approximately 6070bpm. No murmur radial pulses intact and symmetrical. Abdominal: Trace right lower quadrant tenderness to palpation, no rebound tenderness, no rigidity, no guarding Extremities: Warm, dry. Results & Data Results & Data ([facility]) Vital Signs (Past 12 Hours) Vital Signs Temp Pulse Pulse Resp BP BP Pulse Ox 05/01/22 14:07 69 18 111/63 92 05/01/22 13:11 87 18 111/63 92 05/01/22 12:13 87 L 05/01/22 12:09 87 18 89 L 05/01/22 11:57 79 18 108/66 89 L 05/01/22 10:42 36.9 C 90 20 112/73 90 O2 Del Method O2 Flow Rate 05/01/22 14:07 Room Air 05/01/22 13:11 Room Air 05/01/22 12:13 Room Air 0 05/01/22 12:09 Room Air 05/01/22 11:57 Room Air 05/01/22 10:42 Room Air PG Care Time/CCT Total # of Minutes Spent Total Time Spent with Patient: Total time spent is greater than 50% in coordination of care (as documented) at patient's floor/unit and/or counseling patient: Coding Level of Care Code 85819 INT INP/OBS CARE MIN Diagnoses Acute diverticulitis K57.92 Atrial fibrillation, persistent I48.19 GERD (gastroesophageal reflux disease) K21.9
[2022-05-01] MEDS ORDERED: VANCOMYCIN HCL 2,250 MG in SODIUM CHLORIDE 0.9% 500 ML IV ONE (14:48)
[2022-05-01] MEDS ORDERED: VANCOMYCIN CONSULT ACTIVE PRN (14:48)
[2022-05-01] MEDS: DIGOXIN 0.125 MG TAB PO SCH (18:06)
[2022-05-01] MEDS: PIPERACILLIN/TAZOBACTAM 3.375 GM in DEXTROSE 5% 100 ML IV SCH (18:06)
[2022-05-01] MEDS ORDERED: MoRPHine SULFATE 2 MG/ML CARP IV ONE (20:58)
[2022-05-01] MEDS: NICOTINE 7 MG/24 HR TDSY TD SCH (22:06)
--- NOTE | 2022-05-01 22:23 | Electrocardiogram Report ---
Test Reason : Blood Pressure : / mmHG Vent. Rate : 079 BPM Atrial Rate : 075 BPM P-R Int : 000 ms QRS Dur : 092 ms QT Int : 412 ms P-R-T Axes : 000 093 -55 degrees QTc Int : 472 ms Atrial fibrillation with occasional ventricular-paced complexes Rightward axis Low voltage QRS Poor R wave progression, consider anterior TX vs. lead placement vs. LVH Nonspecific T wave abnormality Abnormal ECG When compared with ECG of 12-APR-2021 09:58, Atrial fibrillation has replaced Atrial-paced rhythm Confirmed by Jemal Pacheco ([id number]) on 05/01/2022 10:22:46 PM Referred By: REFERRED SELF Confirmed By:Jemal Pacheco
[2022-05-02] MEDS: APIXABAN 5 MG TABLET PO SCH ×3 (00:33→20:23)
[2022-05-02] MEDS: FAMOTIDINE 20 MG in SYRINGE 3 ML IV SCH ×3 (00:34→21:18)
[2022-05-02] MEDS: MAGNESIUM CHLORIDE W/CALCIUM 64MG DELAYED REL TAB PO SCH ×3 (00:34→20:23)
[2022-05-02] MEDS: PANTOprazole 40 MG in SYRINGE 0 ML IV SCH ×3 (00:35→21:19)
[2022-05-02] MEDS: PIPERACILLIN/TAZOBACTAM 3.375 GM in DEXTROSE 5% 100 ML IV SCH ×3 (02:17→17:38)
[2022-05-02] MEDS ORDERED: traMADol HCL 50 MG TABLET PO STA (06:42)
[2022-05-02] MEDS ORDERED: MoRPHine SULFATE 2 MG/ML CARP IV STA (06:44)
[2022-05-02 07:36] LABS: Basophils # (auto) 0.03 K/uL (0-0.2); Basophils % (auto) 0.3 %; Eosinophils # (auto) 0.14 K/uL (0-0.50); Eosinophils % (auto) 1.3 %; Hematocrit (blood only) 48.6 % (34.1-44.9); Hemoglobin 15.9 g/dl (12.0-16.0); Immature Granulocytes # (auto) 0.08 K/uL (0.00-0.02); Immature Granulocytes % (auto) 0.7 %; Lymphocytes # (auto) 1.28 K/uL (1.2-3.4); Lymphocytes % (auto) 11.5 %; Mean Corpuscular Hemoglobin 32.4 pg (25.0-34.0); Mean Corpuscular Hgb Conc 32.7 g/dL (32.0-36.0); Mean Corpuscular Volume 99.2 fL (80.0-100.0); Mean Platelet Volume 9.7 fL (9.4-12.3); Monocytes # (auto) 0.82 K/uL (0.24-0.82); Monocytes % (auto) 7.4 %; Neutrophils # (auto) 8.75 K/uL (1.4-6.5); Neutrophils % (auto) 78.8 %; Platelet Count 228 K/uL (130-400); RDW Coefficient of Variation 13.1 % (11.5-14.5)
[2022-05-02 08:05] LABS: Calcium 9.2 mg/dl (8.5-10.1); Creatinine Clr Calc Pharmacy 53.4 ml/min; Est GFR (African American) 56.6 ml/min; Est GFR (Non-African American) 48.9 ml/min; Potassium 4.6 mmol/L (3.5-5.1)
[2022-05-02] MEDS: FLUTICASONE/VILANTEROL 100/25MCG 14 PUFFS/INHALER INH SCH (08:12)
[2022-05-02] MEDS: UMECLIDINIUM BROMIDE 62.5MCG/BLISTER 7 PUFFS/INHALER INH SCH (08:12)
[2022-05-02] MEDS: NICOTINE 7 MG/24 HR TDSY TD SCH (08:13)
[2022-05-02] MEDS: METOPROLOL SUCC 50MG EXT REL TAB PO SCH (09:55)
[2022-05-02] MEDS ORDERED: ACETAMINOPHEN 325 MG TAB PO PRN (10:59)
--- NOTE | 2022-05-02 12:02 | Hospitalist Progress Note ---
Date of Service May 02, 2022 Assessment & Plan (1) Acute diverticulitis: Plan: Diverticulitis with microperforation/[place] CT-A/P:1. Acute sigmoid diverticulitis with a possible small focus of microperforation. No abscess identified.2. No evidence for bowel obstruction.3. Additional findings as described above. CT with small area of possible microperforation, no free air or large perforation or evidence of air contralateral to sigmoid diverticulitis. Patient is clinically improving with medical treatment, continue antibiotics and treat as uncomplicated diverticulitis at this time. If clinically worsening, repeat CT and consult surgery Leukocytosis of 13.19 on admission, hemoglobin 16.5. Leukocytosis is downtrending 11.1 on 05/02 CThead: No acute findings Patient with reported allergy to amoxicillin as fluid retention no history of rash/lip/tongue involvement. N.p.o. IV fluids discontinued, patient advance to clears If tolerating diet advancement through full tonight and no pain, will place on regular diet tomorrow and anticipate discharge home on Augmentin (2) Atrial fibrillation, persistent: Plan: A. fib Continue anticoagulation with apixaban Continue digoxin 125 mcg daily Continue metoprolol 100 mg daily Patient's digoxin has been restarted 2 days ago and she is continuing to receive this during admission. Reports that she is now tolerating it well without stomach upset or side effects, suspect the symptoms she attributed to digoxin toxicity may have been from her diverticulitis. Diastolic CHF Hold Lasix while n.p.o. and receiving low rate fluids, stop fluids and resume Lasix if clinically starts to develop volume overload. Continue metoprolol as noted EF 2020 60% Patient is breathing comfortably at bedside but is on 2 L nasal cannula. No rales are appreciated. Will resume home Lasix, advance diet, encourage incentive spirometry (3) GERD (gastroesophageal reflux disease): Plan: GERD Convert home oral omeprazole to Protonix, famotidine (4) COPD (chronic obstructive pulmonary disease): Plan: COPD Patient switched to Trelegy as outpatient, continue formulary equivalent Albuterol as needed No signs of exacerbation admission Plan DVT prophylaxis: Anticoagulated Disposition: MedSurg, no A. fib or cardiac involvement on admission. A. fib is well controlled CODE STATUS: Diet: N.p.o. Admission and Anticipated Discharge Date Admission Date: May 01, 2022 Subjective Patient seen at bedside, she is sitting up in a chair at time of visit. She reports she feels much better than yesterday, and has no nausea/stomach upset today. She reports she has been able to take her digoxin dose without difficulty, and in retrospect suspects that this may actually have been from smoldering diverticulitis rather than her digoxin. She is not having fever, chills, chest pain, chest pressure. She is hungry. Has not yet had diet advanced, feels ready for this today. Review of Systems Review of Systems: All systems reviewed & are unremarkable except as noted in Subjective Physical Exam Physical Exam: General: A&Ox3. NAD. Cooperative. HEENT: Atraumatic, normocephalic. Pulm: Diminished but without wheezes/rales symmetrical chest rise. No increase in work of breathing. No respiratory distress. Cardiac: RRR, -mrg. Radial pulses intact and symmetrical. Abdominal: Nontender, nondistended, soft. BS present. Results & Data Results & Data ([facility]) Vital Signs (Past 12 Hours) Vital Signs Temp Pulse Pulse Resp BP Pulse Ox O2 Del Method 05/02/22 08:39 83 05/02/22 07:21 Nasal Cannula 05/02/22 06:29 36.5 C 74 18 99/60 L 95 Nasal Cannula 05/02/22 02:21 36.6 C 87 20 108/68 90 Nasal Cannula 05/02/22 00:03 83 O2 Flow Rate 05/02/22 08:39 05/02/22 07:21 2 05/02/22 06:29 2 05/02/22 02:21 2 05/02/22 00:03 PG Care Time/CCT Total # of Minutes Spent Total Time Spent with Patient: Total time spent is greater than 50% in coordination of care (as documented) at patient's floor/unit and/or counseling patient: Coding Level of Care Code 63798 SUB INP/OBS CARE 235MIN Diagnoses Acute diverticulitis K57.92 Atrial fibrillation, persistent I48.19 GERD (gastroesophageal reflux disease) K21.9 COPD (chronic obstructive pulmonary disease) J44.9
[2022-05-02] MEDS: FUROSEMIDE 40 MG TAB PO SCH (12:21)
[2022-05-02] MEDS: DIGOXIN 0.125 MG TAB PO SCH (15:16)
[2022-05-03] MEDS: PIPERACILLIN/TAZOBACTAM 3.375 GM in DEXTROSE 5% 100 ML IV SCH ×2 (01:20→10:28)
[2022-05-03] MEDS: MAGNESIUM CHLORIDE W/CALCIUM 64MG DELAYED REL TAB PO SCH ×2 (07:38→20:39)
[2022-05-03] MEDS: FUROSEMIDE 40 MG TAB PO SCH (07:39)
[2022-05-03] MEDS: NICOTINE 7 MG/24 HR TDSY TD SCH (07:39)
[2022-05-03] MEDS: METOPROLOL SUCC 50MG EXT REL TAB PO SCH ×2 (07:39→07:44)
[2022-05-03] MEDS: APIXABAN 5 MG TABLET PO SCH ×2 (07:39→20:39)
[2022-05-03] MEDS: UMECLIDINIUM BROMIDE 62.5MCG/BLISTER 7 PUFFS/INHALER INH SCH (07:40)
[2022-05-03] MEDS: FLUTICASONE/VILANTEROL 100/25MCG 14 PUFFS/INHALER INH SCH (07:40)
[2022-05-03] MEDS: FAMOTIDINE 20 MG in SYRINGE 3 ML IV SCH ×2 (07:40→20:43)
[2022-05-03] MEDS: PANTOprazole 40 MG in SYRINGE 0 ML IV SCH ×2 (07:41→20:40)
[2022-05-03 08:47] LABS: Basophils # (auto) 0.04 K/uL (0-0.2); Basophils % (auto) 0.4 %; Eosinophils # (auto) 0.13 K/uL (0-0.50); Eosinophils % (auto) 1.3 %; Hematocrit (blood only) 46.5 % (34.1-44.9); Hemoglobin 15.6 g/dl (12.0-16.0); Immature Granulocytes # (auto) 0.06 K/uL (0.00-0.02); Immature Granulocytes % (auto) 0.6 %; Lymphocytes % (auto) 12.7 %; Mean Corpuscular Hemoglobin 32.4 pg (25.0-34.0); Mean Corpuscular Hgb Conc 33.5 g/dL (32.0-36.0); Mean Corpuscular Volume 96.7 fL (80.0-100.0); Mean Platelet Volume 9.9 fL (9.4-12.3); Monocytes # (auto) 0.74 K/uL (0.24-0.82); Monocytes % (auto) 7.2 %; Neutrophils # (auto) 7.99 K/uL (1.4-6.5); Neutrophils % (auto) 77.8 %; Platelet Count 225 K/uL (130-400); RDW Coefficient of Variation 12.9 % (11.5-14.5); RDW Standard Deviation 46.4 fL (36.4-46.3); Red Blood Count 4.81 M/uL (3.93-5.22); White Blood Count 10.26 K/ul (4.8-10.8)
[2022-05-03 09:45] LABS: BUN Creatinine Ratio 12.3 (10-20); Calcium 9.1 mg/dl (8.5-10.1); Creatinine Clr Calc Pharmacy 52.4 ml/min; Est GFR (Non-African American) 48.3 ml/min; Potassium 4.2 mmol/L (3.5-5.1)
[2022-05-03] MEDS ORDERED: OPTIRAY 350 100ml IV ONE (11:10)
--- NOTE | 2022-05-03 13:25 | CT Scan Report ---
ABDOMEN AND PELVIS CT WITH IV CONTRAST CT DOSE: 1015.26 mGycm HISTORY: repeat w/con for increased generalized abdominal pain, diverticulitis ?abscess TECHNIQUE: Multiaxial CT images of the abdomen and pelvis were performed following the use of intrave nous contrast. A dose lowering technique was utilized adhering to the principles of ALARA. COMPARISON STUDY: Abdomen and pelvis CT 05/01/2022. FINDINGS: Mild dependent changes seen at the lung bases. No acute fractures identified. Pacemaker wir es are noted. The gallbladder is mildly distended. No gallbladder wall thickening. The main portal ve in is patent. No hepatic masses. Small wedge-shaped hypodensity within the periphery of the spleen me asuring 2.2 cm. This favors a splenic infarct. The adrenal glands and pancreas are unremarkable. A fe w small bilateral renal hypodense lesions. These are technically too small to characterize but favor cysts. No hydronephrosis. No retroperitoneal lymphadenopathy. Calcified plaque within the caliber abd ominal aorta. The bladder, uterus, bilateral adnexa are within normal limits. Acute diverticulitis ag ain noted at the mid sigmoid colon with pericolonic fat stranding and a possible punctate focus of mi croperforation. No drainable fluid collections identified at this time. The inflammatory change has s lightly progressed. No evidence for bowel obstruction. Normal appendix. IMPRESSION: 1. Slight progression of the acute sigmoid diverticulitis which may demonstrate a small focus of extr aluminal gas in the setting of a microperforation. No drainable fluid collections identified. 2. Small wedge-shaped hypodensity within the spleen consistent with a splenic infarct. 3. Additional findings as described above. ACT 112: Negative or not required by law. Electronically signed by: Kamar Hagan M.D. 05/03/2022 1:24 PM
--- NOTE | 2022-05-03 13:45 | Hospitalist Progress Note ---
Date of Service May 03, 2022 Assessment & Plan (1) Acute diverticulitis: Plan: Diverticulitis with microperforation/[place] CT-A/P:1. Acute sigmoid diverticulitis with a possible small focus of microperforation. No abscess identified.2. No evidence for bowel obstruction.3. Additional findings as described above. CT with small area of possible microperforation, no free air or large perforation or evidence of air contralateral to sigmoid diverticulitis. Patient is clinically improving with medical treatment, continue antibiotics and treat as uncomplicated diverticulitis at this time. If clinically worsening, repeat CT and consult surgery CThead: No acute findings Patient initially improving after 1 day of treatment and was advanced to clears, subsequently was with worsening pain and some hypotension which worsened on midday reevaluation Repeat CTA/P: Acute sigmoid diverticulitis, small periluminal region of gas. Based on above and worsening, strict bowel rest and made NPO. Antibiotics adj usted to cefepime/Flagyl. Cipro avoided due to borderline QT. Patient does not need emergent consultation but given slight progression and worsening, was discussed with surgical service who will see the patient tomorrow. Continue medical management at this time, no evidence of abscess at this time (2) Atrial fibrillation, persistent: Plan: A. fib Continue anticoagulation with apixaban Continue digoxin 125 mcg daily With borderline hypotension, patient has been restarted on her digoxin. Metoprolol decreased to 50 mg daily. Patient's digoxin has been restarted 2 prior to admission and she is continuing to receive this during admission. Reports that she is now tolerating it well without stomach upset or side effects, suspect the symptoms she attributed to digoxin toxicity may have been from her diverticulitis. Diastolic CHF Hold Lasix while n.p.o. and receiving low rate fluids, stop fluids and resume Lasix if clinically starts to develop volume overload. Continue metoprolol as noted EF 2020 60% Breathing actively on room air, no evidence of volume overload at bedside assessment. Lasix temporarily held while on low rate IV fluids, if evidence of volume overload positive fluids and resume Lasix. (3) GERD (gastroesophageal reflux disease): Plan: GERD Convert home oral omeprazole to Protonix, famotidine (4) COPD (chronic obstructive pulmonary disease): Plan: COPD Patient switched to Trelegy as outpatient, continue formulary equivalent Albuterol as needed No signs of exacerbation admission Plan DVT prophylaxis: Anticoagulated Disposition: MedSurg, no A. fib or cardiac involvement on admission. A. fib is well controlled CODE STATUS: Diet: N.p.o. Admission and Anticipated Discharge Date Admission Date: May 01, 2022 Subjective Seen at bedside this morning. [place] well and wanted to try clears, however on reevaluation from this patient with increased abdominal pain. On later reassessment in the morning has had continued worsening of pain and overall feeling poor and with soft blood pressures through the morning. Metoprolol halved, given increased abdominal pain and was in clinic exam repeat CT with contrast was obtained. This shows slight progression, and a small focus of extraluminal gas. This was discussed with patient. She has not had fever, chills, sweats, shortness of breath, difficulty breathing. Review of Systems Review of Systems: All systems reviewed & are unremarkable except as noted in Subjective Physical Exam Physical Exam: General: A&Ox3. NAD. Cooperative. HEENT: Atraumatic, normocephalic. Vision/hearing intact Pulm: CTAB A&P. -wheezes, -rales, -rhonchi. Symmetrical chest rise. No increased work of breathing. No respiratory distress. Cardiac: Irregular with pulse 7080, -mrg. Radial pulses intact and symmetrical. Abdominal: Increased tenderness to palpation in right and left lower quadrants without rebound, remains soft, no guarding Results & Data Results & Data ([facility]) Vital Signs (Past 12 Hours) Vital Signs Temp Pulse Pulse Resp BP Pulse Ox O2 Del Method 05/03/22 11:54 36.3 C L 81 19 99/65 L 91 Room Air 05/03/22 08:44 98 H 05/03/22 08:00 36.5 C 104 H 19 122/84 93 Nasal Cannula 05/03/22 04:30 36.8 C 92 H 22 81/54 L 88 L Room Air O2 Flow Rate 05/03/22 11:54 05/03/22 08:44 05/03/22 08:00 2 05/03/22 04:30 2 PG Care Time/CCT Total # of Minutes Spent Total Time Spent with Patient: Total time spent is greater than 50% in coordination of care (as documented) at patient's floor/unit and/or counseling patient: Coding Level of Care Code 72953 SUB INP/OBS CARE MIN Diagnoses Acute diverticulitis K57.92 Atrial fibrillation, persistent I48.19 GERD (gastroesophageal reflux disease) K21.9 COPD (chronic obstructive pulmonary disease) J44.9
[2022-05-03] MEDS: NORMOSOL-R 1,000 ML IV SCH (14:12)
[2022-05-03] MEDS: CEFEPIME 2,000 MG in SYRINGE 0 ML IV SCH (15:31)
[2022-05-03] MEDS: DIGOXIN 0.125 MG TAB PO SCH (15:46)
[2022-05-03] MEDS: metroNIDAZOLE 500 MG/100 ML BAG IV SCH (15:46)
[2022-05-04] MEDS: NORMOSOL-R 1,000 ML IV SCH (00:25)
[2022-05-04] MEDS: metroNIDAZOLE 500 MG/100 ML BAG IV SCH ×3 (00:28→17:37)
[2022-05-04] MEDS: CEFEPIME 2,000 MG in SYRINGE 0 ML IV SCH ×2 (01:35→13:48)
--- NOTE | 2022-05-04 08:01 | Hospitalist Progress Note ---
Date of Service May 04, 2022 Assessment & Plan (1) Acute diverticulitis: Plan: Presented with several weeks of belly pressure after urinating, nausea, vomiting, with resumption of digoxin for her afib CT head on admit, no acute findings CTAP on admission with Acute sigmoid diverticulitis with a possible small focus of microperforation. No abscess identified. No obstruction identified Had been improving with supportive care, however had worsening abdominal pain and hypotension on 05/03 Was backed down to NPO and general surgery was consulted Changed antibiotics to Cefepime/Flagyl (from Zosyn) given repeat CTAP with Slight progression of the acute sigmoid diverticulitis which may demonstrate a small focus of extraluminal gas in the setting of a microperforation. No drainable fluid collections identified. IVF ordered, made NPO General surgery consulted Patient reported feeling better today, less abd pain, no further nausea/vomiting Diet advanced to clear liquid, no further IVF (see below, plans for lasix to resume in AM) Supportive care/electrolyte replacement as indicated (2) Atrial fibrillation, persistent: Plan: CarrollGeraldine fib - follows with [facility] Remains on Eliquis BID for afib, Remains on metoprolol, but dose decreased to 50mg daily given hypotension Reports that she is now tolerating it well without stomach upset or side effects, suspect the symptoms she attributed to digoxin toxicity may have been from her diverticulitis, HOWEVER please not patient had been having GI side effects year or two ago when placed on this medication (recently was decreased from 250mcg daily to alternating, eventually 125mcg daily currently) Digoxin 125mcg daily continued for now, level without elevation. Consider touching base w/ cards (will message Kip to see if any changes/recs) Has been afib on monitor, running 70-90s, but did have elevation to 130s last evening around 2300, asymptomatic w/ such apparently, no issues reported Continue to monitor on tele Diastolic CHF Last ECHO in system 2019, EF 60^ Lasix held while receiving IVF Did have some end expiratory wheezing on exam, no further IVF ordered. Plan to resume lasix in AM Will also check mag to ensure ~2, K~, replacement as needed (3) GERD (gastroesophageal reflux disease): Plan: GERD Converted home oral omeprazole to Protonix, famotidine (4) COPD (chronic obstructive pulmonary disease): Plan: COPD Patient switched to Trelegy as outpatient, continue formulary equivalent Albuterol as needed Did have some end expiratory wheezing, no further IVF as above. Denied sputum production/SOB, suspect slight volume overload -- lasix to resume tomorrow morning. If any issues later today could consider dose of IV if needed Plan continued inpatient stay discussed with general surgery -- clear liquid diet ordered for today, continue to monitor Admission and Anticipated Discharge Date Admission Date: May 01, 2022 Supervising Physician Co-Signing Physician Notes PA Supervision Note: I did not personally see or examine the patient today, but I verified all mann points of INGRID Kumar's assessment and plan with the following exceptions/additions: None Subjective eval this afternoon around lunch states that she is feeling much better than yesterday. not yet seen by general surgery fearful for need for surgery, however discussed hopefully will be able to manage conservatively. Moved bowels, brown in color/slightly loose. Discussed could try some liquids today but wanting to confirm with general surgery ok to do such first. most recently had been on 125mcg digoxin BID (prior issues nausea/GI upset w/ higher doses, had been off for a while, restarted). That's what she thought initial GI complaints from. Has been afib 70-90s, did get up to 130s last evening. She has had boils in the past to groin, noticed development of such to her left groin and one to underside of pannus. No drainage. To monitor/?from abx/reaction? Will monitor/consult with wound RN if any issues but is on flagyl for anaerobic coverage. No fever/chills. No CP/SOb reported, but does note history of COPD. Does have some end expiratory wheezing on exam. Would like a diet pepsi if able. 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 Review of Systems Review of Systems: All systems reviewed & are unremarkable except as noted in HPI & below Physical Exam Physical Exam: General: WD/WN elderly female sitting up in recliner upon entry, NAD HEENT: head normocephalic, mmm, trachea midline Resp: end expiratory wheezing, no crackles, on room air CV: irregularly irregular, no m/r/g, trace pedal edema, calves nontender GI: +BS, slight tenderness deep palpation LLQ, no guarding/rigidity : no maldonado MSK/Neuro: moves all extremities, no focal deficits Psych: AOx3, pleasant and cooperative Skin: warm, dry Results & Data Results & Data ([facility]) Vital Signs (Past 12 Hours) Vital Signs Temp Pulse Pulse Pulse Resp BP Pulse Ox 05/04/22 07:55 36.4 C L 75 16 101/68 90 05/04/22 07:27 36.8 C 81 19 117/67 93 05/04/22 02:40 36.8 C 72 18 108/64 90 05/04/22 00:50 83 05/03/22 23:17 36.4 C L 85 18 118/78 94 05/03/22 22:02 105/63 O2 Del Method O2 Flow Rate 05/04/22 07:55 Room Air 05/04/22 07:27 Room Air 05/04/22 02:40 Nasal Cannula 2 05/04/22 00:50 05/03/22 23:17 Room Air 05/03/22 22:02 Laboratory Results 05/04/22 05/04/22 Range/Units 08:17 08:17 WBC 9.09 (4.8-10.8) K/ul RBC 4.74 (3.93-5.22) M/uL Hgb 15.3 (12.0-16.0) g/dl Hct 45.8 H (34.1-44.9) % MCV 96.6 (80.0-100.0) fL MCH 32.3 (25.0-34.0) pg MCHC 33.4 (32.0-36.0) g/dL RDW Std Deviation 45.7 (36.4-46.3) fL RDW Coeff of Yamilet 12.8 (11.5-14.5) % Plt Count 216 (130-400) K/uL MPV 10.0 (9.4-12.3) fL Immature Gran % (Auto) 0.4 % Neut % (Auto) 77.2 % Lymph % (Auto) 13.0 % Mellette % (Auto) 7.6 % Eos % (Auto) 1.5 % Baso % (Auto) 0.3 % Neut # (Auto) 7.01 H (1.4-6.5) K/uL Lymph # (Auto) 1.18 L (1.2-3.4) K/uL Mellette # (Auto) 0.69 (0.24-0.82) K/uL Eos # (Auto) 0.14 (0-0.50) K/uL Baso # (Auto) 0.03 (0-0.2) K/uL Immature Gran # (Auto) 0.04 H (0.00-0.02) K/uL Sodium 140 (136-145) mmol/L Potassium 4.1 (3.5-5.1) mmol/L Chloride 104 (98-107) mmol/L Carbon Dioxide 31 (21-32) mmol/L Anion Gap 5 (3-11) BUN 14 (6-23) mg/dl Creatinine 1.13 (0.6-1.2) mg/dl Est Cr Clr Drug Dosing 52.8 ml/min Est GFR ( Amer) 56.6 ml/min Est GFR (Non-Af Amer) 48.9 ml/min BUN/Creatinine Ratio 12.4 (10-20) Glucose 88 (70-99(Fasting)) mg/dl Calcium 9.0 (8.5-10.1) mg/dl Magnesium 2.2 (1.7-2.4) mg/dl Diagnostic Findings Abdomen/Pelvis CT 05/03/22 09:[address] WITH IV CONTRAST CT DOSE: 1015.26 mGycm HISTORY: repeat w/con for increased generalized abdominal pain, diverticulitis ?abscess TECHNIQUE: Multiaxial CT images of the abdomen and pelvis were performed following the use of intravenous contrast. A dose lowering technique was utilized adhering to the principles of ALARA. COMPARISON STUDY: Abdomen and pelvis CT 05/01/2022. FINDINGS: Mild dependent changes seen at the lung bases. No acute fractures identified. Pacemaker wires are noted. The gallbladder is mildly distended. No gallbladder wall thickening. The main portal vein is patent. No hepatic masses. Small wedge-shaped hypodensity within the periphery of the spleen measuring 2.2 cm. This favors a splenic infarct. The adrenal glands and pancreas are unremarkable. A few small bilateral renal hypodense lesions. These are technically too small to characterize but favor cysts. No hydronephrosis. No retroperitoneal lymphadenopathy. Calcified plaque within the caliber abdominal aorta. The bladder, uterus, bilateral adnexa are within normal limits. Acute diverticulitis again noted at the mid sigmoid colon with pericolonic fat stranding and a possible punctate focus of microperforation. No drainable fluid collections identified at this time. The inflammatory change has slightly progressed. No evidence for bowel obstruction. Normal appendix. IMPRESSION: 1. Slight progression of the acute sigmoid diverticulitis which may demonstrate a small focus of extraluminal gas in the setting of a microperforation. No drainable fluid collections identified. 2. Small wedge-shaped hypodensity within the spleen consistent with a splenic infarct. 3. Additional findings as described above. ACT 112: Negative or not required by law. Electronically signed by: Kamar Hagan M.D. 05/03/2022 1:24 PM PG Care Time/CCT Total # of Minutes Spent Total Time Spent with Patient: Total time spent is greater than 50% in coordination of care (as documented) at patient's floor/unit and/or counseling patient: Coding Level of Care Code 70308 SUB INP/OBS CARE 3/50MIN Diagnoses Acute diverticulitis K57.92 Atrial fibrillation, persistent I48.19 GERD (gastroesophageal reflux disease) K21.9 COPD (chronic obstructive pulmonary disease) J44.9
[2022-05-04 08:55] LABS: Basophils # (auto) 0.03 K/uL (0-0.2); Basophils % (auto) 0.3 %; Eosinophils # (auto) 0.14 K/uL (0-0.50); Eosinophils % (auto) 1.5 %; Hematocrit (blood only) 45.8 % (34.1-44.9); Hemoglobin 15.3 g/dl (12.0-16.0); Immature Granulocytes # (auto) 0.04 K/uL (0.00-0.02); Immature Granulocytes % (auto) 0.4 %; Lymphocytes # (auto) 1.18 K/uL (1.2-3.4); Mean Corpuscular Hemoglobin 32.3 pg (25.0-34.0); Mean Corpuscular Hgb Conc 33.4 g/dL (32.0-36.0); Mean Corpuscular Volume 96.6 fL (80.0-100.0); Monocytes # (auto) 0.69 K/uL (0.24-0.82); Monocytes % (auto) 7.6 %; Neutrophils # (auto) 7.01 K/uL (1.4-6.5); Neutrophils % (auto) 77.2 %; Platelet Count 216 K/uL (130-400); RDW Coefficient of Variation 12.8 % (11.5-14.5); RDW Standard Deviation 45.7 fL (36.4-46.3); Red Blood Count 4.74 M/uL (3.93-5.22); White Blood Count 9.09 K/ul (4.8-10.8)
[2022-05-04 09:21] LABS: BUN Creatinine Ratio 12.4 (10-20); Creatinine Clr Calc Pharmacy 52.8 ml/min; Est GFR (African American) 56.6 ml/min; Est GFR (Non-African American) 48.9 ml/min; Magnesium 2.2 mg/dl (1.7-2.4); Potassium 4.1 mmol/L (3.5-5.1)
[2022-05-04] MEDS: MAGNESIUM CHLORIDE W/CALCIUM 64MG DELAYED REL TAB PO SCH ×2 (09:50→22:30)
[2022-05-04] MEDS: APIXABAN 5 MG TABLET PO SCH ×2 (09:51→22:29)
[2022-05-04] MEDS: METOPROLOL SUCC 50MG EXT REL TAB PO SCH (09:54)
[2022-05-04] MEDS: PANTOprazole 40 MG in SYRINGE 0 ML IV SCH ×2 (09:55→22:29)
[2022-05-04] MEDS: FLUTICASONE/VILANTEROL 100/25MCG 14 PUFFS/INHALER INH SCH (09:57)
[2022-05-04] MEDS: UMECLIDINIUM BROMIDE 62.5MCG/BLISTER 7 PUFFS/INHALER INH SCH (09:57)
[2022-05-04] MEDS: NICOTINE 7 MG/24 HR TDSY TD SCH (09:58)
[2022-05-04] MEDS: FAMOTIDINE 20 MG in SYRINGE 3 ML IV SCH ×2 (10:07→22:32)
[2022-05-04] MEDS ORDERED: ACETAMINOPHEN 1,000 MG/100 ML VIAL IV PRN (13:02)
--- NOTE | 2022-05-04 15:17 | Surgery Consultation ---
Date of Consultation May 04, 2022 Assessment & Plan (1) Acute diverticulitis: (2) Abdominal pain, lower: Plan 71 year-old female with complicated diverticulitis (Microperforation) with slight progression on initial IV zosyn, antibiotics have been changed to IV Cefepime and Flagyl and she is clinically improving. No surgical intervention required at this time. Would continue IV Cefepime and FLagyl and can have clear liquid diet. Will continue to monitor. Dr. Gutierrez has seen and examined patient, please see addendum for further recommendations/plan. History of Present Illness Reason for Consultation: Diverticulitis with microperforation, progression on IV Zosyn Requesting Physician: Trista Kumar PA-C Attending Physician: Zuleyma Marin MD History of Present Illness Jocelyn is a pleasant 71 year-old female with history of GERD, afib, COPD, chronic venous insufficiency, bradycardia, Sick sinus syndrome with pacemaker, osteoporosis who presented to emergency department on Monday with complaint of lower abdominal discomfort and pressure. Had nausea 2 days prior to admission. No changes in her bowel habits. No prior history of diverticulitis. Had a ct scan of abdomen and pelvis which showed sigmoid diverticulitis with possible microperforation and admitted and started on IV zosyn. She started some clear liquid diet yesterday and had some pain and hypotension. Repeat CT scan showed slight progression of diverticulitis with microperforation however no abscess. Our services consulted given the progression of diverticulitis on CT scan. She states she is feeling much better today. Pain has improved since antibiotics changed yesterday and has been NPO. No fevers or chills. Allergies Allergy/AdvReac Type Severity Reaction Status Date / Time fentanyl Allergy Severe HIVES Verified 05/01/22 15:03 NSAIDS (Non-Steroidal Allergy Intermediate DUODENAL Verified 05/01/22 15:03 Anti-Inflamma ULCER digoxin AdvReac Intermediate Nausea Verified 05/01/22 15:03 diltiazem AdvReac Mild Fluid Verified 05/01/22 15:03 retention tramadol AdvReac Mild hallucinati Verified 05/01/22 15:03 on amoxicillin AdvReac Unknown FLUID Verified 05/01/22 15:03 RETENTION aspirin AdvReac Unknown DUEODENAL Verified 05/01/22 15:03 ULCER doxycycline AdvReac Unknown FLUID Verified 05/01/22 15:03 RETENTION gabapentin AdvReac Unknown hallucinati Verified 05/01/22 15:03 ons ibuprofen AdvReac Unknown DUODENAL Verified 05/01/22 15:03 ULCER naproxen AdvReac Unknown DUODENAL Verified 05/01/22 15:03 ULCERS oxycodone [From Percocet] AdvReac Unknown Verified 05/01/22 15:03 Home Medications Medication Instructions Recorded Confirmed Type albuterol sulfate 90 mcg/actuation 2 puff inhalation Q4 PRN Shortness 02/07/18 05/01/22 History aerosol inhaler (ProAir HFA) Of Breath Or Wheezing cholecalciferol (vitamin D3) 125 5,000 unit PO QAM 02/07/18 05/01/22 History mcg (5,000 unit) tablet (Vitamin D3) magnesium chloride 71.5 mg 71.5 mg PO BID 10/28/19 05/01/22 History (magnesium chloride) tablet,delayed release (Slow-Mag) famotidine 40 mg tablet 40 mg PO DAILY #90 tabs 05/04/21 05/01/22 Rx budesonide-formoterol HFA 160 2 puff inhalation BID Shortness Of 07/19/21 05/01/22 Rx mcg-4.5 mcg/actuation aerosol Breath Or Wheezing #6 grams inhaler (Symbicort) furosemide 40 mg tablet (Lasix) 40 mg PO QAM #90 tabs 09/06/21 05/01/22 Rx apixaban 5 mg tablet (Eliquis) 5 mg PO BID #180 tabs 09/15/21 05/01/22 Rx metoprolol succinate 100 mg 100 mg PO DAILY #90 tabs 12/06/21 05/01/22 Rx tablet,extended release 24 hr fluticasone fur. 200 mcg-umeclid 1 inh inhalation DAILY #60 ea 01/28/22 05/01/22 Rx 62.5 mcg-vilant 25 mcg inhalat.powder (Trelegy Ellipta) omeprazole 40 mg capsule,delayed 40 mg PO DAILY #90 caps 03/29/22 05/01/22 Rx release digoxin 125 mcg (0.125 mg) tablet 125 mcg PO DAILY #90 tabs 04/28/22 05/01/22 Rx Patient History Medical History (HFpEF) heart failure with preserved ejection fraction A-fib DX AUGUST 2017/NO CARDIOVERSION Asthma DX WITHIN LAST YR/"SLIGHT" Bilateral lower extremity edema History of anesthesia reaction FOLLOWING SHOULDER ARTHROSCOPY ([facility]) TROUBLE WITH BREATHING AFTER THE NERVE BLOCK - "MESSED WITH LUNGS AND HAD OXYGEN FOR THREE MONTHS AFTER" History of hypokalemia ED VISIT 03/09/18 History of palpitations 03/09/18 [facility] ED...PALPITATIONS, POTASSIUM LOW/REPLETED/FU WITH NYEDGGAR History of peptic ulcer History of skin cancer Migraine Morbid obesity Osteoarthritis Peripheral neuropathy Prediabetes Spinal stenosis Stress incontinence CHRONIC Vitamin D deficiency Surgical History H/O tubal ligation History of arthroscopy of left knee History of arthroscopy of left shoulder History of bladder surgery FOR STRESS INCONTINECE History of colonoscopy History of endoscopy History of permanent cardiac pacemaker placement History of reverse total replacement of left shoulder joint (~04/2018) History of skin cancer RESECTED/R UPPER LEG Family History Father Prostate cancer Hypertension Myocardial infarction Brother Diabetes Mother Hypertension Brother Diabetes Sister Pericardial effusion Sister Pericardial effusion Denies family history of Ovarian cancer Breast cancer Colorectal cancer Social History Smoking Status: Current every day smoker Tobacco Type: Cigarettes Age Started Using Tobacco: 30; packs per day: 1; Cigarettes Per Day: 20; Second Hand Exposure: Yes (her boyfriend smokes as well ); Do You Dip or Chew Tobacco: No; Hx Alcohol Use: No Hx Substance Use: No Preferred Language: Austrian Communication Ability: Effective Visual Impairment: No Limitations Hearing Ability: Normal Stockroom Worker Required: No Beliefs That Will Affect Care: None marital status: Current Living Situation: Significant Other Current Living Situation Comment: lives with her boyfriend current occupational status: retired 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 [place] Feels Safe at Home: Yes Safety Concerns: Feels Safe At This Time Childhood Exposure to Second-Hand Smoke: Yes caffeine: Yes Dental Care, Regularly: No Physical Activity Frequency: Does not Exercise Seatbelt Use: always Sunscreen Use: No Assistive Devices: Cane, Scooter/Electric Scooter and Walker Review of Systems Review of Systems: All systems reviewed & are unremarkable except as noted in HPI & below Physical Exam Constitutional: WD/WN, vitals as above + obese, cooperative and comfortable; no acute distress and not ill appearing Neck: normal visual inspection and trachea midline Respiratory: normal respiratory effort, lungs clear to auscultation Cardiovascular: Rate/Rhythm: + irregularly irregular Heart Sounds: normal S1 and normal S2; no murmur Gastrointestinal (Abdomen): Inspection/Auscultation: abdomen normal to inspection; abdomen not distended Percussion/Palpation: + abdomen tender (on deep palpation of the LLQ) and abdomen soft; no guarding and abdomen not rigid Skin: no rashes, warm and dry Psychiatric: A+Ox3, euthymic affect Results & Data ([facility]) Vital Signs (Past 12 Hours) Vital Signs Temp Pulse Pulse Resp BP BP Pulse Ox 05/04/22 14:53 36.5 C 98 H 17 93/64 L 91 05/04/22 11:02 36.3 C L 76 16 102/60 91 05/04/22 07:55 36.4 C L 75 16 101/68 90 05/04/22 07:27 36.8 C 81 19 117/67 93 O2 Del Method 05/04/22 14:53 Room Air 05/04/22 11:02 Room Air 05/04/22 07:55 Room Air 05/04/22 07:27 Room Air Laboratory Results 05/04/22 05/04/22 Range/Units 08:17 08:17 WBC 9.09 (4.8-10.8) K/ul RBC 4.74 (3.93-5.22) M/uL Hgb 15.3 (12.0-16.0) g/dl Hct 45.8 H (34.1-44.9) % MCV 96.6 (80.0-100.0) fL MCH 32.3 (25.0-34.0) pg MCHC 33.4 (32.0-36.0) g/dL RDW Std Deviation 45.7 (36.4-46.3) fL RDW Coeff of Yamilet 12.8 (11.5-14.5) % Plt Count 216 (130-400) K/uL MPV 10.0 (9.4-12.3) fL Immature Gran % (Auto) 0.4 % Neut % (Auto) 77.2 % Lymph % (Auto) 13.0 % Wilcox % (Auto) 7.6 % Eos % (Auto) 1.5 % Baso % (Auto) 0.3 % Neut # (Auto) 7.01 H (1.4-6.5) K/uL Lymph # (Auto) 1.18 L (1.2-3.4) K/uL Wilcox # (Auto) 0.69 (0.24-0.82) K/uL Eos # (Auto) 0.14 (0-0.50) K/uL Baso # (Auto) 0.03 (0-0.2) K/uL Immature Gran # (Auto) 0.04 H (0.00-0.02) K/uL Sodium 140 (136-145) mmol/L Potassium 4.1 (3.5-5.1) mmol/L Chloride 104 (98-107) mmol/L Carbon Dioxide 31 (21-32) mmol/L Anion Gap 5 (3-11) BUN 14 (6-23) mg/dl Creatinine 1.13 (0.6-1.2) mg/dl Est Cr Clr Drug Dosing 52.8 ml/min Est GFR ( Amer) 56.6 ml/min Est GFR (Non-Af Amer) 48.9 ml/min BUN/Creatinine Ratio 12.4 (10-20) Glucose 88 (70-99(Fasting)) mg/dl Calcium 9.0 (8.5-10.1) mg/dl Magnesium 2.2 (1.7-2.4) mg/dl Diagnostic Findings ABDOMEN AND PELVIS CT WITH IV CONTRAST 05/03/2022 CT DOSE: 1015.26 mGycm HISTORY: repeat w/con for increased generalized abdominal pain, diverticulitis ?abscess TECHNIQUE: Multiaxial CT images of the abdomen and pelvis were performed following the use of intravenous contrast. A dose lowering technique was utilized adhering to the principles of ALARA. COMPARISON STUDY: Abdomen and pelvis CT 05/01/2022. FINDINGS: Mild dependent changes seen at the lung bases. No acute fractures identified. Pacemaker wires are noted. The gallbladder is mildly distended. No gallbladder wall thickening. The main portal vein is patent. No hepatic masses. Small wedge-shaped hypodensity within the periphery of the spleen measuring 2.2 cm. This favors a splenic infarct. The adrenal glands and pancreas are unremarkable. A few small bilateral renal hypodense lesions. These are technically too small to characterize but favor cysts. No hydronephrosis. No retroperitoneal lymphadenopathy. Calcified plaque within the caliber abdominal aorta. The bladder, uterus, bilateral adnexa are within normal limits. Acute diverticulitis again noted at the mid sigmoid colon with pericolonic fat stranding and a possible punctate focus of microperforation. No drainable fluid collections identified at this time. The inflammatory change has slightly progressed. No evidence for bowel obstruction. Normal appendix. IMPRESSION: 1. Slight progression of the acute sigmoid diverticulitis which may demonstrate a small focus of extraluminal gas in the setting of a microperforation. No drainable fluid collections identified. 2. Small wedge-shaped hypodensity within the spleen consistent with a splenic infarct. 3. Additional findings as described above. ABDOMEN AND PELVIS CT WITHOUT CONTRAST 05/01/2022 CT DOSE: 2349.76 mGy.cm HISTORY: pressure in bladder/rectum area TECHNIQUE: Multiaxial CT images of the abdomen and pelvis were performed without contrast. A dose lowering technique was utilized adhering to the principles of ALARA. COMPARISON STUDY: Abdomen and pelvis CT 03/25/2017. FINDINGS: The lung bases are essentially clear. No acute fractures or identified. Pacemaker wires are partially visualized. The unenhanced liver, gallbladder, spleen, adrenal glands, and pancreas unremarkable. Mild bilateral perinephric edema small bilateral renal hypodense lesions remain stable and statistically represent cysts. No renal or ureteral stones. No hydronephrosis. No retroperitoneal lymphadenopathy. Calcified plaque within the normal caliber abdominal aorta. The bladder, uterus, and adnexa are unremarkable. Mild thickening of the mid sigmoid colon with pericolonic fat stranding consistent with an acute diverticulitis. Possible punctate focus of microperforation on image [id number]. No abscess identified. No evidence for bowel obstruction. Normal appendix. IMPRESSION: 1. Acute sigmoid diverticulitis with a possible small focus of microperforation. No abscess identified. 2. No evidence for bowel obstruction. 3. Additional findings as described above.
[2022-05-04] MEDS: DIGOXIN 0.125 MG TAB PO SCH (17:36)
[2022-05-05] MEDS: metroNIDAZOLE 500 MG/100 ML BAG IV SCH ×3 (00:35→15:54)
[2022-05-05] MEDS: CEFEPIME 2,000 MG in SYRINGE 0 ML IV SCH ×3 (01:31→20:33)
[2022-05-05 07:01] LABS: Basophils # (auto) 0.04 K/uL (0-0.2); Basophils % (auto) 0.5 %; Eosinophils # (auto) 0.16 K/uL (0-0.50); Eosinophils % (auto) 1.9 %; Hematocrit (blood only) 45.4 % (34.1-44.9); Hemoglobin 14.9 g/dl (12.0-16.0); Immature Granulocytes # (auto) 0.05 K/uL (0.00-0.02); Immature Granulocytes % (auto) 0.6 %; Lymphocytes # (auto) 1.06 K/uL (1.2-3.4); Lymphocytes % (auto) 12.6 %; Mean Corpuscular Hgb Conc 32.8 g/dL (32.0-36.0); Mean Corpuscular Volume 97.6 fL (80.0-100.0); Mean Platelet Volume 9.8 fL (9.4-12.3); Monocytes # (auto) 0.67 K/uL (0.24-0.82); Neutrophils # (auto) 6.44 K/uL (1.4-6.5); Neutrophils % (auto) 76.4 %; Platelet Count 212 K/uL (130-400); RDW Coefficient of Variation 12.8 % (11.5-14.5); RDW Standard Deviation 45.9 fL (36.4-46.3); Red Blood Count 4.65 M/uL (3.93-5.22); White Blood Count 8.42 K/ul (4.8-10.8)
--- NOTE | 2022-05-05 08:06 | Hospitalist Progress Note ---
Date of Service May 05, 2022 Assessment & Plan (1) Acute diverticulitis: Plan: Presented with several weeks of belly pressure after urinating, nausea, vomiting, with resumption of digoxin for her afib CT head on admit, no acute findings CTAP on admission with acute sigmoid diverticulitis with a possible small focus of microperforation. No abscess identified. No obstruction identified Initially improving, but worsened w/ abd pain/hypotension on 05/03 and repeat imaging obtained CTAP with Slight progression of the acute sigmoid diverticulitis which may demonstrate a small focus of extraluminal gas in the setting of a microperforation. No drainable fluid collections identified. Changed antibiotics to Cefepime/Flagyl (from Zosyn), backed down to NPO and general surgery was consulted, IVF ordered Improvement with such, advanced to full liquid diet 05/04, tolerated and moving bowels no further abd pain reported --> upgraded to full liquid diet 05/05 WBC wnl, afebrile Supportive care/electrolyte replacement as indicated Monitoring response, hopefully will be able to advance to low fiber diet for tomorrow and discharge Will need outpt c-scope in 6-8 weeks -- asking nurse navigator to assist with arranging (2) Atrial fibrillation, persistent: Plan: Bulmaro fabricio - follows with [facility] Remains on Eliquis BID for afib, Remains on metoprolol, but dose decreased to 50mg daily given hypotension previously, continues at that dose for now. Reports that she is now tolerating the digoxin well without stomach upset or side effects, suspect the symptoms she attributed to digoxin toxicity may have been from her diverticulitis, HOWEVER please not patient had been having GI side effects year or two ago when placed on this medication (recently was decreased from 250mcg daily to alternating, eventually 125mcg daily currently) Digoxin 125mcg daily continued for now, level without elevation. Discussed with Rosas Guerin, will have continued discussions in follow up but rec'd to continue for now Pending BP closer to dc may need to consider decreasing metoprolol to 50mg daily -- HR has been 50-70s on monitor over past 2 days w/ reduced dose (3) Diastolic heart failure: Plan: Diastolic CHF Last ECHO in 2019, EF 60% Lasix held while receiving IVF Did have some end expiratory wheezing on exam, no further IVF ordered --> improved since resuming lasix this morning and will monitor for any need for additional dosing Keep mag ~2, K~, replacement as needed -- will order 20meq KCl given resumption of lasix and K 3.8 on AM labs Also did overnight pulse ox last evening for reported daytime sleepiness/possible underlying sleep apnea pulse ox does demonstrate need for 2L O2 at night until outpatient sleep study able to be arranged (4) GERD (gastroesophageal reflux disease): Plan: GERD Converted home oral omeprazole to Protonix, famotidine (5) COPD (chronic obstructive pulmonary disease): Plan: COPD Patient switched to Trelegy as outpatient, continue formulary equivalent Albuterol as needed Did have some end expiratory wheezing 05/04, no further IVF ordered Improved on exam 05/05, resumed lasix as above Consider additional diuretic if needed Plan advanced to full liquid diet, hopefully adv to low fiber tomorrow general surgery on consult, appreciate assistance will need c-scope after discharge in 6-8 weeks checking cdiff given reported diarrhea this morning for completeness Admission and Anticipated Discharge Date Admission Date: May 01, 2022 Supervising Physician Co-Signing Physician Notes INGRID Supervision Note: I did not personally see or examine the patient today, but I verified all mann points of INGRID Kumar's assessment and plan with the following exceptions/additions: None Subjective eval this morning, doing well tolerated clear liquids, seen by surgery this morning and planning for full liquid diet advancement. had some loose stools last evening, no blood reported. no fever/chills, chest pain/shortness of breath. discussed pulse ox, will arrange O2 HS and discussed needs outpatient sleep study. headache w/ light sensitivity, has had similar in past. Didn't drink any caffeine yet today (or last evening, could be such). States was on Imitrex in past. Discussed 1x dose of fioricet and monitor. Daughter updated at bedside. Hopefully will be able to arrange for low fiber tomorrow if continues to do well. Questions/concerns addressed. Review of Systems 2 Review of Systems: All systems reviewed & are unremarkable except as noted in HPI & below Physical Exam Physical Exam: General: WD/WN elderly female sitting up in recliner upon entry, NAD, reporting feeling better HEENT: head normocephalic, mmm, trachea midline Resp: faint end expiratory wheezing (improved), slightly diminished in the bases, no crackles, on room air CV: irregularly irregular, no m/r/g, trace pedal edema, calves nontender GI: +BS, soft/NT, no guarding/rigidity : no maldonado MSK/Neuro: moves all extremities, no focal deficits Psych: AOx3, pleasant and cooperative Skin: warm, dry small boil to R inferior groin, slightly tender, no opening/drainage similar healed lesions reported to lower abdomen/pannus, no drainage skin tag to rectum noted L side Results & Data Results & Data ([facility]) Vital Signs (Past 12 Hours) Vital Signs Temp Pulse Pulse Pulse Pulse Resp BP 05/05/22 07:51 36.4 C L 71 107/72 05/05/22 02:30 83 05/05/22 03:55 36.8 C 72 18 05/05/22 02:04 64 05/04/22 23:50 36.5 C 72 18 96/59 L 05/04/22 21:30 70 BP Pulse Ox Pulse Ox O2 Del Method O2 Del Method 05/05/22 07:51 93 Room Air 05/05/22 02:30 89 L Room Air 05/05/22 03:55 100/58 L 91 Room Air 05/05/22 02:04 05/04/22 23:50 92 Room Air 05/04/22 21:30 94 Room Air Laboratory Results 05/05/22 05/05/22 Range/Units 06:32 06:32 WBC 8.42 (4.8-10.8) K/ul RBC 4.65 (3.93-5.22) M/uL Hgb 14.9 (12.0-16.0) g/dl Hct 45.4 H (34.1-44.9) % MCV 97.6 (80.0-100.0) fL MCH 32.0 (25.0-34.0) pg MCHC 32.8 (32.0-36.0) g/dL RDW Std Deviation 45.9 (36.4-46.3) fL RDW Coeff of Yamilet 12.8 (11.5-14.5) % Plt Count 212 (130-400) K/uL MPV 9.8 (9.4-12.3) fL Immature Gran % (Auto) 0.6 % Neut % (Auto) 76.4 % Lymph % (Auto) 12.6 % Forest % (Auto) 8.0 % Eos % (Auto) 1.9 % Baso % (Auto) 0.5 % Neut # (Auto) 6.44 (1.4-6.5) K/uL Lymph # (Auto) 1.06 L (1.2-3.4) K/uL Forest # (Auto) 0.67 (0.24-0.82) K/uL Eos # (Auto) 0.16 (0-0.50) K/uL Baso # (Auto) 0.04 (0-0.2) K/uL Immature Gran # (Auto) 0.05 H (0.00-0.02) K/uL Sodium 139 (136-145) mmol/L Potassium 3.8 (3.5-5.1) mmol/L Chloride 106 (98-107) mmol/L Carbon Dioxide 27 (21-32) mmol/L Anion Gap 6 (3-11) BUN 14 (6-23) mg/dl Creatinine 0.93 (0.6-1.2) mg/dl Est Cr Clr Drug Dosing 64.3 ml/min Est GFR ( Amer) 71.7 ml/min Est GFR (Non-Af Amer) 61.8 ml/min BUN/Creatinine Ratio 15.1 (10-20) Glucose 91 (70-99(Fasting)) mg/dl Calcium 8.7 (8.5-10.1) mg/dl Magnesium 2.1 (1.7-2.4) mg/dl Total Bilirubin 0.8 (0.2-1.0) mg/dl Direct Bilirubin 0.2 (0-0.2) mg/dl AST 15 (13-39) U/L ALT 12 (7-52) U/L Alkaline Phosphatase 90 (34-104) U/L Total Protein 5.8 L (6.0-8.3) gm/dl Albumin 3.1 L (3.4-5.0) gm/dl PG Care Time/CCT Total # of Minutes Spent Total Time Spent with Patient: Total time spent is greater than 50% in coordination of care (as documented) at patient's floor/unit and/or counseling patient: Coding Level of Care Code 86802 SUB INP/OBS CARE 3/50MIN Diagnoses Acute diverticulitis K57.92 Atrial fibrillation, persistent I48.19 Diastolic heart failure I50.30 GERD (gastroesophageal reflux disease) K21.9 COPD (chronic obstructive pulmonary disease) J44.9
[2022-05-05 09:24] LABS: Albumin Level 3.1 gm/dl (3.4-5.0); BUN Creatinine Ratio 15.1 (10-20); Bilirubin Direct 0.2 mg/dl (0-0.2); Bilirubin,Total 0.8 mg/dl (0.2-1.0); Calcium 8.7 mg/dl (8.5-10.1); Creatinine Clr Calc Pharmacy 64.3 ml/min; Est GFR (African American) 71.7 ml/min; Est GFR (Non-African American) 61.8 ml/min; Magnesium 2.1 mg/dl (1.7-2.4); Potassium 3.8 mmol/L (3.5-5.1); Total Protein 5.8 gm/dl (6.0-8.3)
[2022-05-05] MEDS: MAGNESIUM CHLORIDE W/CALCIUM 64MG DELAYED REL TAB PO SCH ×2 (09:28→20:34)
[2022-05-05] MEDS: APIXABAN 5 MG TABLET PO SCH ×2 (09:29→20:33)
[2022-05-05] MEDS: METOPROLOL SUCC 50MG EXT REL TAB PO SCH (09:29)
[2022-05-05] MEDS: PANTOprazole 40 MG in SYRINGE 0 ML IV SCH ×2 (09:30→20:33)
[2022-05-05] MEDS: NICOTINE 7 MG/24 HR TDSY TD SCH (09:30)
[2022-05-05] MEDS: FUROSEMIDE 40 MG TAB PO SCH (09:31)
[2022-05-05] MEDS: FLUTICASONE/VILANTEROL 100/25MCG 14 PUFFS/INHALER INH SCH (09:31)
[2022-05-05] MEDS: UMECLIDINIUM BROMIDE 62.5MCG/BLISTER 7 PUFFS/INHALER INH SCH (09:32)
[2022-05-05] MEDS: FAMOTIDINE 20 MG in SYRINGE 3 ML IV SCH ×2 (09:34→20:33)
[2022-05-05] MEDS ORDERED: BUTALBITAL/ACETAMIN/CAFFEINE TAB PO STA (10:05)
--- NOTE | 2022-05-05 11:27 | Surgery Progress Note ---
Date of Service May 05, 2022 Assessment & Plan (1) Acute diverticulitis: (2) Abdominal pain, lower: Plan 71 year-old female with complicated diverticulitis (Microperforation) with slight progression on initial IV zosyn, antibiotics have been changed to IV Cefepime and Flagyl and she is clinically improving. No surgical intervention required at this time. Would continue IV Cefepime and Flagyl and can have full liquid diet. Will continue to monitor. Will need outpatient GI follow-up with colonoscopy in 6-8 weeks. Has not had colonoscopy in over [address] Gutierrez who agrees with above. Admission and Anticipated Discharge Date Admission Date: May 01, 2022 Subjective feeling somewhat better and not has had diarrhea last evening and this morning , having some abdominal cramping prior which then resolves after diarrhea no blood in stools tolerated clear liquids without increase in abdominal pain no n,v no fevers or chills Physical Exam Constitutional: + obese; no acute distress and not ill appearing Respiratory: normal respiratory effort; no respiratory distress, no labored breathing and no retractions Gastrointestinal (Abdomen): Inspection/Auscultation: abdomen normal to inspection; abdomen not distended Percussion/Palpation: abdomen soft; abdomen nontender, no guarding and abdomen not rigid Psychiatric: Orientation: alert and oriented x 3 Results & Data ([facility]) Vital Signs (Past 12 Hours) Vital Signs Temp Pulse Pulse Pulse Pulse Resp BP 05/05/22 07:51 36.4 C L 71 107/72 05/05/22 02:30 83 05/05/22 03:55 36.8 C 72 18 05/05/22 02:04 64 05/04/22 23:50 36.5 C 72 18 96/59 L BP Pulse Ox Pulse Ox O2 Del Method O2 Del Method 05/05/22 07:51 93 Room Air 05/05/22 02:30 89 L Room Air 05/05/22 03:55 100/58 L 91 Room Air 05/05/22 02:04 05/04/22 23:50 92 Room Air Laboratory Results 05/05/22 05/05/22 Range/Units 06:32 06:32 WBC 8.42 (4.8-10.8) K/ul RBC 4.65 (3.93-5.22) M/uL Hgb 14.9 (12.0-16.0) g/dl Hct 45.4 H (34.1-44.9) % MCV 97.6 (80.0-100.0) fL MCH 32.0 (25.0-34.0) pg MCHC 32.8 (32.0-36.0) g/dL RDW Std Deviation 45.9 (36.4-46.3) fL RDW Coeff of Yamilet 12.8 (11.5-14.5) % Plt Count 212 (130-400) K/uL MPV 9.8 (9.4-12.3) fL Immature Gran % (Auto) 0.6 % Neut % (Auto) 76.4 % Lymph % (Auto) 12.6 % Leslie % (Auto) 8.0 % Eos % (Auto) 1.9 % Baso % (Auto) 0.5 % Neut # (Auto) 6.44 (1.4-6.5) K/uL Lymph # (Auto) 1.06 L (1.2-3.4) K/uL Leslie # (Auto) 0.67 (0.24-0.82) K/uL Eos # (Auto) 0.16 (0-0.50) K/uL Baso # (Auto) 0.04 (0-0.2) K/uL Immature Gran # (Auto) 0.05 H (0.00-0.02) K/uL Sodium 139 (136-145) mmol/L Potassium 3.8 (3.5-5.1) mmol/L Chloride 106 (98-107) mmol/L Carbon Dioxide 27 (21-32) mmol/L Anion Gap 6 (3-11) BUN 14 (6-23) mg/dl Creatinine 0.93 (0.6-1.2) mg/dl Est Cr Clr Drug Dosing 64.3 ml/min Est GFR ( Amer) 71.7 ml/min Est GFR (Non-Af Amer) 61.8 ml/min BUN/Creatinine Ratio 15.1 (10-20) Glucose 91 (70-99(Fasting)) mg/dl Calcium 8.7 (8.5-10.1) mg/dl Magnesium 2.1 (1.7-2.4) mg/dl Total Bilirubin 0.8 (0.2-1.0) mg/dl Direct Bilirubin 0.2 (0-0.2) mg/dl AST 15 (13-39) U/L ALT 12 (7-52) U/L Alkaline Phosphatase 90 (34-104) U/L Total Protein 5.8 L (6.0-8.3) gm/dl Albumin 3.1 L (3.4-5.0) gm/dl
[2022-05-05] MEDS ORDERED: POTASSIUM CHLORIDE CRTAB 20 MEQ TABCR PO STA (14:39)
[2022-05-05] MEDS: DIGOXIN 0.125 MG TAB PO SCH (15:54)
[2022-05-05 20:07] LABS: Cdiff Toxin B Gene (2yr or >) Positive Cdiff Gene (Neg)
[2022-05-05 20:08] LABS: Cdiff Antigen Positive; Cdiff Toxin A+B Negative Cdiff Toxin (Negative)
[2022-05-06] MEDS: metroNIDAZOLE 500 MG/100 ML BAG IV SCH ×2 (00:54→08:11)
[2022-05-06 06:06] LABS: Hemoglobin 14.9 g/dl (12.0-16.0); Mean Corpuscular Hemoglobin 31.9 pg (25.0-34.0); Mean Corpuscular Hgb Conc 33.1 g/dL (32.0-36.0); Mean Corpuscular Volume 96.4 fL (80.0-100.0); Mean Platelet Volume 9.9 fL (9.4-12.3); Platelet Count 221 K/uL (130-400); RDW Coefficient of Variation 12.7 % (11.5-14.5); RDW Standard Deviation 45.3 fL (36.4-46.3); Red Blood Count 4.67 M/uL (3.93-5.22); White Blood Count 8.45 K/ul (4.8-10.8)
[2022-05-06] MEDS: CEFEPIME 2,000 MG in SYRINGE 0 ML IV SCH ×2 (06:23→11:28)
[2022-05-06 06:37] LABS: BUN Creatinine Ratio 12.8 (10-20); Calcium 8.6 mg/dl (8.5-10.1); Creatinine Clr Calc Pharmacy 63.6 ml/min; Est GFR (African American) 70.7 ml/min; Magnesium 2.1 mg/dl (1.7-2.4); Potassium 4.2 mmol/L (3.5-5.1)
[2022-05-06 06:38] LABS: Iron 92 mcg/dl (35-150); Total Iron Binding Cap Calc 270 mcg/dl (250-450); Transferrin (FE) Percent Satur 34 % (15-50); Unsaturated Iron Binding Cap 178 mcg/dl (155-355)
[2022-05-06 06:44] LABS: Ferritin 108.3 ng/ml (8-388)
[2022-05-06] MEDS: APIXABAN 5 MG TABLET PO SCH (08:16)
[2022-05-06] MEDS: NICOTINE 7 MG/24 HR TDSY TD SCH (08:16)
[2022-05-06] MEDS: FLUTICASONE/VILANTEROL 100/25MCG 14 PUFFS/INHALER INH SCH (08:17)
[2022-05-06] MEDS: METOPROLOL SUCC 50MG EXT REL TAB PO SCH (08:17)
[2022-05-06] MEDS: MAGNESIUM CHLORIDE W/CALCIUM 64MG DELAYED REL TAB PO SCH (08:17)
[2022-05-06] MEDS: UMECLIDINIUM BROMIDE 62.5MCG/BLISTER 7 PUFFS/INHALER INH SCH (08:17)
[2022-05-06] MEDS: FUROSEMIDE 40 MG TAB PO SCH (08:17)
--- NOTE | 2022-05-06 08:56 | Hospitalist Progress Note ---
Date of Service May 06, 2022 Assessment & Plan (1) Acute diverticulitis: Plan: Presented with several weeks of belly pressure after urinating, nausea, vomiting, with resumption of digoxin for her afib CT head on admit, no acute findings CTAP on admission with acute sigmoid diverticulitis with a possible small focus of microperforation. No abscess identified. No obstruction identified Initially improving, but worsened w/ abd pain/hypotension on 05/03 and repeat imaging obtained CTAP with Slight progression of the acute sigmoid diverticulitis which may demonstrate a small focus of extraluminal gas in the setting of a microperforation. No drainable fluid collections identified. Changed antibiotics to Cefepime/Flagyl (from Zosyn), backed down to NPO and general surgery was consulted, IVF ordered Improvement with such, advanced to full liquid diet 05/04, tolerated and moving bowels no further abd pain reported --> upgraded to full liquid diet 05/05 WBC wnl, afebrile Supportive care/electrolyte replacement as indicated Monitoring response, hopefully will be able to advance to low fiber diet for tomorrow and discharge Will need outpt c-scope in 6-8 weeks -- asking nurse navigator to assist with arranging (2) Atrial fibrillation, persistent: Plan: Bulmaro fabricio - follows with [facility] Remains on Eliquis BID for afib, Remains on metoprolol, but dose decreased to 50mg daily given hypotension previously, continues at that dose for now. Reports that she is now tolerating the digoxin well without stomach upset or side effects, suspect the symptoms she attributed to digoxin toxicity may have been from her diverticulitis, HOWEVER please not patient had been having GI side effects year or two ago when placed on this medication (recently was decreased from 250mcg daily to alternating, eventually 125mcg daily currently) Digoxin 125mcg daily continued for now, level without elevation. Discussed with Rosas Guerin, will have continued discussions in follow up but rec'd to continue for now Pending BP closer to dc may need to consider decreasing metoprolol to 50mg daily -- HR has been 50-70s on monitor over past 2 days w/ reduced dose (3) Diastolic heart failure: Plan: Diastolic CHF Last ECHO in 2019, EF 60% Lasix held while receiving IVF Did have some end expiratory wheezing on exam, no further IVF ordered --> improved since resuming lasix this morning and will monitor for any need for additional dosing Keep mag ~2, K~, replacement as needed -- will order 20meq KCl given resumption of lasix and K 3.8 on AM labs Also did overnight pulse ox last evening for reported daytime sleepiness/possible underlying sleep apnea pulse ox does demonstrate need for 2L O2 at night until outpatient sleep study able to be arranged (4) GERD (gastroesophageal reflux disease): Plan: GERD Converted home oral omeprazole to Protonix, famotidine (5) COPD (chronic obstructive pulmonary disease): Plan: COPD Patient switched to Trelegy as outpatient, continue formulary equivalent Albuterol as needed Did have some end expiratory wheezing 05/04, no further IVF ordered Improved on exam 05/05, resumed lasix as above Consider additional diuretic if needed Plan advanced to full liquid diet, hopefully adv to low fiber tomorrow general surgery on consult, appreciate assistance will need c-scope after discharge in 6-8 weeks checking cdiff given reported diarrhea this morning for completeness Admission and Anticipated Discharge Date Admission Date: May 01, 2022 Results & Data Results & Data ([facility]) Vital Signs (Past 12 Hours) Vital Signs Temp Pulse Pulse Resp BP BP Pulse Ox 05/06/22 01:00 05/06/22 00:50 91 H 05/06/22 03:51 36.7 C 77 18 99/61 L 97 05/05/22 22:10 77 05/05/22 23:02 36.6 C 64 16 97/63 L 92 O2 Del Method 05/06/22 01:00 Room Air 05/06/22 00:50 05/06/22 03:51 Room Air 05/05/22 22:10 05/05/22 23:02 Room Air PG Care Time/CCT Total # of Minutes Spent Total Time Spent with Patient: Total time spent is greater than 50% in coordination of care (as documented) at patient's floor/unit and/or counseling patient: Coding Diagnoses Acute diverticulitis K57.92 Atrial fibrillation, persistent I48.19 Diastolic heart failure I50.30 GERD (gastroesophageal reflux disease) K21.9 COPD (chronic obstructive pulmonary disease) J44.9
[2022-05-06] MEDS: PANTOprazole 40 MG in SYRINGE 0 ML IV SCH (09:18)
[2022-05-06] MEDS: FAMOTIDINE 20 MG in SYRINGE 3 ML IV SCH (09:18)
--- NOTE | 2022-05-06 10:06 | Surgery Progress Note ---
Date of Service May 06, 2022 Assessment & Plan (1) Acute diverticulitis: (2) Abdominal pain, lower: Plan 71 year-old female with complicated diverticulitis (Microperforation) with slight progression on initial IV zosyn, antibiotics have been changed to IV Cefepime and Flagyl and she is clinically improving. No surgical intervention required at this time. Would continue IV Cefepime and Flagyl and can transition to oral antibiotics for total course of 14 days (IV and oral) given the microperforation. She will need outpatient GI follow-up with colonoscopy in 6-8 weeks. Has not had colonoscopy in over 30 years. Low fiber diet recommended for 2-[address] Gutierrez has seen and examined pt, agrees with above. Admission and Anticipated Discharge Date Admission Date: May 01, 2022 Subjective feeling good no abdominal pain no n,v tolerating full liquids Physical Exam Constitutional: WD/WN, vitals as above + obese, cooperative and comfortable; no acute distress and not ill appearing Neck: normal visual inspection and trachea midline Respiratory: normal respiratory effort; no respiratory distress, no labored breathing and no retractions Psychiatric: A+Ox3, euthymic affect Results & Data ([facility]) Vital Signs (Past 12 Hours) Vital Signs Temp Pulse Pulse Resp BP BP Pulse Ox 05/06/22 07:00 110 H 05/06/22 08:55 36.4 C L 114 H 16 103/73 90 05/06/22 01:00 05/06/22 00:50 91 H 05/06/22 03:51 36.7 C 77 18 99/61 L 97 05/05/22 22:10 77 05/05/22 23:02 36.6 C 64 16 97/63 L 92 O2 Del Method 05/06/22 07:00 05/06/22 08:55 Nasal Cannula 05/06/22 01:00 Room Air 05/06/22 00:50 05/06/22 03:51 Room Air 05/05/22 22:10 05/05/22 23:02 Room Air Laboratory Results 05/06/22 05/06/22 05/06/22 Range/Units 05:39 05:39 05:39 WBC 8.45 (4.8-10.8) K/ul RBC 4.67 (3.93-5.22) M/uL Hgb 14.9 (12.0-16.0) g/dl Hct 45.0 H (34.1-44.9) % MCV 96.4 (80.0-100.0) fL MCH 31.9 (25.0-34.0) pg MCHC 33.1 (32.0-36.0) g/dL RDW Std Deviation 45.3 (36.4-46.3) fL RDW Coeff of Yamilet 12.7 (11.5-14.5) % Plt Count 221 (130-400) K/uL MPV 9.9 (9.4-12.3) fL Sodium 139 (136-145) mmol/L Potassium 4.2 (3.5-5.1) mmol/L Chloride 106 (98-107) mmol/L Carbon Dioxide 28 (21-32) mmol/L Anion Gap 5 (3-11) BUN 12 (6-23) mg/dl Creatinine 0.94 (0.6-1.2) mg/dl Est Cr Clr Drug Dosing 63.6 ml/min Est GFR ( Amer) 70.7 ml/min Est GFR (Non-Af Amer) 61.0 ml/min BUN/Creatinine Ratio 12.8 (10-20) Glucose 99 (70-99(Fasting)) mg/dl Calcium 8.6 (8.5-10.1) mg/dl Magnesium 2.1 (1.7-2.4) mg/dl Iron 92 (35-150) mcg/dl TIBC 270 (250-450) mcg/dl Unsaturated IBC 178 (155-355) mcg/dl Transferrin % Sat 34 (15-50) % Ferritin 108.3 (8-388) ng/ml Stl C. diff Tox B Gene (Neg) Stl C.difficile Tox A&B (Negative) 05/05/22 Range/Units 15:13 WBC (4.8-10.8) K/ul RBC (3.93-5.22) M/uL Hgb (12.0-16.0) g/dl Hct (34.1-44.9) % MCV (80.0-100.0) fL MCH (25.0-34.0) pg MCHC (32.0-36.0) g/dL RDW Std Deviation (36.4-46.3) fL RDW Coeff of Yamilet (11.5-14.5) % Plt Count (130-400) K/uL MPV (9.4-12.3) fL Sodium (136-145) mmol/L Potassium (3.5-5.1) mmol/L Chloride (98-107) mmol/L Carbon Dioxide (21-32) mmol/L Anion Gap (3-11) BUN (6-23) mg/dl Creatinine (0.6-1.2) mg/dl Est Cr Clr Drug Dosing ml/min Est GFR ( Amer) ml/min Est GFR (Non-Af Amer) ml/min BUN/Creatinine Ratio (10-20) Glucose (70-99(Fasting)) mg/dl Calcium (8.5-10.1) mg/dl Magnesium (1.7-2.4) mg/dl Iron (35-150) mcg/dl TIBC (250-450) mcg/dl Unsaturated IBC (155-355) mcg/dl Transferrin % Sat (15-50) % Ferritin (8-388) ng/ml Stl C. diff Tox B Gene Positive Cdiff Gene H (Neg) Stl C.difficile Tox A&B Negative Cdiff Toxin (Negative)
--- NOTE | 2022-05-06 10:34 | Discharge Summary ---
Date of Service May 06, 2022 Admission HPI Per Admitting Provider Primary Care Provider: Keith Vega DO Banks is a 71-year-old female with a past medical history of GERD, persistent A. fib with subsequent RVR and bradycardia/sick sinus syndrome s/p pacemaker placement, tobacco use, peripheral edema, COPD, and impaired fasting glucose who presents with abdominal pain and is found to have diverticulitis with a microperforation. Few weeks of belly pressure after peeing, feeling nauseus with digoxin. Told her cardiology office that she couldn't tolerate it and stopped taking 2 weeks ago but got migraines. PA recommended she restart, and she just restarted her digoxin 2 days ago. In the last 2 days has had nausea with no vomiting. No fevers, chills, or sweats. Has pressure in in the low belly, but denies pain. Is slightly tender on RLQ palpation without rebound/guarding. BM 'fine, normal' No diarrhea or constipation. BMs are generally brown, no black/red BMs or melena. COPD at baseline 'has better than normal actually 'with no wheezing. Uses Trelegy, was on symbicort but recently changed. No home O2 requirement. No chest pain or pressure. No lightheadedness or dizziness. Medical History: Reviewed Medications: Reviewed Surgical History: Reviewed Allergies: Reviewed Social History: Daily smoker, 1 pack/day for 30 years. No alcohol or recreational drug/marijuana Code Status: Full code Admission Exam Per Admitting Provider General: A&Ox3. NAD. Cooperative. HEENT: Atraumatic, normocephalic. Vision/hearing intact. Pupils equal and reactive to light Pulm: Clear, no wheezes abnormal respiration but end expiratory wheeze on forced expiration symmetrical chest rise. No increased work of breathing. No respiratory distress. Cardiac: Irregular rate of approximately 6070bpm. No murmur radial pulses intact and symmetrical. Abdominal: Trace right lower quadrant tenderness to palpation, no rebound tenderness, no rigidity, no guarding Extremities: Warm, dry. Principal Diagnosis Diverticulitis with Microperforation Discharge Exam General: WD/WN elderly female sitting up in recliner upon entry, NAD, reporting feeling better, looks great HEENT: head normocephalic, mmm, trachea midline Resp: faint end expiratory wheezing RESOLVED, slightly diminished in the bases, 99% on room air CV: irregularly irregular (rate 70s), no m/r/g, trace pedal edema, calves NONTENDER GI: +BS, soft/NT, no guarding/rigidity : no maldonado MSK/Neuro: moves all extremities, no focal deficits Psych: AOx3, pleasant and cooperative Skin: warm, dry Discharge Data Allergies Allergy/AdvReac Type Severity Reaction Status Date / Time fentanyl Allergy Severe HIVES Verified 05/01/22 15:03 NSAIDS (Non-Steroidal Allergy Intermediate DUODENAL Verified 05/01/22 15:03 Anti-Inflamma ULCER digoxin AdvReac Intermediate Nausea Verified 05/01/22 15:03 diltiazem AdvReac Mild Fluid Verified 05/01/22 15:03 retention tramadol AdvReac Mild hallucinati Verified 05/01/22 15:03 on amoxicillin AdvReac Unknown FLUID Verified 05/01/22 15:03 RETENTION aspirin AdvReac Unknown DUEODENAL Verified 05/01/22 15:03 ULCER doxycycline AdvReac Unknown FLUID Verified 05/01/22 15:03 RETENTION gabapentin AdvReac Unknown hallucinati Verified 05/01/22 15:03 ons ibuprofen AdvReac Unknown DUODENAL Verified 05/01/22 15:03 ULCER naproxen AdvReac Unknown DUODENAL Verified 05/01/22 15:03 ULCERS oxycodone [From Percocet] AdvReac Unknown Verified 05/01/22 15:03 Consultations 05/01/22 13:29 ED Decision to Admit Stat 05/04/22 07:56 Consult General Surgery Routine Ordered Studies Head CT 05/01/22 10:[address] DOSE: HISTORY: headache TECHNIQUE: Multiaxial CT images of the head were performed without the use of intravenous contrast. Automated exposure control was utilized for this study. A dose lowering technique was utilized adhering to the principles of ALARA. Comparison: None. Findings: The paranasal sinuses and mastoid air cells are clear. The calvarium and skull base are intact. The ventricles and sulci are within normal limits. There is no mass, hematoma, midline shift, or acute infarct. Impression: No acute intracranial abnormality. ACT 112: Negative or not required by law. Electronically signed by: Kamar Hagan M.D. 05/01/2022 11:46 AM Chest X-Ray 05/01/22 10:57 XR chest 1V portable HISTORY: weakness COMPARISON: Chest 04/12/2021. FINDINGS: No pneumothorax. No pleural effusions. The cardiac silhouette remains mildly enlarged. Is left-sided dual-chamber pacemaker and a left shoulder prosthesis again noted. No new focal lung consolidations to suggest a pneumonia. No evidence for pulmonary edema. IMPRESSION: No acute process. ACT 112: Negative or not required by law. Electronically signed by: Kamar Hagan M.D. 05/01/2022 11:50 AM Abdomen/Pelvis CT 05/01/22 11:[address] WITHOUT CONTRAST CT DOSE: 2349.76 mGy.cm HISTORY: pressure in bladder/rectum area TECHNIQUE: Multiaxial CT images of the abdomen and pelvis were performed without contrast. A dose lowering technique was utilized adhering to the principles of ALARA. COMPARISON STUDY: Abdomen and pelvis CT 03/25/2017. FINDINGS: The lung bases are essentially clear. No acute fractures or identified. Pacemaker wires are partially visualized. The unenhanced liver, gallbladder, spleen, adrenal glands, and pancreas unremarkable. Mild bilateral perinephric edema small bilateral renal hypodense lesions remain stable and statistically represent cysts. No renal or ureteral stones. No hydronephrosis. No retroperitoneal lymphadenopathy. Calcified plaque within the normal caliber abdominal aorta. The bladder, uterus, and adnexa are unremarkable. Mild thickening of the mid sigmoid colon with pericolonic fat stranding consistent with an acute diverticulitis. Possible punctate focus of microperforation on image 268. No abscess identified. No evidence for bowel obstruction. Normal appendix. IMPRESSION: 1. Acute sigmoid diverticulitis with a possible small focus of microperforation. No abscess identified. 2. No evidence for bowel obstruction. 3. Additional findings as described above. ACT 112: Negative or not required by law. Electronically signed by: Kamar Hagan M.D. 05/01/2022 11:45 AM Abdomen/Pelvis CT 05/03/22 09:[address] WITH IV CONTRAST CT DOSE: 1015.26 mGycm HISTORY: repeat w/con for increased generalized abdominal pain, diverticulitis ?abscess TECHNIQUE: Multiaxial CT images of the abdomen and pelvis were performed following the use of intravenous contrast. A dose lowering technique was utilized adhering to the principles of ALARA. COMPARISON STUDY: Abdomen and pelvis CT 05/01/2022. FINDINGS: Mild dependent changes seen at the lung bases. No acute fractures identified. Pacemaker wires are noted. The gallbladder is mildly distended. No gallbladder wall thickening. The main portal vein is patent. No hepatic masses. Small wedge-shaped hypodensity within the periphery of the spleen measuring 2.2 cm. This favors a splenic infarct. The adrenal glands and pancreas are unremarkable. A few small bilateral renal hypodense lesions. These are technically too small to characterize but favor cysts. No hydronephrosis. No retroperitoneal lymphadenopathy. Calcified plaque within the caliber abdominal aorta. The bladder, uterus, bilateral adnexa are within normal limits. Acute diverticulitis again noted at the mid sigmoid colon with pericolonic fat stranding and a possible punctate focus of microperforation. No drainable fluid collections identified at this time. The inflammatory change has slightly progressed. No evidence for bowel obstruction. Normal appendix. IMPRESSION: 1. Slight progression of the acute sigmoid diverticulitis which may demonstrate a small focus of extraluminal gas in the setting of a microperforation. No drainable fluid collections identified. 2. Small wedge-shaped hypodensity within the spleen consistent with a splenic infarct. 3. Additional findings as described above. ACT 112: Negative or not required by law. Electronically signed by: Kamar Hagan M.D. 05/03/2022 1:24 PM Hospital Course (1) Acute diverticulitis: Presented with several weeks of belly pressure after urinating, nausea, vomiting, with resumption of digoxin for her afib CT head on admit, no acute findings CTAP on admission with acute sigmoid diverticulitis with a possible small focus of microperforation. No abscess identified. No obstruction identified Initially improving, but worsened w/ abd pain/hypotension on 05/03 and repeat imaging obtained --> Slight progression of the acute sigmoid diverticulitis which may demonstrate a small focus of extraluminal gas in the setting of a microperforation. No drainable fluid collections identified. Changed antibiotics to Cefepime/Flagyl (from Zosyn), backed down to NPO and general surgery was consulted, IVF ordered Improvement with such, advanced to full liquid diet 05/04, tolerated and moving bowels no further abd pain reported --> upgraded to full liquid diet 05/05 WBC trended down, remained stable. Afebrile. Cdiff checked given diarrhea x 4 on 05/05, gene + but toxin negative. Did send w/ probiotic given continued abx use and instructed to monitor for any worsening/increased and alert PCP Discussed with general surgery, upgraded to low fiber diet for 05/06, tolerated well and planned for d/c with 14 day course of abx with Cipro/Flagyl given not responded to IV Zosyn Information on low fiber diet provided to patient, to continue x 2 weeks, then advance as tolerated CM confirmed GI office with contact information to schedule patient for c-scope (has been >20 years) -- they will call her. (2) Atrial fibrillation, persistent: A. fib - follows with [facility] Remains on Eliquis BID for afib, Remains on metoprolol, but dose decreased to 50mg daily given hypotension previously, continues at that dose for now. Reports that she is now tolerating the digoxin well without stomach upset or side effects, suspect the symptoms she attributed to digoxin toxicity may have been from her diverticulitis, HOWEVER please not patient had been having GI side effects year or two ago when placed on this medication (recently was decreased from 250mcg daily to alternating, eventually 125mcg daily currently) Digoxin 125mcg daily continued for now, level without elevation. Discussed with Rosas Guerin, will have continued discussions in follow up but rec'd to continue for now BPs still borderline low at time of discharge, breathing stable and decision to send on lower dose of metoprolol 50mg daily for now and can have continued discussions with cardiology/Rosas Guerin as discussed while inpatient for discussions on continuing dig/adjustments to medications HR 70-90s on monitor over past 24 hours. (3) Diastolic heart failure: Diastolic CHF Last ECHO in system 2020, EF 60% Lasix held while receiving IVF Did have some end expiratory wheezing on exam, no further IVF ordered --> improved since resuming lasix and no additional doses needed Maintain low salt diet/fluid 2000ml/daily Kept mag ~2, K Also did overnight pulse ox last evening for reported daytime sleepiness/possible underlying sleep apnea --> CONFIRMED, arranged for O2 HS, and rec'd outpatient sleep study. Patient agreeable pulse ox does demonstrate need for 2L O2 at night until outpatient sleep study able to be arranged (4) GERD (gastroesophageal reflux disease): GERD Converted home oral omeprazole to Protonix, famotidine but resumed home meds at discharge (5) COPD (chronic obstructive pulmonary disease): COPD Patient switched to Trelegy as outpatient, continue formulary equivalent while inpatient, albuterol prn Did have some wheezing, likely from IVF, resolved w/ resolution of lasix Smoking cessation encouraged, has nicotine patch. actually reported getting her clothes out of closet and the smell turned her off. Hopefully will continue w/ cessation at d/c Plan dischargd home with family continue abx w/ Cipro/Flagyl x total 14 days Low fiber diet x 2 weeks, then advance F/u GI for outpatient scope Decreased dose metoprolol to 50mg daily -- to f/u cards after discharge Total Time Total Time Spent Total Time Spent (In Minutes): 45 Discharge Plan Discharge Items Patient Disposition: Home - Self-Care Reason For Visit: DIVERTICULITIS Discharge Diagnosis: Diverticulitis Goals: You have been hospitalized for an acute medical problem. During your stay at [facility], we have made an effort to correct the problem that brought you to the hospital while keeping you as comfortable as possible. Medications were used to bring your condition under control and your discharge instructions will include directions for any medications you should take after leaving the hospital. Please make sure you see your Primary Care Provider as part of your follow up plan. Activity: As commented below Non-emergency contact: Primary Care Provider and Extrusion Manager Call non-emergency contact if: you have any medication questions, your symptoms worsen, your pain is not controlled and you have a fever Follow-up/Referrals: Rosas Guerin PA-C [Physician Rubber Liner] - Henrry Chen DO [Physician] - 05/13/22 3:00 pm (Will see YUMI Abel) Keith Vega DO [Primary Care Provider] - 05/17/22 1:00 pm Diet: Heart Healthy and Low Fiber Diet Comment: low fiber diet x 2 weeks, then advance as tolerated Addtl Attending Provider Instructions: You have been hospitalized for diverticulitis with microperforation. You were treated with one course of antibiotics but had worsening and these were increased for broader coverage and you have had your diet advanced and treated conservatively without need for surgery, who was consulted. We are going to continue antibiotics with Ciprofloxacin and Flagyl to complete a total course of 14 days. You should continue a probiotic and monitor for any increased diarrhea and report to your primary care if any issues. You will need a colonoscopy in 6-8 weeks with the gastroenterology group, and they will call you in the next week. If you do not hear from them, please call the office at [phone]. You should continue your metoprolol but at a reduced dose at 50mg daily to prevent drops in your blood pressure. You should continue digoxin at 125mcg daily and follow up with cardiology after discharge for continued discussions. You have had an overnight pulse ox study to evaluate for any underlying sleep ap darien and you did have desaturations and have been arranged to wear oxygen at night until outpatient sleep study can be arranged by primary care. I have also sent in a short course of Fioricet to use as needed for migraines given prior report and resolution as such. Please contact primary care if any of these issues persist. Please follow up with primary care in the next 7-10 days to monitor your progress. Please return to the ER with any increased pain, fever, diarrhea, chest pain, shortness of breath, or for any other symptoms concerning for you. Pending Studies at Discharge: No Stand-Alone Forms: My [facility] Next audience, Smoking Cessation Medications and DC Order Prescriptions: New metoprolol succinate 50 mg Tablet Extended Release 24 Hr 50 mg PO QAM Qty: 30 0RF Advanced Probiotic 625 mg (10 billion cell) Capsule 2 cap PO DAILY Qty: 14 0RF ciprofloxacin HCl 500 mg tablet 500 mg PO BID 11 Days Qty: 22 0RF metronidazole 500 mg tablet 500 mg PO Q8H 11 Days Qty: 33 0RF (DME) Oxygen Home Liters Per Minute See Rx Instructions .ROUTE Qty: 1 0RF Rx Instructions: As directed [id number] [Fioricet] 50-300-40 mg capsule 1 cap PO Q8H PRN (Reason: headache) Qty: 4 0RF Continued furosemide [Lasix] 40 mg tablet 40 mg PO QAM Qty: 90 3RF Trelegy Ellipta 200-62.5-25 mcg blister with device 1 inh inhalation DAILY Qty: 60 2RF digoxin 125 mcg (0.125 mg) tablet 125 mcg PO DAILY Qty: 90 3RF Symbicort 160-4.5 mcg/actuation HFA aerosol inhaler 2 puff INHALATION BID Qty: 6 5RF Hold Instructions: Home Medication placed on hold at Doctor's office famotidine 40 mg tablet 40 mg PO DAILY Qty: 90 3RF Eliquis 5 mg tablet 5 mg PO BID Qty: 180 3RF omeprazole 40 mg capsule,delayed release(DR/EC) 40 mg PO DAILY Qty: 90 3RF Slow-Mag 71.5 mg Tablet,Delayed Release (Dr/Ec) 71.5 mg PO BID albuterol sulfate [ProAir HFA] 90 mcg/actuation Hfa Aerosol Inhaler 2 puff INHALATION Q4 PRN (Reason: Shortness Of Breath Or Wheezing) cholecalciferol (vitamin D3) [Vitamin D3] 5,000 unit Tablet 5,000 unit PO QAM Discontinued metoprolol succinate 100 mg tablet extended release 24 hr 100 mg PO DAILY Qty: 90 3RF Discharge Orders: Discharge Order (Routine); Ordered 05/06/22 Ordered By: Trista Mcintosh/Other Patient Handouts: Diverticulosis and Diverticulitis, Diverticulitis Dc Admission Data Admit Date/Time: 05/01/22 14:21 Attending Provider: Zuleyma Marin Admit Provider: Horace Samuel Primary Care Provider: Keith Vega Other Providers: Horace Samuel ; Sanjiv Aguila ; Matt Gutierrez Other Interventions: Discharge Summary Assessment (RN) Last Done: 05/06/22 14:42 Supervising Physician Co-Signing Physician Notes PA Supervision Note: I did not personally see or examine the patient today, but I verified all mann points of INGRID Kumar's assessment and plan with the following exceptions/additions: None Coding Level of Care Code HOSP INP/OBS DISCH >30 MIN Diagnoses Acute diverticulitis K57.92 Atrial fibrillation, persistent I48.19 Diastolic heart failure I50.30 GERD (gastroesophageal reflux disease) K21.9 COPD (chronic obstructive pulmonary disease) J44.9
[2022-05-06] MEDS ORDERED: ADVANCED PROBIOTIC 1250 MG CAPSULE PO SCH (10:45)
== END 2022-05-06 17:55 | disposition home or self-care (01) | DRG 392 ==
LOC: ED 10:32 → EDINP 14:21 → SUATTDRO 14:21 → 2N 19:46 → 4W 05-06 02:02

== ENCOUNTER 2022-05-23 10:53 | Inpatient (IN) ==
[2022-05-23] MEDS ORDERED: SODIUM CHLORIDE 0.9% 500 ML IV ONE (11:20)
--- NOTE | 2022-05-23 11:27 | Emergency Department Note ---
Impression & Plan Hypoxia, Abdominal pain, Diarrhea, Leukocytosis ED Provider Note NAME: MAHENDRA HADDAD AGE: 71 SEX: F : 1950 ARRIVES VIA: Walk-In INFORMANT: Patient ED PROVIDER(S): Mark Marcum DO CHIEF COMPLAINT: abdominal pain HPI: Patient is a 71-year-old female who presents to the ER for left lower quadrant abdominal pain. She was recently admitted from the - on IV a ntibiotics for perforated diverticulitis. She finished up her oral meds 4 days ago. Symptoms started within the past 24 hours diffuse diarrhea and left lower quadrant abdominal pain. Does have some nausea but no vomiting. Denies any dysuria, urgency or frequency. No chest pain or shortness of breath. No other exacerbating or remitting factors. PAST MEDICAL HISTORY:See Below PAST SURGICAL HISTORY:See Below FAMILY HISTORY:See Below SOCIAL HISTORY:See Below HOME MEDICATIONS:See Below ALLERGIES:See Below VITALS:See Below PHYSICAL EXAMINATION: GENERAL: Sitting up in bed, alert, well appearing, well nourished, no distress, non-toxic EYE EXAM: normal conjunctiva. OROPHARYNX: no exudate, no erythema, lips, buccal mucosa, and tongue normal and mucous membranes are moist NECK: supple, no nuchal rigidity, no adenopathy, non-tender LUNGS: Clear to auscultation. Normal chest wall mechanics HEART: no murmurs, S1 normal and S2 normal ABDOMEN: abdomen soft, non-tender, normo-active bowel sounds, no masses, no rebound or guarding. BACK: Back is symmetrical on inspection and there is no deformity, no midline tenderness, no CVA tenderness. SKIN: no rashes and no bruising UPPER EXTREMITIES: upper extremities are grossly normal. LOWER EXTREMITIES: No pitting edema. NEURO EXAM: Normal sensorium, cranial nerves II-XII grossly intact, normal speech, no gross weakness of arms, no gross weakness of legs. MEDICAL DECISION MAKING: Patient is a 71-year-old female who presents the ER for abdominal pain associate with diarrhea. IV was established blood was obtained. Labs show leukocytosis of 13,000. No significant anemia. BMP was unremarkable. LFTs bilirubin was negative. Lipase is normal. UA was clean. COVID was negative. CT abdomen pelvis shows right-sided colitis and significant improvement of diverticulitis. CT angio of the chest was performed as she desatted to 78% with minimal exertion. CT angio was unremarkable. External records were reviewed. Patient was given steroids as well as neb treatments with a history of COPD. She is updated bedside. Discussed with Dr. Sanjiv Maxwell for further evaluation and work-up. Did order a C. difficile but was not collected while in the ER. Triage Nursing notes reviewed. Limited review of prior medical records performed Vital Signs: reviewed and remarkable for hypoxic Differential diagnosis: Differential diagnoses includes but is not limited to gastritis, peptic ulcer disease, GERD, gallbladder disease, pancreatitis, small bowel obstruction, appendicitis, diverticulitis, hernia, urinary tract infection, torsion, perforation, trauma, infectious. ER treatment provided: See below Diagnostics interpreted by me include EKG and cardiac monitoring as listed below: -Cardiac Monitoring: An order was placed for continuous cardiac monitoring. The monitor shows a rate of 90 with sinus rhythm. -ECG: A. fib rate 84 Normal axis No PVCs QTC 413 T wave inversion in the inferior leads T wave inversion V3 through V6 with ST depressions No significant change from previous -Laboratory studies:Interpreted by me as stated above in MDM and shown below. Imaging studies: Xrays: As interpreted by me: Portable AP upright 1 view the chest shows no focal joint CTs show: CT angio of the chest was negative as well as abdomen pelvis shows colitis Consultation(s): Discussed with case management in regards to presentation work- up and need for further evaluation. Following this I discussed with Dr. Sheron Maxwell in regards to patient's presentation, work-up treatment and further evaluation needed. Procedures:none Critical Care: None Past Med/Surg History Medical History (HFpEF) heart failure with preserved ejection fraction A-fib Asthma Bilateral lower extremity edema History of anesthesia reaction History of hypokalemia History of palpitations History of peptic ulcer History of skin cancer Migraine Morbid obesity Osteoarthritis Peripheral neuropathy Prediabetes Spinal stenosis Stress incontinence Vitamin D deficiency Surgical History H/O tubal ligation History of arthroscopy of left knee History of arthroscopy of left shoulder History of bladder surgery History of colonoscopy History of endoscopy History of permanent cardiac pacemaker placement History of reverse total replacement of left shoulder joint (~04/2018) History of skin cancer Family History Father Prostate cancer Hypertension Myocardial infarction Brother Diabetes Mother Hypertension Brother Diabetes Sister Pericardial effusion Sister Pericardial effusion Denies family history of Ovarian cancer Breast cancer Colorectal cancer Social History Smoking Status: Current every day smoker Tobacco Type: Cigarettes Age Started Using Tobacco: 30; packs per day: 1; Cigarettes Per Day: 20; Second Hand Exposure: Yes (her boyfriend smokes as well ); Hx Alcohol Use: No Hx Substance Use: No Preferred Language: Swedish Communication Ability: Effective Visual Impairment: No Limitations Hearing Ability: Normal Import Clerk Required: No Beliefs That Will Affect Care: None marital status: Current Living Situation: Significant Other Current Living Situation Comment: lives with her boyfriend current occupational status: retired 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 [place] Feels Safe at Home: Yes Childhood Exposure to Second-Hand Smoke: Yes caffeine: Yes Dental Care, Regularly: No Physical Activity Frequency: Does not Exercise Seatbelt Use: always Sunscreen Use: No Assistive Devices: Cane, Scooter/Electric Scooter and Walker Allergies Allergies Allergy/AdvReac Type Severity Reaction Status Date / Time fentanyl Allergy Severe HIVES Verified 05/20/22 09:07 NSAIDS (Non-Steroidal Allergy Intermediate DUODENAL Verified 05/20/22 09:07 Anti-Inflamma ULCER digoxin AdvReac Intermediate Nausea Verified 05/20/22 09:07 diltiazem AdvReac Mild Fluid Verified 05/20/22 09:07 retention tramadol AdvReac Mild hallucinati Verified 05/20/22 09:07 on amoxicillin AdvReac Unknown FLUID Verified 05/20/22 09:07 RETENTION aspirin AdvReac Unknown DUEODENAL Verified 05/20/22 09:07 ULCER doxycycline AdvReac Unknown FLUID Verified 05/20/22 09:07 RETENTION gabapentin AdvReac Unknown hallucinati Verified 05/20/22 09:07 ons ibuprofen AdvReac Unknown DUODENAL Verified 05/20/22 09:07 ULCER naproxen AdvReac Unknown DUODENAL Verified 05/20/22 09:07 ULCERS oxycodone [From Percocet] AdvReac Unknown Verified 05/20/22 09:07 Home Meds Home Medications Medication Instructions Recorded Confirmed albuterol sulfate 90 mcg/actuation 2 puff inhalation Q4 PRN Shortness 02/07/18 05/23/22 aerosol inhaler (ProAir HFA) Of Breath Or Wheezing cholecalciferol (vitamin D3) 125 5,000 unit PO QAM 02/07/18 05/23/22 mcg (5,000 unit) tablet (Vitamin D3) magnesium chloride 71.5 mg 71.5 mg PO BID 10/28/19 05/23/22 (magnesium chloride) tablet,delayed release (Slow-Mag) omeprazole 40 mg capsule,delayed 40 mg PO QAM 05/23/22 05/23/22 release spironolactone 50 mg tablet 50 mg PO QAM 05/23/22 05/23/22 Previous Rx's Medication Instructions Recorded famotidine 40 mg tablet 40 mg PO DAILY #90 tabs 05/04/21 furosemide 40 mg tablet (Lasix) 40 mg PO QAM #90 tabs 09/06/21 apixaban 5 mg tablet (Eliquis) 5 mg PO BID #180 tabs 09/15/21 fluticasone fur. 200 mcg-umeclid 1 inh inhalation DAILY #60 ea 01/28/22 62.5 mcg-vilant 25 mcg inhalat.powder (Trelegy Ellipta) digoxin 125 mcg (0.125 mg) tablet 125 mcg PO DAILY #90 tabs 04/28/22 Oxygen Home #1 ea 05/06/22 nrehalilgf-wfjvskyqlhilq-bfgyxsdh 1 cap PO Q8H PRN headache #4 caps 05/06/22 50 mg-300 mg-40 mg capsule (Fioricet) metoprolol succinate 50 mg 50 mg PO QAM #30 tabs 05/06/22 tablet,extended release 24 hr Results & Data (ED) Vital Signs Vital Signs - 24 hr 05/23/22 11:03 05/23/22 11:18 05/23/22 11:48 Temperature 36.6 C Temperature Source Temporal Artery Scan Pulse Rate 87 81 Pulse Rate [Apical] Pulse Rate from SpO2 Sensor Respiratory Rate 20 22 Respiratory Effort / Characteristics Non-Labored Respiratory Depth Normal Respiratory Pattern Regular Blood Pressure 113/62 Blood Pressure Mean 79 Pulse Oximetry 87 L 78 L Oxygen Delivery Method Room Air Room Air Oxygen Flow Rate 0 Sepsis Recent Fever Within 48 Hours No Sepsis New/Unexplained Change in Mental Status No Sepsis Action Taken by Nursing No Action Required Oxygen Flow Rate - Titration 2 Pulse Oximetry Post Tiitration 95 05/23/22 11:30 05/23/22 11:30 05/23/22 12:00 Temperature Temperature Source Pulse Rate 75 Pulse Rate [Apical] Pulse Rate from SpO2 Sensor 74 Respiratory Rate 18 Respiratory Effort / Characteristics Respiratory Depth Respiratory Pattern Blood Pressure 96/62 L 96/60 L Blood Pressure Mean 73 72 Pulse Oximetry 90 Oxygen Delivery Method Nasal Cannula Oxygen Flow Rate 2 Sepsis Recent Fever Within 48 Hours Sepsis New/Unexplained Change in Mental Status Sepsis Action Taken by Nursing Oxygen Flow Rate - Titration Pulse Oximetry Post Tiitration 05/23/22 12:00 05/23/22 12:30 05/23/22 13:00 Temperature Temperature Source Pulse Rate 67 80 69 Pulse Rate [Apical] Pulse Rate from SpO2 Sensor 68 79 79 Respiratory Rate 17 18 22 Respiratory Effort / Characteristics Respiratory Depth Respiratory Pattern Blood Pressure Blood Pressure Mean Pulse Oximetry 94 98 94 Oxygen Delivery Method Nasal Cannula Nasal Cannula Oxygen Flow Rate 2 2 Sepsis Recent Fever Within 48 Hours Sepsis New/Unexplained Change in Mental Status Sepsis Action Taken by Nursing Oxygen Flow Rate - Titration Pulse Oximetry Post Tiitration 05/23/22 13:20 05/23/22 13:20 05/23/22 13:30 Temperature Temperature Source Pulse Rate 91 H Pulse Rate [Apical] Pulse Rate from SpO2 Sensor 93 H Respiratory Rate 17 Respiratory Effort / Characteristics Respiratory Depth Respiratory Pattern Blood Pressure 103/53 L 92/53 L Blood Pressure Mean 69 66 Pulse Oximetry 95 Oxygen Delivery Method Oxygen Flow Rate 2 Sepsis Recent Fever Within 48 Hours Sepsis New/Unexplained Change in Mental Status Sepsis Action Taken by Nursing Oxygen Flow Rate - Titration Pulse Oximetry Post Tiitration 05/23/22 13:30 05/23/22 14:02 05/23/22 14:09 Temperature Temperature Source Pulse Rate 72 77 Pulse Rate [Apical] 70 Pulse Rate from SpO2 Sensor 73 77 Respiratory Rate 14 15 18 Respiratory Effort / Characteristics Non-Labored Spontaneous Respiratory Depth Respiratory Pattern Blood Pressure Blood Pressure Mean Pulse Oximetry 97 97 96 Oxygen Delivery Method Nasal Cannula Oxygen Flow Rate 2 2 3 Sepsis Recent Fever Within 48 Hours Sepsis New/Unexplained Change in Mental Status Sepsis Action Taken by Nursing Oxygen Flow Rate - Titration Pulse Oximetry Post Tiitration 05/23/22 14:30 05/23/22 14:30 05/23/22 15:00 Temperature Temperature Source Pulse Rate 92 H Pulse Rate [Apical] Pulse Rate from SpO2 Sensor 86 Respiratory Rate 24 Respiratory Effort / Characteristics Respiratory Depth Respiratory Pattern Blood Pressure 114/52 L 105/54 L Blood Pressure Mean 72 71 Pulse Oximetry 93 Oxygen Delivery Method Oxygen Flow Rate 2 Sepsis Recent Fever Within 48 Hours Sepsis New/Unexplained Change in Mental Status Sepsis Action Taken by Nursing Oxygen Flow Rate - Titration Pulse Oximetry Post Tiitration 05/23/22 15:00 05/23/22 15:30 05/23/22 15:30 Temperature Temperature Source Pulse Rate 85 93 H Pulse Rate [Apical] Pulse Rate from SpO2 Sensor 88 85 Respiratory Rate 22 24 Respiratory Effort / Characteristics Respiratory Depth Respiratory Pattern Blood Pressure 103/50 L Blood Pressure Mean 67 Pulse Oximetry 88 L 88 L Oxygen Delivery Method Oxygen Flow Rate 2 3 Sepsis Recent Fever Within 48 Hours Sepsis New/Unexplained Change in Mental Status Sepsis Action Taken by Nursing Oxygen Flow Rate - Titration Pulse Oximetry Post Tiitration Laboratory Data 05/23/22 Unknown 05/23/22 Unknown Lab Results 05/23/22 05/23/22 05/23/22 Range/Units 13:56 15:25 Unknown WBC 13.52 H (4.8-10.8) K/ul RBC 4.83 (4.20-5.40) M/uL Hgb 15.7 (12.0-16.0) g/dl Hct 47.2 H (37.0-47.0) % MCV 97.7 (80.0-100.0) fL MCH 32.5 (25.0-34.0) pg MCHC 33.3 (32.0-36.0) g/dL RDW Std Deviation 47.9 H (36.4-46.3) fL RDW Coeff of Yamilet 13.2 (11.5-14.5) % Plt Count 249 (130-400) K/uL MPV 9.9 (9.4-12.4) fL Immature Gran % (Auto) 0.8 % Neut % (Auto) 81.9 % Lymph % (Auto) 10.3 % [place] % (Auto) 6.3 % Eos % (Auto) 0.5 % Baso % (Auto) 0.2 % Neut # (Auto) 11.07 H (1.40-6.50) K/uL Lymph # (Auto) 1.39 (1.2-3.4) K/uL [place] # (Auto) 0.85 H (0.11-0.59) K/uL Eos # (Auto) 0.07 (0-0.50) K/uL Baso # (Auto) 0.03 (0-0.2) K/uL Immature Gran # (Auto) 0.11 (0.01-0.20) K/uL Sodium (136-145) mmol/L Potassium (3.5-5.1) mmol/L Chloride (98-107) mmol/L Carbon Dioxide (21-32) mmol/L Anion Gap (3-11) BUN (6-23) mg/dl Creatinine (0.6-1.2) mg/dl Est Cr Clr Drug Dosing ml/min Est GFR ( Amer) ml/min Est GFR (Non-Af Amer) ml/min BUN/Creatinine Ratio (10-20) Glucose (70-99(Fasting)) mg/dl Calcium (8.5-10.1) mg/dl Total Bilirubin (0.2-1.0) mg/dl AST (13-39) U/L ALT (7-52) U/L Alkaline Phosphatase (34-104) U/L Troponin I High Sens (0-14) pg/ml Total Protein (6.0-8.3) gm/dl Albumin (3.4-5.0) gm/dl Globulin (2.5-4.0) gm/dl Albumin/Globulin Ratio (0.9-2) Lipase (11-82) U/L Urine Color Yellow Urine Appearance Clear (Clear) Urine pH 6.5 (4.5-7.5) Ur Specific [place] 1.021 (1.000-1.030) Urine Protein Negative (Negative) Urine Glucose (UA) Negative (Negative) Urine Ketones Negative (Negative) Urine Blood Negative (Negative) Urine Nitrite Negative (Negative) Urine Bilirubin Negative (Negative) Urine Urobilinogen Negative (Negative) Ur Leukocyte Esterase Negative (Negative) SARS-CoV-2, RNA, NAAT NEGATIVE (NEGATIVE) 05/23/22 Range/Units Unknown WBC (4.8-10.8) K/ul RBC (4.20-5.40) M/uL Hgb (12.0-16.0) g/dl Hct (37.0-47.0) % MCV (80.0-100.0) fL MCH (25.0-34.0) pg MCHC (32.0-36.0) g/dL RDW Std Deviation (36.4-46.3) fL RDW Coeff of Yamilet (11.5-14.5) % Plt Count (130-400) K/uL MPV (9.4-12.4) fL Immature Gran % (Auto) % Neut % (Auto) % Lymph % (Auto) % [place] % (Auto) % Eos % (Auto) % Baso % (Auto) % Neut # (Auto) (1.40-6.50) K/uL Lymph # (Auto) (1.2-3.4) K/uL [place] # (Auto) (0.11-0.59) K/uL Eos # (Auto) (0-0.50) K/uL Baso # (Auto) (0-0.2) K/uL Immature Gran # (Auto) (0.01-0.20) K/uL Sodium 136 (136-145) mmol/L Potassium 4.2 (3.5-5.1) mmol/L Chloride 101 (98-107) mmol/L Carbon Dioxide 29 (21-32) mmol/L Anion Gap 6 (3-11) BUN 14 (6-23) mg/dl Creatinine 0.94 (0.6-1.2) mg/dl Est Cr Clr Drug Dosing 64.8 ml/min Est GFR ( Amer) 70.7 ml/min Est GFR (Non-Af Amer) 61.0 ml/min BUN/Creatinine Ratio 14.9 (10-20) Glucose 112 H (70-99(Fasting)) mg/dl Calcium 9.1 (8.5-10.1) mg/dl Total Bilirubin 0.7 (0.2-1.0) mg/dl AST 15 (13-39) U/L ALT 12 (7-52) U/L Alkaline Phosphatase 119 H (34-104) U/L Troponin I High Sens 11.3 (0-14) pg/ml Total Protein 6.9 (6.0-8.3) gm/dl Albumin 3.8 (3.4-5.0) gm/dl Globulin 3.1 (2.5-4.0) gm/dl Albumin/Globulin Ratio 1.2 (0.9-2) Lipase 10 L (11-82) U/L Urine Color Urine Appearance (Clear) Urine pH (4.5-7.5) Ur Specific [place] (1.000-1.030) Urine Protein (Negative) Urine Glucose (UA) (Negative) Urine Ketones (Negative) Urine Blood (Negative) Urine Nitrite (Negative) Urine Bilirubin (Negative) Urine Urobilinogen (Negative) Ur Leukocyte Esterase (Negative) SARS-CoV-2, RNA, NAAT (NEGATIVE) Administered Medications Discontinued Medications Albuterol (Albuterol 0.083% Nebu Soln 3 Ml Vial) 5 mg NEB NOW STA; Protocol Stop: 05/23/22 13:06 Last Admin: 05/23/22 14:08 Dose: 5 mg Documented By: JERRI Fidaxomicin (Fidaxomicin 200 Mg Tab) 200 mg PO ONE STA Stop: 05/23/22 14:07 Last Admin: 05/23/22 14:29 Dose: 200 mg Documented By: BRAYAN Sodium Chloride (Nss) 500 mls @ 999 mls/hr IV .Q31M ONE Stop: 05/23/22 11:50 Last Infusion: 05/23/22 15:46 Dose: 0 mls/hr Documented By: Admin: 05/23/22 11:36 Dose: 999 mls/hr Documented By: BRAYAN Ioversol (Optiray 320 500ml) 105 ml IV ONCE ONE Stop: 05/23/22 12:28 Last Admin: 05/23/22 12:28 Dose: 105 ml Documented By: SANTOSH Methylprednisolone (Methylprednisolone 125 Mg/2 Ml Vial) 60 mg IV NOW STA Stop: 05/23/22 13:06 Last Admin: 05/23/22 13:59 Dose: Not Given Documented By: BRAYAN Ondansetron HCl (Ondansetron Inj 2 Mg/Ml 2 Ml Vial) 4 mg IV NOW STA Stop: 05/23/22 13:59 Last Admin: 05/23/22 14:29 Dose: 4 mg Documented By: BRAYAN Imaging Data Radiologist's Impression: Abdomen/Pelvis CT 05/23/22 11:20 CT OF THE ABDOMEN AND PELVIS WITH CONTRAST CLINICAL HISTORY: Left lower quadrant abdominal pain. COMPARISON STUDY: CT of the abdomen and pelvis May 03, 2022. TECHNIQUE: Following IV administration of 105 mL of Optiray, axial images of the abdomen and pelvis were obtained from the lung bases to the proximal femurs. Images were reviewed in the axial, sagittal, and coronal planes. IV contrast was administered without complication. Automated exposure control was utilized for the study. A dose lowering technique was utilized adhering to the principles of ALARA. FINDINGS: Lung bases are unremarkable. Pacer leads are partially imaged. No pneumatosis, free air or portal venous gas is present. Liver, adrenal glands and pancreas are unremarkable. The previously described splenic infarct on CT of May 03, 2022 is less conspicuous. Low-attenuation bilateral renal lesions are suboptimally assessed on this study but probably reflect cysts. There is no hydronephrosis. There is no evidence for a bowel obstruction. Slight dilatation of the mid appendix is unchanged since prior exam. There is no adjacent infi ltration. There is no evidence for acute appendicitis. Colonic diverticulosis is noted. Sigmoid diverticulitis shown on prior exam has significantly improved. There is no free air or abscess. There is been interval development of moderate wall thickening with mild adjacent stranding of the cecum. There is also wall thickening of the remainder of the ascending colon and transverse colon which could also reflect colitis or be due to underdistention. There is no lymphadenopathy. No acute fractures. IMPRESSION: 1. Interval development of a right-sided colitis, most pronounced within the cecum. Although nonspecific, this is likely infectious. No free air or abscess. 2. Significant improvement in sigmoid diverticulitis since CT of October 31, 2022. 3. Decreased conspicuity of the previously described splenic infarct. ACT 112: Negative or not required by law. Electronically signed by: Mike Joaquin M.D. 05/23/2022 12:52 PM Chest X-Ray 05/23/22 11:20 XR chest 1V portable CLINICAL HISTORY: Chest pain, nonspecific COMPARISON STUDY: Chest CT February 05, 2020. Chest radiograph May 01, 2022. FINDINGS: Dual lead subclavian pacemaker and left shoulder arthroplasty are incidentally noted. No pneumothorax or pleural effusion is present. There is no consolidation or evidence for pulmonary edema. Mild interstitial thickening is unchanged. IMPRESSION: No acute cardiopulmonary findings. ACT 112: Negative or not required by law. Electronically signed by: Mike Joaquin M.D. 05/23/2022 11:46 AM Chest CTA 05/23/22 12:02 CT ANGIOGRAPHY OF THE CHEST, PULMONARY EMBOLUS PROTOCOL CLINICAL HISTORY: Atypical chest pain. Evaluate for pulmonary embolus. COMPARISON STUDY: Chest CT February 05, 2020 and chest radiograph performed earlier today. TECHNIQUE: Following IV administration of 105 mL of Optiray, helical axial images of the chest were obtained utilizing the pulmonary embolus protocol. Maximal intensity projections and sagittal and coronal reformats were viewed on an independent 3D workstation. IV contrast was administered without complication. Automated exposure control was utilized for the study. A dose lowering technique was utilized adhering to the principles of ALARA. CT DOSE: 1592.58 mGycm FINDINGS: No pulmonary emboli are identified. There is mild dilatation of the central pulmonary arteries, similar to prior CT. A dual-lead left subclavian pacer is noted. There is mild cardiomegaly and moderate coronary artery calcification. There is no pericardial effusion. No thoracic lymphadenopathy is noted. Left shoulder arthroplasty is present. No pneumothorax or pleural effusion. No consolidation to suggest pneumonia. Subpleural groundglass opacities represent atelectasis. No acute fractures are identified within the bony thorax. Visualized portions of the upper abdomen are unchanged since prior exam. IMPRESSION: 1. No pulmonary emboli identified. 2. No acute intrathoracic findings. No significant change in appearance of the chest. ACT 112: Negative or not required by law. Electronically signed by: Mike Joaquin M.D. 05/23/2022 12:43 PM Discharge Plan Visit Data Chief Complaint: Abdominal Pain Stated Complaint: ABD PAIN AND DIARRHEA ED Provider: Mark Marcum Discharge Problem: Hypoxia, Abdominal pain, Diarrhea, Leukocytosis Patient Disposition: Admitted As Inpatient Discharge Instructions Interventions: ED Discharge Assessment Last Done: 05/23/22 15:54 Forms Stand Alone Forms: My [facility] Biot[facility] Prescriptions Prescriptions: No Action furosemide [Lasix] 40 mg tablet 40 mg PO QAM Qty: 90 3RF Trelegy Ellipta 200-62.5-25 mcg blister with device 1 inh inhalation DAILY Qty: 60 2RF digoxin 125 mcg (0.125 mg) tablet 125 mcg PO DAILY Qty: 90 3RF famotidine 40 mg tablet 40 mg PO DAILY Qty: 90 3RF Eliquis 5 mg tablet 5 mg PO BID Qty: 180 3RF Slow-Mag 71.5 mg Tablet,Delayed Release (Dr/Ec) 71.5 mg PO BID albuterol sulfate [ProAir HFA] 90 mcg/actuation Hfa Aerosol Inhaler 2 puff INHALATION Q4 PRN (Reason: Shortness Of Breath Or Wheezing) cholecalciferol (vitamin D3) [Vitamin D3] 5,000 unit Tablet 5,000 unit PO QAM metoprolol succinate 50 mg Tablet Extended Release 24 Hr 50 mg PO QAM Qty: 30 0RF (DME) Oxygen Home Liters Per Minute See Rx Instructions .Route Qty: 1 0RF Rx Instructions: As directed mmcoobourm-holegxwzyzxst-xflf [Fioricet] 50-300-40 mg capsule 1 cap PO Q8H PRN (Reason: headache) Qty: 4 0RF omeprazole 40 mg capsule,delayed release(DR/EC) 40 mg PO QAM spironolactone 50 mg tablet 50 mg PO QAM Referrals Referrals: Keith Vega DO [Primary Care Provider] -
[2022-05-23 11:36] LABS: Basophils # (auto) 0.03 K/uL (0-0.2); Basophils % (auto) 0.2 %; Eosinophils # (auto) 0.07 K/uL (0-0.50); Eosinophils % (auto) 0.5 %; Hematocrit (blood only) 47.2 % (37.0-47.0); Hemoglobin 15.7 g/dl (12.0-16.0); Immature Granulocytes # (auto) 0.11 K/uL (0.01-0.20); Immature Granulocytes % (auto) 0.8 %; Lymphocytes # (auto) 1.39 K/uL (1.2-3.4); Lymphocytes % (auto) 10.3 %; Mean Corpuscular Hemoglobin 32.5 pg (25.0-34.0); Mean Corpuscular Hgb Conc 33.3 g/dL (32.0-36.0); Mean Corpuscular Volume 97.7 fL (80.0-100.0); Mean Platelet Volume 9.9 fL (9.4-12.4); Monocytes # (auto) 0.85 K/uL (0.11-0.59); Monocytes % (auto) 6.3 %; Neutrophils # (auto) 11.07 K/uL (1.40-6.50); Neutrophils % (auto) 81.9 %; Platelet Count 249 K/uL (130-400); RDW Coefficient of Variation 13.2 % (11.5-14.5); RDW Standard Deviation 47.9 fL (36.4-46.3); Red Blood Count 4.83 M/uL (4.20-5.40); White Blood Count 13.52 K/ul (4.8-10.8)
--- NOTE | 2022-05-23 11:47 | XRay Report ---
XR chest 1V portable CLINICAL HISTORY: Chest pain, nonspecific COMPARISON STUDY: Chest CT February 05, 2020. Chest radiograph May 01, 2022. FINDINGS: Dual lead subclavian pacemaker and left shoulder arthroplasty are incidentally noted. No pn eumothorax or pleural effusion is present. There is no consolidation or evidence for pulmonary edema. Mild interstitial thickening is unchanged. IMPRESSION: No acute cardiopulmonary findings. ACT 112: Negative or not required by law. Electronically signed by: Mike Joaquin M.D. 05/23/2022 11:46 AM
[2022-05-23 11:58] LABS: Albumin Level 3.8 gm/dl (3.4-5.0); Bilirubin,Total 0.7 mg/dl (0.2-1.0); Calcium 9.1 mg/dl (8.5-10.1); Potassium 4.2 mmol/L (3.5-5.1)
[2022-05-23 12:01] LABS: Troponin I High Sensitivity 11.3 pg/ml (0-14)
[2022-05-23 12:04] LABS: Albumin Globulin Ratio 1.2 (0.9-2); BUN Creatinine Ratio 14.9 (10-20); Creatinine Clr Calc Pharmacy 64.8 ml/min; Est GFR (African American) 70.7 ml/min; Globulin 3.1 gm/dl (2.5-4.0); Total Protein 6.9 gm/dl (6.0-8.3)
[2022-05-23] MEDS ORDERED: OPTIRAY 320 500ml IV ONE (12:27)
--- NOTE | 2022-05-23 12:44 | CT Scan Report ---
CT ANGIOGRAPHY OF THE CHEST, PULMONARY EMBOLUS PROTOCOL CLINICAL HISTORY: Atypical chest pain. Evaluate for pulmonary embolus. COMPARISON STUDY: Chest CT February 05, 2020 and chest radiograph performed earlier today. TECHNIQUE: Following IV administration of 105 mL of Optiray, helical axial images of the chest were o btained utilizing the pulmonary embolus protocol. Maximal intensity projections and sagittal and cor onal reformats were viewed on an independent 3D workstation. IV contrast was administered without co mplication. Automated exposure control was utilized for the study. A dose lowering technique was ut ilized adhering to the principles of ALARA. CT DOSE: 1592.58 mGycm FINDINGS: No pulmonary emboli are identified. There is mild dilatation of the central pulmonary sanjiv breanna, similar to prior CT. A dual-lead left subclavian pacer is noted. There is mild cardiomegaly and moderate coronary artery calcification. There is no pericardial effusion. No thoracic lymphadenopath y is noted. Left shoulder arthroplasty is present. No pneumothorax or pleural effusion. No consolidat ion to suggest pneumonia. Subpleural groundglass opacities represent atelectasis. No acute fractures are identified within the bony thorax. Visualized portions of the upper abdomen are unchanged since p rior exam. IMPRESSION: 1. No pulmonary emboli identified. 2. No acute intrathoracic findings. No significant change in appearance of the chest. ACT 112: Negative or not required by law. Electronically signed by: Mike Joaquin M.D. 05/23/2022 12:43 PM
--- NOTE | 2022-05-23 12:54 | CT Scan Report ---
CT OF THE ABDOMEN AND PELVIS WITH CONTRAST CLINICAL HISTORY: Left lower quadrant abdominal pain. COMPARISON STUDY: CT of the abdomen and pelvis May 03, 2022. TECHNIQUE: Following IV administration of 105 mL of Optiray, axial images of the abdomen and pelvis w ere obtained from the lung bases to the proximal femurs. Images were reviewed in the axial, sagittal, and coronal planes. IV contrast was administered without complication. Automated exposure control w as utilized for the study. A dose lowering technique was utilized adhering to the principles of ALAR A. FINDINGS: Lung bases are unremarkable. Pacer leads are partially imaged. No pneumatosis, free air or portal venous gas is present. Liver, adrenal glands and pancreas are unremarkable. The previously charmaine cribed splenic infarct on CT of May 03, 2022 is less conspicuous. Low-attenuation bilateral renal lesions are suboptimally assessed on this study but probably reflect cysts. There is no hydronephros is. There is no evidence for a bowel obstruction. Slight dilatation of the mid appendix is unchanged since prior exam. There is no adjacent infiltration. There is no evidence for acute appendicitis. Col onic diverticulosis is noted. Sigmoid diverticulitis shown on prior exam has significantly improved. There is no free air or abscess. There is been interval development of moderate wall thickening with mild adjacent stranding of the cecum. There is also wall thickening of the remainder of the ascending colon and transverse colon which could also reflect colitis or be due to underdistention. There is n o lymphadenopathy. No acute fractures. IMPRESSION: 1. Interval development of a right-sided colitis, most pronounced within the cecum. Although nonspeci fic, this is likely infectious. No free air or abscess. 2. Significant improvement in sigmoid diverticulitis since CT of October 31, 2022. 3. Decreased conspicuity of the previously described splenic infarct. ACT 112: Negative or not required by law. Electronically signed by: Mike Joaquin M.D. 05/23/2022 12:52 PM
[2022-05-23] MEDS ORDERED: ALBUTEROL 0.083% NEBU SOLN 3 ML VIAL NEB STA (13:05)
[2022-05-23] MEDS ORDERED: methylPREDNISolone 125 MG/2 ML VIAL IV STA (13:05)
--- NOTE | 2022-05-23 13:54 | History & Physical Report ---
Date of Service May 23, 2022 Assessment & Plan (1) C. difficile colitis: Plan: Suspected based on symptoms, CT, known gene positive and recent antibiotic use Start empiric fidaxomicin 200 mg p.o. twice daily pending confirmation test N.p.o. except meds, ice chips and sips LR @ 80ml/hr (2) COPD exacerbation: Plan: Suspect she is having a mild exacerbation given wheezing on exam however she rep orts no shortness of breath and she is also missed her Trelegy Ellipta today. Given increased risk of sepsis with steroids I have discontinued the steroids prior to being given in the emergency room. Will treat with DuoNebs 4 times daily and her usual inhalers and monitor for progression If her breathing is getting worse recommend intravenous steroids. (3) Nocturnal hypoxia: Plan: Aim O2 sats > 90% (4) Atrial fibrillation, persistent: Plan: Continue anticoagulation with Eliquis 5 mg p.o. twice daily (5) GERD (gastroesophageal reflux disease): Plan: Continue famotidine 40 mg p.o. daily, pantoprazole 40 mg p.o. daily (6) Peptic ulcer disease: Plan: As above for GERD (7) (HFpEF) heart failure with preserved ejection fraction: Plan: Due to n.p.o. status we will currently hold diuretics and give gentle fluids as long as she has no shortness of breath Plan VTE prophylaxis - Eliquis Diet - n.p.o. Disposition - admit to [facility] Admission and Anticipated Discharge Date Admission Date: May 23, 2022 History of Present Illness Chief Complaint: Diarrhea Primary Care Provider: DO Jocelyn Husain Queenie is a 71 year old female with recent diagnosis of diverticulitis who presents to the ER with diarrhea. She was recently admitted from May 01 to 2022 due to diverticulitis with a microperforation. Initial treatment with intravenous Zosyn but switched to cefepime and metronidazole due to concerns of progression. However with slowing down her advancement of her diet she continued to improve and was discharged on 11-day course of ciprofloxacin and metronidazole on discharge (total of 16 days of treatment). She has now finished antibiotics. Her diverticulitis pain was mainly pressure on her backside more to the left-hand side and this is continued to improve until the last 2 days. 2 days ago she started having liquid watery diarrhea with associated chills and cramping all over the her abdomen whenever she needed a bowel movement. She denies any melena or bright red blood in the stool. Feeling nauseous but no vomiting. No hematemesis. In the ER CT abdomen pelvis was concerning for new right-sided colitis with associated white blood count. Previous sigmoid diverticulitis appears significantly improved. Allergies Allergy/AdvReac Type Severity Reaction Status Date / Time fentanyl Allergy Severe HIVES Verified 05/20/22 09:07 NSAIDS (Non-Steroidal Allergy Intermediate DUODENAL Verified 05/20/22 09:07 Anti-Inflamma ULCER digoxin AdvReac Intermediate Nausea Verified 05/20/22 09:07 diltiazem AdvReac Mild Fluid Verified 05/20/22 09:07 retention tramadol AdvReac Mild hallucinati Verified 05/20/22 09:07 on amoxicillin AdvReac Unknown FLUID Verified 05/20/22 09:07 RETENTION aspirin AdvReac Unknown DUEODENAL Verified 05/20/22 09:07 ULCER doxycycline AdvReac Unknown FLUID Verified 05/20/22 09:07 RETENTION gabapentin AdvReac Unknown hallucinati Verified 05/20/22 09:07 ons ibuprofen AdvReac Unknown DUODENAL Verified 05/20/22 09:07 ULCER naproxen AdvReac Unknown DUODENAL Verified 05/20/22 09:07 ULCERS oxycodone [From Percocet] AdvReac Unknown Verified 05/20/22 09:07 Home Medications Medication Instructions Recorded Confirmed Type albuterol sulfate 90 mcg/actuation 2 puff inhalation Q4 PRN Shortness 02/07/18 05/23/22 History aerosol inhaler (ProAir HFA) Of Breath Or Wheezing cholecalciferol (vitamin D3) 125 5,000 unit PO QAM 02/07/18 05/23/22 History mcg (5,000 unit) tablet (Vitamin D3) magnesium chloride 71.5 mg 71.5 mg PO BID 10/28/19 05/23/22 History (magnesium chloride) tablet,delayed release (Slow-Mag) famotidine 40 mg tablet 40 mg PO DAILY #90 tabs 05/04/21 05/23/22 Rx furosemide 40 mg tablet (Lasix) 40 mg PO QAM #90 tabs 09/06/21 05/23/22 Rx apixaban 5 mg tablet (Eliquis) 5 mg PO BID #180 tabs 09/15/21 05/23/22 Rx fluticasone fur. 200 mcg-umeclid 1 inh inhalation DAILY #60 ea 01/28/22 05/23/22 Rx 62.5 mcg-vilant 25 mcg inhalat.powder (Trelegy Ellipta) digoxin 125 mcg (0.125 mg) tablet 125 mcg PO DAILY #90 tabs 04/28/22 05/23/22 Rx Oxygen Home #1 ea 05/06/22 05/23/22 Rx xoaoifmmxw-rwxatijfeifjm-ykkyyihv 1 cap PO Q8H PRN headache #4 caps 05/06/22 05/23/22 Rx 50 mg-300 mg-40 mg capsule (Fioricet) metoprolol succinate 50 mg 50 mg PO QAM #30 tabs 05/06/22 05/23/22 Rx tablet,extended release 24 hr omeprazole 40 mg capsule,delayed 40 mg PO QAM 05/23/22 05/23/22 History release spironolactone 50 mg tablet 50 mg PO QAM 05/23/22 05/23/22 History Past Med/Surg History Medical History (HFpEF) heart failure with preserved ejection fraction A-fib Asthma Bilateral lower extremity edema History of anesthesia reaction History of hypokalemia History of palpitations History of peptic ulcer History of skin cancer Migraine Morbid obesity Osteoarthritis Peripheral neuropathy Prediabetes Spinal stenosis Stress incontinence Vitamin D deficiency Surgical History H/O tubal ligation History of arthroscopy of left knee History of arthroscopy of left shoulder History of bladder surgery History of colonoscopy History of endoscopy History of permanent cardiac pacemaker placement History of reverse total replacement of left shoulder joint (~04/2018) History of skin cancer Family History Father Prostate cancer Hypertension Myocardial infarction Brother Diabetes Mother Hypertension Brother Diabetes Sister Pericardial effusion Sister Pericardial effusion Denies family history of Ovarian cancer Breast cancer Colorectal cancer Social History Smoking Status: Current every day smoker Tobacco Type: Cigarettes Age Started Using Tobacco: 30; packs per day: 1; Cigarettes Per Day: 20; Second Hand Exposure: Yes; Do You Dip or Chew Tobacco: No; Tobacco Cessation Education Requested by Patient: No Hx Alcohol Use: No Hx Substance Use: No Preferred Language: Cuban Communication Ability: Effective Visual Impairment: No Limitations Hearing Ability: Normal 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 Beliefs That Will Affect Care: None marital status: Current Living Situation: Significant Other Current Living Situation Comment: lives with her boyfriend current occupational status: retired 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 [place] Other Information That Helps Us Care for You: No Feels Safe at Home: Yes Childhood Exposure to Second-Hand Smoke: Yes caffeine: Yes Dental Care, Regularly: No Physical Activity Frequency: Does not Exercise Seatbelt Use: always Sunscreen Use: No Assistive Devices: Denture - Upper and Glasses Review of Systems Review of Systems: All systems reviewed & are unremarkable except as noted in HPI & below Physical Exam Constitutional: WD/WN, vitals as above Eyes: + anicteric sclerae; normal pupil size ENMT: external ear and nose normal, oropharynx normal Mouth: oral mucous membranes not dry Respiratory: normal respiratory effort; no respiratory distress Auscultation: + wheezes (Expiratory wheezing throughout); breath sounds present, no diminished lung sounds, no crackles, no rales and no rhonchi Cardiovascular: Rate/Rhythm: regular rate and + irregularly irregular Heart Sounds: no murmur Extremities: normal capillary refill and + pedal edema (Trace pedal edema pitting bilaterally equal); no calf tenderness Gastrointestinal (Abdomen): normal bowel sounds, soft, nontender, no hepato splenomegaly Musculoskeletal: no cyanosis or clubbing, extremities motor strength 5/5 Skin: no rashes, warm and dry Neurologic: moves all extremities and awake; not confused Psychiatric: A+Ox3, euthymic affect Results & Data Results & Data ([facility]) Vital Signs (Past 12 Hours) Vital Signs Temp Pulse Resp BP Pulse Ox O2 Del Method O2 Flow Rate 05/23/22 12:30 80 18 98 Nasal Cannula 2 05/23/22 12:00 67 17 94 Nasal Cannula 2 05/23/22 12:00 96/60 L 05/23/22 11:30 75 18 90 Nasal Cannula 2 05/23/22 11:30 96/62 L 05/23/22 11:48 78 L Room Air 0 05/23/22 11:18 81 22 05/23/22 11:03 36.6 C 87 20 113/62 87 L Room Air Laboratory Results Abnormal lab results 05/23/22 05/23/22 Range/Units Unknown Unknown WBC 13.52 H (4.8-10.8) K/ul Hct 47.2 H (37.0-47.0) % RDW Std Deviation 47.9 H (36.4-46.3) fL Neut # (Auto) 11.07 H (1.40-6.50) K/uL [place] # (Auto) 0.85 H (0.11-0.59) K/uL Glucose 112 H (70-99(Fasting)) mg/dl Alkaline Phosphatase 119 H (34-104) U/L Lipase 10 L (11-82) U/L Diagnostic Findings XR chest 1V portable CLINICAL HISTORY: Chest pain, nonspecific COMPARISON STUDY: Chest CT February 05, 2020. Chest radiograph May 01, 2022. FINDINGS: Dual lead subclavian pacemaker and left shoulder arthroplasty are incidentally noted. No pneumothorax or pleural effusion is present. There is no consolidation or evidence for pulmonary edema. Mild interstitial thickening is unchanged. IMPRESSION: No acute cardiopulmonary findings. CT ANGIOGRAPHY OF THE CHEST, PULMONARY EMBOLUS PROTOCOL CLINICAL HISTORY: Atypical chest pain. Evaluate for pulmonary embolus. COMPARISON STUDY: Chest CT February 05, 2020 and chest radiograph performed earlier today. TECHNIQUE: Following IV administration of 105 mL of Optiray, helical axial images of the chest were obtained utilizing the pulmonary embolus protocol. Maximal intensity projections and sagittal and coronal reformats were viewed on an independent 3D workstation. IV contrast was administered without complication. Automated exposure control was utilized for the study. A dose lowering technique was utilized adhering to the principles of ALARA. CT DOSE: 1592.58 mGycm FINDINGS: No pulmonary emboli are identified. There is mild dilatation of the central pulmonary arteries, similar to prior CT. A dual-lead left subclavian pacer is noted. There is mild cardiomegaly and moderate coronary artery calcification. There is no pericardial effusion. No thoracic lymphadenopathy is noted. Left shoulder arthroplasty is present. No pneumothorax or pleural effusion. No consolidation to suggest pneumonia. Subpleural groundglass opacities represent atelectasis. No acute fractures are identified within the bony thorax. Visualized portions of the upper abdomen are unchanged since prior exam. IMPRESSION: 1. No pulmonary emboli identified. 2. No acute intrathoracic findings. No significant change in appearance of the chest. CT OF THE ABDOMEN AND PELVIS WITH CONTRAST CLINICAL HISTORY: Left lower quadrant abdominal pain. COMPARISON STUDY: CT of the abdomen and pelvis May 03, 2022. TECHNIQUE: Following IV administration of 105 mL of Optiray, axial images of the abdomen and pelvis were obtained from the lung bases to the proximal femurs. Images were reviewed in the axial, sagittal, and coronal planes. IV contrast was administered without complication. Automated exposure control was utilized for the study. A dose lowering technique was utilized adhering to the principles of ALARA. FINDINGS: Lung bases are unremarkable. Pacer leads are partially imaged. No pneumatosis, free air or portal venous gas is present. Liver, adrenal glands and pancreas are unremarkable. The previously described splenic infarct on CT of May 03, 2022 is less conspicuous. Low-attenuation bilateral renal lesions are suboptimally assessed on this study but probably reflect cysts. There is no hydronephrosis. There is no evidence for a bowel obstruction. Slight dilatation of the mid appendix is unchanged since prior exam. There is no adjacent infiltration. There is no evidence for acute appendicitis. Colonic diverticulosis is noted. Sigmoid diverticulitis shown on prior exam has significantly improved. There is no free air or abscess. There is been interval development of moderate wall thickening with mild adjacent stranding of the cecum. There is also wall thickening of the remainder of the ascending colon and transverse colon which could also reflect colitis or be due to underdistention. There is no lymphadenopathy. No acute fractures. IMPRESSION: 1. Interval development of a right-sided colitis, most pronounced within the cecum. Although nonspecific, this is likely infectious. No free air or abscess. 2. Significant improvement in sigmoid diverticulitis since CT of October 31, 2022. 3. Decreased conspicuity of the previously described splenic infarct. Medications Administered ER medications given: NSS 500 mL bolus DuoNeb 5 mg neb Solu-Medrol 60 mg IV prescribed but not given ECG Indication: abdominal pain Rate (beats per minute): 84 Rhythm: atrial fibrillation Findings: + other (Poor R wave progression) Comparison ECG Date: from (May 01, 2022) Change: the following changes noted (Atrial fibrillation replaced electronic ventricular pacemaker) Code Status & VTE Plan Code Status Full VTE Prophylaxis Plan VTE Prophylaxis will be ordered: Yes PG Care Time/CCT Total # of Minutes Spent Total Time Spent with Patient: Total time spent is greater than 50% in coordination of care (as documented) at patient's floor/unit and/or counseling patient: Coding Level of Care Code 70092 INT INP/OBS CARE 3/75MIN Diagnoses C. difficile colitis A04.72 COPD exacerbation J44.1 Nocturnal hypoxia G47.34 Atrial fibrillation, persistent I48.19 GERD (gastroesophageal reflux disease) K21.9 Peptic ulcer disease K27.9 (HFpEF) heart failure with preserved ejection fraction I50.30
[2022-05-23] MEDS ORDERED: ONDANSETRON INJ 2 MG/ML 2 ML VIAL IV STA (13:58)
[2022-05-23] MEDS ORDERED: FIDAXOMICIN 200 MG TAB PO STA (14:06)
--- NOTE | 2022-05-23 14:44 | Electrocardiogram Report ---
Test Reason : Blood Pressure : / mmHG Vent. Rate : 084 BPM Atrial Rate : 340 BPM P-R Int : 000 ms QRS Dur : 084 ms QT Int : 350 ms P-R-T Axes : 000 072 -43 degrees QTc Int : 413 ms Atrial fibrillation Low voltage QRS Poor R wave progression, consider anterior VT vs. lead placement vs. LVH Abnormal ECG When compared with ECG of 01-MAY-2022 11:41, Atrial fibrillation has replaced Electronic ventricular pacemaker Confirmed by Laron Caban ([id number]) on 05/23/2022 2:44:04 PM Referred By: REFERRED SELF Confirmed By:Laron Caban
[2022-05-23 14:48] LABS: Appearance Urine Clear (Clear); Bilirubin Urine Negative (Negative); Blood Urine Negative (Negative); Color Urine Yellow; Glucose Urine UA Negative (Negative); Ketones Urine Negative (Negative); Leukocyte Esterase Urine Negative (Negative); Nitrite Urine Negative (Negative); Protein Urine Negative (Negative); Specific Gravity Urine 1.021 (1.000-1.030); Urobilinogen Urine Negative (Negative); pH Urine 6.5 (4.5-7.5)
[2022-05-23] MEDS ORDERED: ONDANSETRON INJ 2 MG/ML 2 ML VIAL IV PRN (16:10)
[2022-05-23] MEDS ORDERED: ACETAMINOPHEN 1,000 MG/100 ML VIAL IV PRN (17:06)
[2022-05-23] MEDS ORDERED: MoRPHine SULFATE 2 MG/ML CARP IV PRN (17:06)
[2022-05-23] MEDS ORDERED: NON-FORMULARY MEDICATION (Fluticasone-Umeclidin-Vilanter [Trelegy Ellipta] 200-62.5-25 mcg INH SCH (17:15)
[2022-05-23] MEDS ORDERED: BUTALBITAL/ACETAMIN/CAFFEINE TAB PO PRN (17:17)
[2022-05-23] MEDS: LACTATED RINGER'S 1,000 ML IV SCH (17:55)
[2022-05-23 19:21] LABS: Adenovirus F 40/41 PCR Not Detected (NotDetected); Astrovirus PCR Not Detected (NotDetected); Campylobacter PCR Not Detected (NotDetected); Cryptosporidium PCR Not Detected (NotDetected); Cyclospora cayetanensis PCR Not Detected (NotDetected); Entamoeba histolytica PCR Not Detected (NotDetected); Enteroaggregative E.coli(EAEC) Not Detected (NotDetected); Enteropathogenic E.coli (EPEC) Not Detected (NotDetected); Enterotoxigenic E.coli (ETEC) Not Detected (NotDetected); Giardia lamblia PCR Not Detected (NotDetected); Norovirus GI/GII PCR Not Detected (NotDetected); Plesiomonas shigelloides PCR Not Detected (NotDetected); Rotavirus A PCR Not Detected (NotDetected); Salmonella PCR Not Detected (NotDetected); Sapovirus PCR Not Detected (NotDetected); Shiga-like Toxin E.coli (STEC) Not Detected (NotDetected); Shigella/Enteroinvasive E.coli Not Detected (NotDetected); Vibrio cholerae PCR Not Detected (NotDetected); Vibrio species PCR Not Detected (NotDetected); Yersinia enterocolitica PCR Not Detected (NotDetected)
[2022-05-23 19:46] LABS: Cdiff Antigen Positive; Cdiff Toxin B Gene (2yr or >) Positive Cdiff Gene (Neg)
[2022-05-23 19:48] LABS: Cdiff Toxin A+B Positive Cdiff Toxin (Negative)
[2022-05-23] MEDS: FIDAXOMICIN 200 MG TAB PO SCH (21:13)
[2022-05-23] MEDS: APIXABAN 5 MG TABLET PO SCH (21:14)
[2022-05-24] MEDS: LACTATED RINGER'S 1,000 ML IV SCH (05:28)
[2022-05-24 06:31] LABS: Basophils # (auto) 0.04 K/uL (0-0.2); Basophils % (auto) 0.4 %; Eosinophils # (auto) 0.12 K/uL (0-0.50); Eosinophils % (auto) 1.3 %; Hematocrit (blood only) 43.3 % (37.0-47.0); Hemoglobin 14.1 g/dl (12.0-16.0); Immature Granulocytes # (auto) 0.04 K/uL (0.01-0.20); Immature Granulocytes % (auto) 0.4 %; Lymphocytes % (auto) 11.7 %; Mean Corpuscular Hemoglobin 32.3 pg (25.0-34.0); Mean Corpuscular Hgb Conc 32.6 g/dL (32.0-36.0); Mean Corpuscular Volume 99.3 fL (80.0-100.0); Mean Platelet Volume 9.9 fL (9.4-12.4); Monocytes # (auto) 0.66 K/uL (0.11-0.59); Neutrophils # (auto) 7.42 K/uL (1.40-6.50); Neutrophils % (auto) 79.2 %; Platelet Count 223 K/uL (130-400); RDW Coefficient of Variation 13.4 % (11.5-14.5); RDW Standard Deviation 49.4 fL (36.4-46.3); Red Blood Count 4.36 M/uL (4.20-5.40); White Blood Count 9.38 K/ul (4.8-10.8)
[2022-05-24 06:54] LABS: Anion Gap 4 (3-11); BUN Creatinine Ratio 11.4 (10-20); Blood Urea Nitrogen 10 mg/dl (6-23); Calcium 8.9 mg/dl (8.5-10.1); Carbon Dioxide 32 mmol/L (21-32); Chloride 103 mmol/L (98-107); Creatinine Clr Calc Pharmacy 68.9 ml/min; Est GFR (African American) 76.6 ml/min; Est GFR (Non-African American) 66.1 ml/min; Glucose 101 mg/dl (70-99(Fasting)); Sodium 139 mmol/L (136-145)
[2022-05-24] MEDS: ALBUT/IPRATROP 3MG/0.5MG NEB 3 ML VIAL NEB SCH ×2 (07:37→11:15)
[2022-05-24] MEDS: APIXABAN 5 MG TABLET PO SCH ×2 (08:04→20:17)
[2022-05-24] MEDS: FLUTICASONE FUROATE 200MCG 14 PUFFS/INHALER INH SCH (08:05)
[2022-05-24] MEDS: FIDAXOMICIN 200 MG TAB PO SCH ×2 (08:05→20:17)
[2022-05-24] MEDS: DIGOXIN 0.125 MG TAB PO SCH (08:06)
[2022-05-24] MEDS: FAMOTIDINE 40 MG TABLET PO SCH (08:06)
[2022-05-24] MEDS: PANTOprazole 40 MG TAB PO SCH (08:07)
[2022-05-24] MEDS: METOPROLOL SUCC 50MG EXT REL TAB PO SCH (08:07)
[2022-05-24] MEDS: UMECLIDINIUM/VILANTEROL 62.5/25MCG 7 PUFFS/INHALER INH SCH (08:07)
--- NOTE | 2022-05-24 08:12 | Hospitalist Progress Note ---
Date of Service May 24, 2022 Assessment & Plan (1) C. difficile colitis: Plan: Recent admission for acute diverticulitis and worsening while inpatient earlier this month. Completed a week of IV carbapenem and continued abx with Cipro/Flagyl at discharge. Had a couple loose stools prior to d/c and checked for cdiff which was gene + but toxin NEGATIVE and decision to continue probiotic and instructed patient to monitor for any worsening diarrhea and to alert pro vider to retest for cdiff Seen by GI in followup 05/20 w/ reported improvement in symptoms but then over the past 48 hours developed liquid watery diarrhea with associated chills and cramping On admit, CTAP interval development of a right-sided colitis, most pronounced within the cecum. Although nonspecific, this is likely infectious. No free air or abscess. Stool testing POSITIVE for GENE AND TOXIN now Placed on Fidaxomicin 200mg BID -- rx sent and barnett checked by CM, $10 NPO x meds/ice chips/sips on admit LR at 80cc/hr -- DISCONTINUED due to volume overload, on O2, CXR w/ congestion noted but not yet read Lactic checked , not done on admit, wnl WBC trending down, afebrile Consultation for GI placed Seen by GI and placed on clear liquid diet -- advance as tolerated WBC 13.5k--> 9.38k Patient ideally wanting to go home as soon as possible. Her diet has been ordered and will advance as tolerated and monitor ability to keep up with oral intake/pain control and she is hopeful for discharge tomorrow unless any issues (2) COPD exacerbation: Plan: On admit, suspected she is having a mild exacerbation given wheezing on exam however she reports no shortness of breath and she is also missed her Trelegy Ellipta today. Given increased risk of sepsis with steroids I have discontinued the steroids prior to being given in the emergency room. Duonebs ordedred CXR w/o acute overload CTA negative for PE Added incentive spirometer for atelectasis noted on imaging Avoiding steroids given above and does not appear to be COPD exacerbation on exam/eval Patient w/ hx CHF and on lasix 40mg daily as well as spironolactone Was on RA but then placed on 2L NC to maintain sats -- denied feeling short of breath, no sputum production Had been on IVF and diuretics held, BUN 10/Cr 0.88 --> STOPPED IVF, resumed her usual lasix and will monitor response and plan on resuming her spironolactone in AM if PO intake stable and Cr stable on labs Supplemental O2 to maintain sats -- of note, patient to be using O2 HS and sleep study as outpatient based on overnight pulse ox earlier this month (3) Nocturnal hypoxia: Plan: Aim O2 sats > 90% (4) Atrial fibrillation, persistent: Plan: Continue anticoagulation with Eliquis 5 mg p.o. twice daily Continues on metoprolol 50mg daily -- dose reduced last admission -- will change parameters to give unless SBP <90 given asymptomatic with borderline BPs (issues w/ not being given w/ hold SBP<100 last admit) continues on digoxin Keep mag ~2, K~4 Of note, seen by cards and sinus joaquin when not in afib, and then afib w/ rapid HR c/w SSS. May need to consider pacemaker implantation in the future noted but currently without indication (5) GERD (gastroesophageal reflux disease): Plan: Continue famotidine 40 mg p.o. daily, pantoprazole 40 mg p.o. daily (6) Peptic ulcer disease: Plan: As above for GERD (7) (HFpEF) heart failure with preserved ejection fraction: Plan: CXR clear on admit, placed on IVF Spironolactone and lasix held, pulm congestion on exam and need for suppllemental O2 CXR repeated, not yet read but appears w/ some pulm edema and her IVF were stopped and her usual lasix provided. Holding off giving spironolacton just yet given her BPs (metoprolol held this AM) Plan to resume her spironolactone in AM if no issues/Cr stable Continues on metoprolol 50mg daily -- dose decreased to such last admit given co ntinued hypotension and seen by cards post-dc and to continue that dose w/ dig for her afib Monitor weights/i&O added Plan VTE prophylaxis - Eliquis Continue Dificid -- rx already sent, 10$ for patient Clear liquid diet --> advance as tolerated Stopped IVF, lasix for pulm edema -- monitor response Admission and Anticipated Discharge Date Admission Date: May 23, 2022 Supervising Physician Co-Signing Physician Notes Attending Attestation - Chart reviewed, care plan d/w INGRID Kumar. I agree w/ the mann components of her documentation. Sanjiv Aguila MD Subjective sal this morning, doing much better -- VERY happy to see me -- stated she requested me in the ER and no one knew who she was talking about states abdominal discomforts improved, no further diarrhea since last night and starting meds. discussed wanting to barnett check. diet advanced to clears and tolerating, will advance as tolerated. Seen by Donna from GI this morning. Patient hopeful for dc in next 24-48 hours. On supplemental O2 but denies shortness of breath,. faint wheezing but no sputum production.discussed stopping IVF and will check CXR. Diuretics on hold. She notes she did not get her metoprolol this morning --discussed if any palpitations or elevations in HR to administer as BPs on the lower side chronically. Questions/concerns addressed. Will attempt to give to partner Barbara Miller for tomorrow if she is able to accommodate on her census . Physical Exam Physical Exam: General: WD/WN elderly female sitting up in recliner looking out the window, reporting happy to see me HEENT: head normocephalic, atraumatic, mm NOT dry, trachea midline Resp: diminished in the bases with faint expiratory wheezing (asked RN to stop IVF), no rales, on 2L NC CV: irregularly irregular, rates 70s, no significant murmur, trace LE edema, calves nontender GI: +BS throughout, mild tenderness to deep palpation, no guarding/rigidity no maldonado MSK/Neuro: moves all extremities, no focal deficits Psych: AOx3, pleasant and cooperative Skin: no obvious rashes/lesions, perfused Results & Data Results & Data ([facility]) Vital Signs (Past 12 Hours) Vital Signs Temp Pulse Pulse Resp BP BP Pulse Ox 05/24/22 07:50 36.3 C L 64 16 84/49 L 97 05/24/22 07:40 72 18 93 05/24/22 05:55 05/24/22 05:47 93 05/24/22 05:45 88 L 05/24/22 05:40 92/57 L 93 05/23/22 22:47 70 99/55 L 05/23/22 20:47 36.7 C 69 18 90/57 L 93 O2 Del Method O2 Flow Rate 05/24/22 07:50 Room Air 05/24/22 07:40 Nasal Cannula 2 05/24/22 05:55 Nasal Cannula 2 05/24/22 05:47 Nasal Cannula 2 05/24/22 05:45 Room Air 05/24/22 05:40 Room Air 05/23/22 22:47 05/23/22 20:47 Nasal Cannula 2 Laboratory Results 05/24/22 05/24/22 05/23/22 Range/Units 05:57 05:57 Unknown WBC 9.38 (4.8-10.8) K/ul RBC 4.36 (4.20-5.40) M/uL Hgb 14.1 (12.0-16.0) g/dl Hct 43.3 (37.0-47.0) % MCV 99.3 (80.0-100.0) fL MCH 32.3 (25.0-34.0) pg MCHC 32.6 (32.0-36.0) g/dL RDW Std Deviation 49.4 H (36.4-46.3) fL RDW Coeff of Yamilet 13.4 (11.5-14.5) % Plt Count 223 (130-400) K/uL MPV 9.9 (9.4-12.4) fL Immature Gran % (Auto) 0.4 % Neut % (Auto) 79.2 % Lymph % (Auto) 11.7 % [place] % (Auto) 7.0 % Eos % (Auto) 1.3 % Baso % (Auto) 0.4 % Neut # (Auto) 7.42 H (1.40-6.50) K/uL Lymph # (Auto) 1.10 L (1.2-3.4) K/uL [place] # (Auto) 0.66 H (0.11-0.59) K/uL Eos # (Auto) 0.12 (0-0.50) K/uL Baso # (Auto) 0.04 (0-0.2) K/uL Immature Gran # (Auto) 0.04 (0.01-0.20) K/uL Sodium 139 136 (136-145) mmol/L Potassium TNP 4.2 (3.5-5.1) mmol/L Chloride 103 101 (98-107) mmol/L Carbon Dioxide 32 29 (21-32) mmol/L Anion Gap 4 6 (3-11) BUN 10 14 (6-23) mg/dl Creatinine 0.88 0.94 (0.6-1.2) mg/dl Est Cr Clr Drug Dosing 68.9 64.8 ml/min Est GFR ( Amer) 76.6 70.7 ml/min Est GFR (Non-Af Amer) 66.1 61.0 ml/min BUN/Creatinine Ratio 11.4 14.9 (10-20) Glucose 101 H 112 H (70-99(Fasting)) mg/dl Calcium 8.9 9.1 (8.5-10.1) mg/dl Total Bilirubin 0.7 (0.2-1.0) mg/dl AST 15 (13-39) U/L ALT 12 (7-52) U/L Alkaline Phosphatase 119 H (34-104) U/L Troponin I High Sens 11.3 (0-14) pg/ml Total Protein 6.9 (6.0-8.3) gm/dl Albumin 3.8 (3.4-5.0) gm/dl Globulin 3.1 (2.5-4.0) gm/dl Albumin/Globulin Ratio 1.2 (0.9-2) Lipase 10 L (11-82) U/L Urine Color Urine Appearance (Clear) Urine pH (4.5-7.5) Ur Specific [place] (1.000-1.030) Urine Protein (Negative) Urine Glucose (UA) (Negative) Urine Ketones (Negative) Urine Blood (Negative) Urine Nitrite (Negative) Urine Bilirubin (Negative) Urine Urobilinogen (Negative) Ur Leukocyte Esterase (Negative) Stl C. cayetanensis PCR (NotDetected) Stool Rotavirus A PCR (NotDetected) Stl Adenov F 40/41 PCR (NotDetected) Stool Astrovirus (PCR) (NotDetected) Stool Campylobacter PCR (NotDetected) Stl C. diff Tox B Gene (Neg) Stl C.difficile Tox A&B (Negative) Stool Cryptosporidium PCR (NotDetected) Stl E.coli Shiga Tox PCR (NotDetected) Stl Enterotoxigenic E PCR (NotDetected) Stool EPEC (PCR) (NotDetected) Stool EAEC (PCR) (NotDetected) Stl E. histolytica PCR (NotDetected) Stool Giardia Lamblia PCR (NotDetected) Stool Salmonella PCR (NotDetected) Stool Sapovirus (PCR) (NotDetected) Stl P. shigelloides PCR (NotDetected) Stl Shigella/EIEC PCR (NotDetected) St Y.enterocolitica PCR (NotDetected) Stool Vibrio (PCR) (NotDetected) Stl Vibrio cholerae PCR (NotDetected) Stl Norovirus GI/GII PCR (NotDetected) SARS-CoV-2, RNA, NAAT (NEGATIVE) 05/23/22 05/23/22 05/23/22 Range/Units Unknown 17:40 17:40 WBC 13.52 H (4.8-10.8) K/ul RBC 4.83 (4.20-5.40) M/uL Hgb 15.7 (12.0-16.0) g/dl Hct 47.2 H (37.0-47.0) % MCV 97.7 (80.0-100.0) fL MCH 32.5 (25.0-34.0) pg MCHC 33.3 (32.0-36.0) g/dL RDW Std Deviation 47.9 H (36.4-46.3) fL RDW Coeff of Yamilet 13.2 (11.5-14.5) % Plt Count 249 (130-400) K/uL MPV 9.9 (9.4-12.4) fL Immature Gran % (Auto) 0.8 % Neut % (Auto) 81.9 % Lymph % (Auto) 10.3 % [place] % (Auto) 6.3 % Eos % (Auto) 0.5 % Baso % (Auto) 0.2 % Neut # (Auto) 11.07 H (1.40-6.50) K/uL Lymph # (Auto) 1.39 (1.2-3.4) K/uL [place] # (Auto) 0.85 H (0.11-0.59) K/uL Eos # (Auto) 0.07 (0-0.50) K/uL Baso # (Auto) 0.03 (0-0.2) K/uL Immature Gran # (Auto) 0.11 (0.01-0.20) K/uL Sodium (136-145) mmol/L Potassium (3.5-5.1) mmol/L Chloride (98-107) mmol/L Carbon Dioxide (21-32) mmol/L Anion Gap (3-11) BUN (6-23) mg/dl Creatinine (0.6-1.2) mg/dl Est Cr Clr Drug Dosing ml/min Est GFR ( Amer) ml/min Est GFR (Non-Af Amer) ml/min BUN/Creatinine Ratio (10-20) Glucose (70-99(Fasting)) mg/dl Calcium (8.5-10.1) mg/dl Total Bilirubin (0.2-1.0) mg/dl AST (13-39) U/L ALT (7-52) U/L Alkaline Phosphatase (34-104) U/L Troponin I High Sens (0-14) pg/ml Total Protein (6.0-8.3) gm/dl Albumin (3.4-5.0) gm/dl Globulin (2.5-4.0) gm/dl Albumin/Globulin Ratio (0.9-2) Lipase (11-82) U/L Urine Color Urine Appearance (Clear) Urine pH (4.5-7.5) Ur Specific [place] (1.000-1.030) Urine Protein (Negative) Urine Glucose (UA) (Negative) Urine Ketones (Negative) Urine Blood (Negative) Urine Nitrite (Negative) Urine Bilirubin (Negative) Urine Urobilinogen (Negative) Ur Leukocyte Esterase (Negative) Stl C. cayetanensis PCR Not Detected (NotDetected) Stool Rotavirus A PCR Not Detected (NotDetected) Stl Adenov F 40/41 PCR Not Detected (NotDetected) Stool Astrovirus (PCR) Not Detected (NotDetected) Stool Campylobacter PCR Not Detected (NotDetected) Stl C. diff Tox B Gene Positive Cdiff Gene H (Neg) Stl C.difficile Tox A&B Positive Cdiff Toxin A* (Negative) Stool Cryptosporidium PCR Not Detected (NotDetected) Stl E.coli Shiga Tox PCR Not Detected (NotDetected) Stl Enterotoxigenic E PCR Not Detected (NotDetected) Stool EPEC (PCR) Not Detected (NotDetected) Stool EAEC (PCR) Not Detected (NotDetected) Stl E. histolytica PCR Not Detected (NotDetected) Stool Giardia Lamblia PCR Not Detected (NotDetected) Stool Salmonella PCR Not Detected (NotDetected) Stool Sapovirus (PCR) Not Detected (NotDetected) Stl P. shigelloides PCR Not Detected (NotDetected) Stl Shigella/EIEC PCR Not Detected (NotDetected) St Y.enterocolitica PCR Not Detected (NotDetected) Stool Vibrio (PCR) Not Detected (NotDetected) Stl Vibrio cholerae PCR Not Detected (NotDetected) Stl Norovirus GI/GII PCR Not Detected (NotDetected) SARS-CoV-2, RNA, NAAT (NEGATIVE) 05/23/22 05/23/22 Range/Units 15:25 13:56 WBC (4.8-10.8) K/ul RBC (4.20-5.40) M/uL Hgb (12.0-16.0) g/dl Hct (37.0-47.0) % MCV (80.0-100.0) fL MCH (25.0-34.0) pg MCHC (32.0-36.0) g/dL RDW Std Deviation (36.4-46.3) fL RDW Coeff of Yamilet (11.5-14.5) % Plt Count (130-400) K/uL MPV (9.4-12.4) fL Immature Gran % (Auto) % Neut % (Auto) % Lymph % (Auto) % [place] % (Auto) % Eos % (Auto) % Baso % (Auto) % Neut # (Auto) (1.40-6.50) K/uL Lymph # (Auto) (1.2-3.4) K/uL [place] # (Auto) (0.11-0.59) K/uL Eos # (Auto) (0-0.50) K/uL Baso # (Auto) (0-0.2) K/uL Immature Gran # (Auto) (0.01-0.20) K/uL Sodium (136-145) mmol/L Potassium (3.5-5.1) mmol/L Chloride (98-107) mmol/L Carbon Dioxide (21-32) mmol/L Anion Gap (3-11) BUN (6-23) mg/dl Creatinine (0.6-1.2) mg/dl Est Cr Clr Drug Dosing ml/min Est GFR ( Amer) ml/min Est GFR (Non-Af Amer) ml/min BUN/Creatinine Ratio (10-20) Glucose (70-99(Fasting)) mg/dl Calcium (8.5-10.1) mg/dl Total Bilirubin (0.2-1.0) mg/dl AST (13-39) U/L ALT (7-52) U/L Alkaline Phosphatase (34-104) U/L Troponin I High Sens (0-14) pg/ml Total Protein (6.0-8.3) gm/dl Albumin (3.4-5.0) gm/dl Globulin (2.5-4.0) gm/dl Albumin/Globulin Ratio (0.9-2) Lipase (11-82) U/L Urine Color Yellow Urine Appearance Clear (Clear) Urine pH 6.5 (4.5-7.5) Ur Specific [place] 1.021 (1.000-1.030) Urine Protein Negative (Negative) Urine Glucose (UA) Negative (Negative) Urine Ketones Negative (Negative) Urine Blood Negative (Negative) Urine Nitrite Negative (Negative) Urine Bilirubin Negative (Negative) Urine Urobilinogen Negative (Negative) Ur Leukocyte Esterase Negative (Negative) Stl C. cayetanensis PCR (NotDetected) Stool Rotavirus A PCR (NotDetected) Stl Adenov F 40/41 PCR (NotDetected) Stool Astrovirus (PCR) (NotDetected) Stool Campylobacter PCR (NotDetected) Stl C. diff Tox B Gene (Neg) Stl C.difficile Tox A&B (Negative) Stool Cryptosporidium PCR (NotDetected) Stl E.coli Shiga Tox PCR (NotDetected) Stl Enterotoxigenic E PCR (NotDetected) Stool EPEC (PCR) (NotDetected) Stool EAEC (PCR) (NotDetected) Stl E. histolytica PCR (NotDetected) Stool Giardia Lamblia PCR (NotDetected) Stool Salmonella PCR (NotDetected) Stool Sapovirus (PCR) (NotDetected) Stl P. shigelloides PCR (NotDetected) Stl Shigella/EIEC PCR (NotDetected) St Y.enterocolitica PCR (NotDetected) Stool Vibrio (PCR) (NotDetected) Stl Vibrio cholerae PCR (NotDetected) Stl Norovirus GI/GII PCR (NotDetected) SARS-CoV-2, RNA, NAAT NEGATIVE (NEGATIVE) Diagnostic Findings Abdomen/Pelvis CT 05/23/22 11:20 CT OF THE ABDOMEN AND PELVIS WITH CONTRAST CLINICAL HISTORY: Left lower quadrant abdominal pain. COMPARISON STUDY: CT of the abdomen and pelvis May 03, 2022. TECHNIQUE: Following IV administration of 105 mL of Optiray, axial images of the abdomen and pelvis were obtained from the lung bases to the proximal femurs. Images were reviewed in the axial, sagittal, and coronal planes. IV contrast was administered without complication. Automated exposure control was utilized for the study. A dose lowering technique was utilized adhering to the principles of ALARA. FINDINGS: Lung bases are unremarkable. Pacer leads are partially imaged. No pneumatosis, free air or portal venous gas is present. Liver, adrenal glands and pancreas are unremarkable. The previously described splenic infarct on CT of May 03, 2022 is less conspicuous. Low-attenuation bilateral renal lesions are suboptimally assessed on this study but probably reflect cysts. There is no hydronephrosis. There is no evidence for a bowel obstruction. Slight dilatation of the mid appendix is unchanged since prior exam. There is no adjacent infiltration. There is no evidence for acute appendicitis. Colonic diverticulosis is noted. Sigmoid diverticulitis shown on prior exam has significantly improved. There is no free air or abscess. There is been interval development of moderate wall thickening with mild adjacent stranding of the cecum. There is also wall thickening of the remainder of the ascending colon and transverse colon which could also reflect colitis or be due to underdistention. There is no lymphadenopathy. No acute fractures. IMPRESSION: 1. Interval development of a right-sided colitis, most pronounced within the cecum. Although nonspecific, this is likely infectious. No free air or abscess. 2. Significant improvement in sigmoid diverticulitis since CT of October 31, 2022. 3. Decreased conspicuity of the previously described splenic infarct. ACT 112: Negative or not required by law. Electronically signed by: Mike Joaquin M.D. 05/23/2022 12:52 PM Chest X-Ray 05/23/22 11:20 XR chest 1V portable CLINICAL HISTORY: Chest pain, nonspecific COMPARISON STUDY: Chest CT February 05, 2020. Chest radiograph May 01, 2022. FINDINGS: Dual lead subclavian pacemaker and left shoulder arthroplasty are incidentally noted. No pneumothorax or pleural effusion is present. There is no consolidation or evidence for pulmonary edema. Mild interstitial thickening is unchanged. IMPRESSION: No acute cardiopulmonary findings. ACT 112: Negative or not required by law. Electronically signed by: Mike Joaquin M.D. 05/23/2022 11:46 AM Chest CTA 05/23/22 12:02 CT ANGIOGRAPHY OF THE CHEST, PULMONARY EMBOLUS PROTOCOL CLINICAL HISTORY: Atypical chest pain. Evaluate for pulmonary embolus. COMPARISON STUDY: Chest CT February 05, 2020 and chest radiograph performed earlier today. TECHNIQUE: Following IV administration of 105 mL of Optiray, helical axial images of the chest were obtained utilizing the pulmonary embolus protocol. Maximal intensity projections and sagittal and coronal reformats were viewed on an independent 3D workstation. IV contrast was administered without complication. Automated exposure control was utilized for the study. A dose lowering technique was utilized adhering to the principles of ALARA. CT DOSE: 1592.58 mGycm FINDINGS: No pulmonary emboli are identified. There is mild dilatation of the central pulmonary arteries, similar to prior CT. A dual-lead left subclavian pacer is noted. There is mild cardiomegaly and moderate coronary artery calcification. There is no pericardial effusion. No thoracic lymphadenopathy is noted. Left shoulder arthroplasty is present. No pneumothorax or pleural effusion. No consolidation to suggest pneumonia. Subpleural groundglass opacities represent atelectasis. No acute fractures are identified within the bony thorax. Visualized portions of the upper abdomen are unchanged since prior exam. IMPRESSION: 1. No pulmonary emboli identified. 2. No acute intrathoracic findings. No significant change in appearance of the chest. ACT 112: Negative or not required by law. Electronically signed by: Mike Joaquin M.D. 05/23/2022 12:43 PM PG Care Time/CCT Total # of Minutes Spent Total Time Spent with Patient: Total time spent is greater than 50% in coordination of care (as documented) at patient's floor/unit and/or counseling patient: Coding Level of Care Code 42371 SUB INP/OBS CARE 3/50MIN Diagnoses C. difficile colitis A04.72 COPD exacerbation J44.1 Nocturnal hypoxia G47.34 Atrial fibrillation, persistent I48.19 GERD (gastroesophageal reflux disease) K21.9 Peptic ulcer disease K27.9 (HFpEF) heart failure with preserved ejection fraction I50.30
--- NOTE | 2022-05-24 10:08 | Gastrointestinal Consultation ---
Date of Consultation May 24, 2022 Assessment & Plan (1) C. difficile colitis: Plan 1. Continue Dificid 200 mg BID x 10 days. 2. Diet advancement as tolerated. 3. Avoid antidiarrheals. 4. Reinforced infection control measures and hand hygiene. 5. Outpatient colonoscopy as scheduled. 6. Rest per primary team. Thank you for allowing us to participate in the care of this patient. If you have any questions or concerns, please do not hesitate to contact us. History of Present Illness Reason for Consultation: C Difficile Colitis Requesting Physician: Trista Kumar PA-C Attending Physician: Sanjiv Aguila History of Present Illness Patient is a very pleasant 71 y.o. female with a history of persistent atrial fibrillation, COPD, and GERD admitted with abdominal pain and rectal pressure admitted to the hospital on 05/01/[address] proven acute sigmoid diverticulitis with microperforation. She was treated with conservative measures with IV antibiotics and dietary modification with improved symptoms. I had evaluated the patient in the office last week and she was improved clinically. She was following a low residue diet. Colonoscopy is scheduled for 6 weeks as an outpatient. She returned to the ER yesterday with complaints of severe abdominal pain and cramping. CT scan was obtained demonstrating improved diverticulitis but right-sided colitis. She was also having diarrhea at the time and a stool sent for C Difficile infection which was positive for toxin A. Patient was started on Dificid 200 mg BID and clear liquid diet. Currently, she reports no bm this morning. Abdominal pain and cramping is improved. No rectal bleeding. Tolerating diet. No fevers/chills. No leukocytosis or anemia. Allergies Allergy/AdvReac Type Severity Reaction Status Date / Time fentanyl Allergy Severe HIVES Verified 05/20/22 09:07 NSAIDS (Non-Steroidal Allergy Intermediate DUODENAL Verified 05/20/22 09:07 Anti-Inflamma ULCER digoxin AdvReac Intermediate Nausea Verified 05/20/22 09:07 diltiazem AdvReac Mild Fluid Verified 05/20/22 09:07 retention tramadol AdvReac Mild hallucinati Verified 05/20/22 09:07 on amoxicillin AdvReac Unknown FLUID Verified 05/20/22 09:07 RETENTION aspirin AdvReac Unknown DUEODENAL Verified 05/20/22 09:07 ULCER doxycycline AdvReac Unknown FLUID Verified 05/20/22 09:07 RETENTION gabapentin AdvReac Unknown hallucinati Verified 05/20/22 09:07 ons ibuprofen AdvReac Unknown DUODENAL Verified 05/20/22 09:07 ULCER naproxen AdvReac Unknown DUODENAL Verified 05/20/22 09:07 ULCERS oxycodone [From Percocet] AdvReac Unknown Verified 05/20/22 09:07 Home Medications Medication Instructions Recorded Confirmed Type albuterol sulfate 90 mcg/actuation 2 puff inhalation Q4 PRN Shortness 02/07/18 05/23/22 History aerosol inhaler (ProAir HFA) Of Breath Or Wheezing cholecalciferol (vitamin D3) 125 5,000 unit PO QAM 02/07/18 05/23/22 History mcg (5,000 unit) tablet (Vitamin D3) magnesium chloride 71.5 mg 71.5 mg PO BID 10/28/19 05/23/22 History (magnesium chloride) tablet,delayed release (Slow-Mag) famotidine 40 mg tablet 40 mg PO DAILY #90 tabs 05/04/21 05/23/22 Rx furosemide 40 mg tablet (Lasix) 40 mg PO QAM #90 tabs 09/06/21 05/23/22 Rx apixaban 5 mg tablet (Eliquis) 5 mg PO BID #180 tabs 09/15/21 05/23/22 Rx fluticasone fur. 200 mcg-umeclid 1 inh inhalation DAILY #60 ea 01/28/22 05/23/22 Rx 62.5 mcg-vilant 25 mcg inhalat.powder (Trelegy Ellipta) digoxin 125 mcg (0.125 mg) tablet 125 mcg PO DAILY #90 tabs 04/28/22 05/23/22 Rx Oxygen Home #1 ea 05/06/22 05/23/22 Rx ifjkswefqn-wlbqkvdrbnmbe-ceylhati 1 cap PO Q8H PRN headache #4 caps 05/06/22 05/23/22 Rx 50 mg-300 mg-40 mg capsule (Fioricet) metoprolol succinate 50 mg 50 mg PO QAM #30 tabs 05/06/22 05/23/22 Rx tablet,extended release 24 hr omeprazole 40 mg capsule,delayed 40 mg PO QAM 05/23/22 05/23/22 History release spironolactone 50 mg tablet 50 mg PO QAM 05/23/22 05/23/22 History Patient History Medical History (HFpEF) heart failure with preserved ejection fraction A-fib DX AUGUST 2017/NO CARDIOVERSION Asthma DX WITHIN LAST YR/"SLIGHT" Bilateral lower extremity edema History of anesthesia reaction FOLLOWING SHOULDER ARTHROSCOPY ([facility]) TROUBLE WITH BREATHING AFTER THE NERVE BLOCK - "MESSED WITH LUNGS AND HAD OXYGEN FOR THREE MONTHS AFTER" History of hypokalemia ED VISIT 03/09/18 History of palpitations 03/09/18 [facility] ED...PALPITATIONS, POTASSIUM LOW/REPLETED/FU WITH PIERRE History of peptic ulcer History of skin cancer Migraine Morbid obesity Osteoarthritis Peripheral neuropathy Prediabetes Spinal stenosis Stress incontinence CHRONIC Vitamin D deficiency Surgical History H/O tubal ligation History of arthroscopy of left knee History of arthroscopy of left shoulder History of bladder surgery FOR STRESS INCONTINECE History of colonoscopy History of endoscopy History of permanent cardiac pacemaker placement History of reverse total replacement of left shoulder joint (~04/2018) History of skin cancer RESECTED/R UPPER LEG Family History Father Prostate cancer Hypertension Myocardial infarction Brother Diabetes Mother Hypertension Brother Diabetes Sister Pericardial effusion Sister Pericardial effusion Denies family history of Ovarian cancer Breast cancer Colorectal cancer Social History Smoking Status: Current every day smoker Tobacco Type: Cigarettes Age Started Using Tobacco: 30; packs per day: 1; Cigarettes Per Day: 20; Second Hand Exposure: Yes; Do You Dip or Chew Tobacco: No; Tobacco Cessation Education Requested by Patient: No Hx Alcohol Use: No Hx Substance Use: No Preferred Language: Northern Irish Communication Ability: Effective Visual Impairment: No Limitations Hearing Ability: Normal Psychiatry Physician Required: No Beliefs That Will Affect Care: None marital status: Current Living Situation: Significant Other Current Living Situation Comment: lives with her boyfriend current occupational status: retired 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 [place] Other Information That Helps Us Care for You: No Feels Safe at Home: Yes Childhood Exposure to Second-Hand Smoke: Yes caffeine: Yes Dental Care, Regularly: No Physical Activity Frequency: Does not Exercise Seatbelt Use: always Sunscreen Use: No Assistive Devices: Denture - Upper and Glasses Review of Systems Review of Systems: All systems reviewed & are unremarkable except as noted in HPI & below Physical Exam Constitutional: WD/WN, vitals as above Eyes: EOM intact bilaterally Neck: normal visual inspection Respiratory: normal respiratory effort, lungs clear to auscultation Cardiovascular: Rate/Rhythm: regular rate (irregular rhythm) Gastrointestinal (Abdomen): Inspection/Auscultation: + significant pannus and + hyperactive bowel sounds Percussion/Palpation: + abdomen tender and abdomen soft; no guarding and abdomen not rigid Psychiatric: A+Ox3, euthymic affect Results & Data ([facility]) Vital Signs (Past 12 Hours) Vital Signs Temp Pulse Pulse Pulse Resp BP BP 05/24/22 09:51 72 97/63 L 05/24/22 08:06 64 05/24/22 07:50 36.3 C L 64 16 84/49 L 05/24/22 07:40 72 18 05/24/22 05:55 05/24/22 05:47 05/24/22 05:45 05/24/22 05:40 92/57 L 05/23/22 22:47 70 99/55 L Pulse Ox O2 Del Method O2 Flow Rate 05/24/22 09:51 97 Nasal Cannula 2 05/24/22 08:06 05/24/22 07:50 97 Room Air 05/24/22 07:40 93 Nasal Cannula 2 05/24/22 05:55 Nasal Cannula 2 05/24/22 05:47 93 Nasal Cannula 2 05/24/22 05:45 88 L Room Air 05/24/22 05:40 93 Room Air 05/23/22 22:47 PG Care Time/CCT Total # of Minutes Spent Total Time Spent with Patient: Total time spent is greater than 50% in coordination of care (as documented) at patient's floor/unit and/or counseling patient: Coding Level of Care Code 01170 INT INP/OBS CARE 3/75MIN Diagnoses C. difficile colitis A04.72
[2022-05-24] MEDS ORDERED: FUROSEMIDE 40 MG TAB PO ONE (13:08)
[2022-05-24] MEDS ORDERED: ALBUT/IPRATROP 3MG/0.5MG NEB 3 ML VIAL NEB PRN (14:12)
--- NOTE | 2022-05-24 14:13 | XRay Report ---
XR chest 1V portable CLINICAL HISTORY: eval hypoxia, volume overload COMPARISON STUDY: Chest radiograph and chest CT May 23, 2022. FINDINGS: Left shoulder arthroplasty and dual-lead left subclavian pacer are noted. There is no pneum othorax or pleural effusion. Cardiomediastinal silhouette is stable. Interstitial prominence is uncha nged. IMPRESSION: No acute cardiopulmonary findings. ACT 112: Negative or not required by law. Electronically signed by: Mike Joaquin M.D. 05/24/2022 2:12 PM
[2022-05-24] MEDS ORDERED: SPIRONOLACTONE 25 MG TAB PO ONE (17:15)
[2022-05-25 06:21] LABS: Alanine Aminotransferase 10 U/L (7-52); Albumin Globulin Ratio 1.1 (0.9-2); Albumin Level 3.1 gm/dl (3.4-5.0); Alkaline Phosphatase 97 U/L (34-104); Anion Gap 4 (3-11); BUN Creatinine Ratio 8.2 (10-20); Bilirubin,Total 0.8 mg/dl (0.2-1.0); Blood Urea Nitrogen 8 mg/dl (6-23); Calcium 8.8 mg/dl (8.5-10.1); Carbon Dioxide 33 mmol/L (21-32); Chloride 103 mmol/L (98-107); Creatinine Clr Calc Pharmacy 62.4 ml/min; Est GFR (African American) 68.1 ml/min; Est GFR (Non-African American) 58.8 ml/min; Globulin 2.9 gm/dl (2.5-4.0); Glucose 91 mg/dl (70-99(Fasting)); Sodium 140 mmol/L (136-145)
[2022-05-25 06:36] LABS: Basophils # (auto) 0.03 K/uL (0-0.2); Basophils % (auto) 0.4 %; Eosinophils # (auto) 0.11 K/uL (0-0.50); Eosinophils % (auto) 1.4 %; Hematocrit (blood only) 43.1 % (37.0-47.0); Immature Granulocytes # (auto) 0.04 K/uL (0.01-0.20); Immature Granulocytes % (auto) 0.5 %; Lymphocytes # (auto) 1.31 K/uL (1.2-3.4); Mean Corpuscular Hemoglobin 32.3 pg (25.0-34.0); Mean Corpuscular Hgb Conc 32.5 g/dL (32.0-36.0); Mean Corpuscular Volume 99.5 fL (80.0-100.0); Mean Platelet Volume 9.9 fL (9.4-12.4); Monocytes # (auto) 0.53 K/uL (0.11-0.59); Monocytes % (auto) 6.9 %; Neutrophils # (auto) 5.67 K/uL (1.40-6.50); Neutrophils % (auto) 73.8 %; Platelet Count 220 K/uL (130-400); RDW Coefficient of Variation 13.2 % (11.5-14.5); RDW Standard Deviation 48.4 fL (36.4-46.3); Red Blood Count 4.33 M/uL (4.20-5.40); White Blood Count 7.69 K/ul (4.8-10.8)
[2022-05-25 07:08] LABS: Potassium 4.2 mmol/L (3.5-5.1)
[2022-05-25] MEDS ORDERED: FUROSEMIDE 40 MG TAB PO SCH (09:00)
[2022-05-25] MEDS ORDERED: SPIRONOLACTONE 25 MG TAB PO SCH (09:00)
[2022-05-25] MEDS: FLUTICASONE FUROATE 200MCG 14 PUFFS/INHALER INH SCH (09:01)
[2022-05-25] MEDS: UMECLIDINIUM/VILANTEROL 62.5/25MCG 7 PUFFS/INHALER INH SCH (09:01)
[2022-05-25] MEDS: APIXABAN 5 MG TABLET PO SCH (09:06)
[2022-05-25] MEDS: PANTOprazole 40 MG TAB PO SCH (09:06)
[2022-05-25] MEDS: DIGOXIN 0.125 MG TAB PO SCH (09:06)
[2022-05-25] MEDS: METOPROLOL SUCC 50MG EXT REL TAB PO SCH (09:07)
[2022-05-25] MEDS: FAMOTIDINE 40 MG TABLET PO SCH (09:07)
[2022-05-25] MEDS: FIDAXOMICIN 200 MG TAB PO SCH (09:13)
--- NOTE | 2022-05-25 12:58 | Discharge Summary ---
Date of Service May 25, 2022 Admission HPI Per Admitting Provider Jocelyn Jerome is a 71 year old female with recent diagnosis of diverticulitis who presents to the ER with diarrhea. She was recently admitted from May 01 to 2022 due to diverticulitis with a microperforation. Initial treatment with intravenous Zosyn but switched to cefepime and metronidazole due to concerns of progression. However with slowing down her advancement of her diet she continued to improve and was discharged on 11-day course of ciprofloxacin and metronidazole on discharge (total of 16 days of treatment). She has now finished antibiotics. Her diverticulitis pain was mainly pressure on her backside more to the left-hand side and this is continued to improve until the last 2 days. 2 days ago she started having liquid watery diarrhea with associated chills and cramping all over the her abdomen whenever she needed a bowel movement. She denies any melena or bright red blood in the stool. Feeling nauseous but no vomiting. No hematemesis. In the ER CT abdomen pelvis was concerning for new right-sided colitis with associated white blood count. Previous sigmoid diverticulitis appears significantly improved. Admission Exam Per Admitting Provider Constitutional: WD/WN, vitals as above Eyes: + anicteric sclerae; normal pupil size ENMT: external ear and nose normal, oropharynx normal Mouth: oral mucous membranes not dry Respiratory: normal respiratory effort; no respiratory distress Auscultation: + wheezes (Expiratory wheezing throughout); breath sounds present, no diminished lung sounds, no crackles, no rales and no rhonchi Cardiovascular: Rate/Rhythm: regular rate and + irregularly irregular Heart Sounds: no murmur Extremities: normal capillary refill and + pedal edema (Trace pedal edema pitting bilaterally equal); no calf tenderness Gastrointestinal (Abdomen): normal bowel sounds, soft, nontender, no hepatosplenomegaly Musculoskeletal: no cyanosis or clubbing, extremities motor strength 5/5 Skin: no rashes, warm and dry Neurologic: moves all extremities and awake; not confused Psychiatric: A+Ox3, euthymic affect Principal Diagnosis C Diff Colitis Discharge Exam Constitutional well developed, + well hydrated and + overweight; no acute distress Neck trachea midline, no thyromegaly Respiratory normal respiratory effort, lungs clear to auscultation Cardiovascular Rate/Rhythm: + irregularly irregular Extremities: no calf tenderness and no edema Gastrointestinal (Abdomen) normal bowel sounds, soft, nontender, no hepatosplenomegaly Skin no rashes, warm and dry Psychiatric A+Ox3, euthymic affect Discharge Data Allergies Allergy/AdvReac Type Severity Reaction Status Date / Time fentanyl Allergy Severe HIVES Verified 05/20/22 09:07 NSAIDS (Non-Steroidal Allergy Intermediate DUODENAL Verified 05/20/22 09:07 Anti-Inflamma ULCER digoxin AdvReac Intermediate Nausea Verified 05/20/22 09:07 diltiazem AdvReac Mild Fluid Verified 05/20/22 09:07 retention tramadol AdvReac Mild hallucinati Verified 05/20/22 09:07 on amoxicillin AdvReac Unknown FLUID Verified 05/20/22 09:07 RETENTION aspirin AdvReac Unknown DUEODENAL Verified 05/20/22 09:07 ULCER doxycycline AdvReac Unknown FLUID Verified 05/20/22 09:07 RETENTION gabapentin AdvReac Unknown hallucinati Verified 05/20/22 09:07 ons ibuprofen AdvReac Unknown DUODENAL Verified 05/20/22 09:07 ULCER naproxen AdvReac Unknown DUODENAL Verified 05/20/22 09:07 ULCERS oxycodone [From Percocet] AdvReac Unknown Verified 05/20/22 09:07 Consultations 05/23/22 13:29 ED Decision to Admit Stat 05/24/22 07:56 Consult Gastroenterology Routine Ordered Studies 05/23/22 11:20 CT Abd and Pelvis [CT abd pelvis IV con only] Stat 05/23/22 12:02 CT angio chest PE protocol Stat Hospital Course (1) C. difficile colitis: Recent admission for acute diverticulitis and worsening while inpatient earlier this month. Completed a week of IV carbapenem and continued abx with Cipro/Flagyl at discharge. Had a couple loose stools prior to d/c and checked for cdiff which was gene + but toxin NEGATIVE and decision to continue probiotic and instructed patient to monitor for any worsening diarrhea and to alert provider to retest for cdiff Seen by GI in followup 05/20 w/ reported improvement in symptoms but then over the past 48 hours developed liquid watery diarrhea with associated chills and cramping On admit, CTAP interval development of a right-sided colitis, most pronounced within the cecum. Although nonspecific, this is likely infectious. No free air or abscess. Stool testing POSITIVE for GENE AND TOXIN now Placed on Fidaxomicin 200mg BID -- rx sent and barnett checked by CM, $10 NPO x meds/ice chips/sips on admit LR at 80cc/hr -- DISCONTINUED due to volume overload, on O2, CXR w/ congestion noted but not yet read Lactic checked , not done on admit, wnl WBC trending down, afebrile Consultation for GI placed Seen by GI and placed on clear liquid diet -- advance as tolerated CBC reviewed and WBC continues to improve to 7.69 (9.38) Patient tolerated clear liquids and was advanced to full liquids today and then low fiber diet today for lunch. (2) COPD exacerbation: On admit, suspected she is having a mild exacerbation given wheezing on exam however she reports no shortness of breath and she is also missed her Trelegy Ellipta today. Given increased risk of sepsis with steroids I have discontinued the steroids prior to being given in the emergency room. Duonebs ordedred CXR w/o acute overload CTA negative for PE Added incentive spirometer for atelectasis noted on imaging Avoiding steroids given above and does not appear to be COPD exacerbation on exam/eval Patient w/ hx CHF and on lasix 40mg daily as well as spironolactone Was on RA but then placed on 2L NC to maintain sats -- denied feeling short of breath, no sputum production Had been on IVF and diuretics held, BUN 10/Cr 0.88 --> STOPPED IVF, resumed her usual lasix and will monitor response and plan on resuming her spironolactone in AM if PO intake stable and Cr stable on labs Supplemental O2 to maintain sats -- of note, patient to be using O2 HS and sleep study as outpatient based on overnight pulse ox earlier this month Patient had a sleep study scheduled for July and CM was able to up this appointment for 06/02/22. (3) Nocturnal hypoxia: Aim O2 sats > 90% (4) Atrial fibrillation, persistent: Continue anticoagulation with Eliquis 5 mg p.o. twice daily Continues on metoprolol 50mg daily -- dose reduced last admission -- will change parameters to give unless SBP <90 given asymptomatic with borderline BPs (issues w/ not being given w/ hold SBP<100 last admit) continues on digoxin Of note, seen by cards and sinus joaquin when not in afib, and then afib w/ rapid HR c/w SSS. May need to consider pacemaker implantation in the future noted but currently without indication (5) GERD (gastroesophageal reflux disease): Continue famotidine 40 mg p.o. daily, pantoprazole 40 mg p.o. daily (6) Peptic ulcer disease: As above for GERD (7) (HFpEF) heart failure with preserved ejection fraction: CXR clear on admit, placed on IVF Spironolactone and lasix held, pulm congestion on exam and need for suppllemental O2 CXR repeated, not yet read but appears w/ some pulm edema and her IVF were stopped and her usual lasix provided. Holding off giving spironolacton just yet given her BPs (metoprolol held this AM) Spironolactone resumed this AM - Cr 0.97 Continues on metoprolol 50mg daily -- dose decreased to such last admit given continued hypotension and seen by cards post-dc and to continue that dose w/ dig for her afib Reviewed BMP normal and Mg 2.0 (8) BMI greater than 40: Morbid obesity recommend life style modifications will defer to PCP Plan VTE prophylaxis - Eliquis Continue Dificid -- rx already sent, 10$ for patient Continue low fiber diet for another 2 weeks and then increase fiber gradually Follow up with PCP in 1-2 weeks Sleep study appt moved up to 06/02/22 Total Time Total Time Spent Total Time Spent (In Minutes): 35 Discharge Plan Discharge Items Patient Disposition: Home - Self-Care Reason For Visit: SUSPECTED C. DIFF COLITIS Discharge Diagnosis: C Diff Colitis Condition on Discharge: Good Activity: Resume your previous activity Non-emergency contact: Primary Care Provider Call non-emergency contact if: you have any medication questions Follow-up/Referrals: John Pack MD [Physician] - 06/02/22 12:30 pm (This appointment is at the SLEEP LAB Please arrive 15 minutes prior to appointment time. ) Keith Vega DO [Primary Care Provider] - 06/01/22 1:00 pm Diet: Low Fiber Addtl Attending Provider Instructions: You were admitted with diarrhea and found to have acute C Diff colitis. You were treated with Dificid and your symptoms of the diarrhea have significantly improved. You had some mild hypoxia and were treated with supplemental Oxygen. 05/25/22 you had a 2 step test with respiratory and passed without a need for supplemental oxygen. You had a sleep study scheduled for July and CM was able to get this appt moved up to 06/02/22. Your diet was advanced to clear liquids and then full liquids and eventually low fiber diet. You were instructed to finish the course of the Dificid (this is already sent into [facility]. ) you will need to start this rx tonight. You should also continue the low fiber diet for the next 10 days and then slowly start to increase fiber back into your diet. You should continue taking probiotics while you are on the Dificid. You should follow up with GI for a colonoscopy in 6-8 weeks. Pending Studies at Discharge: No Stand-Alone Forms: My [facility] Medications and DC Order Prescriptions: New Dificid 200 mg Tablet 200 mg PO BID 8 Days Qty: 15 0RF Continued furosemide [Lasix] 40 mg tablet 40 mg PO QAM Qty: 90 3RF Trelegy Ellipta 200-62.5-25 mcg blister with device 1 inh inhalation DAILY Qty: 60 2RF digoxin 125 mcg (0.125 mg) tablet 125 mcg PO DAILY Qty: 90 3RF famotidine 40 mg tablet 40 mg PO DAILY Qty: 90 3RF Eliquis 5 mg tablet 5 mg PO BID Qty: 180 3RF Slow-Mag 71.5 mg Tablet,Delayed Release (Dr/Ec) 71.5 mg PO BID albuterol sulfate [ProAir HFA] 90 mcg/actuation Hfa Aerosol Inhaler 2 puff INHALATION Q4 PRN (Reason: Shortness Of Breath Or Wheezing) cholecalciferol (vitamin D3) [Vitamin D3] 5,000 unit Tablet 5,000 unit PO QAM metoprolol succinate 50 mg Tablet Extended Release 24 Hr 50 mg PO QAM Qty: 30 0RF (DME) Oxygen Home Liters Per Minute See Rx Instructions .Route Qty: 1 0RF Rx Instructions: As directed swpkivfqee-mictsuosxrotl-vzoz [Fioricet] 50-300-40 mg capsule 1 cap PO Q8H PRN (Reason: headache) Qty: 4 0RF omeprazole 40 mg capsule,delayed release(DR/EC) 40 mg PO QAM spironolactone 50 mg tablet 50 mg PO QAM Discharge Orders: Discharge Order (Routine); Ordered 05/25/22 Ordered By: Anastasia Mcintosh/Other Patient Handouts: Low-Fiber Diet Admission Data Admit Date/Time: 05/23/22 14:06 Attending Provider: Sanjiv Aguila Admit Provider: Sanjiv Maxwell Primary Care Provider: Keith Vega Other Providers: Sanjiv Maxwell ; Henrry Chen Other Interventions: Discharge Summary Assessment (RN) Last Done: 05/25/22 15:14 Supervising Physician Co-Signing Physician Notes Patient seen and examined at bedside. During face to face encounter, obtained a history of present hospital stay, performed physical exam, and discussed discharge plan. I reviewed plan of care with patient and JAI Miller. Patient willl be discharged on dificid for c diff colitis. I reviewed above note and agree with. Coding Level of Care Code HOSP INP/OBS DISCH >30 MIN Diagnoses C. difficile colitis A04.72 COPD exacerbation J44.1 Nocturnal hypoxia G47.34 Atrial fibrillation, persistent I48.19 GERD (gastroesophageal reflux disease) K21.9 Peptic ulcer disease K27.9 (HFpEF) heart failure with preserved ejection fraction I50.30 BMI greater than 40
== END 2022-05-25 15:35 | disposition home or self-care (01) | DRG 372 ==
LOC: ED 10:53 → 3E 14:06 → SUATTDRO 14:06 → 3E 15:54

== ENCOUNTER 2025-02-09 09:28 | Inpatient (IN) ==
--- NOTE | 2025-02-09 09:37 | Emergency Department Note ---
Impression & Plan Acute hypoxic respiratory failure, COPD (chronic obstructive pulmonary disease), Abdominal pain, Shortness of breath ED Provider Note NAME: MAHENDRA HADDAD AGE: 74 SEX: F : 1950 ARRIVES VIA: Ambulance INFORMANT: Patient ED PROVIDER(S): Mark Marcum DO CHIEF COMPLAINT: abdominal pain HPI: Patient is a 74-year-old female who presents to the ER for right lower quadrant abdominal pain with a past medical history of gout and diverticulitis. Abdominal pain feels like previous bouts of diverticulitis. She notes that over the past 1 to 2 days she has started having right lower back pain which wraps around to the right side. Denies any new weakness or numbness in the legs. Able to urinate move her bowels. Denies any chest pain or shortness of breath. No other exacerbating or remitting factors. Back pain is significant worse with twisting turning and bending. ADDITIONAL HISTORY OBTAINED: Per HPI Chronic Medical/Social Conditions Affecting Care: Per HPI PAST MEDICAL HISTORY:See Below PAST SURGICAL HISTORY:See Below FAMILY HISTORY:See Below SOCIAL HISTORY:See Below HOME MEDICATIONS:See Below ALLERGIES:See Below VITALS:See Below PHYSICAL EXAMINATION: GENERAL: Sitting up in bed, alert, well appearing, well nourished, no distress, non-toxic EYE EXAM: normal conjunctiva. PERRL and EOM's grossly intact. OROPHARYNX: mucous membranes are moist NECK: supple, no nuchal rigidity, no adenopathy, non-tender LUNGS: Wheezing bilaterally. Normal chest wall mechanics HEART: no murmurs, S1 normal and S2 normal ABDOMEN: abdomen soft, non-tender, normo-active bowel sounds, no masses, no rebound or guarding. BACK: Back is symmetrical on inspection and there is no deformity, no midline tenderness but tenderness in the right lower lumbar paraspinal region, no CVA tenderness. UPPER EXTREMITIES: upper extremities are grossly normal. LOWER EXTREMITIES: No pitting edema. NEURO EXAM: Normal sensorium, cranial nerves II-XII grossly intact, normal speech, no gross weakness of arms, no gross weakness of legs. MEDICAL DECISION MAKING: Patient is a 74-year-old female who presents ER for the above-stated complaint. IV was established and blood work was obtained. She was found to be hypoxic and placed on 2 L nasal cannula. She was given new neb treatments and IV steroids with the wheezing bilaterally. Labs showed no significant leukocytosis or anemia. BMP with creatinine 1.3. LFTs bilirubin was unremarkable. BNP slightly elevated at 200. Lipase was normal. EKG was A-fib but rate controlled. Chest x-ray with possible CHF. Patient was given neb treatment steroids and remained on nasal cannula. Discussed with the hospitalist for further evaluation management treatment. Consults/Care Managements Discussions: Per [facility] Triage Nursing notes reviewed. Limited review of prior medical records performed Vital Signs: reviewed and remarkable for no significant abnormalities Differential diagnosis: Differential diagnoses includes but is not limited to gastritis, peptic ulcer disease, GERD, gallbladder disease, pancreatitis, small bowel obstruction, appendicitis, diverticulitis, hernia, urinary tract infection, torsion, perforation, trauma, infectious. ER treatment provided: See below Diagnostics interpreted by me include EKG and cardiac monitoring as listed below: -Cardiac Monitoring: An order was placed for continuous cardiac monitoring. The monitor shows a rate of A-fib with 70 rhythm. -ECG: A-fib rate of 66 Normal axis Paced rhythm QTc 413 -Laboratory studies:Interpreted by me as stated above in MDM and shown below. Imaging studies: Xrays: As interpreted by me: Portable AP upright 1 view the chest shows subtle opacities at the bilateral bases CTs show: none Procedures:none Critical Care: I have personally spent 33 minutes of critical care time in the direct management of this patient. This includes bedside care, interpretation of diagnostic studies, and testing, discussion with consultants, patient, and family members, and other required patient management activities. This 33 minutes is in excess of all separately billable procedures. Past Med/Surg History Problem List (Updated 02/09/25 @ 14:37 by Mark Marcum DO) Shortness of breath (Acute) Abdominal pain (Acute) COPD (chronic obstructive pulmonary disease) (Acute) Acute hypoxic respiratory failure (Acute) Venous insufficiency Disappearance and of family member Other problems related to care provider dependency Mixed incontinence Idiopathic polyneuropathy Ulnar neuropathy at elbow of left upper extremity Cubital tunnel syndrome Gout Diabetes mellitus Cor pulmonale Gout of left ankle Hematometra Post-menopausal bleeding Osteoarthritis of knees, bilateral Moderate obstructive sleep apnea noncompliant with cpap Ulnar nerve abnormality Colon polyps Diverticulitis Hypersomnia Migraine with aura Nausea BMI greater than 40 Nocturnal hypoxia pt is to use CPAP and O2 2L at night Diastolic heart failure Headache (Acute) Bilateral knee pain (Chronic) GERD (gastroesophageal reflux disease) (Chronic) Urinary hesitancy Tobacco abuse (Chronic) Osteoporosis 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) use of anticoagulants Osteoporosis Sick sinus syndrome follows with Dr Nance Chronic venous insufficiency History of COVID-19 2020-resolved CHF (congestive heart failure) reason for jardiance Hx of gout Urinary incontinence Sleep apnea could not tolerate machine Chronic obstructive pulmonary disease daily inhaler, rare use of albuterol Hx of diverticulitis of colon hospitalized [facility] 04/2022 with diverticulitis and microperforation recent flare ~ 11/2024, now resolved Hx of Clostridium difficile infection hospitalized 2022, patient denies having C Diff, "I carry the gene for it" Leukocytosis Morbid obesity History of peptic ulcer reason for prilosec Asthma "can't even tell you when I used my rescue inhaler last" A-fib chronic a-fib, follows with Dr. Nance Vitamin D deficiency Osteoarthritis Spinal stenosis Peptic ulcer disease Migraine Surgical History Hx of dilation and curettage History of total shoulder replacement left History of esophagogastroduodenoscopy (EGD) History of tooth extraction Status post hysteroscopic polypectomy 2022 with pmb and hematometra History of Garrett colposuspension 2000, [place] History of permanent cardiac pacemaker placement (05/07/20) MEDTRONIC dual-chamber; placed 05/07/2020; follows with - checked on 01/27/25 History of colonoscopy most recent: 07/11/22: MAC without issue History of skin cancer removed, right leg History of anesthesia reaction Following shoulder surgery ([facility]) Difficulty breathing after the nerve block- "needed oxygen for three months", then developed A fib, no issues since History of arthroscopy of left shoulder History of arthroscopy of left knee H/O tubal ligation Family History Father Prostate cancer Myocardial infarction Hypertension Brother Diabetes Mother Hypertension Brother Diabetes Sister Pericardial effusion Sister Pericardial effusion Other No family history of adverse response to anesthesia Denies family history of Ovarian cancer Breast cancer Colorectal cancer Social History Smoking Status: Current every day smoker Tobacco Type: Cigarettes Age Started Using Tobacco: 30; packs per day: 1; Cigarettes Per Day: 1 ppd; Second Hand Exposure: No; Do You Dip or Chew Tobacco: No; Tobacco Cessation Education Requested by Patient: No Hx Alcohol Use: No Hx Substance Use: No Preferred Language: Cymraes Communication Ability: Effective Visual Impairment: No Limitations Hearing Ability: Normal [employer] Required: No Beliefs That Will Affect Care: None marital status: Current Living Situation: Alone Current Living Situation Comment: with boyfriend current occupational status: retired 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 [place] Other Information That Helps Us Care for You: No Feels Safe at Home: Yes Safety Concerns: Feels Safe At This Time Childhood Exposure to Second-Hand Smoke: Yes Diet: regular caffeine: Yes Dental Care, Regularly: No Physical Activity Frequency: Does not Exercise Seatbelt Use: always Sunscreen Use: No Assistive Devices: None Allergies Allergies Allergy/AdvReac Type Severity Reaction Status Date / Time fentanyl Allergy Intermediate HIVES Verified 02/03/25 13:03 NSAIDS (Non-Steroidal Allergy Intermediate DUODENAL Verified 02/03/25 13:03 Anti-Inflamma ULCER doxycycline AdvReac Intermediate FLUID Verified 02/03/25 13:03 RETENTION gabapentin AdvReac Intermediate hallucinati Verified 02/03/25 13:03 ons ibuprofen AdvReac Intermediate DUODENAL Verified 02/03/25 13:03 ULCER naproxen AdvReac Intermediate DUODENAL Verified 02/03/25 13:03 ULCERS aspirin AdvReac Mild DUEODENAL Verified 02/03/25 13:03 ULCER diltiazem AdvReac Mild Fluid Verified 02/03/25 13:03 retention tramadol AdvReac Mild hallucinati Verified 02/03/25 13:03 on Home Meds Home Medications Medication Instructions Recorded Confirmed cholecalciferol (vitamin D3) 125 5,000 unit PO QAM 02/07/18 02/09/25 mcg (5,000 unit) tablet (Vitamin D3) magnesium chloride 71.5 mg 71.5 mg PO BID 12/22/23 02/09/25 (magnesium chloride) tablet,delayed release (Slow-Mag) L.acidophilus,rhamnosus-B.breve-S.thermophilus 1 tab PO DAILY 02/03/25 02/09/25 3 billion cell chew tab Previous Rx's Medication Instructions Recorded ondansetron 4 mg disintegrating 4 mg PO Q8H PRN nausea and 06/01/22 tablet vomiting #30 tabs fluticasone fur. 200 mcg-umeclid 1 inh inhalation DAILY #60 ea 12/13/23 62.5 mcg-vilant 25 mcg inhalat.powder (Trelegy Ellipta) omeprazole 40 mg capsule,delayed 40 mg PO QAM #90 caps 02/29/24 release albuterol sulfate 90 mcg/actuation 2 puff inhalation Q4 PRN Shortness 03/20/24 aerosol inhaler Of Breath Or Wheezing #6.7 grams allopurinol 100 mg tablet 200 mg (2 x 100 mg) PO QAM #180 03/20/24 tabs empagliflozin 10 mg tablet 10 mg PO QAM #90 tabs 03/20/24 (Jardiance) metoprolol succinate 50 mg 75 mg (1.5 x 50 mg) PO QAM #135 05/30/24 tablet,extended release 24 hr tabs furosemide 40 mg tablet (Lasix) 80 mg (2 x 40 mg) PO QAM #180 tabs 06/17/24 apixaban 5 mg tablet (Eliquis) 5 mg PO BID #180 tabs 11/22/24 digoxin 125 mcg (0.125 mg) tablet 125 mcg PO QAM #90 tabs 12/12/24 spironolactone 50 mg tablet 50 mg PO QAM #90 tabs 12/19/24 Results & Data (ED) Vital Signs Vital Signs - 24 hr 02/09/25 09:19 02/09/25 09:33 02/09/25 09:48 Temperature 36.7 C Temperature Source Oral Pulse Rate 65 68 71 Pulse Rate from SpO2 Sensor Pulse Rhythm Regular Pulse Strength Normal Respiratory Rate 19 20 Respiratory Effort / Characteristics Non-Labored Spontaneous Respiratory Depth Normal Respiratory Pattern Regular Blood Pressure 121/58 L Blood Pressure Mean 79 Pulse Oximetry 92 91 Oxygen Delivery Method Room Air Room Air Oxygen Flow Rate Sepsis Recent Fever Within 48 Hours No Sepsis New/Unexplained Change in Mental Status No Sepsis Action Taken by Nursing No Action Required Oxygen Flow Rate - Titration Pulse Oximetry Post Tiitration 02/09/25 09:56 02/09/25 09:57 02/09/25 10:00 Temperature Temperature Source Pulse Rate 65 Pulse Rate from SpO2 Sensor 65 Pulse Rhythm Pulse Strength Respiratory Rate 14 Respiratory Effort / Characteristics Respiratory Depth Respiratory Pattern Blood Pressure 113/64 Blood Pressure Mean 82 Pulse Oximetry 86 L 99 Oxygen Delivery Method Room Air Nasal Cannula Nasal Cannula Oxygen Flow Rate 2 Sepsis Recent Fever Within 48 Hours Sepsis New/Unexplained Change in Mental Status Sepsis Action Taken by Nursing Oxygen Flow Rate - Titration 2 Pulse Oximetry Post Tiitration 97 02/09/25 10:30 02/09/25 11:00 02/09/25 12:03 Temperature Temperature Source Pulse Rate 69 67 71 Pulse Rate from SpO2 Sensor 62 70 Pulse Rhythm Pulse Strength Respiratory Rate 21 20 13 Respiratory Effort / Characteristics Respiratory Depth Respiratory Pattern Blood Pressure 121/65 117/63 121/53 L Blood Pressure Mean 83 81 75 Pulse Oximetry 99 93 96 Oxygen Delivery Method Nasal Cannula Nasal Cannula Nasal Cannula Oxygen Flow Rate 2 2 2 Sepsis Recent Fever Within 48 Hours Sepsis New/Unexplained Change in Mental Status Sepsis Action Taken by Nursing Oxygen Flow Rate - Titration Pulse Oximetry Post Tiitration Laboratory Data 02/09/25 09:35 02/09/25 09:35 Lab Results 02/09/25 Range/Units 09:35 WBC 10.27 (4.8-10.8) K/ul RBC 4.84 (4.20-5.40) M/uL Hgb 14.3 (12.0-16.0) g/dl Hct 46.2 (37.0-47.0) % MCV 95.5 (80.0-100.0) fL MCH 29.5 (25.0-34.0) pg MCHC 31.0 L (32.0-36.0) g/dL RDW Std Deviation 54.6 H (36.4-46.3) fL RDW Coeff of Yamilet 15.6 H (11.5-14.5) % Plt Count 235 (130-400) K/uL MPV 10.3 (9.4-12.4) fL Immature Gran % (Auto) 1.1 % Neut % (Auto) 80.8 % Lymph % (Auto) 11.5 % [place] % (Auto) 5.9 % Eos % (Auto) 0.4 % Baso % (Auto) 0.3 % Neut # (Auto) 8.30 H (1.40-6.50) K/uL Lymph # (Auto) 1.18 L (1.20-3.40) K/uL [place] # (Auto) 0.61 H (0.11-0.59) K/uL Eos # (Auto) 0.04 (0.00-0.50) K/uL Baso # (Auto) 0.03 (0.00-0.20) K/uL Immature Gran # (Auto) 0.11 (0.01-0.20) K/uL Sodium 138 (136-145) mmol/L Potassium 4.0 (3.5-5.1) mmol/L Chloride 99 (98-107) mmol/L Carbon Dioxide 34 H (21-32) mmol/L Anion Gap 5 (3-11) BUN 32 H (6-23) mg/dl Creatinine 1.32 H (0.6-1.2) mg/dl Est Cr Clr Drug Dosing Not Reportable eGFR 42.37 BUN/Creatinine Ratio 24.2 H (10-20) Glucose 123 H (70-99(Fasting)) mg/dl Calcium 9.4 (8.6-10.3) mg/dl Total Bilirubin 0.6 (0.2-1.0) mg/dl AST 19 (13-39) U/L ALT 15 (7-52) U/L Alkaline Phosphatase 132 H (34-104) U/L Troponin I High Sens 10.6 (0-14) pg/ml Total Protein 6.8 (6.0-8.3) gm/dl Albumin 3.5 (3.4-5.0) gm/dl Globulin 3.3 (2.5-4.0) gm/dl Albumin/Globulin Ratio 1.1 (0.9-2) Lipase 11 (11-82) U/L Administered Medications Discontinued Medications Albuterol (Albut/Ipratrop 3mg/0.5mg Neb 3 Ml Vial) 3 ml NEB NOW STA; Protocol Stop: 02/09/25 12:08 Last Admin: 02/09/25 12:17 Dose: 3 ml Documented By: TDM Furosemide (Furosemide Inj 20 Mg/2 Ml Vial) 20 mg IV NOW STA Stop: 02/09/25 11:55 Last Admin: 02/09/25 13:18 Dose: Not Given Documented By: Ioversol (Optiray 320 100ml) 94 ml IV ONCE ONE Stop: 02/09/25 11:07 Last Admin: 02/09/25 11:06 Dose: 94 ml Documented By: CHALO Methylprednisolone (Methylprednisolone 125 Mg/2 Ml Vial) 40 mg IV NOW STA Stop: 02/09/25 12:08 Last Admin: 02/09/25 12:17 Dose: 40 mg Documented By: TDM Morphine Sulfate (Morphine Sulfate 2 Mg/Ml Carp) 2 mg IV NOW STA Stop: 02/09/25 10:00 Last Admin: 02/09/25 10:30 Dose: 2 mg Documented By: TDM Ondansetron HCl (Ondansetron Inj 2 Mg/Ml 2 Ml Vial) 4 mg IV NOW STA Stop: 02/09/25 10:00 Last Admin: 02/09/25 10:05 Dose: 4 mg Documented By: TDM Imaging Data Radiologist's Impression: Abdomen/Pelvis CT 02/09/25 09:33 CT SCAN OF THE ABDOMEN AND PELVIS WITH IV CONTRAST CLINICAL HISTORY: Right lower quadrant abdominal pain. Low back pain. COMPARISON STUDY: Abdominal CT dated 11/25/2024. TECHNIQUE: Following the IV administration of 94 cc of Optiray 320, CT scan of the abdomen and pelvis is performed from the lung bases to the proximal femora. Images are reviewed in the axial, sagittal, and coronal planes. IV contrast was administered without complication. A dose lowering technique was utilized adhering to the principles of ALARA. CT DOSE: 1282.24 mGy.cm FINDINGS: Lung bases: The heart is enlarged and without pericardial effusion. Pacemaker leads are in place. The lung bases are clear noting mild dependent atelectasis. Liver: The contrast-enhanced liver is normal in size, contour, and attenuation. Mild fatty infiltration is seen adjacent to the falciform ligament. There is no intrahepatic biliary ductal dilatation. The hepatic veins and portal veins are patent. Gallbladder: Unremarkable. Spleen: Normal in size and attenuation. Pancreas: Unremarkable. Adrenal glands: Thickening of the adrenal glands is similar to previous. Kidneys: The contrast enhanced kidneys are normal in size and without hydronephrosis. The kidneys enhance symmetrically. Small bilateral renal cysts measure up to 1.9 cm. Abdominal vasculature: The abdominal aorta is normal in course and caliber. Bowel: There is mild colonic diverticulosis without CT evidence of acute diverticulitis. No bowel obstruction is seen. The appendix is well-visualized and normal. Peritoneum: There is no intraperitoneal free air or abdominal ascites. Lymphadenopathy: None. Pelvic viscera: The bladder, uterus, and adnexa are normal as visualized. Skeletal structures: The skeletal structures are osteopenic. There is mild to moderate lumbosacral spondylosis. Grade 1 anterolisthesis is noted at L4-L5. No lytic or blastic lesions are seen. IMPRESSION: 1. No acute infectious or inflammatory findings are identified in the abdomen or pelvis. 2. Cardiomegaly and cardiac pacemaker. 3. Colonic diverticulosis without CT evidence of acute diverticulitis. 4. Additional findings as above. ACT 112: Negative or not required by law. Electronically signed by: Jimmie Ramirez M.D. 02/09/2025 11:29 AM Chest X-Ray 02/09/25 09:59 SINGLE VIEW CHEST CLINICAL HISTORY: Hypoxia FINDINGS: An AP, portable, upright chest radiograph is compared to study dated 12/18/2023 and correlated with chest CT dated 05/23/2022. A 2-lead cardiac pacemaker is unchanged in position. The heart is enlarged noting atherosclerotic calcification of the thoracic aorta. There is pulmonary vascular congestion. Atelectasis is seen at the lung bases. No airspace consolidation or large pleural effusion is identified. No pneumothorax is seen. The skeletal structures are osteopenic. The bony thorax is grossly intact. A left shoulder arthroplasty is in place. IMPRESSION: 1. Cardiomegaly and cardiac pacemaker with pulmonary vascular congestion. Radiographic follow-up to resolution is recommended. 2. No airspace consolidation or large pleural effusion is identified. ACT 112: Negative or not required by law. Electronically signed by: Jimmie Ramirez M.D. 02/09/2025 10:14 AM Discharge Plan Visit Data Chief Complaint: Abdominal Pain ED Provider: Mark Marcum Discharge Problem: Acute hypoxic respiratory failure, COPD (chronic obstructive pulmonary disease), Abdominal pain, Shortness of breath Patient Disposition: Admitted As Inpatient Condition: Serious Discharge Instructions Interventions: ED Discharge Assessment Last Done: 02/09/25 13:09 Discharge Problem: COPD (chronic obstructive pulmonary disease) Qualifiers: COPD type: unspecified COPD Qualified Code(s): J44.9 - Chronic obstructive pulmonary disease, unspecified Abdominal pain Qualifiers: Abdominal location: unspecified location Qualified Code(s): R10.9 - Unspecified abdominal pain
[2025-02-09 09:52] LABS: Hematocrit (blood only) 46.2 % (37.0-47.0); Hemoglobin 14.3 g/dl (12.0-16.0); Immature Granulocytes # (auto) 0.11 K/uL (0.01-0.20); Immature Granulocytes % (auto) 1.1 %; Mean Corpuscular Hemoglobin 29.5 pg (25.0-34.0); Mean Corpuscular Volume 95.5 fL (80.0-100.0); Platelet Count 235 K/uL (130-400); RDW Standard Deviation 54.6 fL (36.4-46.3); Red Blood Count 4.84 M/uL (4.20-5.40); White Blood Count 10.27 K/ul (4.8-10.8)
[2025-02-09] MEDS: ONDANSETRON INJ 2 MG/ML 2 ML VIAL IV STA (10:05)
--- NOTE | 2025-02-09 10:15 | XRay Report ---
SINGLE VIEW CHEST CLINICAL HISTORY: Hypoxia FINDINGS: An AP, portable, upright chest radiograph is compared to study dated 12/18/2023 and correlat ed with chest CT dated 05/23/2022. A 2-lead cardiac pacemaker is unchanged in position. The heart is e nlarged noting atherosclerotic calcification of the thoracic aorta. There is pulmonary vascular conge stion. Atelectasis is seen at the lung bases. No airspace consolidation or large pleural effusion is identified. No pneumothorax is seen. The skeletal structures are osteopenic. The bony thorax is gross ly intact. A left shoulder arthroplasty is in place. IMPRESSION: 1. Cardiomegaly and cardiac pacemaker with pulmonary vascular congestion. Radiographic follow-up to [facility] emergency department is recommended. 2. No airspace consolidation or large pleural effusion is identified. ACT 112: Negative or not required by law. Electronically signed by: Jimmie Ramirez M.D. 02/09/2025 10:14 AM
[2025-02-09 10:18] LABS: Alanine Aminotransferase 15 U/L (7-52); Albumin Globulin Ratio 1.1 (0.9-2); Albumin Level 3.5 gm/dl (3.4-5.0); Alkaline Phosphatase 132 U/L (34-104); Anion Gap 5 (3-11); Bilirubin,Total 0.6 mg/dl (0.2-1.0); Blood Urea Nitrogen 32 mg/dl (6-23); Calcium 9.4 mg/dl (8.6-10.3); Carbon Dioxide 34 mmol/L (21-32); Chloride 99 mmol/L (98-107); Globulin 3.3 gm/dl (2.5-4.0); Glucose 123 mg/dl (70-99(Fasting)); Lipase 11 U/L (11-82); Potassium 4.0 mmol/L (3.5-5.1); Sodium 138 mmol/L (136-145); Total Protein 6.8 gm/dl (6.0-8.3)
[2025-02-09] MEDS: MoRPHine SULFATE 2 MG/ML CARP IV STA (10:30)
[2025-02-09] MEDS: OPTIRAY 320 100ml IV ONE (11:06)
--- NOTE | 2025-02-09 11:31 | CT Scan Report ---
CT SCAN OF THE ABDOMEN AND PELVIS WITH IV CONTRAST CLINICAL HISTORY: Right lower quadrant abdominal pain. Low back pain. COMPARISON STUDY: Abdominal CT dated 11/25/2024. TECHNIQUE: Following the IV administration of 94 cc of Optiray 320, CT scan of the abdomen and pelvi s is performed from the lung bases to the proximal femora. Images are reviewed in the axial, sagittal , and coronal planes. IV contrast was administered without complication. A dose lowering technique wa s utilized adhering to the principles of ALARA. CT DOSE: 1282.24 mGy.cm FINDINGS: Lung bases: The heart is enlarged and without pericardial effusion. Pacemaker leads are in place. The lung bases are clear noting mild dependent atelectasis. Liver: The contrast-enhanced liver is normal in size, contour, and attenuation. Mild fatty infiltrati on is seen adjacent to the falciform ligament. There is no intrahepatic biliary ductal dilatation. Th e hepatic veins and portal veins are patent. Gallbladder: Unremarkable. Spleen: Normal in size and attenuation. Pancreas: Unremarkable. Adrenal glands: Thickening of the adrenal glands is similar to previous. Kidneys: The contrast enhanced kidneys are normal in size and without hydronephrosis. The kidneys enh ance symmetrically. Small bilateral renal cysts measure up to 1.9 cm. Abdominal vasculature: The abdominal aorta is normal in course and caliber. Bowel: There is mild colonic diverticulosis without CT evidence of acute diverticulitis. No bowel obs truction is seen. The appendix is well-visualized and normal. Peritoneum: There is no intraperitoneal free air or abdominal ascites. Lymphadenopathy: None. Pelvic viscera: The bladder, uterus, and adnexa are normal as visualized. Skeletal structures: The skeletal structures are osteopenic. There is mild to moderate lumbosacral sp ondylosis. Grade 1 anterolisthesis is noted at L4-L5. No lytic or blastic lesions are seen. IMPRESSION: 1. No acute infectious or inflammatory findings are identified in the abdomen or pelvis. 2. Cardiomegaly and cardiac pacemaker. 3. Colonic diverticulosis without CT evidence of acute diverticulitis. 4. Additional findings as above. ACT 112: Negative or not required by law. Electronically signed by: Jimmie Ramirez M.D. 02/09/2025 11:29 AM
[2025-02-09] MEDS ORDERED: ONDANSETRON 4 MG OD TAB PO PRN (12:09)
[2025-02-09] MEDS ORDERED: ALBUTEROL HFA 8 GM INHALER INH PRN (12:09)
[2025-02-09] MEDS ORDERED: ONDANSETRON INJ 2 MG/ML 2 ML VIAL IV PRN (12:13)
[2025-02-09] MEDS ORDERED: MoRPHine SULFATE 4 MG/ML 1 ML CARP\\VIAL IM PRN (12:15)
[2025-02-09] MEDS: ALBUT/IPRATROP 3MG/0.5MG NEB 3 ML VIAL NEB STA (12:17)
[2025-02-09] MEDS: FUROSEMIDE INJ 20 MG/2 ML VIAL IV STA (13:18)
--- NOTE | 2025-02-09 13:35 | XCELERA ---
[id number]
[2025-02-09] MEDS ORDERED: Patient's HEIGHT &/or WEIGHT Needed STA (13:41)
--- NOTE | 2025-02-09 14:45 | History & Physical Report ---
Date of Service February 09, 2025 Assessment & Plan (1) CHF (congestive heart failure): Plan: -CXR showing pulmonary vascular congestion -lasix 80mg IV BID -spironolactone -jardiance -echo -cardiology consulted (2) COPD (chronic obstructive pulmonary disease): Plan: -duonebs prn -wears 02 at night (3) Atrial fibrillation: Plan: -eliquis -metoprolol -digoxin (4) Back pain: Plan: -tramadol -PT/OT Admission and Anticipated Discharge Date Admission Date: February 09, 2025 History of Present Illness Chief Complaint: back pain Primary Care Provider: Keith Vega DO Pt is a 74 y/o female with pmh of CHF, COPD, afib, who presents to the ER with complaint of back pain and was noted to be hypoxic as well. Pt states she had been feeling lower back pain for the past few days and this am it felt sharp and worse with radiation around her abdomen. She has h/o of diverticulitis and was concerned this pain felt similar. In the ER CT a/p was negative for any acute pathology. Her 02 stats were noted in Mid 80s, pt wears 02 only at night. She denied any SOB, chest pain, fever, or productive cough. CXR showed pulmonary edema. Pt is being admitted for further treatment of CHF exacerbation with hypoxia and with PT evaluation for her lower back pain. Allergies Allergy/AdvReac Type Severity Reaction Status Date / Time fentanyl Allergy Intermediate HIVES Verified 02/03/25 13:03 NSAIDS (Non-Steroidal Allergy Intermediate DUODENAL Verified 02/03/25 13:03 Anti-Inflamma ULCER doxycycline AdvReac Intermediate FLUID Verified 02/03/25 13:03 RETENTION gabapentin AdvReac Intermediate hallucinati Verified 02/03/25 13:03 ons ibuprofen AdvReac Intermediate DUODENAL Verified 02/03/25 13:03 ULCER naproxen AdvReac Intermediate DUODENAL Verified 02/03/25 13:03 ULCERS aspirin AdvReac Mild DUEODENAL Verified 02/03/25 13:03 ULCER diltiazem AdvReac Mild Fluid Verified 02/03/25 13:03 retention tramadol AdvReac Mild hallucinati Verified 02/03/25 13:03 on Home Medications Medication Instructions Recorded Confirmed Type cholecalciferol (vitamin D3) 125 5,000 unit PO QAM 02/07/18 02/09/25 History mcg (5,000 unit) tablet (Vitamin D3) ondansetron 4 mg disintegrating 4 mg PO Q8H PRN nausea and 06/01/22 02/09/25 Rx tablet vomiting #30 tabs fluticasone fur. 200 mcg-umeclid 1 inh inhalation DAILY #60 ea 12/13/23 02/09/25 Rx 62.5 mcg-vilant 25 mcg inhalat.powder (Trelegy Ellipta) magnesium chloride 71.5 mg 71.5 mg PO BID 12/22/23 02/09/25 History (magnesium chloride) tablet,delayed release (Slow-Mag) omeprazole 40 mg capsule,delayed 40 mg PO QAM #90 caps 02/29/24 02/09/25 Rx release albuterol sulfate 90 mcg/actuation 2 puff inhalation Q4 PRN Shortness 03/20/24 02/09/25 Rx aerosol inhaler Of Breath Or Wheezing #6.7 grams allopurinol 100 mg tablet 200 mg (2 x 100 mg) PO QAM #180 03/20/24 02/09/25 Rx tabs empagliflozin 10 mg tablet 10 mg PO QAM #90 tabs 03/20/24 02/09/25 Rx (Jardiance) metoprolol succinate 50 mg 75 mg (1.5 x 50 mg) PO QAM #135 05/30/24 02/09/25 Rx tablet,extended release 24 hr tabs furosemide 40 mg tablet (Lasix) 80 mg (2 x 40 mg) PO QAM #180 tabs 06/17/24 02/09/25 Rx apixaban 5 mg tablet (Eliquis) 5 mg PO BID #180 tabs 11/22/24 02/09/25 Rx digoxin 125 mcg (0.125 mg) tablet 125 mcg PO QAM #90 tabs 12/12/24 02/09/25 Rx spironolactone 50 mg tablet 50 mg PO QAM #90 tabs 12/19/24 02/09/25 Rx L.acidophilus,rhamnosus-B.breve-S.thermophilus 1 tab PO DAILY 02/03/25 02/09/25 History 3 billion cell chew tab Past Med/Surg History Problem List (Updated 02/09/25 @ 14:41 by Lebron Davis MD) Back pain Shortness of breath (Acute) Abdominal pain (Acute) COPD (chronic obstructive pulmonary disease) (Acute) Acute hypoxic respiratory failure (Acute) Venous insufficiency Disappearance and of family member Other problems related to care provider dependency Mixed incontinence Idiopathic polyneuropathy Ulnar neuropathy at elbow of left upper extremity Cubital tunnel syndrome Gout Diabetes mellitus Cor pulmonale Gout of left ankle Hematometra Post-menopausal bleeding Osteoarthritis of knees, bilateral Moderate obstructive sleep apnea noncompliant with cpap Ulnar nerve abnormality Colon polyps Diverticulitis Hypersomnia Migraine with aura Nausea BMI greater than 40 Nocturnal hypoxia pt is to use CPAP and O2 2L at night Diastolic heart failure Headache (Acute) Bilateral knee pain (Chronic) GERD (gastroesophageal reflux disease) (Chronic) Urinary hesitancy Tobacco abuse (Chronic) Osteoporosis Presence of cardiac pacemaker longterm current use of anticoagulant therapy on eliquis for persistent afib S/P placement of cardiac pacemaker Palpitation Dyspnea SSS (sick sinus syndrome) COPD (chronic obstructive pulmonary disease) (Chronic) Atrial fibrillation (HFpEF) heart failure with preserved ejection fraction History of reverse total replacement of left shoulder joint (~04/2018) Bradycardia Chronic venous insufficiency (Chronic) Peripheral edema (Chronic) Bilateral lower extremity edema (Acute) Medical History Dyspnea on exertion Diabetes mellitus per hx, pt. 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 Osteoporosis Sick sinus syndrome follows with Dr Nance Chronic venous insufficiency History of COVID-19 2020-resolved CHF (congestive heart failure) reason for jardiance Hx of gout Urinary incontinence Sleep apnea could not tolerate machine Chronic obstructive pulmonary disease daily inhaler, rare use of albuterol Hx of diverticulitis of colon hospitalized [facility] 04/2022 with diverticulitis and microperforation recent flare ~ 11/2024, now resolved Hx of Clostridium difficile infection hospitalized 2022, patient denies having C Diff, "I carry the gene for it" Leukocytosis Morbid obesity History of peptic ulcer reason for prilosec Asthma "can't even tell you when I used my rescue inhaler last" A-fib chronic a-fib, follows with Dr. Nance Vitamin D deficiency Osteoarthritis Spinal stenosis Peptic ulcer disease Migraine Surgical History Hx of dilation and curettage History of total shoulder replacement left History of esophagogastroduodenoscopy (EGD) History of tooth extraction Status post hysteroscopic polypectomy 2022 with pmb and hematometra History of Garrett colposuspension 2000, [place] History of permanent cardiac pacemaker placement (05/07/20) [employer] dual-chamber; placed 05/07/2020; follows with - checked on 01/27/25 History of colonoscopy most recent: 07/11/22: MAC without issue History of skin cancer removed, right leg History of anesthesia reaction Following shoulder surgery ([facility]) Difficulty breathing after the nerve block- "needed oxygen for three months", then developed A fib, no issues since History of arthroscopy of left shoulder History of arthroscopy of left knee H/O tubal ligation Family History Father Prostate cancer Myocardial infarction Hypertension Brother Diabetes Mother Hypertension Brother Diabetes Sister Pericardial effusion Sister Pericardial effusion Other No family history of adverse response to anesthesia Denies family history of Ovarian cancer Breast cancer Colorectal cancer Social History Smoking Status: Current every day smoker Tobacco Type: Cigarettes Age Started Using Tobacco: 30; packs per day: 1; Cigarettes Per Day: 1 ppd; Second Hand Exposure: No; Do You Dip or Chew Tobacco: No; Tobacco Cessation Education Requested by Patient: No Hx Alcohol Use: No Hx Substance Use: No Preferred Language: Montserratian Communication Ability: Effective Visual Impairment: No Limitations Hearing Ability: Normal 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 Beliefs That Will Affect Care: None marital status: Current Living Situation: Alone Current Living Situation Comment: with boyfriend current occupational status: retired 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 HENT: Negative for neck pain/stiffness, headache, congestion, sore throat, swelling. EYES: Negative for discharge/pain or vision changes. RESP: Negative for cough/hemoptysis and shortness of breath. CV: Negative chest pain, difficulty breathing, palpitations. ABD: Negative pain, nausea, vomiting. : Negative increase frequency, dysuria, blood in urine or stool. MUSC: + lower back pain, - edema. SKIN: Negative rash, lesions/sores. NEURO: Negative headache, dizziness, weakness. Physical Exam Physical Exam: GENERAL APPEARANCE NAD, activity normal for age, well developed/ well nourished, no cyanosis, pallor, or diaphoresis. EYES lids/conjunctiva normal. EARS/NOSE/THROAT Mucous membranes moist, nares normal, lips/teeth normal uvula midline without oral pharyngeal erythema, exudate or swelling TMs normal bilaterally. No lymphangitis/lymphedema. HEAD/NECK normocephalic atraumatic, no facial trauma, neck is supple. RESPIRATORY respiratory effort normal, speaks in full sentences, no tripod position, no accessory muscle use. Lungs clear to auscultation without rhonchi, wheezes, rales CARDIAC Regular rate and rhythm, no edema. ABDOMINAL Soft, ND/NT. No evidence of fluid wave. No pulsatile masses on exam, rebound tenderness, Hemphill sign or pain over Mcburney's point. MUSCLES/EXTREMITIES No abnormal range of motion, no swelling. SKIN Warm, pink and dry. No rashes, dermatoses, petechiae or lesions. NEUROLOGICAL Speech is clear and appropriate. Normal level of consciousness. Gait and coordination are normal. 5/5 strength in all extremities. PSYCH Normal mood and affect. Judgement/competence is appropriate Results & Data Results & Data Vital Signs (Past 12 Hours) Vital Signs Temp Pulse Pulse Resp BP BP Pulse Ox 02/09/25 14:07 02/09/25 14:07 36.7 C 74 20 112/55 L 95 02/09/25 13:00 70 18 131/74 97 02/09/25 12:03 71 13 121/53 L 96 02/09/25 11:00 67 20 117/63 93 02/09/25 10:30 69 21 121/65 99 02/09/25 10:00 65 14 113/64 99 02/09/25 09:57 02/09/25 09:56 86 L 02/09/25 09:48 71 02/09/25 09:33 68 20 91 02/09/25 09:19 36.7 C 65 19 121/58 L 92 O2 Del Method O2 Flow Rate 02/09/25 14:07 Nasal Cannula 2 02/09/25 14:07 Nasal Cannula 2 02/09/25 13:00 Nasal Cannula 2 02/09/25 12:03 Nasal Cannula 2 02/09/25 11:00 Nasal Cannula 2 02/09/25 10:30 Nasal Cannula 2 02/09/25 10:00 Nasal Cannula 2 02/09/25 09:57 Nasal Cannula 02/09/25 09:56 Room Air 02/09/25 09:48 02/09/25 09:33 Room Air 02/09/25 09:19 Room Air PG Care Time/CCT Total # of Minutes Spent Total Time Spent with Patient: Total time spent is greater than 50% in coordination of care (as documented) at patient's floor/unit and/or counseling patient: Coding Level of Care Code 62355 INT INP/OBS CARE Diagnoses CHF (congestive heart failure) I50.9 COPD (chronic obstructive pulmonary disease) J44.9 COPD type: unspecified COPD Paroxysmal atrial fibrillation I48.0 Atrial fibrillation type: paroxysmal Back pain M54.9 (2) COPD (chronic obstructive pulmonary disease) COPD type: unspecified COPD Qualified Code(s): J44.9 - Chronic obstructive pulmonary disease, unspecified (3) Atrial fibrillation Atrial fibrillation type: paroxysmal Qualified Code(s): I48.0 - Paroxysmal atrial fibrillation
[2025-02-09] MEDS: NICOTINE 14 MG/24 HR PATCH TD SCH (15:21)
[2025-02-09] MEDS: FUROSEMIDE 40 MG/4 ML VIAL IV SCH (15:22)
[2025-02-09 15:36] LABS: Appearance Urine Clear (Clear); Glucose Urine UA 3+ (Negative)
--- NOTE | 2025-02-09 19:28 | Electrocardiogram Report ---
Test Reason : Blood Pressure : */* mmHG Vent. Rate : 66 BPM Atrial Rate : * BPM P-R Int : * ms QRS Dur : 90 ms QT Int : 394 ms P-R-T Axes : * 89 7 degrees QTcB Int : 413 ms Atrial fibrillation with frequent ventricular-paced complexes Low voltage QRS Nonspecific T wave abnormality Abnormal ECG When compared with ECG of 18-Dec-2023 10:27, No significant change Confirmed by Bebo Benito ([id number]) on 02/09/2025 7:27:38 PM Referred By: REFERRED SELF Confirmed By: Bebo Benito
[2025-02-09] MEDS: NYSTATIN POWDER 15GM BTL EXT SCH (19:53)
[2025-02-09] MEDS: MAGNESIUM CHLORIDE W/CALCIUM 64MG DELAYED REL TAB PO SCH (19:54)
[2025-02-09] MEDS: APIXABAN 5 MG TABLET PO SCH (19:54)
[2025-02-10 07:17] LABS: Hematocrit (blood only) 47.1 % (37.0-47.0); Hemoglobin 15.3 g/dl (12.0-16.0); Mean Corpuscular Hemoglobin 30.8 pg (25.0-34.0); Mean Corpuscular Volume 95.0 fL (80.0-100.0); Platelet Count 255 K/uL (130-400); RDW Standard Deviation 53.1 fL (36.4-46.3); Red Blood Count 4.96 M/uL (4.20-5.40); White Blood Count 14.16 K/ul (4.8-10.8)
[2025-02-10 07:42] LABS: Anion Gap 9.0 (3-11); Blood Urea Nitrogen 34.0 mg/dl (6-23); Calcium 9.5 mg/dl (8.6-10.3); Carbon Dioxide 36.0 mmol/L (21-32); Chloride 95.0 mmol/L (98-107); Creatinine Clr Calc Pharmacy 39.5 ml/min; Glucose 109.0 mg/dl (70-99(Fasting)); Potassium 3.9 mmol/L (3.5-5.1); Sodium 140.0 mmol/L (136-145)
[2025-02-10] MEDS: ADVANCED PROBIOTIC 625 MG CAPSULE PO SCH (08:13)
[2025-02-10] MEDS: SPIRONOLACTONE 25 MG TAB PO SCH (08:13)
[2025-02-10] MEDS: CHOLECALCIFEROL 125 MCG (5,000 UNITS) TAB PO SCH (08:14)
[2025-02-10] MEDS: METOPROLOL SUCC 25MG EXT REL TAB PO SCH (08:14)
[2025-02-10] MEDS: EMPAGLIFLOZIN 10 MG TAB PO SCH (08:14)
[2025-02-10] MEDS: FLUTICASONE FUROATE 200MCG 14 PUFFS/INHALER INH SCH (08:15)
[2025-02-10] MEDS: REMOVE NICODERM PATCH SCH (08:16)
[2025-02-10] MEDS: UMECLIDINIUM/VILANTEROL 62.5/25MCG 7 PUFFS/INHALER INH SCH (08:16)
[2025-02-10] MEDS: ACETAMINOPHEN 325 MG TAB PO PRN (08:17)
[2025-02-10] MEDS ORDERED: NON-FORMULARY MEDICATION (Fluticasone-Umeclidin-Vilanter [Trelegy Ellipta] 200-62.5-25 mcg INH SCH (09:00)
[2025-02-10] MEDS: HYDROCODONE/ACETAMOPHEN 5/325MG TAB PO PRN (09:57)
--- NOTE | 2025-02-10 13:25 | Cardiology Consultation ---
Date of Consultation February 10, 2025 Assessment & Plan (1) (HFpEF) heart failure with preserved ejection fraction: (2) Atrial fibrillation: (3) Tobacco abuse: (4) Chronic venous insufficiency: (5) S/P placement of cardiac pacemaker: (6) Dyspnea on exertion: Plan ASSESSMENT/PLAN: 1. Heart failure with preserved EF: Known chronic issue and perhaps mild acute worsening. She does not appear to be significantly hypervolemic currently and has very asymmetric lower extremity edema, consistent with known varicose veins and venous insufficiency. Can continue intravenous diuretic today but would consider resuming her usual oral Lasix tomorrow. Consumes large amounts of sodium based on her reports today. We discussed the importance of a low-sodium diet, less than 2000 mg daily. Daily weights. Strict I's and O's while hospitalized. Continue to follow in the heart failure program. 2. Atrial fibrillation: Permanent. Heart rate adequately controlled. Continue beta-nate. On digoxin as well chronically and can continue digoxin but monitor levels periodically. Will defer to her community health navigator. Continue anticoagulation for stroke risk reduction. Monitor CBC. 3. Dual-chamber pacemaker: As per electrophysiology. 4. Hypoxia: Further evaluation is being performed by the hospitalist service, Dr. Carter. CT imaging is pending. 5. Venous sufficiency: Varicose veins: Follows with vascular medicine. Significant improvement in right lower extremity edema since VenaSeal ablation. 6. Tobacco abuse: Smoking cessation recommended. 7. Disposition: Cardiology will continue to follow. Patient care communicated with Dr. Carter of the primary hospitalist service. Thank you for allowing me to participate in the care of your patient. Please call for any other questions or concerns. Sincerely, John Pacheco M.D. History of Present Illness Reason for Consultation: "CHF" Requesting Physician: Lebron Davis MD Attending Physician: Cassie Carter MD History of Present Illness Ms. Jerome is a pleasant 74-year-old female with a history significant for heart failure with preserved EF, atrial fibrillation, tachybradycardia syndrome s/p dual-chamber pacemaker, tobacco abuse, COPD, duodenal ulcer, and venous insufficiency s/p right GSV adhesive ablation. She also has a history of sleep apnea, intolerant to CPAP. Her primary public health social worker is Dr. Benito. She follows in the heart failure program with Rosina Arzola PA-C. She has been seen by vascular medicine, Rachael López PA-C. She presented to the hospital on 02/09/2025 due to back pain. She was found to be hypoxic with oxygen saturation charted at 86% on room air. She was felt to have CHF exacerbation by hospitalist service and placed on Lasix 80 mg IV twice daily. She states that she did not feel short of breath on presentation however she went for a walk in the hallway today for therapy and had dyspnea on exertion without oxygen supplementation. She denies shortness of breath at rest. She sleeps flat on a couch, denying orthopnea or PND. She has chronic lower extremity edema and has been followed by vascular medicine. She underwent venous ablation on the right side and has had significant improvement in her right lower extremity. She had been weighing herself in the past but she stopped doing such. She was last seen in the heart failure program on 09/17/2024. She admits that she consumes large amounts of sodium by eating potato chips every day and her favorite food, hoagies, which she eats often. She also salts her fresh vegetables. She denies melena, hematochezia, hematuria, or other bleeding. She denies chest pain, syncope, near syncope, or palpitations. Review of systems: As above. Family history: Father had CO in his mid 70s to early 80s. Social history: She is smoked for many years, currently 1 pack/day. She denies alcohol or drug abuse. She lives home alone. She has 2 daughters, Alfreda Velez ([facility]) and Giselle Phan ([facility] cardiac [facility]ilion). Giselle was present at the bedside. Allergies Allergy/AdvReac Type Severity Reaction Status Date / Time fentanyl Allergy Intermediate HIVES Verified 02/03/25 13:03 NSAIDS (Non-Steroidal Allergy Intermediate DUODENAL Verified 02/03/25 13:03 Anti-Inflamma ULCER doxycycline AdvReac Intermediate FLUID Verified 02/03/25 13:03 RETENTION gabapentin AdvReac Intermediate hallucinati Verified 02/03/25 13:03 ons ibuprofen AdvReac Intermediate DUODENAL Verified 02/03/25 13:03 ULCER naproxen AdvReac Intermediate DUODENAL Verified 02/03/25 13:03 ULCERS aspirin AdvReac Mild DUEODENAL Verified 02/03/25 13:03 ULCER diltiazem AdvReac Mild Fluid Verified 02/03/25 13:03 retention tramadol AdvReac Mild hallucinati Verified 02/03/25 13:03 on Home Medications Medication Instructions Recorded Confirmed Type cholecalciferol (vitamin D3) 125 5,000 unit PO QAM 02/07/18 02/09/25 History mcg (5,000 unit) tablet (Vitamin D3) ondansetron 4 mg disintegrating 4 mg PO Q8H PRN nausea and 06/01/22 02/09/25 Rx tablet vomiting #30 tabs fluticasone fur. 200 mcg-umeclid 1 inh inhalation DAILY #60 ea 12/13/23 02/09/25 Rx 62.5 mcg-vilant 25 mcg inhalat.powder (Trelegy Ellipta) magnesium chloride 71.5 mg 71.5 mg PO BID 12/22/23 02/09/25 History (magnesium chloride) tablet,delayed release (Slow-Mag) omeprazole 40 mg capsule,delayed 40 mg PO QAM #90 caps 02/29/24 02/09/25 Rx release albuterol sulfate 90 mcg/actuation 2 puff inhalation Q4 PRN Shortness 03/20/24 02/09/25 Rx aerosol inhaler Of Breath Or Wheezing #6.7 grams allopurinol 100 mg tablet 200 mg (2 x 100 mg) PO QAM #180 03/20/24 02/09/25 Rx tabs empagliflozin 10 mg tablet 10 mg PO QAM #90 tabs 03/20/24 02/09/25 Rx (Jardiance) metoprolol succinate 50 mg 75 mg (1.5 x 50 mg) PO QAM #135 05/30/24 02/09/25 Rx tablet,extended release 24 hr tabs furosemide 40 mg tablet (Lasix) 80 mg (2 x 40 mg) PO QAM #180 tabs 06/17/24 02/09/25 Rx apixaban 5 mg tablet (Eliquis) 5 mg PO BID #180 tabs 11/22/24 02/09/25 Rx digoxin 125 mcg (0.125 mg) tablet 125 mcg PO QAM #90 tabs 12/12/24 02/09/25 Rx spironolactone 50 mg tablet 50 mg PO QAM #90 tabs 12/19/24 02/09/25 Rx L.acidophilus,rhamnosus-B.breve-S.thermophilus 1 tab PO DAILY 02/03/25 02/09/25 History 3 billion cell chew tab Patient History Medical History Dyspnea on exertion Diabetes mellitus per hx, pt. 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 Osteoporosis Sick sinus syndrome follows with Dr Nance Chronic venous insufficiency History of COVID-2020-resolved CHF (congestive heart failure) reason for jardiance Hx of gout Urinary incontinence Sleep apnea could not tolerate machine Chronic obstructive pulmonary disease daily inhaler, rare use of albuterol Hx of diverticulitis of colon hospitalized [facility] 04/2022 with diverticulitis and microperforation recent flare ~ 11/2024, now resolved Hx of Clostridium difficile infection hospitalized 2022, patient denies having C Diff, "I carry the gene for it" Leukocytosis Morbid obesity History of peptic ulcer reason for prilosec Asthma "can't even tell you when I used my rescue inhaler last" A-fib chronic a-fib, follows with Dr. Nance Vitamin D deficiency Osteoarthritis Spinal stenosis Peptic ulcer disease Migraine Surgical History Hx of dilation and curettage History of total shoulder replacement left History of esophagogastroduodenoscopy (EGD) History of tooth extraction Status post hysteroscopic polypectomy 2022 with pmb and hematometra History of Garrett colposuspension 2000, [place] History of permanent cardiac pacemaker placement (05/07/20) [employer] dual-chamber; placed 05/07/2020; follows with - checked on 01/27/25 History of colonoscopy most recent: 07/11/22: MAC without issue History of skin cancer removed, right leg History of anesthesia reaction Following shoulder surgery ([facility]) Difficulty breathing after the nerve block- "needed oxygen for three months", then developed A fib, no issues since History of arthroscopy of left shoulder History of arthroscopy of left knee H/O tubal ligation Family History Father Prostate cancer Myocardial infarction Hypertension Brother Diabetes Mother Hypertension Brother Diabetes Sister Pericardial effusion Sister Pericardial effusion Other No family history of adverse response to anesthesia Denies family history of Ovarian cancer Breast cancer Colorectal cancer Social History Smoking Status: Current every day smoker Tobacco Type: Cigarettes Age Started Using Tobacco: 30; packs per day: 1; Cigarettes Per Day: 1 ppd; Second Hand Exposure: No; Do You Dip or Chew Tobacco: No; Tobacco Cessation Education Requested by Patient: No Hx Alcohol Use: No Hx Substance Use: No Preferred Language: Namibian Communication Ability: Effective Visual Impairment: No Limitations Hearing Ability: Normal Printing Supervisor Required: No Beliefs That Will Affect Care: None marital status: Current Living Situation: Alone Current Living Situation Comment: with boyfriend current occupational status: retired 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 Alert and oriented. HEENT: Anicteric sclera. Neck: Thick neck, but no appreciable JVD. No hepatojugular reflux. No bruits. Normal carotid upstrokes bilaterally. Cardiac: Irregularly irregular. Normal rate. Normal S1-S2. No murmurs, rubs, or gallops. Pulmonary: Mild inspiratory wheeze, but otherwise clear to auscultation bilaterally without wheezes, rales, or rhonchi. Abdomen: Soft, nontender, nondistended, with normoactive bowel sounds. No bruits noted. Extremities: 2+ radial pulses bilaterally. 2+ posterior tibialis pulses bilaterally. Bilateral lower extremity varicose veins, more extensive on the left. Trace right lower extremity edema. 1-2+ distal left lower extremity edema. No cyanosis. Psychiatric: Affect appears appropriate. Results & Data Vital Signs (Past 12 Hours) Vital Signs Temp Pulse Pulse Resp BP Pulse Ox Pulse Ox 02/10/25 11:32 36.8 C 63 20 94/59 L 92 02/10/25 11:30 94 02/10/25 09:31 02/10/25 07:40 36.4 C 65 20 112/74 96 02/10/25 07:00 58 L 02/10/25 03:36 36.4 C L 75 20 117/71 92 Pulse Ox O2 Del Method O2 Flow Rate O2 Flow Rate O2 Flow Rate 02/10/25 11:32 Nasal Cannula 2 02/10/25 11:30 83 L 2 0 02/10/25 09:31 Nasal Cannula 2 02/10/25 07:40 Nasal Cannula 2 02/10/25 07:00 02/10/25 03:36 Nasal Cannula 2 Intake & Output 02/08/25 02/09/25 02/10/25 02/11/25 06:59 06:59 06:59 06:59 Intake Total 480 / 480 Output Total 850 / 850 Balance -370 / -370 Weight 222 lb 14.197 oz Laboratory Results Laboratory Results - last 24 hr 02/09/25 02/09/25 02/09/25 15:24 17:06 20:31 WBC RBC Hgb Hct MCV MCH MCHC RDW Std Deviation RDW Coeff of Yamilet Plt Count MPV Sodium Potassium Chloride Carbon Dioxide Anion Gap BUN Creatinine Est Cr Clr Drug Dosing eGFR BUN/Creatinine Ratio Glucose POC Glucose 202 H 148 H Calcium Procalcitonin Urine Color Yellow Urine Appearance Clear Urine pH 6.0 Ur Specific [place] > 1.045 H Urine Protein Negative Urine Glucose (UA) 3+ H Urine Ketones Trace H Urine Blood Negative Urine Nitrite Negative Urine Bilirubin Negative Urine Urobilinogen Negative Ur Leukocyte Esterase Negative Urine Comment 02/10/25 02/10/25 02/10/25 06:43 07:50 08:30 WBC 14.16 H RBC 4.96 Hgb 15.3 Hct 47.1 H MCV 95.0 MCH 30.8 MCHC 32.5 RDW Std Deviation 53.1 H RDW Coeff of [place]ilet 15.3 H Plt Count 255 MPV 10.1 Sodium 140 Potassium 3.9 Chloride 95 L Carbon Dioxide 36 H Anion Gap 9 BUN 34 H Creatinine 1.39 H Est Cr Clr Drug Dosing 39.5 eGFR 39.82 BUN/Creatinine Ratio 24.5 H Glucose 109 H POC Glucose 132 H Calcium 9.5 Procalcitonin 0.05 Urine Color Urine Appearance Urine pH Ur Specific [place] Urine Protein Urine Glucose (UA) Urine Ketones Urine Blood Urine Nitrite Urine Bilirubin Urine Urobilinogen Ur Leukocyte Esterase Urine Comment 02/10/25 11:59 WBC RBC Hgb Hct MCV MCH MCHC RDW Std Deviation RDW Coeff of [place] Plt Count MPV Sodium Potassium Chloride Carbon Dioxide Anion Gap BUN Creatinine Est Cr Clr Drug Dosing eGFR BUN/Creatinine Ratio Glucose POC Glucose 123 H Calcium Procalcitonin Urine Color Urine Appearance Urine pH Ur Specific [place] Urine Protein Urine Glucose (UA) Urine Ketones Urine Blood Urine Nitrite Urine Bilirubin Urine Urobilinogen Ur Leukocyte Esterase Urine Comment Diagnostic Findings Telemetry personally reviewed: Atrial fibrillation with occasional ventricular pacing. Normal heart rate. Echo 02/09/2025 report reviewed: Normal LV systolic function. EF 60-65%. Normal wall motion. No significant valvular abnormalities reported. ECG personally reviewed 02/09/2025: Atrial fibrillation with occasional ventricular paced complexes 66 bpm. Nonspecific T wave abnormality. Vascular note reviewed from 02/07/2025. EP note reviewed from 01/27/2025. Heart failure note reviewed from 09/17/2024. History and physical report reviewed. Labs reviewed and notable for mildly abnormal but stable renal function, normal potassium, elevated BNP but improved from prior values, mild leukocytosis (stable), normal hemoglobin, normal transaminase levels. Chest x-ray report reviewed from 02/09/2025: Pulmonary vascular congestion. No airspace consolidation. Chest x-ray image personally reviewed. Pulmonary vascular congestion appreciated. Dual-chamber pacemaker device noted. No obvious infiltrate. Medications Administered Current Inpatient Medications Acetaminophen (Acetaminophen 325 Mg Tab) 650 mg PO Q4H PRN PRN Reason: pain 1-3/fever Stop: 03/11/25 12:12 Last Admin: 02/10/25 08:17 Dose: 650 mg Hydrocodone Bitart/Acetaminophen (Hydrocodone/Acetamophen 5/325mg Tab) 1 tab PO Q4H PRN PRN Reason: Mod-Sev Pain (Scale 4-10) Stop: 02/24/25 09:48 Last Admin: 02/10/25 09:57 Dose: 1 tab Albuterol (Albuterol Hfa 8 Gm Inhaler) 2 puffs INH Q4 PRN PRN Reason: Shortness Of Breath Or Wheezing Stop: 03/11/25 12:08 Albuterol (Albut/Ipratrop 3mg/0.5mg Neb 3 Ml Vial) 3 ml NEB Q6R PRN; Protocol PRN Reason: Wheezing Stop: 03/11/25 14:44 Allopurinol (Allopurinol 100 Mg Tab) 200 mg PO QAM [facility] Stop: 03/12/25 08:59 Last Admin: 02/10/25 08:14 Dose: 200 mg Apixaban (Apixaban 5 Mg Tablet) 5 mg PO BID [facility] Stop: 03/11/25 20:59 Last Admin: 02/10/25 08:14 Dose: 5 mg Digoxin (Digoxin 0.125 Mg Tab) 0.125 mg PO DAILY@1600 [facility] Stop: 03/12/25 15:59 Empagliflozin (Empagliflozin 10 Mg Tab) 10 mg PO QAM [facility] Stop: 03/12/25 08:59 Last Admin: 02/10/25 08:14 Dose: 10 mg Fluticasone Furoate (Fluticasone Furoate 200mcg 14 Puffs/Inhaler) 1 puffs INH DAILY [facility] Stop: 03/12/25 08:59 Last Admin: 02/10/25 08:15 Dose: 1 puffs Furosemide (Furosemide 40 Mg/4 Ml Vial) 80 mg IV BID17 [facility] Stop: 03/11/25 13:59 Last Admin: 02/10/25 08:13 Dose: 80 mg Lactobacillus Acidophilus (Advanced Probiotic 625 Mg Capsule) 625 mg PO DAILY [facility] Stop: 03/12/25 08:59 Last Admin: 02/10/25 08:13 Dose: 625 mg Magnesium Chloride (Magnesium Chloride W/Calcium 64mg Delayed Rel Tab) 64 mg PO BID [facility] Stop: 03/11/25 20:59 Last Admin: 02/10/25 08:13 Dose: 64 mg Metoprolol Succinate (Metoprolol Succ 25mg Ext Rel Tab) [facility] Stop: 03/12/25 08:59 Last Admin: 02/10/25 08:14 Dose: 75 mg Miscellaneous (Remove Nicoderm Patch) 1 each N/A DAILY@0859 [facility] Stop: 03/12/25 08:58 Last Admin: 02/10/25 08:16 Dose: 1 each Morphine Sulfate (Morphine Sulfate 4 Mg/Ml 1 Ml Carp\\Vial) 4 mg IM Q4 PRN PRN Reason: Pain Stop: 02/23/25 12:14 Nicotine (Nicotine 14 Mg/24 Hr Patch) 1 patch TD [facility] Stop: 03/11/25 14:44 Last Admin: 02/10/25 08:15 Dose: 1 patch Nystatin (Nystatin Powder 15gm Btl) 1 appln EXT BID [facility] Stop: 03/11/25 20:59 Last Admin: 02/10/25 08:14 Dose: 1 appln Ondansetron HCl (Ondansetron 4 Mg Od Tab) 4 mg PO Q8H PRN PRN Reason: nausea and vomiting Stop: 03/11/25 12:08 Ondansetron HCl (Ondansetron Inj 2 Mg/Ml 2 Ml Vial) 4 mg IV Q6H PRN PRN Reason: Nausea Stop: 03/11/25 12:12 Pantoprazole Sodium (Pantoprazole 40 Mg Tab) 40 mg PO [facility] Stop: 03/12/25 08:59 Last Admin: 02/10/25 08:14 Dose: 40 mg Spironolactone (Spironolactone 25 Mg Tab) 50 mg PO QAM [facility] Stop: 03/12/25 08:59 Last Admin: 02/10/25 08:13 Dose: 50 mg Umeclidinium/Vilanterol (Umeclidinium/Vilanterol 62.5/25mcg 7 Puffs/Inhaler) 1 puffs INH DAILY [facility] Stop: 03/12/25 08:59 Last Admin: 02/10/25 08:16 Dose: 1 puffs Vitamin D (Cholecalciferol 125 Mcg (5,000 Units) Tab) 125 mcg PO QAM [facility] Stop: 03/12/25 08:59 Last Admin: 02/10/25 08:14 Dose: 125 mcg PG Care Time/CCT Total # of Minutes Spent Total Time Spent with Patient: Total time spent is greater than 50% in coordination of care (as documented) at patient's floor/unit and/or counseling patient: Coding Level of Care Code 97458 INT INP/OBS CARE 3/75MIN Diagnoses (HFpEF) heart failure with preserved ejection fraction I50.30 Paroxysmal atrial fibrillation I48.0 Atrial fibrillation type: paroxysmal Tobacco abuse Z72.0 Chronic venous insufficiency I87.2 S/P placement of cardiac pacemaker Z95.0 Dyspnea on exertion R06.09 (2) Atrial fibrillation Atrial fibrillation type: paroxysmal Qualified Code(s): I48.0 - Paroxysmal atrial fibrillation
--- NOTE | 2025-02-10 14:00 | CT Scan Report ---
CT OF THE CHEST WITHOUT IV CONTRAST CLINICAL HISTORY: hypoxia, fixed inspiratory/expiratory wheeze R>L COMPARISON STUDY: 05/23/2022 CT DOSE: 872.87 mGy.cm TECHNIQUE: Axial images of the chest were obtained without IV contrast. Images were reviewed in the axial, sagittal, and coronal planes. IV contrast was not administered for this examination. Automat ed exposure control was utilized for the study. A dose lowering technique was utilized adhering to t he principles of ALARA. FINDINGS: There are no pathologically enlarged axillary mediastinal or hilar lymph nodes identified on this non contrast study. There are coronary artery calcifications. There is no evidence of thoracic aortic aneurysm. There is no pericardial effusion. There is prominent fat within the intra-atrial septum. There is a bipolar central venous pacemaker present. Within the upper abdomen there are hypodense right renal lesions most consistent with cysts. There is no pneumothorax. There are no pleural effusions. No central airway lesions are visualized. There are no pleural effusions. There is no focal pulmonary consolidation. There is minimal dependent atelectatic change. There is mi ld lingular, and bilateral lower lobe mucus plugging There is a tiny right-sided Bochdalek hernia. There are no suspicious pulmonary masses. IMPRESSION: 1. Mild lingular and bilateral lower lobe mucus plugging 2. No evidence of focal pneumonia 3. No evidence of pathologic adenopathy ACT 112: Negative or not required by law. Electronically signed by: Carloz Marin M.D. 02/10/2025 1:59 PM
[2025-02-10] MEDS: DIGOXIN 0.125 MG TAB PO SCH (16:44)
--- NOTE | 2025-02-10 19:49 | Hospitalist Progress Note ---
Date of Service February 10, 2025 Assessment & Plan (1) CHF (congestive heart failure): (2) COPD (chronic obstructive pulmonary disease): (3) Atrial fibrillation: (4) Back pain: Plan The patient is an 80 year-old female with acute hypoxia thought to be related to acute on chronic HFpEF, COPD, atrial fibrillation, right back/flank pain with negative CT abdomen # Hypoxia - I'm not convinced this is related to acute HFpEF because it persists after diuresis, she is down several kilos compared to a week ago, and agree with Dr. Pacheco she does not currently appear volume overloaded. Leukocytosis today is related to solumedrol given in ED yesterday. She is afebrile and I repeated a procalcitonin today which is again negative so pneumonia unlikely. She has no diffuse wheezing and does not appear to be in COPD exacerbation. There is a fixed inspiratory and expiratory wheeze more prominent on the right side that could represent extrinsic airway obstruction. PE fairly unlikely because she is on apixaban and back/flank pain is not in her chest. -obtained noncontrast chest CT - no airway obstruction or pneumonia, however she does have bilateral mucus plugging and that could be contributing to hypoxia. Personally reviewed/interpreted chest CT images. -continue control inhalers and PRN duonebs for COPD -sputum culture -azithomycin 500 mg po x 3 doses -added hypertonic saline nebs, mucinex, flutter valve to improve pulmonary toilet # Acute on chronic HFpEF # Cor pulmonale TTE on 02/09/2025): - Normal LV systolic function - No RWMA - EF: 60-65% - No significant valvular pathology Appears euvolemic or near euvolemic on exam Discussed with consulting field reporter Dr. Pacheco Treatment plan: Continue Lasix 80 mg IV BID, spironolactone, metoprolol. -diuretics held this afternoon prior to dose because of relative hypotension -AM BMP # Atrial fibrillation Rate controlled cont metoprolol and digoxin Treatment plan: On apixaban. # Tobacco use Ongoing smoking. Treatment plan: Smoking cessation counseling. # Right back/flank pain - CT negative for diverticulitis or nephrolithiasis etc, no RUQ pain New onset, radiating partially around towards abdomen, not to buttock or leg, improved after one Vicodin. Seems to be musculoskeletal pain, potentially an oblique muscle. Not radicular in character. T/L spine not painful and nontender to palpation compression fracture unlikely. -continue analgesia with APAP, added low dose vicodin which was effective -PT/OT # Diverticulitis Recent episode resolved. Treatment plan: Colonoscopy scheduled this week. # Venous stasis disease - RLE edema sig improved after recent procedure by Dr. Wesley # DVT Prophylaxis Managed with apixaban. Medical Complexity: Medical decision making was complex, high risk for clinical deterioration morbidity, or mortality for this encounter. Uncontrolled conditions: HFpEF, acute hypoxia, mucus plugging High risk interventions: IV diuretics Admission and Anticipated Discharge Date Admission Date: February 09, 2025 Subjective Admitted with hypoxia and acute on chronic HFpEF. New onset right back/flank pain radiating towards abdomen, improved after one Vicodin. No dyspnea. Good urine output after IV Lasix. Oxygen saturation dropped significantly during ambulation to 80s. No recent medication changes or missed diuretics. Stable weight, improved right leg swelling post vascular procedure by Dr. Wesley. Recent diverticulitis episode resolved, colonoscopy scheduled this week. Children noticed wheezing sound last few days/weeks. No recall of aspiration. Physical Exam Physical Exam: General Appearance: Awake, alert, oriented x4, sitting up, wearing nasal cannula oxygen. Vital signs: Reviewed past 24h vital signs in EMR, unremarkable. HEENT: Within normal limits. Respiratory: Clear lungs, scant bibasilar crackles, fixed inspiratory and e xpiratory wheeze, more pronounced on right side. Nonlabored breathing. Cardiovascular: Regular heart rhythm, no murmur. Gastrointestinal: Soft, nontender, nondistended. Extremities: Cool, well-perfused lower extremities, 3+ bilateral edema, venous stasis changes. Skin: Warm and dry, no rash. Neurological: Normal. Psychiatric: Normal. Results & Data Results & Data Vital Signs (Past 12 Hours) Vital Signs Temp Pulse Pulse Resp BP Pulse Ox Pulse Ox 02/10/25 19:41 36.9 C 64 18 112/74 93 02/10/25 16:03 36.6 C 65 16 95/57 L 92 02/10/25 13:06 72 02/10/25 11:32 36.8 C 63 20 94/59 L 92 02/10/25 11:30 94 02/10/25 09:31 Pulse Ox O2 Del Method O2 Flow Rate O2 Flow Rate O2 Flow Rate 02/10/25 19:41 Nasal Cannula 2 02/10/25 16:03 Nasal Cannula 2 02/10/25 13:06 02/10/25 11:32 Nasal Cannula 2 02/10/25 11:30 83 L 2 0 02/10/25 09:31 Nasal Cannula 2 Laboratory Results - Laboratory Studies: - WBC: 14,000 - Hemoglobin: Stable - Creatinine: 1.3 - Imaging (TTE on 02/09/2025): - Normal LV systolic function - No RWMA - EF: 60-65% - No significant valvular pathology PG Care Time/CCT Total # of Minutes Spent Total Time Spent with Patient: Total time spent is greater than 50% in coordination of care (as documented) at patient's floor/unit and/or counseling patient: Coding Level of Care Code 85380 SUB INP/OBS CARE 350MIN Diagnoses CHF (congestive heart failure) I50.9 COPD (chronic obstructive pulmonary disease) J44.9 COPD type: unspecified COPD Paroxysmal atrial fibrillation I48.0 Atrial fibrillation type: paroxysmal Back pain M54.9 (2) COPD (chronic obstructive pulmonary disease) COPD type: unspecified COPD Qualified Code(s): J44.9 - Chronic obstructive pulmonary disease, unspecified (3) Atrial fibrillation Atrial fibrillation type: paroxysmal Qualified Code(s): I48.0 - Paroxysmal atrial fibrillation
[2025-02-10] MEDS: AZITHROMYCIN 250 MG TAB PO SCH (20:35)
[2025-02-10] MEDS: guaiFENesin 600 MG TABCR PO SCH (20:36)
[2025-02-10] MEDS: SODIUM CHLOR 7% 4 ML NEB NEB SCH (20:42)
[2025-02-10] MEDS: ALBUT/IPRATROP 3MG/0.5MG NEB 3 ML VIAL NEB PRN (20:46)
--- NOTE | 2025-02-11 07:37 | Hospitalist Progress Note ---
Date of Service February 11, 2025 Assessment & Plan (1) CHF (congestive heart failure): (2) COPD (chronic obstructive pulmonary disease): (3) Atrial fibrillation: (4) Back pain: Plan The patient is an 80 year-old female with acute hypoxia thought to be related to acute on chronic HFpEF, COPD, atrial fibrillation, right back/flank pain with negative CT abdomen # Hypoxia (probably acute on chronic hypoxic respiratory failure) - persists despite diuresis to dry (mild hypotension and increase in Cr) so not explained by heart failure. She may have had a mild HF exacerbation / volume overload but that has resolved This seems to be multifactorial related to: # COPD - not in exacerbation and not on home oxygen, monitors with oximeter at home periodically # ANYI - she reports she tried CPAP apx 2 years ago but couldn't tolerate it. Suspect chronic nocturnal hypoxia # Morbid obesity with BMI of 40.5 and alveolar hypoventilation - could have component of OHS # Cor pulmonale # Reports hx of narcolepsy and falls asleep all the time in the day. Used to be on a stimulant medication years ago # Mucus plugging chronically anticoagulated and compliant so unlikely to be PE. no evidence of pneumonia -obtained noncontrast chest CT - no airway obstruction or pneumonia, however she does have bilateral mucus plugging and that could be contributing to hypoxia. -continue control inhalers and PRN duonebs for COPD -sputum culture ordered but unable to produce -azithromycin 500 mg po x 3 doses -added hypertonic saline nebs, mucinex, flutter valve to improve pulmonary toilet -ordered overnight oximetry study -was 82% on room air with ambulation by PT today -should be able to discharge tomorrow, if still with O2 requirement would order 2-step and set up home oxygen, pulmonary referral, reestablish with sleep medicine # Acute on chronic HFpEF - mild exacerbation, resolved TTE on 02/09/2025): - Normal LV systolic function - No RWMA - EF: 60-65% - No significant valvular pathology Appears euvolemic on exam consulting desizing machine operator Dr. Pacheco - reviewed recs in note initially diuresed with IV lasix, diuretics held today, resume spironolactone and oral lasix in AM, continue metoprolol -AM BMP # Persistent atrial fibrillation Rate controlled cont metoprolol and digoxin Treatment plan: On apixaban. # Tobacco use Ongoing smoking. Treatment plan: Smoking cessation counseling provided 02/11. # Right back/flank pain - CT negative for diverticulitis or nephrolithiasis etc, no RUQ pain New onset, radiating partially around towards abdomen, not to buttock or leg, improved after one Vicodin. Seems to be musculoskeletal pain, probably a strained oblique muscle. Not radicular in character. T/L spine not painful and nontender to palpation compression fracture unlikely. -continue analgesia with APAP, added low dose vicodin which was effective -PT/OT -improved a lot # Diverticulitis Recent episode resolved. Treatment plan: Colonoscopy scheduled this week. # Venous stasis disease - RLE edema sig improved after recent GSV procedure by Dr. Wesley - this is the cause of the asymmetric leg edema # DVT Prophylaxis Managed with apixaban. Home health PT/OT recommended by therapists updated her daughter in room 02/10 Admission and Anticipated Discharge Date Admission Date: February 09, 2025 Subjective Continues to be free of dyspnea she is not having any wheezing today, she continues to be on 2 L of oxygen though charted on room air, sats are in mid 90s no chest pain, leg edema improved remains asymmetric which is her baseline because of previous GSV procedure on the right she was hypotensive last night and this morning more than her baseline so diuretics were held yesterday afternoon and this morning Physical Exam Physical Exam: General Appearance: Awake, alert, oriented x4, sitting up, wearing nasal cannula oxygen. sitting up in the chair appears comfortable Vital signs: Reviewed past 24h vital signs in EMR, unremarkable. HEENT: Within normal limits. Respiratory: Clear lungs, no rhonchi rales or wheezes nonlabored breathing Cardiovascular: Regular heart rhythm, no murmur. no JVD but sitting upright Gastrointestinal: Soft, nontender, nondistended. Extremities: lower extremities warm and well-perfused asymmetric 2-3+ pitting edema improved a little bit compared to yesterday Skin: Warm and dry, no rash. Neurological: Normal. Psychiatric: Normal. Results & Data Results & Data Vital Signs (Past 12 Hours) Vital Signs Temp Pulse Pulse Resp BP Pulse Ox O2 Del Method 02/11/25 07:02 78 16 95 Nasal Cannula 02/11/25 03:36 36.6 C 80 20 120/71 94 Nasal Cannula 02/11/25 00:00 60 02/10/25 23:48 36.7 C 59 L 18 93 Nasal Cannula 02/10/25 20:46 68 16 93 Nasal Cannula 02/10/25 19:42 Nasal Cannula 02/10/25 19:41 36.9 C 64 18 112/74 93 Nasal Cannula O2 Flow Rate 02/11/25 07:02 2 02/11/25 03:36 2 02/11/25 00:00 02/10/25 23:48 02/10/25 20:46 2 02/10/25 19:42 2 02/10/25 19:41 2 Laboratory Results hemoglobin is 14.6, white blood count is 13 platelets 213 sodium is normal potassium 4.1 carbon oxide 34 BUN 39 creatinine 1.41 which is increased a little bit from her baseline of 1.2-1.3 and same as yesterday PG Care Time/CCT Total # of Minutes Spent Total Time Spent with Patient: Total time spent is greater than 50% in coordination of care (as documented) at patient's floor/unit and/or counseling patient: Coding Level of Care Code 47011 SUB INP/OBS CARE MIN Diagnoses CHF (congestive heart failure) I50.9 COPD (chronic obstructive pulmonary disease) J44.9 COPD type: unspecified COPD Paroxysmal atrial fibrillation I48.0 Atrial fibrillation type: paroxysmal Back pain M54.9 (2) COPD (chronic obstructive pulmonary disease) COPD type: unspecified COPD Qualified Code(s): J44.9 - Chronic obstructive pulmonary disease, unspecified (3) Atrial fibrillation Atrial fibrillation type: paroxysmal Qualified Code(s): I48.0 - Paroxysmal atrial fibrillation
[2025-02-11 07:47] LABS: Hematocrit (blood only) 44.8 % (37.0-47.0); Hemoglobin 14.6 g/dl (12.0-16.0); Mean Corpuscular Hemoglobin 30.9 pg (25.0-34.0); Mean Corpuscular Volume 94.7 fL (80.0-100.0); Platelet Count 213 K/uL (130-400); RDW Standard Deviation 53.5 fL (36.4-46.3); Red Blood Count 4.73 M/uL (4.20-5.40); White Blood Count 13.44 K/ul (4.8-10.8)
[2025-02-11 08:04] LABS: Anion Gap 6.0 (3-11); Blood Urea Nitrogen 39.0 mg/dl (6-23); Calcium 9.4 mg/dl (8.6-10.3); Carbon Dioxide 34.0 mmol/L (21-32); Chloride 96.0 mmol/L (98-107); Creatinine Clr Calc Pharmacy 38.8 ml/min; Glucose 110.0 mg/dl (70-99(Fasting)); Potassium 4.1 mmol/L (3.5-5.1); Sodium 136.0 mmol/L (136-145)
--- NOTE | 2025-02-11 10:07 | Cardiology Progress Note ---
Date of Service February 11, 2025 Assessment & Plan (1) (HFpEF) heart failure with preserved ejection fraction: (2) Atrial fibrillation: (3) Tobacco abuse: (4) Chronic venous insufficiency: (5) S/P placement of cardiac pacemaker: (6) Dyspnea on exertion: Plan ASSESSMENT/PLAN: 1. Heart failure with preserved EF: Known chronic issue and does not appear significant hypervolemic. Has very asymmetric lower extremity edema, consistent with known varicose veins and venous insufficiency. Can continue home dose of oral lasix 80 mg po qday. Consumes large amounts of sodium when at home. We discussed the importance of a low-sodium diet, less than 2000 mg daily. Daily weights. Strict I's and O's while hospitalized. Continue to follow in the heart failure program. 2. Atrial fibrillation: Permanent. Heart rate adequately controlled. Continue beta-nate. On digoxin as well chronically and can continue digoxin but monitor levels periodically. Will defer to her director strategy. Continue anticoagulation for stroke risk reduction. Monitor CBC. 3. Dual-chamber pacemaker: As per electrophysiology. 4. Hypoxia: Further evaluation is being performed by the hospitalist service, Dr. Carter. CT imaging demonstrated mucus plugging. 5. Venous sufficiency: Varicose veins: Follows with vascular medicine. Significant improvement in right lower extremity edema since VenaSeal ablation. 6. Tobacco abuse: Smoking cessation recommended. 7. Disposition: Cardiology will sign off at this time. Please call with further questions/concerns. Updated her daughter, Giselle, with patient's permission. Admission and Anticipated Discharge Date Admission Date: February 09, 2025 Subjective Patient was seen earlier today. She denies shortness of breath. She ambulated in the hallway per her report with and without oxygen. She reports that she became hypoxic without oxygen but did not feel dyspneic as she did yesterday. She is now using a flutter valve and incentive spirometer. She denies chest pain, palpitations, syncope or near syncope. Edema remains stable and asymmetric. Her grandson was present at the bedside. Physical Exam Physical Exam: Gen.: No acute distress. Alert and oriented. HEENT: Anicteric sclera. Neck: Thick neck, but no appreciable JVD. No hepatojugular reflux. Cardiac: Irregularly irregular. Normal rate. Normal S1-S2. No murmurs, rubs, or gallops. Pulmonary: Clear to auscultation bilaterally without wheezes, rales, or rhonchi. Abdomen: Soft, nontender, nondistended, with normoactive bowel sounds. No bruits noted. Extremities: 2+ radial pulses bilaterally. 2+ posterior tibialis pulses bilaterally. Bilateral lower extremity varicose veins, more extensive on the left. Trace right lower extremity edema. 1-2+ distal left lower extremity edema. No cyanosis. Psychiatric: Affect appears appropriate. Results & Data Vital Signs (Past 12 Hours) Vital Signs Temp Pulse Pulse Resp BP Pulse Ox O2 Del Method 02/11/25 08:03 36.6 C 80 20 99/62 L 90 Nasal Cannula 02/11/25 07:02 78 16 95 Nasal Cannula 02/11/25 03:36 36.6 C 80 20 120/71 94 Nasal Cannula 02/11/25 00:00 60 02/10/25 23:48 36.7 C 59 L 18 93 Nasal Cannula O2 Flow Rate 02/11/25 08:03 2 02/11/25 07:02 2 02/11/25 03:36 2 02/11/25 00:00 02/10/25 23:48 Intake & Output 02/09/25 02/10/25 02/11/25 02/12/25 06:59 06:59 06:59 06:59 Intake Total 480 / 480 420 / 420 Output Total 850 / 850 300 / 300 Balance -370 / -370 120 / 120 Weight 222 lb 14.197 oz 221 lb 5.506 oz Laboratory Results Laboratory Results - last 24 hr 02/10/25 02/10/25 02/10/25 11:59 17:16 20:33 WBC RBC Hgb Hct MCV MCH MCHC RDW Std Deviation RDW Coeff of Yamilet Plt Count MPV Sodium Potassium Chloride Carbon Dioxide Anion Gap BUN Creatinine Est Cr Clr Drug Dosing eGFR BUN/Creatinine Ratio Glucose POC Glucose 123 H 133 H 149 H Calcium 02/11/25 02/11/25 07:33 07:57 WBC 13.44 H RBC 4.73 Hgb 14.6 Hct 44.8 MCV 94.7 MCH 30.9 MCHC 32.6 RDW Std Deviation 53.5 H RDW Coeff of Yamilet 15.2 H Plt Count 213 MPV 10.2 Sodium 136 Potassium 4.1 Chloride 96 L Carbon Dioxide 34 H Anion Gap 6 BUN 39 H Creatinine 1.41 H Est Cr Clr Drug Dosing 38.8 eGFR 39.14 BUN/Creatinine Ratio 27.7 H Glucose 110 H POC Glucose 112 H Calcium 9.[address] chest report reviewed from 02/10/2025: Mild lingular and bilateral lower lobe mucous plugging. No evidence of focal pneumonia. Per radiology. Labs reviewed and notable for stable mild leukocytosis, normal hemoglobin, mildly abnormal renal function (stable), normal potassium. Telemetry personally reviewed: Atrial fibrillation with occasional ventricular paced complexes. Heart rate well-controlled. Medications Administered Current Inpatient Medications Acetaminophen (Acetaminophen 325 Mg Tab) 650 mg PO Q4H PRN PRN Reason: pain 1-3/fever Stop: 03/11/25 12:12 Last Admin: 02/10/25 08:17 Dose: 650 mg Hydrocodone Bitart/Acetaminophen (Hydrocodone/Acetamophen 5/325mg Tab) 1 tab PO Q4H PRN PRN Reason: Mod-Sev Pain (Scale 4-10) Stop: 02/24/25 09:48 Last Admin: 02/10/25 20:34 Dose: 1 tab Albuterol (Albuterol Hfa 8 Gm Inhaler) 2 puffs INH Q4 PRN PRN Reason: Shortness Of Breath Or Wheezing Stop: 03/11/25 12:08 Albuterol (Albut/Ipratrop 3mg/0.5mg Neb 3 Ml Vial) 3 ml NEB Q6R PRN; Protocol PRN Reason: Wheezing Stop: 03/11/25 14:44 Last Admin: 02/11/25 07:02 Dose: 3 ml Allopurinol (Allopurinol 100 Mg Tab) 200 mg PO QAM [facility] Stop: 03/12/25 08:59 Last Admin: 02/11/25 09:58 Dose: 200 mg Apixaban (Apixaban 5 Mg Tablet) 5 mg PO BID [facility] Stop: 03/11/25 20:59 Last Admin: 02/11/25 10:01 Dose: 5 mg Azithromycin (Azithromycin 250 Mg Tab) 500 mg PO DAILY [facility] Stop: 02/12/25 09:01 Last Admin: 02/11/25 09:59 Dose: 500 mg Digoxin (Digoxin 0.125 Mg Tab) 0.125 mg PO DAILY@1600 [facility] Stop: 03/12/25 15:59 Last Admin: 02/10/25 16:44 Dose: 0.125 mg Empagliflozin (Empagliflozin 10 Mg Tab) 10 mg PO QAM [facility] Stop: 03/12/25 08:59 Last Admin: 02/10/25 08:14 Dose: 10 mg Fluticasone Furoate (Fluticasone Furoate 200mcg 14 Puffs/Inhaler) 1 puffs INH DAILY [facility] Stop: 03/12/25 08:59 Last Admin: 02/11/25 10:00 Dose: 1 puffs Furosemide (Furosemide 40 Mg/4 Ml Vial) 80 mg IV BID17 [facility] Stop: 03/11/25 13:59 Last Admin: 02/10/25 16:45 Dose: Not Given Guaifenesin (Guaifenesin 600 Mg Tabcr) 600 mg PO Q12 [facility] Stop: 03/12/25 20:59 Last Admin: 02/11/25 09:59 Dose: 600 mg Lactobacillus Acidophilus (Advanced Probiotic 625 Mg Capsule) 625 mg PO DAILY [facility] Stop: 03/12/25 08:59 Last Admin: 02/11/25 10:00 Dose: 625 mg Magnesium Chloride (Magnesium Chloride W/Calcium 64mg Delayed Rel Tab) 64 mg PO BID [facility] Stop: 03/11/25 20:59 Last Admin: 02/11/25 09:59 Dose: 64 mg Metoprolol Succinate (Metoprolol Succ 25mg Ext Rel Tab) 75 mg PO QAM [facility] Stop: 03/12/25 08:59 Last Admin: 02/10/25 08:14 Dose: 75 mg Miscellaneous (Remove Nicoderm Patch) 1 each N/A DAILY@0859 [facility] Stop: 03/12/25 08:58 Last Admin: 02/11/25 10:02 Dose: 1 each Morphine Sulfate (Morphine Sulfate 4 Mg/Ml 1 Ml Carp\Vial) 4 mg IM Q4 PRN PRN Reason: Pain Stop: 02/23/25 12:14 Nicotine (Nicotine 14 Mg/24 Hr Patch) 1 patch TD QAM [facility] Stop: 03/11/25 14:44 Last Admin: 02/11/25 10:00 Dose: 1 patch Nystatin (Nystatin Powder 15gm Btl) 1 appln EXT BID [facility] Stop: 03/11/25 20:59 Last Admin: 02/10/25 20:39 Dose: 1 appln Pantoprazole Sodium (Pantoprazole 40 Mg Tab) 40 mg PO QAM [facility] Stop: 03/12/25 08:59 Last Admin: 02/11/25 09:59 Dose: 40 mg Prochlorperazine (Prochlorperazine Maleate 5 Mg Tab) 5 mg PO Q6H PRN PRN Reason: nausea Stop: 03/12/25 19:59 Sodium Chloride (Sodium Chlor 7% 4 Ml Neb) 4 ml NEB BIDR [facility] Stop: 03/12/25 19:44 Last Admin: 02/11/25 07:02 Dose: 4 ml Spironolactone (Spironolactone 25 Mg Tab) 50 mg PO QAM [facility] Stop: 03/12/25 08:59 Last Admin: 02/10/25 08:13 Dose: 50 mg Umeclidinium/Vilanterol (Umeclidinium/Vilanterol 62.5/25mcg 7 Puffs/Inhaler) 1 puffs INH DAILY [facility] Stop: 03/12/25 08:59 Last Admin: 02/11/25 10:01 Dose: 1 puffs Vitamin D (Cholecalciferol 125 Mcg (5,000 Units) Tab) 125 mcg PO QAM [facility] Stop: 03/12/25 08:59 Last Admin: 02/11/25 10:00 Dose: 125 mcg PG Care Time/CCT Total # of Minutes Spent Total Time Spent with Patient: Total time spent is greater than 50% in coordination of care (as documented) at patient's floor/unit and/or counseling patient: Coding Level of Care Code 65176 SUB INP/OBS CARE 3/50MIN Diagnoses (HFpEF) heart failure with preserved ejection fraction I50.30 Paroxysmal atrial fibrillation I48.0 Atrial fibrillation type: paroxysmal Tobacco abuse Z72.0 Chronic venous insufficiency I87.2 S/P placement of cardiac pacemaker Z95.0 Dyspnea on exertion R06.09 (2) Atrial fibrillation Atrial fibrillation type: paroxysmal Qualified Code(s): I48.0 - Paroxysmal atrial fibrillation
[2025-02-11] MEDS: PROCHLORPERAZINE MALEATE 5 MG TAB PO PRN (20:51)
[2025-02-12 07:28] LABS: Hematocrit (blood only) 43.0 % (37.0-47.0); Hemoglobin 13.3 g/dl (12.0-16.0); Mean Corpuscular Hemoglobin 29.2 pg (25.0-34.0); Mean Corpuscular Volume 94.3 fL (80.0-100.0); Platelet Count 218 K/uL (130-400); RDW Standard Deviation 53.2 fL (36.4-46.3); Red Blood Count 4.56 M/uL (4.20-5.40); White Blood Count 8.57 K/ul (4.8-10.8)
[2025-02-12 07:49] LABS: Anion Gap 6.0 (3-11); Blood Urea Nitrogen 34.0 mg/dl (6-23); Calcium 9.1 mg/dl (8.6-10.3); Carbon Dioxide 32.0 mmol/L (21-32); Chloride 100.0 mmol/L (98-107); Creatinine Clr Calc Pharmacy 41.8 ml/min; Glucose 107.0 mg/dl (70-99(Fasting)); Potassium 4.4 mmol/L (3.5-5.1); Sodium 138.0 mmol/L (136-145)
--- NOTE | 2025-02-12 07:54 | Hospitalist Progress Note ---
Date of Service February 12, 2025 Assessment & Plan (1) Nocturnal hypoxia: (2) COPD (chronic obstructive pulmonary disease): Plan In summary this is a 74-year-old female who presented with low back pain found to have persistent hypoxia; at this time not requiring supplemental oxygen with ambulation but is with persistent nocturnal hypoxia Previously established condition, unable to tolerate positive pressure ventilation; found to be hypoxic on nocturnal oximetry, pending O2 delivery to home for safe disposition Continue with pulmonary toilet Start supplemental oxygen with 3 L at bedtime Pending disposition Home with home health Admission and Anticipated Discharge Date Admission Date: February 09, 2025 Subjective Ms. Jerome is a 74-year-old female whose active medical conditions include chronic venous insufficiency, heart failure with preserved ejection fraction, intermittent atrial fibrillation, chronic obstructive pulmonary disease without PFTs available for review, recent diverticulitis that has resolved among other chronic medical conditions who presented to the on 02/09 due to persistent low back pain, found to have persistent hypoxia requiring oxygen supplementation. No acute overnight events, patient as well as morning without specific complaint or concern. Review of Systems Review of Systems: Review of constitutional, cardiovascular, pulmonary systems was unremarkable Physical Exam Physical Exam: General: Elderly female in no acute distress Vital Signs: Reviewed HEENT: Moist mucous membranes Pulmonary: Symmetrically reduced chest wall excursion secondary to body habitus; clear to auscultation bilaterally Cardiovascular: Regular rate and rhythm without murmurs, rubs, or gallops; S1 and S2 normal; 1+ pitting bilateral lower edema Gastrointestinal: Soft, nontender Neurologic: Cranial nerves II through XII grossly intact; no discernible focal weakness no paresthesia Results & Data Results & Data Vital Signs (Past 12 Hours) Vital Signs Temp Pulse Pulse Pulse Resp BP BP 02/12/25 07:39 16 02/12/25 07:28 16 02/12/25 07:21 36.8 C 59 L 18 105/67 02/12/25 03:47 36.9 C 79 20 105/67 02/12/25 03:00 85 02/12/25 00:04 36.5 C 76 20 105/68 02/11/25 22:30 89 02/11/25 22:01 107 H 02/11/25 21:00 02/11/25 20:24 85 18 Pulse Ox Pulse Ox O2 Del Method O2 Del Method O2 Flow Rate 02/12/25 07:39 Room Air 02/12/25 07:28 93 Room Air 02/12/25 07:21 97 Room Air 02/12/25 03:47 91 Room Air 02/12/25 03:00 92 Room Air 02/12/25 00:04 87 L Room Air 02/11/25 22:30 91 Room Air 02/11/25 22:01 02/11/25 21:00 Nasal Cannula 2 02/11/25 20:24 94 Nasal Cannula 2 PG Care Time/CCT Total # of Minutes Spent Total Time Spent with Patient: Total time spent is greater than 50% in coordination of care (as documented) at patient's floor/unit and/or counseling patient: Coding Level of Care Code 49270 SUB INP/OBS CARE 05/18MIN Diagnoses Nocturnal hypoxia G47.34 COPD (chronic obstructive pulmonary disease) J44.9 COPD type: unspecified COPD (2) COPD (chronic obstructive pulmonary disease) COPD type: unspecified COPD Qualified Code(s): J44.9 - Chronic obstructive pulmonary disease, unspecified
[2025-02-12] MEDS: FUROSEMIDE 80 MG TAB PO SCH (08:38)
[2025-02-13 06:32] LABS: Hematocrit (blood only) 44.8 % (37.0-47.0); Hemoglobin 13.8 g/dl (12.0-16.0); Mean Corpuscular Hemoglobin 29.4 pg (25.0-34.0); Mean Corpuscular Volume 95.3 fL (80.0-100.0); Platelet Count 202 K/uL (130-400); RDW Standard Deviation 54.2 fL (36.4-46.3); Red Blood Count 4.70 M/uL (4.20-5.40); White Blood Count 9.17 K/ul (4.8-10.8)
[2025-02-13 06:50] LABS: Anion Gap 7.0 (3-11); Blood Urea Nitrogen 32.0 mg/dl (6-23); Calcium 8.9 mg/dl (8.6-10.3); Carbon Dioxide 30.0 mmol/L (21-32); Chloride 101.0 mmol/L (98-107); Creatinine Clr Calc Pharmacy 50.1 ml/min; Glucose 110.0 mg/dl (70-99(Fasting)); Potassium 4.2 mmol/L (3.5-5.1); Sodium 138.0 mmol/L (136-145)
[2025-02-13 06:55] VITALS: RESP 18
[2025-02-13 07:56] VITALS: BP 105/64; PULSE 88; TEMP 97.7; O2SAT 93
--- NOTE | 2025-02-13 11:23 | Discharge Summary ---
Discharge Summary Date of Service February 13, 2025 Principal Dx & Hospital Course #1 = Principal Diagnosis (1) Nocturnal hypoxia: (2) COPD (chronic obstructive pulmonary disease): Plan In summary this is a 74-year-old female who presented with low back pain found to have persistent hypoxia; at this time not requiring supplemental oxygen with ambulation but is with persistent nocturnal hypoxia Previously established condition, unable to tolerate positive pressure ventilation; found to be hypoxic on nocturnal oximetry, pending O2 delivery to home for safe disposition Continue supplemental oxygen with 3 L at bedtime Admission HPI Per Admitting Provider Pt is a 74 y/o female with pmh of CHF, COPD, afib, who presents to the ER with complaint of back pain and was noted to be hypoxic as well. Pt states she had been feeling lower back pain for the past few days and this am it felt sharp and worse with radiation around her abdomen. She has h/o of diverticulitis and was concerned this pain felt similar. In the ER CT a/p was negative for any acute pathology. Her 02 stats were noted in Mid 80s, pt wears 02 only at night. She denied any SOB, chest pain, fever, or productive cough. CXR showed pulmonary edema. Pt is being admitted for further treatment of CHF exacerbation with hypoxia and with PT evaluation for her lower back pain. Discharge Exam General: Elderly female in no acute distress Vital Signs: Reviewed HEENT: Moist mucous membranes Pulmonary: Symmetrically reduced chest wall excursion secondary to body habitus; clear to auscultation bilaterally Cardiovascular: Regular rate and rhythm without murmurs, rubs, or gallops; S1 and S2 normal; 1+ pitting bilateral lower edema Gastrointestinal: Soft, nontender Neurologic: Cranial nerves II through XII grossly intact; no discernible focal weakness no paresthesia Discharge Plan Discharge Items Patient Disposition: Home - Home Health Services Reason For Visit: BACK PAIN Discharge Diagnosis: Nocturnal hypoxia, multifactorial Condition on Discharge: Good Activity: Resume your previous activity Non-emergency contact: Primary Care Provider Call non-emergency contact if: you have any medication questions Follow-up/Referrals: Keith Vega DO [Primary Care Provider] - 02/20/25 11:00 am Diet: Carb Consistent or DM2 Fluids: 2000ml (8 cups) Addtl Attending Provider Instructions: You were admitted to [facility] for low back pain, subsequently found to have persistent nocturnal hypoxia requiring supplemental oxygen. This appears to be a previously diagnosed condition after further review of her chart; previously there was an attempt to establish you on CPAP which was unable to be tolerated; to minimize future risk of progressive cardiovascular and pulmonary disease associated with untreated ANYI/OHS he will be prescribed submental oxygen to wear at bedtime with recommended continued assessment by your primary care physician in the outpatient setting. Thank you for choosing [facility] as your healthcare provider. Pending Studies at Discharge: No Stand-Alone Forms: My [facility], Smoking Cessation Medications and DC Order Prescriptions: Continued Trelegy Ellipta 200-62.5-25 mcg blister with device 1 inh inhalation DAILY Qty: 60 6RF omeprazole 40 mg capsule,delayed release(DR/EC) 40 mg PO QAM Qty: 90 3RF metoprolol succinate 50 mg tablet extended release 24 hr 75 mg PO QAM Qty: 135 3RF furosemide [Lasix] 40 mg tablet 80 mg PO QAM Qty: 180 3RF Eliquis 5 mg tablet 5 mg PO BID Qty: 180 3RF digoxin 125 mcg (0.125 mg) tablet 125 mcg PO QAM Qty: 90 3RF spironolactone 50 mg tablet 50 mg PO QAM Qty: 90 3RF ondansetron 4 mg tablet,disintegrating 4 mg PO Q8H PRN (Reason: nausea and vomiting) Qty: 30 0RF albuterol sulfate 90 mcg/actuation HFA aerosol inhaler 2 puff INHALATION Q4 PRN (Reason: Shortness Of Breath Or Wheezing) Qty: 6.7 6RF allopurinol 100 mg tablet 200 mg PO QAM Qty: 180 3RF Jardiance 10 mg tablet 10 mg PO QAM Qty: 90 3RF cholecalciferol (vitamin D3) [Vitamin D3] 5,000 unit Tablet 5,000 unit PO QAM Slow-Mag 71.5 mg Tablet,Delayed Release (Dr/Ec) 71.5 mg PO BID L.acid-L.rham-B.breve-S.therm 3 billion cell Tablet,Chewable 1 tab PO DAILY Discharge Orders: Discharge Order (Routine); Ordered 02/13/25 Ordered By: Shant Mcintosh/Other Patient Handouts: Health Effects of Smoking, ED How to Quit Smoking Admission Data Admit Date/Time: 02/09/25 12:13 Attending Provider: Shant Yancey Admit Provider: Lebron Davis Primary Care Provider: Keith Vega Other Providers: Lebron Davis; Bebo Benito; Rosina Arzola; [facility] Other Interventions: Discharge Summary Assessment (RN) Last Done: 02/13/25 07:46 Hospital Stay Data Consultations 02/09/25 11:54 ED Decision to Admit Stat 02/09/25 12:07 Consult Cardiology Routine 02/10/25 14:18 [facility] CHF Program Referral Routine Diagnostic Imagining Performed 02/09/25 09:33 CT Abd and Pelvis [CT abd pelvis IV con only] Stat 02/10/25 13:02 CT chest diagnostic wo con Urgent Pending Results Patient Have Any Pending Studies at Discharge: No Discharge Instructions Given to Patient (Per Discharging Provider) You were admitted to [facility] for low back pain, subsequently found to have persistent nocturnal hypoxia requiring supplemental oxygen. This appears to be a previously diagnosed condition after further review of her chart; previously there was an attempt to establish you on CPAP which was unable to be tolerated; to minimize future risk of progressive cardiovascular and pulmonary disease associated with untreated ANYI/OHS he will be prescribed submental oxygen to wear at bedtime with recommended continued assessment by your primary care physician in the outpatient setting. Thank you for choosing [facility] as your healthcare provider. Total Time Total Time Spent Total Time Spent (In Minutes): I personally spent 40 minutes in today's discharge including bedside counseling, physical exam, medication reconciliation, DME orders, and coordination of care with case management Coding Level of Care Code 71036 INP/OBS DISCH >30 MIN Diagnoses Nocturnal hypoxia G47.34 COPD (chronic obstructive pulmonary disease) J44.9 COPD type: unspecified COPD Home Health Attestation I certify that this patient is under my care and that I, or a physicians events assistant working with me, had a face to-face encounter that meets the home health [id number] encounter requirements with this patient. The encounter with the patient was in whole, or in part, for the following medical condition, which is the primary reason for home health care (list medical condition): back pain I certify that, based on my findings, the following services are medically necessary home health services: My clinical findings support the need for the above services because: OT Assess ADL Status and Restore Function w ADLs PT Assessment for Endurance / Balance / Strength Skilled Nsg Assessment Further, I certify that my clinical findings support that this patient is homebound (i.e. absences from home require considerable and taxing effort and are for medical reasons or episcopal services or infrequently or of short duration when for other reasons) because: Poor Endurance; SOB Minimal Exertion Transportation Assistance/Unable to Leave Home Unassisted Certification for Home Health Services: Based on the above findings, I certify that this patient is confined to the home and needs intermittent snf care, physical therapy and/or speech therapy or continues to need occupational therapy. The patient is under my care, and I have initiated the establishment of the plan of care. This patient will be followed by a physician who will periodically review the plan of care.
== END 2025-02-13 10:10 | disposition home health service (06) | DRG 154 ==
LOC: ED 09:28 → 2N 12:13 → SUATTDRO 12:13 → 2N 13:09